=== PATIENT | male | born 1930 | race Caucasian/White ===

== ENCOUNTER 2016-03-25 18:05 | Inpatient (IN) | payer OTHER ==
[2016-03-25] MEDS ORDERED: NS 0.9% 1000 ML* 2,000 ML IV ONE (18:36)
[2016-03-25] MEDS ORDERED: cefTRIAXone VIAL(*) 1,000 MG in NS 0.9% 50 ML* 50 ML IVPB ONE (18:38)
[2016-03-25 18:52] LABS: Hematocrit 40 % (42-52); Mean Corpuscular HGB Conc 33 g/dl (31-36); Mean Corpuscular Hemoglobin 31 pg (27-31); Mean Corpuscular Volume 96 fL (80-94); Mean Platelet Volume 10 um3 (7.4-10.4); Red Blood Count 4.15 10^6/ul (4.0-5.4); Red Cell Distribution Width 14 % (10.5-15); White Blood Count 11.9 10^3/ul (3.5-10.8)
[2016-03-25 19:06] LABS: Urine Bilirubin Negative (Negative); Urine Glucose Negative (Negative); Urine Nitrite Negative (Negative)
[2016-03-25 19:06] LABS: Albumin 3.3 g/dL (3.2-5.2); BUN/Creatinine Ratio 17.2 (8-20); Calcium 9.2 mg/dL (8.6-10.3); EGFR African American 48.2 (>60); EGFR Non-African American 37.5 (>60); Globulin 3.8 g/dL (2-4); Potassium 3.8 mmol/L (3.5-5.0); Total Protein 7.1 g/dL (6.4-8.9)
[2016-03-25 19:09] LABS: Troponin I 0.07 ng/mL (<0.04)
--- NOTE | 2016-03-25 19:22 | RAD ---
HISTORY: Left rales COMPARISONS: August 11, 2015 VIEWS:1: Single frontal portable view of the chest at 6:59 PM FINDINGS: LINES AND TUBES: None. CARDIOMEDIASTINAL SILHOUETTE: The cardiomediastinal silhouette is normal for portable technique. PLEURA: The costophrenic angles are sharp. No pleural abnormalities are noted. LUNG PARENCHYMA: There is confluent alveolar opacification of the right lower lung ABDOMEN: The upper abdomen is clear. There is no subphrenic gas. BONES AND SOFT TISSUES: No bone or soft tissue abnormalities are noted. IMPRESSION: RIGHT LOWER LUNG CONSOLIDATION. RECOMMEND FOLLOW-UP UNTIL RESOLUTION TO EXCLUDE UNDERLYING PULMONARY PARENCHYMAL PATHOLOGY
--- NOTE | 2016-03-25 19:43 | HP ---
H&P (Free Text) History and Physical: PCP: Raj Tan MD Date/Time of Evaluation: 1944 CC: confusion, fever HPI: Mr Chalo is an 84YO male HX CAD/VT/stent x2, HTN, & dementia who was given a 7 day Rx for amoxicillin clavulanate by his PCP for URI symptoms filled 2016. His daughter with whom he lives reports he took it as prescribed. Yesterday he seemed to be doing well, but when he awoke this AM he informed his daughter he had vomited during the night. She states he looked OK and so she went to work, but had her brother check on him around 1300 when he was found in bed having lost control of bowel & bladder, was more confused than baseline, & generally too weak to walk. They helped him to the shower, cleaned him up, and called his PCP who advised taking him to the ED if he was not improve after an hour. He did not and was brought in for evaluation with finding of RLL infiltrate, hypoxia, & hypotension. He has had a seasonal influenza shot, but pneumovax status is unknown. Mr Isabel is demented to the degree he is unable to give a complete history. Therefore, this information is largely supplemented by his daughter, Leslie. PMedHx CAD/VT/stents x2 "pernicious" anemia, doubtful given only mild macrocytic anemia and only on oral B12 HTN HLD dementia Allergies No Known Allergies Allergy (Verified 12/10/15 14:04) Ambulatory Orders Aspirin [Aspirin Adult Low Dose] 81 mg PO DAILY 07/04/14 Atenolol TAB* [Tenormin TAB* 25 MG] 25 mg PO DAILY 07/04/14 Benazepril (NF) [Lotensin (NF)] 10 mg PO DAILY 07/04/14 Cyanocobalamin TAB* [Vitamin B12 TAB*] 1,000 mcg PO DAILY 07/22/14 Multiple Vitamins W/ Minerals [Multivitamin] 1 liq PO DAILY 07/22/14 Donepezil TAB* [Aricept TAB*] 11/19/14 Pravastatin Sodium 11/19/14 Azithromycin TAB* [Zithromax TAB (Z-ANDREA)*] 0 mg PO .Z-ANDREA INSTRUCTIONS #6 tab Benzonatate [Tessalon Perles] 100 mg PO QID PRN #30 cap 12/10/15 Fvriyiogwuy-Uukrg-Rh W/APAP [Nyquil] 12/10/15 PSurgHx R hip FX repair (FX occurred at ~age 70 while ski jumping in [place]) SocHx: no tobacco, alcohol, or recreational drugs; lives with his daughter; full code status, needs revisiting FamHx: daughter: pernicious anemia ROS: as above, otherwise reviewed and all were negative Constitutional: NAD, normally developed, overweight elderly white male vitals: Vital Signs Temp 38.3 C 03/25/16 18:14 Pulse 84 03/25/16 18:14 Resp 20 03/25/16 18:14 BP 103/57 03/25/16 18:14 Pulse Ox 95 03/25/16 18:14 Intake & Output 03/24/16 03/25/16 03/25/16 23:59 11:59 23:59 Weight 92.986 kg HEENM: atraumatic; sclera/conjunctiva: non-icteric/clear; hearing: clinically mildly decreased; oropharynx: clear, mucosa tacky Neck: soft tissue: no nuchal rigidity; thyroid: normal Pulmonary: clear to auscultation bilaterally, good aeration, no accessory muscle use CV: RR/RR, normal S1S2, no carotid bruit, no jugular venous distention, 2+ B DP/ PT, no edema Abdominal: soft, non-distended, non-tender, no rebound/guarding/rigidity, normoactive bowel sounds, no hepatosplenomegaly or masses, no costovertebral angle tenderness Integumental: normal appearance and texture Psychiatric orientation: AA&O to person, loosely to place & situation affect: calm mood: cooperative eye contact: fair content: minimal memory: impaired responses: mildly slowed insight: poor Testing: Lab Results 03/25/16 03/25/16 03/25/16 Range/Units 18:35 18:35 18:35 WBC 11.9 H (3.5-10.8) 10^3/ul RBC 4.15 (4.0-5.4) 10^6/ul Hgb 13.0 L (14.0-18.0) g/dl Hct 40 L (42-52) % MCV 96 H (80-94) fL MCH 31 (27-31) pg MCHC 33 (31-36) g/dl RDW 14 (10.5-15) % Plt Count 171 (150-450) 10^3/ul MPV 10 (7.4-10.4) um3 Neut % (Auto) 92.2 H (38-83) % Lymph % (Auto) 2.4 L (25-47) % Davis % (Auto) 5.1 (1-9) % Eos % (Auto) 0 (0-6) % Baso % (Auto) 0.3 (0-2) % Absolute Neuts (auto) 11.0 H (1.5-7.7) 10^3/ul Absolute Lymphs (auto) 0.3 L (1.0-4.8) 10^3/ul Absolute Monos (auto) 0.6 (0-0.8) 10^3/ul Absolute Eos (auto) 0 (0-0.6) 10^3/ul Absolute Basos (auto) 0 (0-0.2) 10^3/ul Absolute Nucleated RBC 0.01 10^3/ul Nucleated RBC % 0.1 INR (Anticoag Therapy) 1.09 (0.89-1.11) APTT 25.8 L (26.0-36.3) seconds Sodium 138 (133-145) mmol/L Potassium 3.8 (3.5-5.0) mmol/L Chloride 106 (101-111) mmol/L Carbon Dioxide 21 L (22-32) mmol/L Anion Gap 11 (2-11) mmol/L BUN 30 H (6-24) mg/dL Creatinine 1.74 H (0.67-1.17) mg/dL Est GFR ( Amer) 48.2 (>60) Est GFR (Non-Af Amer) 37.5 (>60) BUN/Creatinine Ratio 17.2 (8-20) Glucose 107 H (70-100) mg/dL Lactic Acid (0.5-2.0) mmol/L Calcium 9.2 (8.6-10.3) mg/dL Total Bilirubin 0.70 (0.2-1.0) mg/dL AST 20 (13-39) U/L ALT 13 (7-52) U/L Alkaline Phosphatase 75 (34-104) U/L Troponin I 0.07 H* (<0.04) ng/mL B-Natriuretic Peptide ( - 100) pg/mL Total Protein 7.1 (6.4-8.9) g/dL Albumin 3.3 (3.2-5.2) g/dL Globulin 3.8 (2-4) g/dL Albumin/Globulin Ratio 0.9 L (1-3) Urine Color Urine Appearance Urine pH (5-9) Ur Specific [place] (1.010-1.030) Urine Protein (Negative) Urine Ketones (Negative) Urine Blood (Negative) Urine Nitrate (Negative) Urine Bilirubin (Negative) Urine Urobilinogen (Negative) Ur Leukocyte Esterase (Negative) Urine Glucose (Negative) Urine Ascorbic Acid (Negative) Influenza A (Rapid) (Negative) Influenza B (Rapid) (Negative) 03/25/16 03/25/16 03/25/16 Range/Units 18:35 18:35 18:50 WBC (3.5-10.8) 10^3/ul RBC (4.0-5.4) 10^6/ul Hgb (14.0-18.0) g/dl Hct (42-52) % MCV (80-94) fL MCH (27-31) pg MCHC (31-36) g/dl RDW (10.5-15) % Plt Count (150-450) 10^3/ul MPV (7.4-10.4) um3 Neut % (Auto) (38-83) % Lymph % (Auto) (25-47) % Davis % (Auto) (1-9) % Eos % (Auto) (0-6) % Baso % (Auto) (0-2) % Absolute Neuts (auto) (1.5-7.7) 10^3/ul Absolute Lymphs (auto) (1.0-4.8) 10^3/ul Absolute Monos (auto) (0-0.8) 10^3/ul Absolute Eos (auto) (0-0.6) 10^3/ul Absolute Basos (auto) (0-0.2) 10^3/ul Absolute Nucleated RBC 10^3/ul Nucleated RBC % INR (Anticoag Therapy) (0.89-1.11) APTT (26.0-36.3) seconds Sodium (133-145) mmol/L Potassium (3.5-5.0) mmol/L Chloride (101-111) mmol/L Carbon Dioxide (22-32) mmol/L Anion Gap (2-11) mmol/L BUN (6-24) mg/dL Creatinine (0.67-1.17) mg/dL Est GFR ( Amer) (>60) Est GFR (Non-Af Amer) (>60) BUN/Creatinine Ratio (8-20) Glucose (70-100) mg/dL Lactic Acid 4.4 H* (0.5-2.0) mmol/L Calcium (8.6-10.3) mg/dL Total Bilirubin (0.2-1.0) mg/dL AST (13-39) U/L ALT (7-52) U/L Alkaline Phosphatase (34-104) U/L Troponin I (<0.04) ng/mL B-Natriuretic Peptide 209 H ( - 100) pg/mL Total Protein (6.4-8.9) g/dL Albumin (3.2-5.2) g/dL Globulin (2-4) g/dL Albumin/Globulin Ratio (1-3) Urine Color Yellow Urine Appearance Cloudy Urine pH 5.0 (5-9) Ur Specific [place] 1.016 (1.010-1.030) Urine Protein Negative (Negative) Urine Ketones Negative (Negative) Urine Blood Negative (Negative) Urine Nitrate Negative (Negative) Urine Bilirubin Negative (Negative) Urine Urobilinogen Negative (Negative) Ur Leukocyte Esterase Negative (Negative) Urine Glucose Negative (Negative) Urine Ascorbic Acid * H (Negative) Influenza A (Rapid) (Negative) Influenza B (Rapid) (Negative) 03/25/16 Range/Units 19:26 WBC (3.5-10.8) 10^3/ul RBC (4.0-5.4) 10^6/ul Hgb (14.0-18.0) g/dl Hct (42-52) % MCV (80-94) fL MCH (27-31) pg MCHC (31-36) g/dl RDW (10.5-15) % Plt Count (150-450) 10^3/ul MPV (7.4-10.4) um3 Neut % (Auto) (38-83) % Lymph % (Auto) (25-47) % Davis % (Auto) (1-9) % Eos % (Auto) (0-6) % Baso % (Auto) (0-2) % Absolute Neuts (auto) (1.5-7.7) 10^3/ul Absolute Lymphs (auto) (1.0-4.8) 10^3/ul Absolute Monos (auto) (0-0.8) 10^3/ul Absolute Eos (auto) (0-0.6) 10^3/ul Absolute Basos (auto) (0-0.2) 10^3/ul Absolute Nucleated RBC 10^3/ul Nucleated RBC % INR (Anticoag Therapy) (0.89-1.11) APTT (26.0-36.3) seconds Sodium (133-145) mmol/L Potassium (3.5-5.0) mmol/L Chloride (101-111) mmol/L Carbon Dioxide (22-32) mmol/L Anion Gap (2-11) mmol/L BUN (6-24) mg/dL Creatinine (0.67-1.17) mg/dL Est GFR ( Amer) (>60) Est GFR (Non-Af Amer) (>60) BUN/Creatinine Ratio (8-20) Glucose (70-100) mg/dL Lactic Acid (0.5-2.0) mmol/L Calcium (8.6-10.3) mg/dL Total Bilirubin (0.2-1.0) mg/dL AST (13-39) U/L ALT (7-52) U/L Alkaline Phosphatase (34-104) U/L Troponin I (<0.04) ng/mL B-Natriuretic Peptide ( - 100) pg/mL Total Protein (6.4-8.9) g/dL Albumin (3.2-5.2) g/dL Globulin (2-4) g/dL Albumin/Globulin Ratio (1-3) Urine Color Urine Appearance Urine pH (5-9) Ur Specific [place] (1.010-1.030) Urine Protein (Negative) Urine Ketones (Negative) Urine Blood (Negative) Urine Nitrate (Negative) Urine Bilirubin (Negative) Urine Urobilinogen (Negative) Ur Leukocyte Esterase (Negative) Urine Glucose (Negative) Urine Ascorbic Acid (Negative) Influenza A (Rapid) Negative (Negative) Influenza B (Rapid) Negative (Negative) ECG, personally reviewed: NSR rate 92, occasional PACs, no ischemia CXR, personally reviewed: IMPRESSION: RIGHT LOWER LUNG CONSOLIDATION. RECOMMEND FOLLOW-UP UNTIL RESOLUTION TO EXCLUDE UNDERLYING PULMONARY PARENCHYMAL PATHOLOGY Impression: 85M presenting with hypoxic respiratory failure 2nd RLL CAP DIAGNOSIS & PLAN Primary hypoxic respiratory failure & toxic encephalopathy 2nd RLL CAP : supplemental oxygen : IV azithromycin & ceftriaxone : guifenesin : IV methylprednisolone : IVFs : blood & sputum CXs : urine S pneumo & Legionella antigens : rapid influenza negative : supportive care Secondary CAD/VT/stents x2 : continue aspirin macrocytic anemia : hold cyanocobalamin HTN : hold benezepril & atenolol in setting of septic shock HLD : continue pravastatin dementia : continue donepezil & memantine Admission Rational: inpatient for management of septic shock 2nd RLL CAP in patient at high risk for rapid severe/terminal decompensation DVTp: SCDs & heparin SQ Code Status: full, needs revisiting HCP: daughter, Leslie
[2016-03-25 19:47] LABS: Total Bilirubin 0.7 mg/dL (0.2-1.0)
[2016-03-25] MEDS ORDERED: Acetaminophen TAB* 325 MG PO PRN (20:53)
[2016-03-25] MEDS ORDERED: Ondansetron INJ* 2 MG/ML VIAL IV PRN (20:54)
[2016-03-25] MEDS ORDERED: CMCS: Melatonin (NF) 3 MG TAB PO PRN (20:54)
--- NOTE | 2016-03-25 20:57 | ED ---
Cami Dowling Michael, scribed for Lopez Mariscal MD on 03/25/16 at 1844 . Complex/Multi-Sys Presentation - HPI Summary HPI Summary: 85 y/o male comes to the ED presenting with AMS that started today at 1300. The pt's daughter and son were bedside. The son states that he checked on the pt at 1300 when he found him unable to walk in his bed. The patient normally ambulates without a walker, but today he needed a walker to ambulate. The son reports the patient soiled the bed with urination and feces. The pt also c/o fever and denies haematemesis. The daughter notes the vomit was clear. The PMHx is significant for [place] and dementia. - History Of Current Complaint Chief Complaint: EDAltMentalStatus Time Seen by Provider: 03/25/16 18:09 Hx Obtained From: Family/Souvenir Assembler, Medical Records Hx From Patient Unobtainable Due To: Dementia Onset/Duration: Sudden Onset, Lasting Hours, Still Present Timing: Constant Severity Currently: Moderate Severity Initially: Moderate Associated Signs And Symptoms: Positive: Vomiting, Other - AMS. bilateral LE weakness. - Allergies/Home Medications Allergies/Adverse Reactions: Allergies Allergy/AdvReac Type Severity Reaction Status Date / Time No Known Allergies Allergy Verified 12/10/15 14:04 PMH/Surg Hx/FS Hx/Imm Hx Endocrine/Hematology History: Denies: Hx Anticoagulant Therapy - ASA 81 mg daily, Hx Blood Disorders, Hx Diabetes Cardiovascular History: Reports: Hx Hypertension, Hx Myocardial Infarction Denies: Hx Pacemaker/ICD Respiratory History: Denies: Hx Asthma Psychiatric History: Denies: Hx Panic Disorder - Surgical History Surgery Procedure, Year, and Place: HEART STENTS FROM [facility] 20 YRS AGO( CARDS MAY NOT BE AVAILABLE),HIP PINNING and HIP REPLACEMENT right. 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 Denies: Hx Clostridium Difficile, Hx Hepatitis, Hx Human Immunodeficiency Virus (HIV), Hx of Known/Suspected MRSA, Hx Shingles, History Other Infectious Disease - TB as a young child, Traveled Outside the [place] in Last 30 Days - Family History Known Family History: Positive: Diabetes Family History: no known cardiovascular issues in family lineage - Social History Occupation: Retired Lives: Alone Alcohol Use: None Substance Use Type: Reports: None Smoking Status (MU): Former Smoker Type: Cigarettes Amount Used/How Often: 4 years Length of Time of Smoking/Using Tobacco: 65 years ago quit Have You Smoked in the Last Year: No Review of Systems Positive: Fever Positive: Vomiting Positive: Weakness All Other Systems Reviewed And Are Negative: Yes Physical Exam - Summary Physical Exam Summary: General: Comfortable, pleasant, alert, evidence of old right clavicle fx. HEENT: Moist mucosa. MELBA Neck: soft, supple, no adenopathy, no edema Heart: heart sounds distant. Lungs: hypoxic at 88% on arrival, rales left lower lobe and right side clear. Abdominal: Soft, flat, nontender Extremities: No edema, no calf tenderness Neuro: Alert and oriented x 3, cranial nerves 3-12 intact, industrial custodian and ankle flexion/extension both symmetric, asymmetric ability to puff out cheek. Psych: Logical, coherent Triage Information Reviewed: Yes Vital Signs On Initial Exam: Initial Vitals Temp Pulse Resp BP Pulse Ox 101.0 F 84 20 103/57 95 03/25/16 18:14 03/25/16 18:14 03/25/16 18:14 03/25/16 18:14 03/25/16 18:14 Vital Signs Reviewed: Yes Diagnostics - Vital Signs Vital Signs Temp Pulse Resp BP Pulse Ox 03/25/16 18:14 101.0 F 84 20 103/57 95 - Laboratory Lab Results: Lab Results 03/25/16 03/25/16 03/25/16 Range/Units 18:35 18:35 18:35 WBC 11.9 H (3.5-10.8) 10^3/ul RBC 4.15 (4.0-5.4) 10^6/ul Hgb 13.0 L (14.0-18.0) g/dl Hct 40 L (42-52) % MCV 96 H (80-94) fL MCH 31 (27-31) pg MCHC 33 (31-36) g/dl RDW 14 (10.5-15) % Plt Count 171 (150-450) 10^3/ul MPV 10 (7.4-10.4) um3 Neut % (Auto) 92.2 H (38-83) % Lymph % (Auto) 2.4 L (25-47) % Edwards % (Auto) 5.1 (1-9) % Eos % (Auto) 0 (0-6) % Baso % (Auto) 0.3 (0-2) % Absolute Neuts (auto) 11.0 H (1.5-7.7) 10^3/ul Absolute Lymphs (auto) 0.3 L (1.0-4.8) 10^3/ul Absolute Monos (auto) 0.6 (0-0.8) 10^3/ul Absolute Eos (auto) 0 (0-0.6) 10^3/ul Absolute Basos (auto) 0 (0-0.2) 10^3/ul Absolute Nucleated RBC 0.01 10^3/ul Nucleated RBC % 0.1 INR (Anticoag Therapy) 1.09 (0.89-1.11) APTT 25.8 L (26.0-36.3) seconds Sodium 138 (133-145) mmol/L Potassium 3.8 (3.5-5.0) mmol/L Chloride 106 (101-111) mmol/L Carbon Dioxide 21 L (22-32) mmol/L Anion Gap 11 (2-11) mmol/L BUN 30 H (6-24) mg/dL Creatinine 1.74 H (0.67-1.17) mg/dL Est GFR ( Amer) 48.2 (>60) Est GFR (Non-Af Amer) 37.5 (>60) BUN/Creatinine Ratio 17.2 (8-20) Glucose 107 H (70-100) mg/dL Lactic Acid (0.5-2.0) mmol/L Calcium 9.2 (8.6-10.3) mg/dL Total Bilirubin 0.70 (0.2-1.0) mg/dL AST 20 (13-39) U/L ALT 13 (7-52) U/L Alkaline Phosphatase 75 (34-104) U/L Troponin I 0.07 H* (<0.04) ng/mL B-Natriuretic Peptide ( - 100) pg/mL Total Protein 7.1 (6.4-8.9) g/dL Albumin 3.3 (3.2-5.2) g/dL Globulin 3.8 (2-4) g/dL Albumin/Globulin Ratio 0.9 L (1-3) Urine Color Urine Appearance Urine pH (5-9) Ur Specific [place] (1.010-1.030) Urine Protein (Negative) Urine Ketones (Negative) Urine Blood (Negative) Urine Nitrate (Negative) Urine Bilirubin (Negative) Urine Urobilinogen (Negative) Ur Leukocyte Esterase (Negative) Urine Glucose (Negative) Urine Ascorbic Acid (Negative) Influenza A (Rapid) (Negative) Influenza B (Rapid) (Negative) 03/25/16 03/25/16 03/25/16 Range/Units 18:35 18:35 18:50 WBC (3.5-10.8) 10^3/ul RBC (4.0-5.4) 10^6/ul Hgb (14.0-18.0) g/dl Hct (42-52) % MCV (80-94) fL MCH (27-31) pg MCHC (31-36) g/dl RDW (10.5-15) % Plt Count (150-450) 10^3/ul MPV (7.4-10.4) um3 Neut % (Auto) (38-83) % Lymph % (Auto) (25-47) % Edwards % (Auto) (1-9) % Eos % (Auto) (0-6) % Baso % (Auto) (0-2) % Absolute Neuts (auto) (1.5-7.7) 10^3/ul Absolute Lymphs (auto) (1.0-4.8) 10^3/ul Absolute Monos (auto) (0-0.8) 10^3/ul Absolute Eos (auto) (0-0.6) 10^3/ul Absolute Basos (auto) (0-0.2) 10^3/ul Absolute Nucleated RBC 10^3/ul Nucleated RBC % INR (Anticoag Therapy) (0.89-1.11) APTT (26.0-36.3) seconds Sodium (133-145) mmol/L Potassium (3.5-5.0) mmol/L Chloride (101-111) mmol/L Carbon Dioxide (22-32) mmol/L Anion Gap (2-11) mmol/L BUN (6-24) mg/dL Creatinine (0.67-1.17) mg/dL Est GFR ( Amer) (>60) Est GFR (Non-Af Amer) (>60) BUN/Creatinine Ratio (8-20) Glucose (70-100) mg/dL Lactic Acid 4.4 H* (0.5-2.0) mmol/L Calcium (8.6-10.3) mg/dL Total Bilirubin (0.2-1.0) mg/dL AST (13-39) U/L ALT (7-52) U/L Alkaline Phosphatase (34-104) U/L Troponin I (<0.04) ng/mL B-Natriuretic Peptide 209 H ( - 100) pg/mL Total Protein (6.4-8.9) g/dL Albumin (3.2-5.2) g/dL Globulin (2-4) g/dL Albumin/Globulin Ratio (1-3) Urine Color Yellow Urine Appearance Cloudy Urine pH 5.0 (5-9) Ur Specific [place] 1.016 (1.010-1.030) Urine Protein Negative (Negative) Urine Ketones Negative (Negative) Urine Blood Negative (Negative) Urine Nitrate Negative (Negative) Urine Bilirubin Negative (Negative) Urine Urobilinogen Negative (Negative) Ur Leukocyte Esterase Negative (Negative) Urine Glucose Negative (Negative) Urine Ascorbic Acid * H (Negative) Influenza A (Rapid) (Negative) Influenza B (Rapid) (Negative) 03/25/16 Range/Units 19:26 WBC (3.5-10.8) 10^3/ul RBC (4.0-5.4) 10^6/ul Hgb (14.0-18.0) g/dl Hct (42-52) % MCV (80-94) fL MCH (27-31) pg MCHC (31-36) g/dl RDW (10.5-15) % Plt Count (150-450) 10^3/ul MPV (7.4-10.4) um3 Neut % (Auto) (38-83) % Lymph % (Auto) (25-47) % Edwards % (Auto) (1-9) % Eos % (Auto) (0-6) % Baso % (Auto) (0-2) % Absolute Neuts (auto) (1.5-7.7) 10^3/ul Absolute Lymphs (auto) (1.0-4.8) 10^3/ul Absolute Monos (auto) (0-0.8) 10^3/ul Absolute Eos (auto) (0-0.6) 10^3/ul Absolute Basos (auto) (0-0.2) 10^3/ul Absolute Nucleated RBC 10^3/ul Nucleated RBC % INR (Anticoag Therapy) (0.89-1.11) APTT (26.0-36.3) seconds Sodium (133-145) mmol/L Potassium (3.5-5.0) mmol/L Chloride (101-111) mmol/L Carbon Dioxide (22-32) mmol/L Anion Gap (2-11) mmol/L BUN (6-24) mg/dL Creatinine (0.67-1.17) mg/dL Est GFR ( Amer) (>60) Est GFR (Non-Af Amer) (>60) BUN/Creatinine Ratio (8-20) Glucose (70-100) mg/dL Lactic Acid (0.5-2.0) mmol/L Calcium (8.6-10.3) mg/dL Total Bilirubin (0.2-1.0) mg/dL AST (13-39) U/L ALT (7-52) U/L Alkaline Phosphatase (34-104) U/L Troponin I (<0.04) ng/mL B-Natriuretic Peptide ( - 100) pg/mL Total Protein (6.4-8.9) g/dL Albumin (3.2-5.2) g/dL Globulin (2-4) g/dL Albumin/Globulin Ratio (1-3) Urine Color Urine Appearance Urine pH (5-9) Ur Specific [place] (1.010-1.030) Urine Protein (Negative) Urine Ketones (Negative) Urine Blood (Negative) Urine Nitrate (Negative) Urine Bilirubin (Negative) Urine Urobilinogen (Negative) Ur Leukocyte Esterase (Negative) Urine Glucose (Negative) Urine Ascorbic Acid (Negative) Influenza A (Rapid) Negative (Negative) Influenza B (Rapid) Negative (Negative) Result Diagrams: 03/25/16 18:35 03/25/16 18:35 Lab Statement: Any lab studies that have been ordered have been reviewed, and results considered in the medical decision making process. - Radiology CXR Xray Interpretation: Positive (See Comments) - RIGHT LOWER LUNG CONSOLIDATION. RECOMMEND FOLLOW-UP UNTIL RESOLUTION TO EXCLUDE UNDERLYING PULMONARY PARENCHYMAL PATHOLOGY Radiology Interpretation Completed By: Radiologist - EKG EK EKG Rhythm: Sinus Rhythm - 92 bpm EKG Interpretation: no st changes Complex Multi-Symp Course/Dx Course Of Treatment: Dr. Lujan was consulted at 1700-Dr. Lujan wants hospitalist to admit the patient. Dr. Castellon (Hospitalist) was consulted at 1920-accepts the pt as an admission. Assessment/Plan: presents with global weakness with no focal neurological deficits. The patient is febrile and rales on the left. At this point I believe hes septic with PNA. XR suggests right lung consolidation. Troponin is elevated but believe its secondary to infection and STEMI is not primary etiology of his sx. Hospitalist accepts patient as an admission. - Diagnoses Differential Diagnoses/HQI/PQRI: Cardiac Ischemia, CVA, Metabolic Abnormality, Sepsis, Urinary Tract Infection Provider Diagnoses: Sepsis, NSTEMI (non-ST elevated myocardial infarction) - Critical Care Time Critical Care Time: 30-74 min - 30 minutes Discharge - Discharge Plan Condition: Stable Disposition: ADMITTED TO [facility] Discharge Disposition Comment: pt accepted as admission The documentation as recorded by the Cami plunkett Michael accurately reflects the service I personally performed and the decisions made by me, Lopez Mariscal MD.
[2016-03-25] MEDS ORDERED: methylPREDNISolone 125 MG* 2 ML VIAL IV ONE (21:30)
[2016-03-25] MEDS: Azithromycin IV(*) 500 MG in NS 0.9% 250 ML* 250 ML IVPB SCH (21:57)
[2016-03-25] MEDS: Docusate CAP* 100 MG PO SCH (21:59)
[2016-03-25] MEDS: Donepezil TAB* 5 MG PO SCH (22:00)
[2016-03-25] MEDS: Aspirin TAB* 325 MG PO SCH (22:01)
[2016-03-25] MEDS: guaiFENesin ER TAB 600 MG PO SCH (22:01)
[2016-03-25] MEDS: Memantine TAB* 10 MG PO SCH (22:02)
[2016-03-25] MEDS: NS 0.9% 1000 ML* 1,000 ML IV SCH (23:25)
[2016-03-26 00:51] LABS: Hematocrit 33 % (42-52); Hemoglobin 10.6 g/dl (14.0-18.0); Mean Corpuscular HGB Conc 33 g/dl (31-36); Mean Corpuscular Hemoglobin 31 pg (27-31); Mean Corpuscular Volume 95 fL (80-94); Mean Platelet Volume 10 um3 (7.4-10.4); Red Blood Count 3.43 10^6/ul (4.0-5.4); Red Cell Distribution Width 14 % (10.5-15); White Blood Count 13.9 10^3/ul (3.5-10.8)
[2016-03-26 01:02] LABS: BUN/Creatinine Ratio 18.6 (8-20); Calcium 7.8 mg/dL (8.6-10.3); EGFR African American 48.8 (>60); Potassium 4.8 mmol/L (3.5-5.0)
[2016-03-26 01:35] LABS: Troponin I 0.12 ng/mL (<0.04)
[2016-03-26] MEDS: Heparin VIAL(*) 5000 UNITS/ML VIAL (FIVE THOUSAND) SUBCUT SCH ×3 (05:03→21:14)
[2016-03-26] MEDS: Omeprazole CAP* 20 MG PO SCH (05:03)
[2016-03-26 05:46] LABS: Hematocrit 32 % (42-52); Hemoglobin 10.4 g/dl (14.0-18.0); Mean Corpuscular HGB Conc 33 g/dl (31-36); Mean Corpuscular Hemoglobin 31 pg (27-31); Mean Corpuscular Volume 95 fL (80-94); Mean Platelet Volume 10 um3 (7.4-10.4); Red Blood Count 3.31 10^6/ul (4.0-5.4); Red Cell Distribution Width 14 % (10.5-15); White Blood Count 15.2 10^3/ul (3.5-10.8)
[2016-03-26 06:03] LABS: BUN/Creatinine Ratio 19.1 (8-20); Calcium 7.9 mg/dL (8.6-10.3); EGFR African American 48.5 (>60); EGFR Non-African American 37.7 (>60); Potassium 4.6 mmol/L (3.5-5.0)
[2016-03-26] MEDS: NS 0.9% 1000 ML* 1,000 ML IV SCH ×2 (08:22→16:43)
[2016-03-26] MEDS: Atorvastatin* 20 MG TAB PO SCH (08:23)
[2016-03-26] MEDS: Docusate CAP* 100 MG PO SCH ×2 (08:23→20:38)
[2016-03-26] MEDS: guaiFENesin ER TAB 600 MG PO SCH ×2 (08:23→20:38)
[2016-03-26] MEDS: Aspirin TAB* 325 MG PO SCH (08:23)
[2016-03-26] MEDS: methylPREDNISolone SOD 40 MG* 1 ML VIAL IV SCH ×2 (08:23→17:50)
[2016-03-26] MEDS: Memantine TAB* 10 MG PO SCH ×2 (08:23→20:38)
[2016-03-26 10:06] LABS: C Reactive Protein 80.07 mg/L (< 5.00)
[2016-03-26 10:32] LABS: C Reactive Protein 28.11 mg/L (< 5.00)
[2016-03-26] MEDS: cefTRIAXone VIAL(*) 1,000 MG in NS 0.9% 50 ML* 50 ML IVPB SCH (17:49)
[2016-03-26] MEDS: Donepezil TAB* 5 MG PO SCH (20:38)
[2016-03-26] MEDS: Azithromycin IV(*) 500 MG in NS 0.9% 250 ML* 250 ML IVPB SCH (21:07)
[2016-03-27] MEDS: methylPREDNISolone SOD 40 MG* 1 ML VIAL IV SCH ×2 (01:09→08:04)
[2016-03-27] MEDS: NS 0.9% 1000 ML* 1,000 ML IV SCH (01:49)
[2016-03-27] MEDS: Heparin VIAL(*) 5000 UNITS/ML VIAL (FIVE THOUSAND) SUBCUT SCH ×3 (05:06→22:19)
[2016-03-27] MEDS: Omeprazole CAP* 20 MG PO SCH (05:06)
[2016-03-27 07:07] LABS: Hematocrit 30 % (42-52); Hemoglobin 9.6 g/dl (14.0-18.0); Mean Corpuscular HGB Conc 32 g/dl (31-36); Mean Corpuscular Hemoglobin 31 pg (27-31); Mean Corpuscular Volume 96 fL (80-94); Mean Platelet Volume 10 um3 (7.4-10.4); Red Blood Count 3.12 10^6/ul (4.0-5.4); Red Cell Distribution Width 14 % (10.5-15); White Blood Count 17.1 10^3/ul (3.5-10.8)
[2016-03-27 07:22] LABS: Albumin 2.7 g/dL (3.2-5.2); BUN/Creatinine Ratio 26.6 (8-20); C Reactive Protein 172.81 mg/L (< 5.00); Calcium 7.5 mg/dL (8.6-10.3); EGFR African American 71.3 (>60); EGFR Non-African American 55.4 (>60); Potassium 3.6 mmol/L (3.5-5.0); Total Bilirubin 0.3 mg/dL (0.2-1.0); Total Protein 5.7 g/dL (6.4-8.9)
[2016-03-27] MEDS: Docusate CAP* 100 MG PO SCH ×2 (08:04→22:12)
[2016-03-27] MEDS: Atorvastatin* 20 MG TAB PO SCH (08:04)
[2016-03-27] MEDS: Memantine TAB* 10 MG PO SCH ×2 (08:04→22:12)
[2016-03-27] MEDS: Aspirin TAB* 325 MG PO SCH (08:04)
[2016-03-27] MEDS: guaiFENesin ER TAB 600 MG PO SCH ×2 (08:04→22:14)
--- NOTE | 2016-03-27 09:53 | PN ---
Subjective - Subjective Reason for Note: Progress Note History: I am the attending physician for this patient in Emiliano Tan MD's absence today and 03/28/2016. I reviewed the H and P, Dr. Emiliano Tan's note, I spoke with his daughter and also spoke directly with Dr. Emiliano Tan. I have reviewed the electronic medical record. Today he is much more awake and alert. He is oriented x 3 and has normal speech. He has no cough/sputum. He denies any chest pain. There have been no sweats, fevers or chills. His appetite seems good. He has some loose stool and abdominal distension. 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 Stented coronary artery (Chronic) Z95.5 Current Medications: Current Medications Acetaminophen (Tylenol Tab*) 650 mg PO Q6H PRN PRN Reason: FEVER/PAIN Last Admin: 03/25/16 23:24 Dose: 650 mg Aspirin (Aspirin Tab*) 325 mg PO DAILY [facility] Last Admin: 03/27/16 08:04 Dose: 325 mg Atorvastatin Calcium (Lipitor*) 20 mg PO QAM [facility] Last Admin: 03/27/16 08:04 Dose: 20 mg Docusate Sodium (Colace Cap*) 200 mg PO BID [facility] Last Admin: 03/27/16 08:04 Dose: 200 mg Donepezil HCl (Aricept Tab*) 10 mg PO BEDTIME [facility] Last Admin: 03/26/16 20:38 Dose: 10 mg Guaifenesin (Mucinex*) 1,200 mg PO BID [facility] Last Admin: 03/27/16 08:04 Dose: 1,200 mg Heparin Sodium (Porcine) (Heparin Vial(*)) 5,000 units SUBCUT Q8HR [facility] Last Admin: 03/27/16 05:06 Dose: 5,000 units Sodium Chloride (Ns 0.9% 1000 Ml*) 1,000 mls @ 125 mls/hr IV PER RATE [facility] Last Admin: 03/27/16 01:49 Dose: 125 mls/hr Ceftriaxone Sodium 1,000 mg/ (Sodium Chloride) 50 mls @ 200 mls/hr IVPB Q24H [facility] Last Admin: 03/26/16 17:49 Dose: 200 mls/hr Azithromycin 500 mg/ Sodium (Chloride) 250 mls @ 250 mls/hr IVPB Q24H [facility] Last Admin: 03/26/16 21:07 Dose: 250 mls/hr Melatonin (Melatonin (Nf)) 3 mg PO BEDTIME PRN; Protocol PRN Reason: Sleep Memantine (Namenda Tab*) 10 mg PO BID [facility] Last Admin: 03/27/16 08:04 Dose: 10 mg Methylprednisolone Sodium Succinate (Solu-Medrol*) 40 mg IV Q8H [facility] Last Admin: 03/27/16 08:04 Dose: 40 mg Omeprazole (Prilosec Cap*) 20 mg PO DAILY@0600 [facility] Last Admin: 03/27/16 05:06 Dose: 20 mg Ondansetron HCl (Zofran Inj*) 4 mg IV Q6H PRN PRN Reason: NAUSEA - Review of Systems Constitutional Symptoms: Yes: Weakness, No: Fever, Night Sweats Dermatology: Skin Lesions: No Pulmonary: Negative: Cough, Sputum, Respiratory Distress Cardiology: Negative: Chest Pain, Shortness of Breath, Palpitations, Swelling of Ankles Gastroenterology: Positive: Diarrhea Negative: Abdominal Pain, Nausea, Vomiting Genital - Urinary: Negative: Dysuria, Hematuria, Polyuria Home Medications: Home Medications Medication Instructions Recorded Confirmed Type Aspirin [Aspirin Adult Low Dose] 81 mg PO DAILY 07/04/14 03/25/16 History Atenolol TAB* [Tenormin TAB* 25 MG] 12.5 mg PO DAILY 07/04/14 03/25/16 History Benazepril (NF) [Lotensin (NF)] 10 mg PO DAILY 07/04/14 03/25/16 History Donepezil TAB* [Aricept TAB*] 10 mg PO BEDTIME 11/19/14 03/25/16 History Pravastatin Sodium 80 mg PO QAM 11/19/14 03/25/16 History Cyanocobalamin TAB* [Vitamin B12 1,000 mcg PO DAILY 03/25/16 03/25/16 History TAB*] Memantine HCl 10 mg PO BID 03/25/16 03/25/16 History Multiple Vitamin [Multiple 1 tab PO DAILY 03/25/16 03/25/16 History Vitamins] Allergies: Allergies Allergy/AdvReac Type Severity Reaction Status Date / Time No Known Allergies Allergy Verified 12/10/15 14:04 Objective - Vital Signs Vital Signs: Vital Signs 03/26/16 03/26/16 03/26/16 10:55 11:30 15:54 Temperature 97.3 F 97.5 F Pulse Rate 70 74 Respiratory 16 16 Rate Blood Pressure 112/70 106/61 108/61 (mmHg) O2 Sat by Pulse 95 98 Oximetry 03/26/16 03/26/16 03/27/16 18:55 19:31 00:14 Temperature 98.1 F 97.4 F Pulse Rate 75 71 Respiratory 16 16 20 Rate Blood Pressure 112/62 111/65 (mmHg) O2 Sat by Pulse 100 97 Oximetry 03/27/16 03/27/16 04:30 06:53 Temperature 97.7 F Pulse Rate 72 Respiratory 20 18 Rate Blood Pressure 111/72 (mmHg) O2 Sat by Pulse 97 Oximetry - Intake and Output Intake and Output: Intake & Output 03/24/16 03/25/16 03/26/16 03/27/16 11:59 11:59 11:59 11:59 Intake Total 1559 4630 Output Total 400 Balance 1559 4230 Weight 154 lb 9.6 oz 170 lb 1.6 oz Intake: IV Fluids 899 2300 ABX - AZITHROMYCIN 260 NS (0.9%) 639 2300 IVPB 260 ABX - AZITHROMYCIN 260 Oral 660 2070 Output: Urine 400 Other: # Bowel Movements 1 1 Estimated Stool Amount Large # Voids 0 ADLs: Meal Record Start: 03/25/16 20: 57 Freq: DAILY@0900,1400,1800 Status: Active Document 03/26/16 09:00 [id number] (Rec: 03/26/16 09:09 [id number] TELE-C15) Document 03/26/16 14:00 [id number] (Rec: 03/26/16 14:33 [id number] TELE-C13) Document 03/26/16 18:00 [id number] (Rec: 03/26/16 22:17 [id number] [id number]) Intake and Output Start: 03/25/16 20: 57 Freq: DAILY@0600,1400,2200 Status: Active Document 03/25/16 22:00 [id number] (Rec: 03/25/16 22:12 [id number] TELE-L03) Document 03/26/16 06:00 [id number] (Rec: 03/26/16 06:17 [id number] TELE-C35) Document 03/26/16 14:00 [id number] (Rec: 03/26/16 14:33 [id number] TELE-C13) Document 03/26/16 22:00 [id number] (Rec: 03/26/16 22:18 [id number] TELE-C35) Document 03/27/16 06:00 [id number] (Rec: 03/27/16 06:05 [id number] [facility]) - Physical Exam General: No Cyanosis, No Anemia, No Clubbing Eye Exam: bilateral: EOMI Skin: Normal: Rash, Lesions Lungs and Chest: Yes: Chest Expansion Full, Chest Expansion Symetrica, Crackles - right base. No: Percussion Note Resonant - dull right base, Vessicular Breath Sounds - patchy bronchial breathing right base, Wheezes, Respiratory Distress, Use of Accessory Muscles Heart Rate and Rhythm: Regular JVP: Not Elevated Additional Cardiovascular: Yes: Normal Heart Sounds. No: Heart Murmur, Pedal Edema Abdominal Exam: Yes: Distention, Soft, Bowel Sounds Present. No: Abdominal Mass , Hepatomegaly, Splenomegaly, Abdominal Tenderness - Extremities Cranial Nerves II-XII Intact: Yes Limbs: Normal Power - Neuro Orientation: A/O x3 Psychiatric: Normal Speech: Normal Results - Results Lab Results: Laboratory Results - last 24 hr 03/26/16 03/26/16 03/27/16 00:40 05:26 07:00 WBC 17.1 H RBC 3.12 L Hgb 9.6 L Hct 30 L MCV 96 H MCH 31 MCHC 32 RDW 14 Plt Count 120 L MPV 10 Neut % (Auto) 93.3 H Lymph % (Auto) 3.1 L [place] % (Auto) 3.5 Eos % (Auto) 0 Baso % (Auto) 0.1 Absolute Neuts (auto) 16.0 H Absolute Lymphs (auto) 0.5 L Absolute Monos (auto) 0.6 Absolute Eos (auto) 0 Absolute Basos (auto) 0 Absolute Nucleated RBC 0 Nucleated RBC % 0 Sodium Potassium Chloride Carbon Dioxide Anion Gap BUN Creatinine Est GFR ( Amer) Est GFR (Non-Af Amer) BUN/Creatinine Ratio Glucose Calcium Total Bilirubin AST ALT Alkaline Phosphatase C-Reactive Protein 80.07 H Total Protein Albumin Globulin Albumin/Globulin Ratio Procalcitonin 70.3 H 03/27/16 03/27/16 07:00 07:00 WBC RBC Hgb Hct MCV MCH MCHC RDW Plt Count MPV Neut % (Auto) Lymph % (Auto) [place] % (Auto) Eos % (Auto) Baso % (Auto) Absolute Neuts (auto) Absolute Lymphs (auto) Absolute Monos (auto) Absolute Eos (auto) Absolute Basos (auto) Absolute Nucleated RBC Nucleated RBC % Sodium 137 Potassium 3.6 Chloride 114 H Carbon Dioxide 19 L Anion Gap 4 BUN 33 H Creatinine 1.24 H Est GFR ( Amer) 71.3 Est GFR (Non-Af Amer) 55.4 BUN/Creatinine Ratio 26.6 H Glucose 121 H Calcium 7.5 L Total Bilirubin 0.30 AST 23 ALT 13 Alkaline Phosphatase 55 C-Reactive Protein 172.81 H Total Protein 5.7 L Albumin 2.7 L Globulin 3.0 Albumin/Globulin Ratio 0.9 L Procalcitonin 49.7 H Assessment - Problem List Assessment: Patient Problems Elevated troponin I level (Acute) Hypoxemia (Acute) Right lower lobe pneumonia (Acute) Glaucoma (Chronic) History of [place] (myocardial infarction) (Chronic) Hypercholesterolemia (Chronic) Hypertension (Chronic) Mild dementia (Chronic) Stented coronary artery (Chronic) Plan: Right lower lobe pneumonia (Acute) This is improving rapidly. He has physical signs. He is not coughing/bringing up sputum. Elevated troponin I level (Acute) not a primary problem Hypoxemia (Acute) using O2 Glaucoma (Chronic) I will start his medication when we know what it is History of [place] (myocardial infarction) (Chronic) inactive Hypercholesterolemia (Chronic) secondary diagnosis Hypertension (Chronic) secondary diagnosis Mild dementia (Chronic) secondary diagnosis - his mental state has clearly improved Stented coronary artery (Chronic) secondary diagnosis I will continue current IV antibacterials. I will obtain a PT/OT consultation as daughter is concerned about his gait. I spoke with both the patient and the daughter and explained the above. I will recheck labs 03/29/2016
[2016-03-27] MEDS: cefTRIAXone VIAL(*) 1,000 MG in NS 0.9% 50 ML* 50 ML IVPB SCH (17:42)
[2016-03-27] MEDS: Donepezil TAB* 5 MG PO SCH (22:13)
[2016-03-27] MEDS: [UNRECOGNIZED DRUG - OTHER] BOTH EYES SCH (22:29)
[2016-03-27] MEDS: Latanoprost 0.005%* 2.5 ml BTL BOTH EYES SCH (22:31)
[2016-03-27] MEDS: Azithromycin IV(*) 500 MG in NS 0.9% 250 ML* 250 ML IVPB SCH (23:07)
[2016-03-28] MEDS: Omeprazole CAP* 20 MG PO SCH (05:47)
[2016-03-28] MEDS: Heparin VIAL(*) 5000 UNITS/ML VIAL (FIVE THOUSAND) SUBCUT SCH ×3 (05:47→21:10)
[2016-03-28 05:51] LABS: Hematocrit 28 % (42-52); Hemoglobin 9.3 g/dl (14.0-18.0); Mean Corpuscular HGB Conc 33 g/dl (31-36); Mean Corpuscular Hemoglobin 31 pg (27-31); Mean Corpuscular Volume 95 fL (80-94); Mean Platelet Volume 10 um3 (7.4-10.4); Red Blood Count 2.97 10^6/ul (4.0-5.4); Red Cell Distribution Width 14 % (10.5-15); White Blood Count 14.4 10^3/ul (3.5-10.8)
[2016-03-28 06:08] LABS: BUN/Creatinine Ratio 26.6 (8-20); C Reactive Protein 87.18 mg/L (< 5.00); Calcium 7.6 mg/dL (8.6-10.3); EGFR African American 68.7 (>60); EGFR Non-African American 53.4 (>60); Potassium 3.5 mmol/L (3.5-5.0)
--- NOTE | 2016-03-28 07:43 | PN ---
Subjective - Subjective Reason for Note: Progress Note History: He was coughing when I entered, but he states he is feeling improved. He has no chest pain or palpitations. He has had no fever/sweats. He is not bringing up sputum. Current Medications: Current Medications Acetaminophen (Tylenol Tab*) 650 mg PO Q6H PRN PRN Reason: FEVER/PAIN Last Admin: 03/25/16 23:24 Dose: 650 mg Aspirin (Aspirin Tab*) 325 mg PO DAILY [facility] Last Admin: 03/27/16 08:04 Dose: 325 mg Atorvastatin Calcium (Lipitor*) 20 mg PO QAM [facility] Last Admin: 03/27/16 08:04 Dose: 20 mg Docusate Sodium (Colace Cap*) 200 mg PO BID [facility] Last Admin: 03/27/16 22:12 Dose: 200 mg Donepezil HCl (Aricept Tab*) 10 mg PO BEDTIME [facility] Last Admin: 03/27/16 22:13 Dose: 10 mg Guaifenesin (Mucinex*) 1,200 mg PO BID [facility] Last Admin: 03/27/16 22:14 Dose: 1,200 mg Heparin Sodium (Porcine) (Heparin Vial(*)) 5,000 units SUBCUT Q8HR [facility] Last Admin: 03/28/16 05:47 Dose: 5,000 units Ceftriaxone Sodium 1,000 mg/ (Sodium Chloride) 50 mls @ 200 mls/hr IVPB Q24H [facility] Last Admin: 03/27/16 17:42 Dose: 200 mls/hr Azithromycin 500 mg/ Sodium (Chloride) 250 mls @ 250 mls/hr IVPB Q24H [facility] Last Admin: 03/27/16 23:07 Dose: 250 mls/hr Latanoprost (Xalatan 0.005%*) 1 drop BOTH EYES 2100 [facility] Last Admin: 03/27/16 22:31 Dose: 1 drop Melatonin (Melatonin (Nf)) 3 mg PO BEDTIME PRN; Protocol PRN Reason: Sleep Memantine (Namenda Tab*) 10 mg PO BID [facility] Last Admin: 03/27/16 22:12 Dose: 10 mg Pto Refresh Tears (Lubricant Eye Drops) 1 dose BOTH EYES BEDTIME [facility] Last Admin: 03/27/16 22:29 Dose: 1 dose Omeprazole (Prilosec Cap*) 20 mg PO DAILY@0600 [facility] Last Admin: 03/28/16 05:47 Dose: 20 mg Ondansetron HCl (Zofran Inj*) 4 mg IV Q6H PRN PRN Reason: NAUSEA Prednisone (Deltasone Tab*) 20 mg PO DAILY [facility] Home Medications: Home Medications Medication Instructions Recorded Confirmed Type Aspirin [Aspirin Adult Low Dose] 81 mg PO DAILY 07/04/14 03/25/16 History Atenolol TAB* [Tenormin TAB* 25 MG] 12.5 mg PO DAILY 07/04/14 03/25/16 History Benazepril (NF) [Lotensin (NF)] 10 mg PO DAILY 07/04/14 03/25/16 History Donepezil TAB* [Aricept TAB*] 10 mg PO BEDTIME 11/19/14 03/25/16 History Pravastatin Sodium 80 mg PO QAM 11/19/14 03/25/16 History Cyanocobalamin TAB* [Vitamin B12 1,000 mcg PO DAILY 03/25/16 03/25/16 History TAB*] Memantine HCl 10 mg PO BID 03/25/16 03/25/16 History Multiple Vitamin [Multiple 1 tab PO DAILY 03/25/16 03/25/16 History Vitamins] Allergies: Allergies Allergy/AdvReac Type Severity Reaction Status Date / Time No Known Allergies Allergy Verified 12/10/15 14:04 Objective - Vital Signs Vital Signs: Vital Signs 03/27/16 03/27/16 03/27/16 07:59 11:31 16:08 Temperature 98.7 F 98.8 F 98.5 F Pulse Rate 72 78 83 Respiratory 16 16 16 Rate Blood Pressure 129/57 117/63 115/63 (mmHg) O2 Sat by Pulse 95 95 94 Oximetry 03/27/16 03/27/16 03/27/16 19:32 20:00 23:53 Temperature 98.5 F 97.9 F Pulse Rate 81 79 Respiratory 16 16 20 Rate Blood Pressure 130/75 132/65 (mmHg) O2 Sat by Pulse 93 96 Oximetry 03/28/16 03:36 Temperature 98.4 F Pulse Rate 70 Respiratory 20 Rate Blood Pressure 118/69 (mmHg) O2 Sat by Pulse 94 Oximetry - Intake and Output Intake and Output: Intake & Output 03/25/16 03/26/16 03/27/16 03/28/16 11:59 11:59 11:59 11:59 Intake Total 1559 5335 422 Output Total 400 0 Balance 1559 4935 422 Weight 154 lb 9.6 oz 170 lb 1.6 oz 171 lb 6.4 oz Intake: IV Fluids 899 2805 1 ABX - AZITHROMYCIN 260 NS (0.9%) 639 2805 1 IVPB 260 271 ABX - AZITHROMYCIN 260 NS (0.9%) 271 Oral 660 2270 150 Output: Urine 400 0 Other: Estimated Void Medium # Bowel Movements 1 1 1 Estimated Stool Amount Large Medium # Voids 0 1 ADLs: Meal Record Start: 03/25/16 20: 57 Freq: DAILY@0900,1400,1800 Status: Active Document 03/26/16 09:00 [id number] (Rec: 03/26/16 09:09 [id number] TELE-C15) Document 03/26/16 14:00 [id number] (Rec: 03/26/16 14:33 [id number] TELE-C13) Document 03/26/16 18:00 [id number] (Rec: 03/26/16 22:17 [id number] TELE-C35) Document 03/27/16 09:00 [id number] (Rec: 03/27/16 14:35 [id number] TELE-C01) Document 03/27/16 14:00 [id number] (Rec: 03/27/16 14:37 [id number] TELE-C01) Document 03/27/16 18:00 [id number] (Rec: 03/27/16 21:26 [id number] TELE-C34) Intake and Output Start: 03/25/16 20: 57 Freq: DAILY@0600,1400,2200 Status: Active Document 03/25/16 22:00 [id number] (Rec: 03/25/16 22:12 [id number] TELE-L03) Document 03/26/16 06:00 [id number] (Rec: 03/26/16 06:17 [id number] TELE-C35) Document 03/26/16 14:00 [id number] (Rec: 03/26/16 14:33 [id number] TELE-C13) Document 03/26/16 22:00 [id number] (Rec: 03/26/16 22:18 [id number] TELE-C35) Document 03/27/16 06:00 [id number] (Rec: 03/27/16 06:05 [id number] [facility] [place]) Document 03/27/16 14:00 [id number] (Rec: 03/27/16 14:37 [id number] TELE-C01) Document 03/27/16 22:00 [id number] (Rec: 03/27/16 22:03 [id number] TELE-C34) Document 03/28/16 06:00 [id number] (Rec: 03/28/16 06:10 [id number] TELE-C33) - Physical Exam General: No Cyanosis, No Anemia, No Jaundice, No Clubbing Lungs and Chest: Yes: Chest Expansion Full, Chest Expansion Symetrica, Crackles - right base, Wheezes, Other - tachypnea and prolonged expiratory phase of respiration. No: Percussion Note Resonant - dull right base, Vessicular Breath Sounds - patchy bronchial breathing right base, Respiratory Distress, Use of Accessory Muscles Heart Rate and Rhythm: Regular JVP: Not Elevated Additional Cardiovascular: Yes: Normal Heart Sounds. No: Heart Murmur, Pedal Edema Abdominal Exam: Yes: Distention - mild, Soft, Bowel Sounds Present. No: Hepatomegaly, Splenomegaly, Abdominal Tenderness - Extremities Cranial Nerves II-XII Intact: Yes Limbs: Normal Power - Neuro Orientation: A/O x3 Results - Results Lab Results: Laboratory Results - last 24 hr 03/27/16 03/28/16 03/28/16 07:00 05:39 05:39 WBC 14.4 H RBC 2.97 L Hgb 9.3 L Hct 28 L MCV 95 H MCH 31 MCHC 33 RDW 14 Plt Count 119 L MPV 10 Neut % (Auto) 88.6 H Lymph % (Auto) 5.9 L [place] % (Auto) 5.0 Eos % (Auto) 0 Baso % (Auto) 0.5 Absolute Neuts (auto) 12.7 H Absolute Lymphs (auto) 0.8 L Absolute Monos (auto) 0.7 Absolute Eos (auto) 0 Absolute Basos (auto) 0.1 Absolute Nucleated RBC 0 Nucleated RBC % 0 Sodium 141 Potassium 3.5 Chloride 119 H Carbon Dioxide 18 L Anion Gap 4 BUN 34 H Creatinine 1.28 H Est GFR ( Amer) 68.7 Est GFR (Non-Af Amer) 53.4 BUN/Creatinine Ratio 26.6 H Glucose 88 Calcium 7.6 L C-Reactive Protein 87.18 H Procalcitonin 49.7 H Assessment - Problem List Assessment: Patient Problems Elevated troponin I level (Acute) Hypoxemia (Acute) Right lower lobe pneumonia (Acute) Glaucoma (Chronic) History of [place] (myocardial infarction) (Chronic) Hypercholesterolemia (Chronic) Hypertension (Chronic) Mild dementia (Chronic) Stented coronary artery (Chronic) Plan: Hypoxemia (Acute)Right lower lobe pneumonia (Acute) He now has a cough and has expiratory wheeze. I will increase his prednisone to 20 mg bid and have RT/ bronchodilator therapy. I will also check BNP as I am concerned he may have developed volume overload - I stopped IVF yesterday. I will obtain a CXR. He may require diuretic therapy Elevated troponin I level (Acute) No rhythm disturbance on telemetry - discontinue Glaucoma (Chronic) Has eye drops History of [place] (myocardial infarction) (Chronic) Hypercholesterolemia (Chronic) secondary diagnosis Hypertension (Chronic) stable Mild dementia (Chronic) ongoing Stented coronary artery (Chronic) I explained the above to the patient and I spoke with Leslie his daughter.
[2016-03-28] MEDS: Aspirin TAB* 325 MG PO SCH (08:11)
[2016-03-28] MEDS: Atorvastatin* 20 MG TAB PO SCH (08:11)
[2016-03-28] MEDS: predniSONE TAB* 20 MG PO SCH ×2 (08:11→21:03)
[2016-03-28] MEDS: guaiFENesin ER TAB 600 MG PO SCH ×2 (08:11→21:03)
[2016-03-28] MEDS: Docusate CAP* 100 MG PO SCH ×2 (08:11→21:41)
[2016-03-28] MEDS: Memantine TAB* 10 MG PO SCH ×2 (08:11→21:03)
[2016-03-28] MEDS: Levalbuterol 0.63MG/3ML NEB INH SCH ×3 (08:49→20:23)
[2016-03-28] MEDS ORDERED: predniSONE TAB* 20 MG PO SCH (09:00)
--- NOTE | 2016-03-28 09:24 | RAD ---
HISTORY: Pneumonia, wheezing COMPARISONS: March 25, 2016 VIEWS: 2: Frontal dual-energy and lateral views of the chest. FINDINGS: CARDIOMEDIASTINAL SILHOUETTE: There are calcified mediastinal lymph nodes. MOMO: The momo are normal. PLEURA: There is blunting of the costophrenic angles bilaterally. LUNG PARENCHYMA: There is confluent alveolar opacification of the right lower lung, slightly improved from the previous examination. There is patchy alveolar position of the left lung base. Multiple calcified granulomas are noted ABDOMEN: The upper abdomen is clear. There is no subphrenic gas. BONES AND SOFT TISSUES: No bone or soft tissue abnormalities are noted. OTHER: None. IMPRESSION: 1. PERSISTENT RIGHT LOWER LUNG CONSOLIDATION. 2. PATCHY LEFT LOWER LUNG ATELECTASIS VERSUS CONSOLIDATION. 3. SMALL BILATERAL PLEURAL EFFUSIONS. 4. EVIDENCE OF EXPOSURE TO GRANULOMATOUS DISEASE.
[2016-03-28] MEDS ORDERED: Polyethylene Glycol 3350* 17 GM PACKET PO PRN (09:46)
[2016-03-28] MEDS: cefTRIAXone VIAL(*) 1,000 MG in NS 0.9% 50 ML* 50 ML IVPB SCH (17:55)
[2016-03-28] MEDS: [UNRECOGNIZED DRUG - OTHER] BOTH EYES SCH (21:01)
[2016-03-28] MEDS: Latanoprost 0.005%* 2.5 ml BTL BOTH EYES SCH (21:01)
[2016-03-28] MEDS: Donepezil TAB* 5 MG PO SCH (21:04)
[2016-03-28] MEDS: Azithromycin IV(*) 500 MG in NS 0.9% 250 ML* 250 ML IVPB SCH (21:10)
[2016-03-29] MEDS: Levalbuterol 0.63MG/3ML NEB INH SCH ×4 (00:59→19:38)
[2016-03-29 05:32] LABS: Hematocrit 29 % (42-52); Hemoglobin 9.4 g/dl (14.0-18.0); Mean Corpuscular HGB Conc 33 g/dl (31-36); Mean Corpuscular Hemoglobin 31 pg (27-31); Mean Corpuscular Volume 95 fL (80-94); Mean Platelet Volume 10 um3 (7.4-10.4); Red Blood Count 3.01 10^6/ul (4.0-5.4); Red Cell Distribution Width 14 % (10.5-15); White Blood Count 9.9 10^3/ul (3.5-10.8)
[2016-03-29] MEDS: Omeprazole CAP* 20 MG PO SCH (05:45)
[2016-03-29] MEDS: Heparin VIAL(*) 5000 UNITS/ML VIAL (FIVE THOUSAND) SUBCUT SCH ×3 (05:46→21:37)
[2016-03-29 05:55] LABS: BUN/Creatinine Ratio 21.3 (8-20); C Reactive Protein 51.31 mg/L (< 5.00); EGFR African American 69.3 (>60); EGFR Non-African American 53.9 (>60); Potassium 3.9 mmol/L (3.5-5.0)
[2016-03-29] MEDS: guaiFENesin ER TAB 600 MG PO SCH ×2 (08:16→21:32)
[2016-03-29] MEDS: Atorvastatin* 20 MG TAB PO SCH (08:16)
[2016-03-29] MEDS: Docusate CAP* 100 MG PO SCH ×2 (08:16→21:32)
[2016-03-29] MEDS: Aspirin TAB* 325 MG PO SCH (08:16)
[2016-03-29] MEDS: Memantine TAB* 10 MG PO SCH ×2 (08:16→21:31)
[2016-03-29] MEDS: predniSONE TAB* 20 MG PO SCH ×2 (08:16→21:32)
--- NOTE | 2016-03-29 13:21 | ECHO ---
Patient: ANDI MAC [facility] Rec#: [id number] : 1930 Date: 03/29/2016 Age: 85y Height: 177.8 cm / 70.0 in Weight: 77.11 kg / 170.0 lbs Sex: M BSA: 1.95 Room#: 75 Admit Date#: 03/25/2016 Type: Inpatient Referring: Clemencia Tan MD Reading: Jose Carlos Trujillo MD African Studies Professor: Bladimir Santos RDCS African Studies Professor: Delia Acosta Transthoracic Echocardiogram Indication: CHF BP: 114/62 Rhythm: NSR with PACs Findings History: CAD, [place], PCI, stent X2, HTN, dementia, TV, and HLD. Technical Comments: The study quality is good. Completed at 1243. Left Ventricle: The left ventricular chamber size is normal. Mild concentric left ventricular hypertrophy is observed. There is a focal wall motion abnormality present.There is moderate hypokinesis of the basilar inferior wall. Left ventricular systolic function is at the lower limits of normal. The estimated ejection fraction is 50-55%. Visually estimated is LVEF 50 % The assessment of diastolic function is non-diagnostic. Left Atrium: The left atrium is mildly dilated. Right Ventricle: The right ventricular cavity size is normal. The right ventricular global systolic function is normal. Right Atrium: The right atrium is mildly dilated. Aortic Valve: The aortic valve is trileaflet. Mild aortic leaflet calcification is visualized. There is mild aortic regurgitation. There is mild aortic stenosis. The mean gradient of the aortic valve is 11.3 mmHg. The peak instantaneous gradient of the aortic valve is 22.53 mmHg. The aortic valve area, by peak velocities, is calculated at 1.52 cm2. The aortic valve area, by VTI's, is calculated at 1.46 cm2. Highest aortic valve velocity was acquired with Pedoff in apical position. Mitral Valve: There is mitral annular calcification. The mitral valve leaflets are mildly thickened. There is mild mitral regurgitation. There is no evidence of mitral stenosis. Tricuspid Valve: The tricuspid valve leaflets are mildly thickened. There is mild tricuspid regurgitation. No pulmonary hypertension is noted. There is no tricuspid stenosis. Pulmonic Valve: The pulmonic valve appears normal. There is a trace pulmonic regurgitation. There is no pulmonic stenosis. Pericardium: A trivial pericardial effusion is visualized. There are no signs of significant hemodynamic compromise. Aorta: There is no dilatation of the ascending aorta. There is no dilatation of the aortic arch. There is no dilation of the aortic root. Pulmonary Artery: The main pulmonary artery appears normal. Venous: The inferior vena cava appears normal in size. There is a greater than 50% respiratory change in the inferior vena cava dimension. Conclusions Mild concentric left ventricular hypertrophy is observed. There is a focal wall motion abnormality present.There is moderate hypokinesis of the basilar inferior wall. Left ventricular systolic function is at the lower limits of normal. The estimated ejection fraction is 50-55%. Visually estimated is LVEF 50 % The left atrium is mildly dilated. No significant valvular disease: There is mild aortic regurgitation. There is mild aortic stenosis. There is mild mitral regurgitation. There is mild tricuspid regurgitation. There is a trace pulmonic regurgitation. No reports of prior studies are offered for comparison. Measurements Name Value Normal Range RVIDd (AP) 2D 3 cm (0.9 - 2.6) RVDdMajor (2D) 3 cm (2.2 - 4.4) RAd ISD 4CH 5.6 cm (3.4 - 4.9) RA (A4C)W 4.3 cm (2.9 - 4.6) IVSd (2D) 1.3 cm (0.6 - 1) LVPWd (2D) 1.43 cm (0.6 - 1) LVIDd (2D) 4.9 cm (3.6 - 5.4) LVIDs (2D) 3.5 cm - LVIDd (2D) index 2.51 cm/m2 - LVIDs (2D) index 1.79 cm/m2 - LV FS (2D) 29 % (25 - 45) Aortic Annulus 1.9 cm (1.4 - 2.6) Ao root diameter (2D) 3 cm (2.1 - 3.5) Ascending Ao 2.9 cm (2.1 - 3.4) Aortic arch 2.73 cm (1.8 - 3.4) LA dimension (AP) 2D 3.2 cm (2.3 - 3.8) LAd ISD 4CH 5.1 cm (2.9 - 5.3) LA ISD 4CH W 4.1 cm (2.5 - 4.5) Name Value Normal Range LA ESV SP 4CH (A/L) 54 ml - LA ESV SP 2CH (A/L) 85 ml - LA ESV BP (A/L) 72 ml - LA ESV BP (A/L) index 37 ml/m2 - LA ESV SP 4CH (MOD) 51 ml - LA ESV SP 2CH (MOD) 75 ml - Name Value Normal Range MV E-wave Vmax 1 m/sec - MV deceleration time 158 msec - MV A-wave Vmax 0.81 m/sec - MV E:A ratio 1.2 ratio - LV septal e' Vmax 0.06 m/sec - LV lateral e' Vmax 0.11 m/sec - LV E:e' septal ratio 16.7 ratio - LV E:e' lateral ratio 9.1 ratio - Name Value Normal Range AV Vmax 2.37 m/sec - AV VTI 56.6 cm - AV peak gradient 22.53 mmHg - AV mean gradient 11.3 mmHg - LVOT diameter 2.2 cm - LVOT Vmax 0.95 m/sec - LVOT VTI 21.7 cm - LVOT peak gradient 3.61 mmHg - LVOT mean gradient 2.13 mmHg - RAEANN (continuity Vmax) 1.52 cm2 - RAEANN (continuity VTI) 1.46 cm2 - AR PHT 592 msec - BLUE Vmax 0.49 m/sec - Name Value Normal Range TR Vmax 2.15 m/sec - TR peak gradient 19 mmHg - RAP 3 mmHg - RVSP 22 mmHg - IVC diameter 1.5 cm - Name Value Normal Range PV Vmax 0.65 m/sec - PV peak gradient 1.7 mmHg -
[2016-03-29] MEDS: cefTRIAXone VIAL(*) 1,000 MG in NS 0.9% 50 ML* 50 ML IVPB SCH (17:41)
[2016-03-29] MEDS: Donepezil TAB* 5 MG PO SCH (21:32)
[2016-03-29] MEDS: [UNRECOGNIZED DRUG - OTHER] BOTH EYES SCH (21:36)
[2016-03-29] MEDS: Latanoprost 0.005%* 2.5 ml BTL BOTH EYES SCH (21:36)
[2016-03-30] MEDS: Levalbuterol 0.63MG/3ML NEB INH SCH ×3 (01:04→13:17)
[2016-03-30 04:51] LABS: Hematocrit 30 % (42-52); Mean Corpuscular HGB Conc 33 g/dl (31-36); Mean Corpuscular Hemoglobin 31 pg (27-31); Mean Corpuscular Volume 94 fL (80-94); Mean Platelet Volume 10 um3 (7.4-10.4); Red Blood Count 3.19 10^6/ul (4.0-5.4); Red Cell Distribution Width 14 % (10.5-15)
[2016-03-30 05:01] LABS: BUN/Creatinine Ratio 21.6 (8-20); Calcium 8.1 mg/dL (8.6-10.3); EGFR African American 70.6 (>60); EGFR Non-African American 54.9 (>60); Potassium 4.1 mmol/L (3.5-5.0)
[2016-03-30 05:05] LABS: Troponin I 0.08 ng/mL (<0.04)
[2016-03-30] MEDS: Omeprazole CAP* 20 MG PO SCH (05:48)
[2016-03-30] MEDS: Heparin VIAL(*) 5000 UNITS/ML VIAL (FIVE THOUSAND) SUBCUT SCH ×2 (05:49→14:27)
[2016-03-30] MEDS: guaiFENesin ER TAB 600 MG PO SCH (08:21)
[2016-03-30] MEDS: Docusate CAP* 100 MG PO SCH (08:21)
[2016-03-30] MEDS: Atorvastatin* 20 MG TAB PO SCH (08:21)
[2016-03-30] MEDS: Aspirin TAB* 325 MG PO SCH (08:21)
[2016-03-30] MEDS: Memantine TAB* 10 MG PO SCH (08:23)
[2016-03-30] MEDS: predniSONE TAB* 20 MG PO SCH (08:24)
[2016-03-30 08:40] VITALS: BP 157/77
--- NOTE | 2016-03-30 09:02 | RAD ---
HISTORY: CHF and coronary disease COMPARISONS: March 28, 2016 VIEWS: 2: Frontal dual-energy and lateral views of the chest. FINDINGS: CARDIOMEDIASTINAL SILHOUETTE: Again noted are calcified mediastinal lymph nodes. MOMO: The momo are normal. PLEURA: There are small bilateral pleural effusions, stable. LUNG PARENCHYMA: There is patchy alveolar opacification of the right lower lung and left lower lung. This is similar to the previous examination ABDOMEN: The upper abdomen is clear. There is no subphrenic gas. BONES AND SOFT TISSUES: No bone or soft tissue abnormalities are noted. OTHER: None. IMPRESSION: PERSISTENT SMALL BILATERAL EFFUSIONS WITH BIBASILAR ATELECTASIS VERSUS CONSOLIDATION.
--- NOTE | 2016-03-31 04:50 | DS ---
DISCHARGE SUMMARY: DATE OF ADMISSION: 03/25/16 DATE OF DISCHARGE: 03/30/16 DISCHARGE DIAGNOSES: 1. Pneumonia with sepsis, probably due to aspiration. 2. Coronary artery disease with remote history of coronary stent with elevated troponin, BNP and wall motion abnormality on echo during this admission. 3. Dementia, Alzheimer's type. 4. Thrombocytopenia related to #1. 5. History of hypertension. 6. Possible gastroenteritis preceding pneumonia. 7. History of pernicious anemia. 8. Hyperlipidemia, treated. HISTORY OF PRESENT ILLNESS: Leonidas Isabel is an 85-year-old man admitted with pneumonia with sepsis. Please see the dictated admission note for details of the present illness, past medical history, family history, social and personal history, review of systems, and physical examination. LABORATORY DATA: CBC on admission: WBC 11.9, H and H 13/40, MCV 96, PLT 171, 000. Subsequent white count went up to 17.1 on 01/25/16, was down to 9 on . H and H went down as well as 9.3/28 on 03/28/16, was 10/30 on 03/30/16. Platelet count went down as low as 119 on 03/28/16, was 137 on 03/30/16. INR 1.09. PTT 25.8. Chemistries on admission: Sodium 138, potassium 3.8, chloride 106, CO2 of 21, BUN and creatinine 30/1.74, glucose 107. Rest of the comprehensive metabolic panel was within normal limits. Troponin I was 0.07. CRP was 28.11. Lactic acid was 4.4, came down to 2.5 about 5 hours later. BNP started at 209, went up to 2325 on 03/28/16 with volume overload and was down to 1081 on 03/30/16. CRP went up as high as 172.81 on 03/27/16, was down to 51.31 on 03/29/16. Procalcitonin was 70.3 on 03/26/16, was 49.7 on 03/27/16, and 9.6 on 03/30/16. Troponin was 0.07 on 03/25/16, 0.12 on 03/26/16 and 0.08 on 03/30/16. Chemistries on 03/30/16: Sodium 139, potassium 4.1, chloride 113 , CO2 is 19, BUN and creatinine 27/1.25, glucose 110, calcium 8.1. Urinalysis on 03/25/16: Yellow, cloudy, specific gravity 1.016. Dipsticks negative except for urine ascorbic acid and serologies for influenza A and B were negative. Blood cultures were no growth. Urine for legionella and streptococcus pneumoniae were negative. IMAGING: Chest x-ray on 03/25/16 showed a right lower lobe infiltrate/ consolidation. Chest x-ray, 03/28/16, showed bibasilar infiltrates with small bilateral pleural effusions and evidence of exposure to granulomatous disease and chest x-ray on 03/30/16 showed small bilateral effusions with bibasilar atelectasis versus consolidation. EKG on 03/25/16 showed sinus rhythm, PACs, borderline low voltage, otherwise normal EKG changes from previous EKG due to lead placement. EKG on 03/26/16 showed rate slower, increased [place] prolongation, otherwise no change. An EKG on 03/29/16 showed sinus rhythm, low voltage, altered lead placement, no significant change. Echocardiogram showed EF 50% to 55% with basilar wall motion abnormality. HOSPITAL COURSE: The patient was initially admitted. He was placed on azithromycin and ceftriaxone. He also received methylprednisolone and IV fluids. He was given supplemental oxygen. He was full code. He was placed on DVT prophylaxis with heparin. PT evaluation was ordered. He improved. His procalcitonin came down. His CRP came down. His mental status improved by the morning after admission. His breathing improved. He did have wheezing due to volume overload. At this point, his IV fluids were discontinued on 03/28/16. By 03/29/16, he was feeling better. His breathing was not yet back to normal. He was getting Xopenex nebulizers. He was able to walk around the [place] yesterday. His azithromycin was stopped on this date. He was continued on ceftriaxone. By 03/30/16, he felt better and he was anxious to go home. His lungs sound clear except for decreased breath sounds at the bases. His heart was regular. His abdomen was nontender. He had no edema or calf tenderness. It was felt that his pneumonia with sepsis was improved. He was being discharged home on antibiotics and prednisone. With regards to his coronary artery disease, I discussed it with his daughter. He will be on increased dose of atenolol when he goes home. She will continue the conversation with him about whether they want to do further testing. For now, he will be on medical therapy. She did not think that he should have stress test or cath at this point and I agreed. His anemia will be followed. DIET: At the time of discharge, he is to be on regular diet. ACTIVITY: As tolerated. DISCHARGE MEDICATIONS: He is to be on following medications: 1. Atenolol 25 mg one daily. This is a new dose and a new prescription was sent into [facility]. 2. Albuterol 2 puffs every 4 hours as needed for wheezing or shortness of breath. 3. Benazepril 20 mg once a day. 4. Cefuroxime 250 mg twice a day for 5 days. 5. Prednisone 10 mg 3 a day for 2 days, 2 a day for 2 days, 1 a day for 2 days. 6. Donepezil 10 mg once a day. 7. Pravastatin 80 mg every evening. 8. Memantine 10 mg twice a day. 9. PreserVision AREDS 2 one a day. 10. Aspirin 81 mg once a day. 11. Vitamin D3 1000 units per day. 12. Multivitamins once a day. 13. B12 1000 mcg per day. Prescriptions were sent to [facility]. He is to follow up with me in 1 to 2 weeks. He is to have [facility] for outpatient monitoring, home health aide. Prescription was given for christy newsome. [id number]/[facility] #: [id number] ELEONORA
== END 2016-03-30 16:46 | disposition home health service (06) | DRG 871 ==
LOC: ED 18:05 → MEDTELE 20:02
PROVIDERS: ADMIT Hospitalist; ATTEND Internal Medicine Geriatric Medicine
DX: A41.9 Sepsis, unspecified organism (principal); J96.91 Respiratory failure, unspecified with hypoxia; J69.0 Pneumonitis due to inhalation of food and vomit; G92 Toxic encephalopathy; I25.2 Old myocardial infarction; I10 Essential (primary) hypertension; Z95.5 Presence of coronary angioplasty implant and graft; Z96.641 Presence of right artificial hip joint; Z87.891 Personal history of nicotine dependence; I25.10 Atherosclerotic heart disease of native coronary artery without angina pectoris; D53.9 Nutritional anemia, unspecified; H40.9 Unspecified glaucoma; G30.9 Alzheimer's disease, unspecified; F02.80 Dementia in other diseases classified elsewhere, unspecified severity, without behavioral disturbance, psychotic disturbance, mood disturbance, and anxiety; K52.9 Noninfective gastroenteritis and colitis, unspecified; D69.6 Thrombocytopenia, unspecified; E78.5 Hyperlipidemia, unspecified; Z79.82 Long term (current) use of aspirin
CPT/HCPCS: 36415; 71010; 71020; 80048; 80053; 81003; 83605; 83880; 84145; 84484; 85025; 85027; 85610; 85730; 86140; 87040; 87502; 87899; 93005; 93306; 94640; 94760; A9270-GY; J0456; J0696; J1644; J2920; J2930; J7512

== ENCOUNTER 2017-10-24 13:43 | Emergency (ER) | payer MEDICARE, OTHER ==
--- NOTE | 2017-10-24 13:53 | ED ---
Syncope/Near Syncope - HPI Summary HPI Summary: This pt is an 87 y/o male presenting to [facility] via EMS for a syncopal episode today. EMS reports the pt was at the [employer] doing his weekly [employer] Chi accompanied by his health aide. EMS states the pt ambulates with 2 walking sticks at baseline and as aide was walking with the pt, pt became wobbly and was immediately sat down. Per EMS pt went unresponsive for 30 seconds while sitting down. Denies fall or head strike. Upon EMS arriving to scene pt was back to normal and knew the month, his location, and president. EMS notes pt is baseline bradycardic because he used to do cross country skiing. Per EMS pt's heart rate dropped to 20s in their monitor but with manual palpation pt was mid 40s. BG was 121. Pt denies chest pain, SOB, abd pain. PMHx includes UT with stents x3 - History Of Current Complaint Hx Obtained From: Patient, EMS Onset/Duration: Sudden Onset, Resolved Timing: Constant Context: Witnessed, Loss Of Consciousness Activity At Onset: Other - while ambulating Associated Head Trauma: No Aggravating Factor(s): Nothing Alleviating Factor(s): Spontaneous Resolution Associated Signs And Symptoms: Negative - Allergies/Home Medications Allergies/Adverse Reactions: Allergies Allergy/AdvReac Type Severity Reaction Status Date / Time No Known Allergies Allergy Verified 12/10/15 14:04 Home Medications: Home Medications Aspirin EC TAB* [Ecotrin EC Low Dose 81 MG*] 81 mg PO DAILY 10/24/17 [History Confirmed 10/24/17] Atenolol TAB* [Tenormin TAB* 25 MG] 25 mg PO DAILY 10/24/17 [History Confirmed 10/24/17] Cholecalciferol (Vitamin D3) [Vitamin D3] 400 unit PO DAILY 10/24/17 [History Confirmed 10/24/17] Cyanocobalamin TAB* [Vitamin B12 TAB*] 1,000 mcg PO DAILY 10/24/17 [History Confirmed 10/24/17] Donepezil TAB* [Aricept 5 MG TAB*] 10 mg PO BEDTIME 10/24/17 [History Confirmed 10/24/17] Losartan TAB* [Cozaar TAB*] 50 mg PO DAILY 10/24/17 [History Confirmed 10/24/17] Memantine TAB* [Namenda TAB*] 10 mg PO DAILY 10/24/17 [History Confirmed ] Pravastatin (NF) [Pravachol (NF)] 80 mg PO QPM 10/24/17 [History Confirmed 10/24] Vit A/Vit C/Vit E/Zinc/Copper [Preservision Areds Softgel] 1 cap PO BID [History Confirmed 10/24/17] amLODIPine TAB* [Norvasc 5 mg TAB*] 5 mg PO DAILY 10/24/17 [History Confirmed ] PMH/Surg Hx/FS Hx/Imm Hx Endocrine/Hematology History: Denies: Hx Anticoagulant Therapy - ASA 81 mg daily, Hx Blood Disorders, Hx Diabetes, Hx Anemia Cardiovascular History: Reports: Hx Hypertension, Hx Myocardial Infarction Denies: Hx Pacemaker/ICD Respiratory History: Denies: Hx Asthma GI History: Denies: Hx Jaundice Psychiatric History: Denies: Hx Panic Disorder - Surgical History Surgery Procedure, Year, and Place: HEART STENTS FROM [facility] 20 YRS AGO( CARDS MAY NOT BE AVAILABLE),HIP PINNING and HIP REPLACEMENT right. 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 Denies: Hx Clostridium Difficile, Hx Hepatitis, Hx Human Immunodeficiency Virus (HIV), Hx of Known/Suspected MRSA, Hx Shingles, History Other Infectious Disease - TB as a young child - Family History Known Family History: Positive: Diabetes Negative: Cardiac Disease Family History: no known cardiovascular issues in family lineage - Social History Alcohol Use: None Substance Use Type: Reports: None Smoking Status (MU): Former Smoker Type: Cigarettes Amount Used/How Often: 4 years Length of Time of Smoking/Using Tobacco: 65 years ago quit Have You Smoked in the Last Year: No Review of Systems Negative: Fever, Chills Negative: Chest Pain Negative: Shortness Of Breath Negative: Abdominal Pain Positive: Syncope All Other Systems Reviewed And Are Negative: Yes Physical Exam - Summary Physical Exam Summary: Appearance: The patient is well-nourished in no acute distress and in no acute pain. Skin: The skin is warm and dry and skin color reflects adequate perfusion. HEENT: The head is normocephalic and atraumatic. The pupils are equal and reactive. The conjunctivae are clear and without drainage. Nares are patent and without drainage. Mouth reveals moist mucous membranes and the throat is without erythema and exudate. The external ears are intact. The ear canals are patent and without drainage. The tympanic membranes are intact. Neck: the neck is supple with full range of motion and non-tender. There are no carotid bruits. There is no neck vein distension. Respiratory: Chest is non-tender. Lungs are clear to auscultation and breath sounds are symmetrical and equal. Cardiovascular: Heart is bradycardic and regular rhythm. There is a systolic ejection murmur. There is no rub auscultated. There is no peripheral edema and pulses are symmetrical and equal. Abdomen: The abdomen is soft and non-tender. There are normal bowel sounds heard in all four quadrants and there is no organomegaly palpated. Musculoskeletal: There is no back tenderness noted. Extremities are non-tender with full range of motion. There is good capillary refill. There is no peripheral edema or calf tenderness elicited. Neurological: Patient is alert and oriented to person, place and time. The patient has symmetrical motor strength in all four extremities. Cranial nerves are grossly intact. Deep tendon reflexes are symmetrical and equal in all four extremities. Psychiatric: The patient has an appropriate affect and does not exhibit any anxiety or depression. Triage Information Reviewed: Yes Vital Signs Reviewed: Yes Diagnostics - Laboratory Result Diagrams: 10/24/17 14:59 10/24/17 14:59 Lab Statement: Any lab studies that have been ordered have been reviewed, and results considered in the medical decision making process. - Radiology Chest XR Xray Interpretation: No Acute Changes - IMPRESSION: No active cardiopulmonary disease. Dr. Luna has reviewed this report. Radiology Interpretation Completed By: Radiologist - CT CTA Chest CT Interpretation: No Acute Changes - IMPRESSION: No pulmonary embolus is noted. Multiple calcified granulomas in the lung yañez. Dr. Luna has reviewed this report. CT Interpretation Completed By: Radiologist - EKG 14:05 Cardiac Rate: Bradycardia - at 53 bpm EKG Rhythm: Sinus Rhythm EKG Interpretation: Horizontal axis. First degree block. National Institutes Of Health - NIH Scale Level of Consciousness: Alert/Keenly Responsive Ask Patient the Month and His/Her Age: Both Correct Ask Pt to Open/Close Eyes and Draw Fire Operator/Release Non-Paretic Hand: Both Correctly Best Gaze (Only Horizontal Eye Movement): Normal Visual Field Testing: No Visual Loss Facial Paresis-Pt to Smile & Close Eyes or Grimace Symmetry: Normal/Symmetrical Motor Function - Right Arm: No Drift-Holds 10 Seconds Motor Function - Left Arm: No Drift-Holds 10 Seconds Motor Function - Right Leg: No Drift-Holds 10 Seconds Motor Function - Left Leg: No Drift-Holds 10 Seconds Limb Ataxia-Must be out of Proportion to Weakness Present: Absent Sensory (Use Pinprick to Test Arms/Legs/Trunk/Face): Normal Best Language (Describe Picture, Name Items): No Aphasia Dysarthria (Read Several Words): Normal Extinction and Inattention: No Abnormality Total Score: 0 Re-Evaluation - Re-Evaluation First Eval Re-Evaluation Time: 18:01 Comment: I reviewed the labs and CTA results with the pt. Course/Dx Course Of Treatment: Mr. Isabel presented after having a witnessed syncopal episode. At the time of presentation he was asymptomatic and his NIH stroke scale was 0. He was kept on a monitor while labs and CT were obtained. These are within normal limits and I do not have a clear etiology for his syncope. I spoke with him and his son about how to proceed. I gave him a choice of being admitted to the hospital or being discharged and he chose discharge which I think is a reasonable choice. He does agree to follow-up with his PCP - Diagnoses Provider Diagnoses: Syncope Discharge - Sign-Out/Discharge Documenting (check all that apply): Patient Departure - Discharge - Discharge Plan Condition: Stable Disposition: HOME Patient Education Materials: Syncope (ED) Referrals: Clemencia Tan MD [Primary Care Provider] - Additional Instructions: Please follow up with your primary care provider in 2-3 days. RETURN TO THE ED FOR ANY WORSENING SYMPTOMS. - Billing Disposition and Condition Condition: STABLE Disposition: Home - Attestation Statements Document Initiated by Nanetteibe: Yes Documenting Scribe: Jade Durant Provider For Whom Pat is Documenting (Include Credential): Juni Luna MD Scribe Attestation: Jade Dowling, scribed for Juni Luna MD on 10/24/17 at 1923. Scribe Documentation Reviewed: Yes Provider Attestation: The documentation as recorded by the Jade plunkett accurately reflects the service I personally performed and the decisions made by me, Juni Luna MD
--- NOTE | 2017-10-24 15:03 | RAD ---
HISTORY: syncope COMPARISONS: March 30, 2016 VIEWS: 1: frontal portable view of the chest at 3:00 PM FINDINGS: LINES AND TUBES: None. CARDIOMEDIASTINAL SILHOUETTE: The aorta is tortuous. The cardiomediastinal silhouette is otherwise normal for portable technique. PLEURA: The costophrenic angles are sharp. No pleural abnormalities are noted. LUNG PARENCHYMA: There are calcified granulomas of the left lower lung. ABDOMEN: The upper abdomen is clear. There is no subphrenic gas. BONES AND SOFT TISSUES: No bone or soft tissue abnormalities are noted. IMPRESSION: NO ACTIVE CARDIOPULMONARY DISEASE.
[2017-10-24 15:20] LABS: ABS Basophils 0 10^3/ul (0-0.2); ABS Eosinophils 0.2 10^3/ul (0-0.6); ABS Lymphocytes 1.1 10^3/ul (1.0-4.8); ABS Monocytes 0.6 10^3/ul (0-0.8); ABS Neutrophils 5.5 10^3/ul (1.5-7.7); ABS Nucleated RBC 0 10^3/ul; Eosinophil % 2.1 % (0-6); Hematocrit 38 % (42-52); Hemoglobin 12.8 g/dl (14.0-18.0); INR 0.92 (0.77-1.02); Lymphocyte % 14.3 % (25-47); Mean Corpuscular HGB Conc 34 g/dl (31-36); Mean Corpuscular Hemoglobin 33 pg (27-31); Mean Corpuscular Volume 98 fL (80-94); Mean Platelet Volume 8.8 um3 (7.4-10.4); Nucleated Red Blood Cells % 0; Platelet Count 183 10^3/ul (150-450); Red Blood Count 3.86 10^6/ul (4.00-5.40); Red Cell Distribution Width 13 % (10.5-15); White Blood Count 7.4 10^3/ul (3.5-10.8)
[2017-10-24 15:43] LABS: EGFR Non-African American 42.9 (>60)
[2017-10-24] MEDS ORDERED: Iodixanol* (CONTRAST) 320 MG/ML 100 ML SDV IV ONE (17:04)
--- NOTE | 2017-10-24 17:20 | RAD ---
Indication: Syncope. Contrast: Administered 75.2 ml of Contrast -- mg/ml CTA of the chest was performed after IV contrast administration. Coronal and sagittal reconstructed images were obtained. The pulmonary arterial tree is well opacified. There are no filling defects present to suggest pulmonary embolus. The thoracic aorta demonstrates no evidence of aortic dissection. There is no mediastinal or hilar adenopathy. The heart demonstrates no pericardial effusion. Calcified granuloma is noted in the prevascular space. The lung yañez demonstrate left apical scarring. No evidence of alveolar consolidation is noted. There are densely calcified granulomas in the periphery of the left lower lobe and anterior right lower lobe. Old rib fractures are noted on the right side. No alveolar consolidation is noted. The visualized abdominal organs are otherwise unremarkable. IMPRESSION: No pulmonary embolus is noted. Multiple calcified granulomas in the lung yañez.
[2017-10-24 19:04] VITALS: BP 147/80
== END 2017-10-24 19:04 | disposition home or self-care (01) ==
LOC: ED 13:43
DX: R55 Syncope and collapse (principal); Z87.891 Personal history of nicotine dependence; I25.2 Old myocardial infarction; Z95.9 Presence of cardiac and vascular implant and graft, unspecified; I10 Essential (primary) hypertension
CPT/HCPCS: 36415; 71045; 71275; 80053; 83605; 83735; 83880; 84443; 84484; 85025; 85379; 85610; 93005; 99283; Q9967

== ENCOUNTER 2017-11-08 15:26 | Inpatient (IN) | payer MEDICARE ==
--- NOTE | 2017-11-08 17:08 | ED ---
Complex/Multi-Sys Presentation - HPI Summary HPI Summary: This patient is an 87 year old M presenting to ED with a chief complaint of being found this morning covered in his vomit and being urinary incontinent ( urine all over the bed). Patient was last seen at baseline last night at 2200. The patient rates the pain 0/10 in severity. Symptoms aggravated by nothing. Symptoms alleviated by nothing. Daughter reports diaphoresis and lethargy. - History Of Current Complaint Chief Complaint: EDWeakness Time Seen by Provider: 11/08/17 16:51 Hx Obtained From: Patient, Family/Model And Mold Maker - daughter Onset/Duration: Sudden Onset, Lasting Hours Timing: Constant Severity Currently: None Aggravating Factor(s): nothing Alleviating Factor(s): nothing Associated Signs And Symptoms: Positive: Vomiting, Other - urinary incontinence. Daughter reports diaphoresis and lethargy. - Allergies/Home Medications Allergies/Adverse Reactions: Allergies Allergy/AdvReac Type Severity Reaction Status Date / Time No Known Allergies Allergy Verified 12/10/15 14:04 Home Medications: Home Medications Atenolol TAB* [Tenormin TAB* 25 MG] 12.5 mg PO DAILY 11/08/17 [History Confirmed 11/08/17] PMH/Surg Hx/FS Hx/Imm Hx Endocrine/Hematology History: Denies: Hx Anticoagulant Therapy - ASA 81 mg daily, Hx Blood Disorders, Hx Diabetes, Hx Anemia Cardiovascular History: Reports: Hx Hypertension, Hx Myocardial Infarction Denies: Hx Pacemaker/ICD Respiratory History: Denies: Hx Asthma GI History: Denies: Hx Jaundice History: Denies: Hx Renal Disease Psychiatric History: Denies: Hx Panic Disorder - Surgical History Surgery Procedure, Year, and Place: [facility]ART STENTS [facility] 20 YRS AGO( CARDS MAY NOT BE AVAILABLE),HIP PINNING and HIP REPLACEMENT right. 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 Denies: Hx Clostridium Difficile, Hx Hepatitis, Hx Human Immunodeficiency Virus (HIV), Hx of Known/Suspected MRSA, Hx Shingles, History Other Infectious Disease - TB as a young child, Traveled Outside the [place] in Last 30 Days - Family History Known Family History: Positive: Diabetes Negative: Cardiac Disease Family History: no known cardiovascular issues in family lineage - Social History Alcohol Use: None Substance Use Type: Reports: None Smoking Status (MU): Former Smoker Type: Cigarettes Amount Used/How Often: 4 years Length of Time of Smoking/Using Tobacco: 65 years ago quit Have You Smoked in the Last Year: No Review of Systems Positive: Skin Diaphoresis Positive: Vomiting Positive: incontinence Neurological: Other - lethargy All Other Systems Reviewed And Are Negative: Yes Physical Exam - Summary Physical Exam Summary: Appearance: Well appearing, no pain distress Skin: warm, dry, reflects adequate perfusion Head/face: normal Eyes: EOMI, MELBA ENT: normal Neck: supple, non-tender Respiratory: CTA, breath sounds present Cardiovascular: RRR, pulses symmetrical Abdomen: non-tender, soft Bowel: present Musculoskeletal: normal, strength/ROM intact Neuro: sensory motor intact, Alert and confused GCS: 15 Triage Information Reviewed: Yes Vital Signs On Initial Exam: Initial Vitals Temp Pulse Resp BP Pulse Ox 99 F 66 17 131/68 97 11/08/17 15:40 11/08/17 15:40 11/08/17 15:40 11/08/17 15:40 11/08/17 15:40 Vital Signs Reviewed: Yes Diagnostics - Vital Signs Vital Signs Temp Pulse Resp BP Pulse Ox 11/08/17 15:40 99 F 66 17 131/68 97 - Laboratory Result Diagrams: 11/08/17 18:18 11/08/17 18:18 Lab Statement: Any lab studies that have been ordered have been reviewed, and results considered in the medical decision making process. - Radiology Abdomen XR Radiology Interpretation Completed By: Radiologist - No free air or obstruction is noted. ED physician has reviewed this radiology report. CXR Radiology Interpretation Completed By: Radiologist - RIGHT BASILAR AIRSPACE DISEASE CONSISTENT WITH RIGHT LOWER LOBE PNEUMONIA. CALCIFIED GRANULOMA IN THE LEFT LUNG BASE. ED physician has reviewed this radiology report. - CT Brain CT CT Interpretation Completed By: Radiologist - 1. There is stable age-related diffuse cerebral volume loss and chronic microvascular ischemic disease. 2. No acute intracranial pathology. 3. There is new fluid opacification of the left mastoid air cells and possibly the left middle ear cavity, cannot exclude left otomastoiditis. ED physician has reviewed this radiology report. - EKG 1726 Cardiac Rate: NL - 60 BPM EKG Rhythm: Sinus Rhythm EKG Interpretation: No acute changes Complex Multi-Symp Course/Dx Assessment/Plan: This patient is an 87 year old M presenting to ED with a chief complaint of being found this morning covered in his vomit and being urinary incontinent (urine all over the bed). Blood work/UA obtained. In the ED course, the patient was given fluids. Abdomen XR reveals no free air or obstruction is noted. CXR reveals RIGHT BASILAR AIRSPACE DISEASE CONSISTENT WITH RIGHT LOWER LOBE PNEUMONIA. CALCIFIED GRANULOMA IN THE LEFT LUNG BASE. Brain CT reveals 1. There is stable age-related diffuse cerebral volume loss and chronic microvascular ischemic disease. 2. No acute intracranial pathology. 3. There is new fluid opacification of the left mastoid air cells and possibly the left middle ear cavity, cannot exclude left otomastoiditis. The patient will be admitted to Dr. Mace. Patient understands and agrees with this plan. - Diagnoses Differential Diagnoses/HQI/PQRI: CVA, Metabolic Abnormality, Sepsis, Urinary Tract Infection, Other - pneumonia Provider Diagnoses: Sepsis, Pneumonia - Physician Notifications Discussed Care Of Patient With: Vikki Mace Time Discussed With Above Provider: 18:51 Instructed by Provider To: Other - Consulted Dr. Mace about the patient's case and she accepts the patient for admission. - Critical Care Time Critical Care Time: 30-74 min Discharge - Sign-Out/Discharge Documenting (check all that apply): Patient Departure - admit - Discharge Plan Condition: Stable Disposition: ADMITTED TO [facility] Referrals: Clemencia Tan MD [Primary Care Provider] - - Billing Disposition and Condition Condition: STABLE Disposition: Admitted to [facility] - Attestation Statements Document Initiated by Nanetteibquin: Yes Documenting Scribe: Caleb Herrera Provider For Whom Scribe is Documenting (Include Credential): Jose Miguel De La Torre MD Scribe Attestation: Caleb Dowling, scribed for Jose Miguel De La Torre MD on 11/08/17 at 1856. Scribe Documentation Reviewed: Yes Provider Attestation: The documentation as recorded by the Caleb plunkett accurately reflects the service I personally performed and the decisions made by , Jose Miguel De La Torre MD
[2017-11-08] MEDS ORDERED: NS 0.9% 1000 ML* 1,000 ML IV ONE (17:18)
--- NOTE | 2017-11-08 17:52 | RAD ---
Indication: Weakness. Flat and upright views of the abdomen demonstrates no free air. No dilated loops of bowel are noted. The colon is filled with stool. Multiple surgical hardware are noted in the right acetabulum from prior surgery. IMPRESSION: No free air or obstruction is noted.
--- NOTE | 2017-11-08 17:52 | RAD ---
Indication: Weakness. Single frontal view of the chest performed at 1740 hours was reviewed. Comparison is made with previous exam dated October 24, 2017. Cardiomegaly is noted. There is airspace disease in the right base which may represent right basilar pneumonia. Old rib fractures on the right are noted. Calcified granuloma in the left lung base. IMPRESSION: RIGHT BASILAR AIRSPACE DISEASE CONSISTENT WITH RIGHT LOWER LOBE PNEUMONIA. CALCIFIED GRANULOMA IN THE LEFT LUNG BASE.
--- NOTE | 2017-11-08 18:07 | RAD ---
EXAM: CT Head Without Intravenous Contrast CLINICAL HISTORY: 87 years old, male; Signs and symptoms; Altered mental status/memory loss; Additional info: AMS TECHNIQUE: Axial computed tomography images of the head/brain without intravenous contrast. All CT scans at this facility use at least one of these dose optimization techniques: automated exposure control; mA and/or kV adjustment per patient size (includes targeted exams where dose is matched to clinical indication); or iterative reconstruction. COMPARISON: BRAIN WO MRI BRAIN W/O 05/23/2014 7:59 AM FINDINGS: Brain: There is stable age-related diffuse cerebral volume loss and chronic microvascular ischemic disease. There are left-sided basal ganglia calcifications. No hemorrhage. Ventricles: Unremarkable. No ventriculomegaly. Bones/joints: Unremarkable. No acute fracture. Soft tissues: Unremarkable. Sinuses: Unremarkable as visualized. No acute sinusitis. Mastoid air cells: There is new fluid opacification of the left mastoid air cells and possibly the left middle ear cavity, cannot exclude left otomastoiditis. IMPRESSION: 1. There is stable age-related diffuse cerebral volume loss and chronic microvascular ischemic disease. 2. No acute intracranial pathology. 3. There is new fluid opacification of the left mastoid air cells and possibly the left middle ear cavity, cannot exclude left otomastoiditis.
[2017-11-08] MEDS ORDERED: cefTRIAXone(*) 1 GM in NS 0.9% 50 ML* 50 ML IVPB ONE (18:13)
[2017-11-08] MEDS ORDERED: Azithromycin IV(*) 500 MG in NS 0.9% 250 ML* 250 ML IVPB ONE (18:14)
[2017-11-08 18:27] LABS: ABS Basophils 0 10^3/ul (0-0.2); ABS Eosinophils 0 10^3/ul (0-0.6); ABS Lymphocytes 1.6 10^3/ul (1.0-4.8); ABS Monocytes 1.3 10^3/ul (0-0.8); ABS Neutrophils 13.6 10^3/ul (1.5-7.7); ABS Nucleated RBC 0 10^3/ul; Eosinophil % 0.2 % (0-6); Hematocrit 34 % (42-52); Hemoglobin 11.3 g/dl (14.0-18.0); Lymphocyte % 9.7 % (25-47); Mean Corpuscular HGB Conc 33 g/dl (31-36); Mean Corpuscular Hemoglobin 33 pg (27-31); Mean Corpuscular Volume 98 fL (80-94); Mean Platelet Volume 8.4 um3 (7.4-10.4); Nucleated Red Blood Cells % 0.1; Platelet Count 181 10^3/ul (150-450); Red Blood Count 3.48 10^6/ul (4.00-5.40); Red Cell Distribution Width 13 % (10.5-15); White Blood Count 16.6 10^3/ul (3.5-10.8)
[2017-11-08 18:50] LABS: EGFR Non-African American 43.9 (>60)
[2017-11-08] MEDS ORDERED: Acetaminophen TAB* 325 MG PO PRN (21:38)
[2017-11-08 22:17] LABS: INR 1.03 (0.77-1.02)
[2017-11-08] MEDS: Heparin VIAL(*) 5000 UNITS/ML VIAL (FIVE THOUSAND) SUBCUT SCH (23:33)
--- NOTE | 2017-11-09 03:39 | HP ---
CC: Dr. Clemencia Tan HISTORY AND PHYSICAL: DATE OF ADMISSION: 11/08/17 PRIMARY CARE PHYSICIAN: Dr. Clemencia Tan. ATTENDING PHYSICIAN: Dr. Castellon * (dictated by Bri Vegas NP). CHIEF COMPLAINT: Confusion, vomiting, urinary incontinence in bed. 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 The patient lives with his daughter and she was the one who found him. She noted he was less responsive than usual after that and was unsteady on his feet. She also noted that he had been coughing more than usual over the past few days. The patient denied shortness of breath, chest pain, palpitations, dizziness, dysuria, frequency, abdominal pain, nausea, or diarrhea. The patient did not have any additional episodes of vomiting. In the ED, the patient was afebrile with stable vitals. His EKG showed normal sinus rhythm with a prolonged AZ interval, but no signs of acute ischemia. He had a head CT that showed no acute intracranial pathology. Abdominal x-ray showed no free air or obstruction. Chest x-ray showed right basilar airspace disease consistent with right lower lobe pneumonia. The patient was started on ceftriaxone and azithromycin for presumed community-acquired pneumonia. Of note, the patient has had a similar presentation with a previous episode of pneumonia in 2017. Flu swab, blood cultures, sputum cultures, urine cultures, urine strep, and urine Legionella test have been ordered and are pending. Labs in the ED were notable for white blood cell count of 16.6. Troponin of 0.06 and CK of 608 likely demand ischemia in the setting of his pneumonia; however, we will of course continue to monitor and repeat troponins have been ordered. The patient is being admitted to the hospitalist service for management of presumed community-acquired pneumonia. PAST MEDICAL HISTORY: 1. RI. 2. Coronary artery disease with stents x3. 3. Hypertension. 4. Hyperlipidemia. 5. Pernicious anemia. 6. Dementia. 7. Remote history of TB as a child. PAST SURGICAL HISTORY: 1. Heart stents about 18 years ago. 2. Right hip pinning and hip replacement. HOME MEDICATIONS: 1. Losartan 50 mg p.o. daily. 2. Donepezil 10 mg p.o. at bedtime. 3. Vitamin B12 1000 mcg p.o. daily. 4. Norvasc 2.5 mg p.o. daily. 5. Pravastatin 80 mg p.o. daily. 6. Atenolol 12.5 mg p.o. daily. 7. Memantine 10 mg p.o. b.i.d. 8. Vitamin A/vitamin C/vitamin E/zinc/copper 1 tablet p.o. b.i.d. 9. Vitamin D3 400 units p.o. daily. 10. Aspirin 81 mg p.o. daily. ALLERGIES: This patient has no known drug allergies. FAMILY HISTORY: The patient has a sister with a history of coronary artery disease. The patient has an aunt with a history of diabetes as well as a niece , nephew, and granddaughter with a history of type 1 diabetes. He has no family members with cancer. SOCIAL HISTORY: The patient worked as a [employer] and he was exposed to many chemicals. The patient is not currently a smoker. He was a former smoker for about 1 year in his 20s. He denies alcohol or drug use. His daughter, Leslie, will be the surrogate decision maker in the event that the patient cannot make decisions for himself. REVIEW OF SYSTEMS: I performed a 14-point review of systems. All the pertinent positives and negatives are mentioned in the history of present illness. The remaining review of systems are negative. PHYSICAL EXAMINATION GENERAL APPEARANCE: The patient is alert, pleasant, and appears to be in no acute distress. VITAL SIGNS: Temperature 99, heart rate 63, respiratory rate 14, oxygen saturation 94% on room air, blood pressure 128/69. HEENT: Normocephalic, atraumatic. Pupils are equal, round, and reactive to light. Extraocular movements are intact. NECK: Supple. There is no lymphadenopathy noted. No JVD appreciated. RESPIRATORY: There is no accessory muscle use and lungs are clear to auscultation. Normal work of breathing. CARDIAC: Regular rate and rhythm. S1 and S2 present. There is a 2/6 systolic murmur heard best on the right sternal border. No rubs or gallops. ABDOMEN: Soft, nontender, nondistended. Bowel sounds x4. EXTREMITIES: There was no lower extremity edema. DP and PT pulses were 2+ and symmetric. MUSCULOSKELETAL: No clubbing or cyanosis noted. The patient exhibits good strength in all 4 extremities. NEUROLOGICAL: The patient is alert and oriented to person and place. Cranial nerves II through XII were intact. PSYCH: The patient is calm and cooperative. SKIN: There are no rashes or abnormalities seen. DIAGNOSTIC STUDIES/LAB DATA: The patient's sodium was 133, potassium 4.8, chloride 101, CO2 of 26, BUN 23, creatinine 1.51, glucose 111, lactic acid 1.9, calcium 9, magnesium 1.8. Troponin 0.06. Urinalysis is pending. EKG showed normal sinus rhythm with prolonged AZ interval. No signs of acute ischemia. Chest x-ray showed right basilar airspace disease consistent with right lower lobe pneumonia. Head CT showed no acute intracranial pathology. There is stable age-related diffuse cerebral volume loss and chronic microvascular ischemic disease. There is new fluid opacification of the left mastoid air cells and possibly the left middle ear cavity, cannot exclude left otomastoiditis. Abdominal x-ray showed no free air or obstruction. ASSESSMENT AND PLAN: This is an 87-year-old man with past medical history of myocardial infarction, coronary artery disease with stents, hypertension, hyperlipidemia, pernicious anemia, dementia, admitted for medical management of presumed community-acquired pneumonia. 1. Altered mental status. The patient is currently at baseline mental status per daughter, suspect the change from baseline was due to infection likely pneumonia given his chest x-ray. Blood culture, urine culture, and flu swab are also pending. 2. Pneumonia. Suspect community-acquired pneumonia over aspiration as the patient reports the patient has been coughing over the past few days. The patient has been started on ceftriaxone and azithromycin; however, if the patient's condition deteriorates or does not have anticipated response to antibiotics, we can consider broadening coverage. Sputum culture, urine strep, and urine Legionella are also pending. 3. Elevated troponins. EKG without acute ischemic changes and the patient denies chest pain or shortness of breath. This is likely demand ischemia in the setting of his pneumonia; however, we will of course continue to monitor and repeat troponins have been ordered. 4. History of coronary artery disease/myocardial infarction. We are going to continue the patient's atenolol, aspirin, and pravastatin. 5. Hypertension. The patient's blood pressure is currently well controlled. We are going to take a conservative blood pressure management approach over night by holding his home losartan and amlodipine, but can consider resuming if he becomes hypertensive. 6. Dementia. Continue the patient's home regimen of donepezil and memantine. 7. Fluids, electrolytes, and nutrition. The patient is on a heart-healthy diet. 8. The patient's code status is full code. 9. DVT prophylaxis. The patient is at high risk and will have subcu heparin for DVT prophylaxis. 10. Disposition. Anticipated discharge to home when clinically stable. TIME SPENT: Time spent for this admission was 60 minutes and 35 minutes were spent with the patient discussing medications, past medical history, and events leading up to the arrival today and performing a physical examination. The case has been reviewed with the attending, Dr. Castellon, who agrees with the plan of care. BRI VEGAS, WILLY [id number]/[facility] #: [id number] ELEONORA
[2017-11-09] MEDS: Heparin VIAL(*) 5000 UNITS/ML VIAL (FIVE THOUSAND) SUBCUT SCH ×3 (05:27→20:57)
[2017-11-09 05:46] LABS: Urine Appearance Clear; Urine Blood Negative (Negative); Urine Color Straw; Urine Ketones Negative (Negative); Urine Protein Negative (Negative); Urine Specific Gravity 1.004 (1.010-1.030); Urine Urobilinogen Negative (Negative)
[2017-11-09 06:43] LABS: ABS Basophils 0.1 10^3/ul (0-0.2); ABS Eosinophils 0.2 10^3/ul (0-0.6); ABS Lymphocytes 1.4 10^3/ul (1.0-4.8); ABS Monocytes 0.8 10^3/ul (0-0.8); ABS Neutrophils 8.5 10^3/ul (1.5-7.7); ABS Nucleated RBC 0 10^3/ul; Eosinophil % 1.8 % (0-6); Hematocrit 34 % (42-52); Hemoglobin 11.5 g/dl (14.0-18.0); Lymphocyte % 12.4 % (25-47); Mean Corpuscular HGB Conc 34 g/dl (31-36); Mean Corpuscular Hemoglobin 33 pg (27-31); Mean Corpuscular Volume 98 fL (80-94); Mean Platelet Volume 8.8 um3 (7.4-10.4); Nucleated Red Blood Cells % 0; Platelet Count 165 10^3/ul (150-450); Red Blood Count 3.47 10^6/ul (4.00-5.40); Red Cell Distribution Width 13 % (10.5-15); White Blood Count 10.9 10^3/ul (3.5-10.8)
[2017-11-09 07:08] LABS: EGFR Non-African American 46.8 (>60)
[2017-11-09] MEDS: Aspirin EC TAB* 81 MG TAB.EC PO SCH (08:43)
[2017-11-09] MEDS: Atenolol TAB* 25 MG PO SCH (08:44)
[2017-11-09] MEDS: Memantine TAB* 10 MG PO SCH ×2 (08:44→20:58)
--- NOTE | 2017-11-09 16:36 | ECHO ---
Patient: ANDI MAC [facility] Rec#: [id number] : 1930 Date: 11/09/2017 Age: 87y Height: 175.26 cm / 69.0 in Weight: 81.19 kg / 178.9 lbs Sex: M BSA: 1.97 Room#: [facility] Admit Date#: 11/09/2017 Type: Inpatient Referring: Clemencia Tan MD Reading: Kayode Pabon DO [employer] Clerk: [facility] Transthoracic Echocardiogram Indication: Valvular disease. BP: 126/58 HR: 58 Rhythm: Bradycardia Findings History: CAD, ID, s/p PCI, HTN, dementia, HLD. Technical Comments: The study quality is fair. Completed at 1330. Left Ventricle: The left ventricular chamber size is normal. Mild to moderate concentric left ventricular hypertrophy is observed. Left ventricular systolic function is at the lower limits of normal. The estimated ejection fraction is 50-55%. , appears closer to 50% Abnormal left ventricular diastolic function is observed. Abnormal left ventricular diastolic filling is observed, consistent with impaired relaxation. The basal inferior wall segment is hypokinetic (score 2). Overall wallmotion score index is 2.00 Left Atrium: The left atrium is moderately dilated. Right Ventricle: The right ventricular chamber size and systolic function are within normal limits. Right Atrium: The right atrium is moderately dilated. Aortic Valve: The aortic valve is trileaflet. Moderate aortic leaflet calcification is visualized. Systolic excursion of the aortic valve cusps is reduced. There is mild aortic regurgitation. There is mild to moderate aortic stenosis. The mean gradient of the aortic valve is 14.86 mmHg. The peak instantaneous gradient of the aortic valve is 23.14 mmHg. The aortic valve area, by VTI's, is calculated at 1.36 cm2. Mitral Valve: There is mitral annular calcification. The mitral valve leaflets are mildly thickened. There is mild mitral regurgitation. There is no evidence of mitral stenosis. Tricuspid Valve: The tricuspid valve leaflets are mildly thickened. There is mild tricuspid regurgitation. The right ventricular systolic pressure is estimated at 28 mmHg. No pulmonary hypertension is noted. There is no tricuspid stenosis. Pulmonic Valve: The pulmonic valve appears normal. There is a trace pulmonic regurgitation. There is no pulmonic stenosis. Pericardium: There is no significant pericardial effusion. Aorta: There is no dilatation of the ascending aorta. There is no dilatation of the aortic arch. The aortic root is normal in size. Pulmonary Artery: The main pulmonary artery appears normal. Venous: The inferior vena cava appears normal in size. There is a greater than 50% respiratory change in the inferior vena cava dimension. Conclusions The left ventricular chamber size is normal. Mild to moderate concentric left ventricular hypertrophy is observed. Left ventricular systolic function is at the lower limits of normal. The estimated ejection fraction is 50% The basal inferior wall segment is hypokinetic The left atrium is moderately dilated. The right ventricular chamber size and systolic function are within normal limits. There is mild to moderate aortic stenosis, more consistent with mild Compared to prior study from 03/2016, no acutely clinically significant changes noted Measurements Name Value Normal Range RVIDd (AP) 2D 3.1 cm (0.9 - 2.6) RVDdMajor (2D) 3.9 cm (2.2 - 4.4) RAd ISD 4CH 5.7 cm (3.4 - 4.9) RA (A4C)W 4.6 cm (2.9 - 4.6) IVSd (2D) 1.3 cm (0.6 - 1) LVPWd (2D) 1.3 cm (0.6 - 1) LVIDd (2D) 5.1 cm (3.6 - 5.4) LVIDs (2D) 4.4 cm - LV FS (2D) 13 % (25 - 45) Aortic Annulus 2.2 cm (1.4 - 2.6) Ao root diameter (2D) 3.2 cm (2.1 - 3.5) Ascending Ao 3.4 cm (2.1 - 3.4) Aortic arch 3 cm (1.8 - 3.4) LA dimension (AP) 2D 4.3 cm (2.3 - 3.8) LAd ISD 4CH 5.5 cm (2.9 - 5.3) LA ISD 4CH W 4.9 cm (2.5 - 4.5) Name Value Normal Range LA ESV SP 4CH (A/L) 66 ml - LA ESV SP 2CH (A/L) 95 ml - LA ESV BP (A/L) 87 ml - LA ESV BP (A/L) index 44 ml/m2 - LA ESV SP 4CH (MOD) 62 ml - LA ESV SP 2CH (MOD) 88 ml - Name Value Normal Range MV E-wave Vmax 0.68 m/sec - MV deceleration time 252.2 msec - MV A-wave Vmax 0.9 m/sec - MV E:A ratio 0.75 ratio - LV septal e' Vmax 0.03 m/sec - LV lateral e' Vmax 0.05 m/sec - LV E:e' septal ratio 22.67 ratio - LV E:e' lateral ratio 13.6 ratio - Name Value Normal Range AV Vmax 2.4 m/sec - AV VTI 62 cm - AV peak gradient 23.14 mmHg - AV mean gradient 14.86 mmHg - LVOT diameter 2.2 cm - LVOT Vmax 0.71 m/sec - LVOT VTI 22.3 cm - RAEANN (continuity VTI) 1.36 cm2 - AR PHT 492 msec - BLUE Vmax 0.6 m/sec - Name Value Normal Range TR Vmax 2.5 m/sec - TR peak gradient 25 mmHg - RAP 3 mmHg - RVSP 28 mmHg - IVC diameter 1.9 cm - Name Value Normal Range PV Vmax 0.82 m/sec - PV peak gradient 2.74 mmHg - Wallmotion BAS Not Seen BA Not Seen BAL Not Seen BRITTANY Not Seen BI Hypokinetic BIS Not Seen MAS Not Seen MA Not Seen MAL Not Seen MIL Not Seen ID Not Seen MIS Not Seen Not Seen AA Not Seen AL Not Seen AI Not Seen APEX Not Seen
[2017-11-09] MEDS: Atorvastatin* 20 MG TAB PO SCH (17:23)
[2017-11-09] MEDS: cefTRIAXone(*) 1 GM in NS 0.9% 50 ML* 50 ML IVPB SCH (18:04)
[2017-11-09] MEDS: Azithromycin IV(*) 500 MG in NS 0.9% 250 ML* 250 ML IVPB SCH (19:51)
[2017-11-09] MEDS: Donepezil TAB* 5 MG PO SCH (20:58)
[2017-11-10] MEDS: Heparin VIAL(*) 5000 UNITS/ML VIAL (FIVE THOUSAND) SUBCUT SCH ×3 (05:36→21:08)
[2017-11-10 06:21] LABS: ABS Basophils 0 10^3/ul (0-0.2); ABS Eosinophils 0.3 10^3/ul (0-0.6); ABS Lymphocytes 1.3 10^3/ul (1.0-4.8); ABS Monocytes 0.7 10^3/ul (0-0.8); ABS Neutrophils 4.6 10^3/ul (1.5-7.7); ABS Nucleated RBC 0 10^3/ul; Eosinophil % 4.4 % (0-6); Hematocrit 31 % (42-52); Hemoglobin 10.7 g/dl (14.0-18.0); Lymphocyte % 18.4 % (25-47); Mean Corpuscular HGB Conc 34 g/dl (31-36); Mean Corpuscular Hemoglobin 34 pg (27-31); Mean Corpuscular Volume 98 fL (80-94); Mean Platelet Volume 8.7 um3 (7.4-10.4); Nucleated Red Blood Cells % 0; Platelet Count 170 10^3/ul (150-450); Red Blood Count 3.19 10^6/ul (4.00-5.40); Red Cell Distribution Width 13 % (10.5-15); White Blood Count 6.9 10^3/ul (3.5-10.8)
[2017-11-10 06:38] LABS: EGFR Non-African American 48.3 (>60)
[2017-11-10] MEDS: Memantine TAB* 10 MG PO SCH ×2 (09:03→21:08)
[2017-11-10] MEDS: Aspirin EC TAB* 81 MG TAB.EC PO SCH (09:05)
[2017-11-10] MEDS: Atenolol TAB* 25 MG PO SCH (09:05)
[2017-11-10] MEDS: cefTRIAXone(*) 1 GM in NS 0.9% 50 ML* 50 ML IVPB SCH (18:12)
[2017-11-10] MEDS: Atorvastatin* 20 MG TAB PO SCH (18:13)
[2017-11-10] MEDS: Azithromycin IV(*) 500 MG in NS 0.9% 250 ML* 250 ML IVPB SCH (19:41)
[2017-11-10] MEDS: Donepezil TAB* 5 MG PO SCH (21:08)
[2017-11-11] MEDS: Heparin VIAL(*) 5000 UNITS/ML VIAL (FIVE THOUSAND) SUBCUT SCH ×3 (05:48→21:20)
[2017-11-11 06:01] LABS: ABS Basophils 0.1 10^3/ul (0-0.2); ABS Eosinophils 0.4 10^3/ul (0-0.6); ABS Lymphocytes 1.3 10^3/ul (1.0-4.8); ABS Monocytes 0.6 10^3/ul (0-0.8); ABS Neutrophils 3.6 10^3/ul (1.5-7.7); ABS Nucleated RBC 0 10^3/ul; Eosinophil % 5.9 % (0-6); Hematocrit 33 % (42-52); Hemoglobin 10.8 g/dl (14.0-18.0); Lymphocyte % 22.4 % (25-47); Mean Corpuscular HGB Conc 33 g/dl (31-36); Mean Corpuscular Hemoglobin 33 pg (27-31); Mean Corpuscular Volume 98 fL (80-94); Nucleated Red Blood Cells % 0.1; Platelet Count 189 10^3/ul (150-450); Red Blood Count 3.32 10^6/ul (4.00-5.40); Red Cell Distribution Width 13 % (10.5-15)
[2017-11-11] MEDS: Aspirin EC TAB* 81 MG TAB.EC PO SCH (08:54)
[2017-11-11] MEDS: Memantine TAB* 10 MG PO SCH ×2 (08:54→21:20)
[2017-11-11] MEDS: Atenolol TAB* 25 MG PO SCH (08:54)
--- NOTE | 2017-11-11 11:19 | RAD ---
HISTORY: pneumonia COMPARISONS: November 08, 2017 VIEWS: 4: Frontal dual-energy and lateral views of the chest. FINDINGS: CARDIOMEDIASTINAL SILHOUETTE: The cardiomediastinal silhouette is normal. MOMO: The momo are normal. PLEURA: The costophrenic angles are sharp. No pleural abnormalities are noted. LUNG PARENCHYMA: There is persistent patchy alveolar opacification of the right lower lung localizing to the right middle lobe on lateral view. ABDOMEN: The upper abdomen is clear. There is no subphrenic gas. BONES AND SOFT TISSUES: A chronic fractures noted of the right clavicle OTHER: None. IMPRESSION: PERSISTENT AIRSPACE DISEASE OF THE RIGHT LOWER LUNG. RECOMMEND FOLLOW-UP UNTIL RESOLUTION TO EXCLUDE UNDERLYING PULMONARY PARENCHYMAL PATHOLOGY.
--- NOTE | 2017-11-11 13:49 | CONS ---
CC: Dr. Clemencia Tan CARDIAC CONSULTATION: DATE OF CONSULT: 11/11/17 INDICATION FOR CONSULT: Coronary artery disease, abnormal troponin, nonsustained VT. HISTORY OF PRESENT ILLNESS: The patient is an 87-year-old gentleman with a history of coronary arter y disease, history of moderate dementia, hyperlipidemia, hypertension, who was admitted to the hospit tn after having an episode of vomiting and urinary incontinence. [facility] The patient was noted to have vomited in the morning and had some profound diaphoresis. He w as transported to the emergency room. In the emergency room, he was diagnosed with pneumonia as well as minimally elevated troponin levels. Since he has been in the hospital, the patient has had 2 run s of nonsustained VT, each were 6 beats in duration, at about 130 beats a minute. He also had some mild bradycardia. Of note, the patient did have an episode of syncope 2 weeks ago that was unexplained. PAST MEDICAL HISTORY: Coronary artery disease, stenting to his distal LAD, OM1 and OM3 vessel back i 1999. Hypertension, hyperlipidemia, pernicious anemia. PAST SURGICAL HISTORY: Right hip pinning, right hip replacement. OUTPATIENT MEDICATIONS: 1. Losartan 50 mg a day. 2. Donepezil 10 mg daily. 3. Norvasc 2.5 mg a day. 4. Pravastatin 80 mg a day. 5. Atenolol 12.5 mg a day. 6. Memantine 10 mg b.i.d. 7. Aspirin 81 mg a day. ALLERGIES: No known drug allergies. FAMILY HISTORY: Positive for coronary artery disease in his sister. No history of cancer. SOCIAL HISTORY: The patient is retired. He has moderate dementia. He lives with his daughter, who is his surrogate decision maker. Denies tobacco or alcohol use. REVIEW OF SYSTEMS: Difficult to assess as the patient has moderate dementia. PHYSICAL EXAM: Height is 5 feet 9 inches, weight is 169 pounds, temperature 97.7, heart rate is 58, blood pressure 136/63, respiratory rate is 16, oxygen saturation 95% on room air. Sclerae anicteric. Oropharynx is pink without erythema. Carotids are 2+ without bruits. JVD is normal. Thyroid is no rmal. Cardiac Exam: S1, S2 without any murmurs, rubs, or gallops. PMI is normal. Lungs have minima l rhonchi on the right. There are no rales. There is no dullness to percussion. Abdomen is soft, no ntender, nondistended with normoactive bowel sounds. Extremities show no edema. He has 2+ pulses thr oughout. The patient is awake and alert, only oriented to place. DIAGNOSTIC STUDIES/LAB DATA: CBC within normal limits. Chemistries within normal limits. BUN 22, c reatinine 1.4. AST and ALT are normal. Troponin peak at 0.08. EKG demonstrates normal sinus rhythm, old inferior wall myocardial infarction. Echocardiogram shows low normal LV systolic function, ejection fraction of 50% to 55%. He has hypoki nesis of the basal inferior wall. No significant valvular abnormalities. IMPRESSION AND PLAN: This is an 87-year-old gentleman, who was admitted to the hospital because of e pisode of vomiting. The patient has some degree of aspiration pneumonia. The patient was found to h ave minimally elevated troponin levels and echocardiogram as described above. On telemetry, the patient has shown nonsustained ventricular tachycardia as well as some degree of mo derate bradycardia. The question is how to best treat the patient of his age with moderate dementia. At this point, I am not convinced that a stress test is necessary as the patient would not likely be a good candidate for cardiac catheterization without more significant abnormalities found. My greatest concern is his rhythm management. The patient does have nonsustained ventricular tachyca rdia. He does have mild bradycardia as well as a syncopal episode 2 weeks ago. For now, I would recommend stopping the atenolol altogether. I would recommend starting amiodarone a t 100 mg a day for its antiarrhythmic effect and hope that it does not slow his heart rate down too m uch. I would strongly consider an implantable event monitor for long-term monitoring of his arrhythmia at home for better management. [id number]/[facility] #: [id number]
[2017-11-11] MEDS: Atorvastatin* 20 MG TAB PO SCH (18:06)
[2017-11-11] MEDS: cefTRIAXone(*) 1 GM in NS 0.9% 50 ML* 50 ML IVPB SCH (18:07)
[2017-11-11] MEDS: Azithromycin IV(*) 500 MG in NS 0.9% 250 ML* 250 ML IVPB SCH (19:39)
[2017-11-11] MEDS: Donepezil TAB* 5 MG PO SCH (21:20)
[2017-11-12] MEDS: Heparin VIAL(*) 5000 UNITS/ML VIAL (FIVE THOUSAND) SUBCUT SCH ×3 (05:51→21:41)
[2017-11-12] MEDS: Atenolol TAB* 25 MG PO SCH (09:10)
[2017-11-12] MEDS: Aspirin EC TAB* 81 MG TAB.EC PO SCH (09:10)
[2017-11-12] MEDS: Memantine TAB* 10 MG PO SCH ×2 (09:10→21:42)
[2017-11-12] MEDS: amLODIPine TAB* 5 MG PO SCH (12:43)
[2017-11-12] MEDS: cefTRIAXone(*) 1 GM in NS 0.9% 50 ML* 50 ML IVPB SCH (17:42)
[2017-11-12] MEDS: Atorvastatin* 20 MG TAB PO SCH (17:42)
[2017-11-12] MEDS: Donepezil TAB* 5 MG PO SCH (21:42)
[2017-11-13] MEDS: Heparin VIAL(*) 5000 UNITS/ML VIAL (FIVE THOUSAND) SUBCUT SCH ×2 (05:25→13:12)
[2017-11-13] MEDS: Memantine TAB* 10 MG PO SCH (09:04)
[2017-11-13] MEDS: Atenolol TAB* 25 MG PO SCH (09:04)
[2017-11-13] MEDS: Aspirin EC TAB* 81 MG TAB.EC PO SCH (09:05)
[2017-11-13] MEDS: amLODIPine TAB* 5 MG PO SCH (09:05)
[2017-11-13] MEDS ORDERED: Losartan TAB* 25 MG PO SCH (11:00)
[2017-11-13] MEDS ORDERED: Lidocaine 1% INJ* 10 MG/ML 30 ML SDV ONE (11:24)
[2017-11-13 13:07] VITALS: BP 161/70
--- NOTE | 2017-11-13 21:58 | CARD ---
CC: Dr. Clemencia Tan * EVENT MONITOR IMPLANTATION: DATE OF SERVICE: 11/13/17 - ROOM #449 PROCEDURE: Event monitor implantation. INDICATION: Syncope, ventricular tachycardia. The patient is an 87-year-old gentleman with a history of coronary artery disease. He is admitted to the hospital with an episode of unresponsiveness and aspiration pneumonia. On telemetry, the patient has had runs of nonsustained ventricular tachycardia. The patient also had a syncopal episode 3 weeks ago. Implanted event monitor was recommended. DESCRIPTION OF PROCEDURE: The patient was brought to the procedure room. His anterior chest was prepped and draped in the usual fashion. 1% lidocaine was used for local anesthesia. A small incision was made and an event monitor was injected subcutaneous underneath the skin in the anterior chest wall. The event monitor is a [employer] [id number], serial number [id number]. The patient tolerated the procedure well. No complications. The R-wave amplitude was 0.26 mV. I will see the patient in followup in 1 week. [id number]/[facility] #: [id number] [facility]
--- NOTE | 2017-11-15 11:48 | DS ---
CC: Dr. Cedeno.* DISCHARGE SUMMARY: DATE OF ADMISSION: 11/08/17 DATE OF DISCHARGE: 11/13/17 DISCHARGE DIAGNOSES: 1. Pneumonia. 2. Stress myocardial ischemia. 3. Coronary artery disease. 4. Ventricular arrhythmias: Premature ventricular contractions, nonsustained ventricular tachycardia. 5. Alzheimer's dementia. 6. Hypertension. 7. Hyperlipidemia. 8. History of syncope. 9. Status post right hip replacement. 10. History of B12 deficiency. 11. Osteoarthritis. 12. Opacification of the left mastoid air cells. 13. Mild aortic stenosis. HISTORY: Leonidas Isabel is an 87-year-old man admitted for pneumonia. He has been found in his bed at home after having vomited and been incontinent. Please see the dictated admission note for details of the present illness, past medical history, family history, social and personal history, review of systems , and physical examination. LABORATORY DATA: CBC on admission: WBC 6.6, H and H 11.3/34, MCV 98, PLT 181k. CBC prior to discharge on 11/11/17: WBC 6, H and H 10.8/33, MCV 98, PLT 189k. INR 1.03, PTT 31.3. Chemistries on admission: Sodium 133, potassium 4.8 , chloride 101, CO2 26, BUN and creatinine 23/1.51, glucose 111, magnesium 1.8. Rest of the comprehensive metabolic panel within normal limits. CK 608, troponin 0.06, sequential troponins were 0.06, 0.08, 0.07. Procalcitonin on was 2.7, subsequently came down to 1.2 on 11/11/00 and was 0.3 on . C-reactive protein was 130.33 on 11/09/17 and it was 94.79 on 11/10/17. CK on 11/09/17 was 423, CK-MB was 11.8. Lactic acid was 1.9 on admission. Urinalysis straw clear. Specific gravity 1.004, pH 7, dipstick is negative. Flu swab was negative. Blood cultures were no growth. Urine for legionella and pneumococcal antigens was negative. IMAGING: Brain CT on 11/08/17 showed stable age-related diffuse cerebral volume loss and chronic microvascular ischemia. No acute intracranial pathology. New fluid opacification of the left mastoid air cells and possibly the left middle ear cavity, cannot exclude left otomastoiditis. Chest x-ray on 11/08/17 showed right basilar air space disease consistent with right lower lobe pneumonia and calcified granuloma in the left lung base. Abdominal x-ray on 11/08/17 showed no free air obstruction. Chest x-ray on 11/11/17 showed persistent airspace disease of the right lower lobe. Electrocardiogram on 11/08 showed sinus rhythm, prolonged [place] interval, possible old inferior infarct. EKG on 11/09/17, there are no significant changes. Transthoracic echocardiogram on 11/09/17 showed mild to moderate LVH, EF 50%, basal inferior wall segment hypokinesis, moderate left atrial dilatation. Mild to moderate aortic stenosis. PROCEDURE: Event monitor implantation on 11/13/17, Dr. Cedeno. CONSULTATION: Cardiology, Dr. Cedeno, 11/11/17. Dr. Cedeno felt that a stress test was not necessary. He had nonsustained V-tach and degree of moderate bradycardia. He noted the syncopal episode the patient had had 2 weeks prior. He recommends stopping atenolol and starting amiodarone. He suggested an implantable event monitor. HOSPITAL COURSE: The patient was admitted on 11/08/17 in the evening. He was started on azithromycin and ceftriaxone for the pneumonia. His troponins were trended. He was placed on telemetry. He was a full code per his wishes. His antihypertensives were initially held, amlodipine and losartan, but were restarted during his hospitalization. He was essentially asymptomatic throughout his hospitalization. Telemetry monitoring did reveal nonsustained ventricular tachycardia. He was seen in consultation by Cardiology (see above) . He responded clinically to the IV antibiotics. His procalcitonin was trended. He did also have brief episodes of atrial fibrillation. Dr. Cedeno had recommended starting him on amiodarone, but there was a grade 2 recommendation regarding avoiding the combination of azithromycin and amiodarone , and because he was going to have azithromycin in the system for another week, it was decided to hold off on starting the amiodarone until the amiodarone was out of his system. The event monitor was implanted during his hospitalization. At the time of discharge , he was feeling well. He was walking to the bathroom with his 2 walking sticks. He still had rales at the right base. He had a 2/6 systolic murmur. His heart rate was regular. He had no calf tenderness or edema. It was felt that he could go home with 2 more days of cefuroxime. He is being discharged on the following medications: 1. Atenolol 12.5 mg once a day. 2. Amlodipine 2.5 mg once a day. 3. Aspirin 81 mg once a day. 4. Pravastatin 80 mg once a day. 5. Cefuroxime 500 mg twice a day for 2 more days. 6. Losartan 50 mg daily. 7. Donepezil 10 mg at bedtime. 8. B12 1000 mcg once a day. 9. Vitamin D3 2000 units once a day. 10. PreserVision 1 per day. 11. Multivitamins 2 per day. FOLLOWUP: He is to follow up with me in 1 week, with Dr. Cedeno in 1 week. ACTIVITY: As tolerated, but he is told to basically rest at home and not do his usual activities outside the home before he comes in for his appointment with me. DIET: Usual. [id number]/[facility] #: [id number] MTDD
== END 2017-11-13 14:49 | disposition home health service (06) | DRG 982 ==
LOC: ED 15:26 → MEDTELE 21:31
PROVIDERS: ADMIT Hospitalist; ATTEND Internal Medicine Geriatric Medicine
PROC: 0JH602Z Insertion of Monitoring Device into Chest Subcutaneous Tissue and Fascia, Open Approach (ICD-10-PCS; principal; 2017-11-13 11:15)
DX: J69.0 Pneumonitis due to inhalation of food and vomit (principal); I47.2 Ventricular tachycardia; R32 Unspecified urinary incontinence; I25.10 Atherosclerotic heart disease of native coronary artery without angina pectoris; I10 Essential (primary) hypertension; E78.5 Hyperlipidemia, unspecified; D51.0 Vitamin B12 deficiency anemia due to intrinsic factor deficiency; F03.90 Unspecified dementia, unspecified severity, without behavioral disturbance, psychotic disturbance, mood disturbance, and anxiety; Z96.641 Presence of right artificial hip joint; R74.8 Abnormal levels of other serum enzymes; J18.9 Pneumonia, unspecified organism; R00.1 Bradycardia, unspecified; I25.2 Old myocardial infarction; Z86.11 Personal history of tuberculosis; Z87.01 Personal history of pneumonia (recurrent); Z95.5 Presence of coronary angioplasty implant and graft; Z82.49 Family history of ischemic heart disease and other diseases of the circulatory system; Z83.3 Family history of diabetes mellitus; Z87.891 Personal history of nicotine dependence
CPT/HCPCS: 33282; 36415; 70450; 71045; 71046; 74018; 80048; 80053; 81003; 82550; 82553; 83605; 83735; 84145; 84484; 85025; 85610; 85730; 86140; 87040; 87899; 93005; 93306; 99284; A9270-GY; C1764; G8978-GP-CI; G8979-GP-CI; G8980-GP-CI; G8987-GO-CJ; G8988-GO-CI; J0456; J0696; J1644

== ENCOUNTER 2018-01-26 17:31 | Emergency (ER) | payer MEDICARE ==
[2018-01-26 18:32] LABS: ABS Basophils 0.1 10^3/ul (0-0.2); ABS Eosinophils 0.3 10^3/ul (0-0.6); ABS Lymphocytes 1.4 10^3/ul (1.0-4.8); ABS Monocytes 0.9 10^3/ul (0-0.8); ABS Neutrophils 2.4 10^3/ul (1.5-7.7); ABS Nucleated RBC 0 10^3/ul; Eosinophil % 6.2 %; Hematocrit 38 % (42-52); Hemoglobin 12.7 g/dl (14.0-18.0); Lymphocyte % 28.2 %; Mean Corpuscular HGB Conc 34 g/dl (31-36); Mean Corpuscular Hemoglobin 33 pg (27-31); Mean Corpuscular Volume 98 fL (80-94); Nucleated Red Blood Cells % 0; Platelet Count 182 10^3/ul (150-450); Red Cell Distribution Width 13 % (10.5-15)
[2018-01-26 18:49] LABS: Urine Appearance Clear; Urine Blood Negative (Negative); Urine Color Yellow; Urine Ketones Negative (Negative); Urine Protein Negative (Negative); Urine Specific Gravity 1.008 (1.010-1.030); Urine Urobilinogen Negative (Negative)
[2018-01-26 18:55] LABS: EGFR Non-African American 41.4 (>60)
--- NOTE | 2018-01-26 22:00 | ED ---
HPI Chest Pain - HPI Summary HPI Summary: Patient with history of Alzheimer's presents with son and complains of one episode of intermittent sternal CP lasting for about half an hour around noon today, and one episode of feeling too weak to get out of bed this afternoon. CP described as intermittent, 2/10, not associated with SOB, no radiation. Patient denies active CP and weakness here in the ED. Patient states he feels he is at baseline, and son states patient is ambulating a little slower maybe but otherwise appears at baseline. Patient ambulated into the ED at baseline with 2 walking sticks. Patient and son deny focal deficits, trauma, fever, cough, sore throat, SOB, N/V/D, abdominal pain, change in urine, change in BM. Medical history is prior [place] with 3 stents in 1999, HDL, HTN, Alzheimer's, pernicious anemia. Patient lives with daughter. No anti-coag. Echocardiogram 11/09/17 EF of 50-55%. - History of Current Complaint Chief Complaint: EDWeakness Time Seen by Provider: 01/26/18 17:45 Hx Obtained From: Patient, Family/C[employer] Onset/Duration: Started Hours Ago Timing: Intermittent Initial Severity: Mild Current Severity: None Pain Intensity: 0 Pain Scale Used: 0-10 Numeric Chest Pain Location: Mid Sternal Chest Pain Radiates: No Character: Dull/Aching Aggravating Factor(s): Nothing Alleviating Factor(s): Nothing Associated Signs and Symptoms: Positive: Chest Pain - Additional Pertinent History Primary Care Physician: [id number] - Allergy/Home Medications Allergies/Adverse Reactions: Allergies Allergy/AdvReac Type Severity Reaction Status Date / Time No Known Allergies Allergy Verified 12/10/15 14:04 Home Medications: Home Medications Amiodarone TAB* [Cordarone TAB*] 100 mg PO DAILY 01/26/18 [History Confirmed ] Cyanocobalamin TAB* [Vitamin B12 TAB*] 1,000 mcg PO DAILY 01/26/18 [History Confirmed 01/26/18] amLODIPine TAB* [Norvasc 5 mg TAB*] 5 mg PO DAILY 01/26/18 [History Confirmed ] PMH/Surg Hx/FS Hx/Imm Hx Endocrine/Hematology History: Reports: Hx Anemia - pernicious anemia Denies: Hx Anticoagulant Therapy - ASA 81 mg daily, Hx Blood Disorders, Hx Diabetes Cardiovascular History: Reports: Hx Coronary Artery Disease, Hx Hypertension, Hx Myocardial Infarction Denies: Hx Pacemaker/ICD Respiratory History: Denies: Hx Asthma GI History: Denies: Hx Jaundice History: Denies: Hx Renal Disease Sensory History: Denies: Hx Contacts or Glasses, Hx Hearing Aid Opthamlomology History: Denies: Hx Contacts or Glasses Neurological History: Reports: Hx Dementia Psychiatric History: Denies: Hx Panic Disorder - Surgical History Surgery Procedure, Year, and Place: HEART STENTS FROM [facility] 20 YRS AGO( CARDS MAY NOT BE AVAILABLE),HIP PINNING and HIP REPLACEMENT right. 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 Denies: Hx Clostridium Difficile, Hx Hepatitis, Hx Human Immunodeficiency Virus (HIV), Hx of Known/Suspected MRSA, Hx Shingles, History Other Infectious Disease - TB as a young child, Traveled Outside the [place] in Last 30 Days - Family History Known Family History: Positive: Diabetes Negative: Cardiac Disease Family History: no known cardiovascular issues in family lineage - Social History Alcohol Use: Rare Substance Use Type: Reports: None Smoking Status (MU): Former Smoker Type: Cigarettes Amount Used/How Often: 4 years Length of Time of Smoking/Using Tobacco: 65 years ago quit Have You Smoked in the Last Year: No Review of Systems Constitutional: Negative Eyes: Negative ENT: Negative Positive: Chest Pain Respiratory: Negative Gastrointestinal: Negative Genitourinary: Negative Musculoskeletal: Negative Skin: Negative Positive: Weakness Psychological: Normal All Other Systems Reviewed And Are Negative: Yes Physical Exam - Summary Physical Exam Summary: Neuro exam normal. Physical exam unremarkable. Triage Information Reviewed: Yes Vital Signs On Initial Exam: Initial Vitals Temp Pulse Resp BP Pulse Ox 97.9 F 81 16 129/69 96 01/26/18 17:36 01/26/18 17:36 01/26/18 17:36 01/26/18 17:36 01/26/18 17:36 Vital Signs Reviewed: Yes Appearance: Positive: Well-Appearing Skin: Positive: Warm Head/Face: Positive: Normal Head/Face Inspection Eyes: Positive: Normal ENT: Positive: Normal ENT inspection Neck: Positive: Supple Respiratory/Lung Sounds: Positive: Clear to Auscultation Cardiovascular: Positive: Normal Abdomen Description: Positive: Nontender Musculoskeletal: Positive: Normal Neurological: Positive: Normal Psychiatric: Positive: Normal AVPU Assessment: Alert - Celina Coma Scale Best Eye Response: 4 - Spontaneous Best Motor Response: 6 - Obeys Commands Best Verbal Response: 5 - Oriented Coma Scale Total: 15 Diagnostics - Vital Signs Vital Signs Temp Pulse Resp BP Pulse Ox 01/26/18 21:17 62 18 135/81 94 01/26/18 21:00 65 19 96 01/26/18 20:47 66 14 147/89 95 01/26/18 20:22 67 15 153/84 96 01/26/18 20:21 16 01/26/18 19:00 69 14 96 01/26/18 18:46 69 16 128/76 98 01/26/18 18:16 19 138/81 01/26/18 18:00 75 11 96 01/26/18 17:46 77 15 127/72 97 01/26/18 17:45 16 01/26/18 17:36 97.9 F 81 16 129/69 96 - Laboratory Lab Results: Lab Results 01/26/18 01/26/18 01/26/18 Range/Units 18:23 18:23 18:23 WBC 5.0 (3.5-10.8) 10^3/ul RBC 3.90 L (4.00-5.40) 10^6/ul Hgb 12.7 L (14.0-18.0) g/dl Hct 38 L (42-52) % MCV 98 H (80-94) fL MCH 33 H (27-31) pg MCHC 34 (31-36) g/dl RDW 13 (10.5-15) % Plt Count 182 (150-450) 10^3/ul MPV 9.0 (7.4-10.4) fL Neut % (Auto) 47.1 % Lymph % (Auto) 28.2 % Howard % (Auto) 17.2 % Eos % (Auto) 6.2 % Baso % (Auto) 1.3 % Absolute Neuts (auto) 2.4 (1.5-7.7) 10^3/ul Absolute Lymphs (auto) 1.4 (1.0-4.8) 10^3/ul Absolute Monos (auto) 0.9 H (0-0.8) 10^3/ul Absolute Eos (auto) 0.3 (0-0.6) 10^3/ul Absolute Basos (auto) 0.1 (0-0.2) 10^3/ul Absolute Nucleated RBC 0 10^3/ul Nucleated RBC % 0 Sodium 137 (135-145) mmol/L Potassium 3.8 (3.5-5.0) mmol/L Chloride 106 (101-111) mmol/L Carbon Dioxide 24 (22-32) mmol/L Anion Gap 7 (2-11) mmol/L BUN 18 (6-24) mg/dL Creatinine 1.59 H (0.67-1.17) mg/dL Est GFR ( Amer) 50.1 (>60) Est GFR (Non-Af Amer) 41.4 (>60) BUN/Creatinine Ratio 11.3 (8-20) Glucose 128 H (70-100) mg/dL Lactic Acid 1.5 (0.5-2.0) mmol/L Calcium 9.1 (8.6-10.3) mg/dL Total Bilirubin 0.40 (0.2-1.0) mg/dL AST 18 (13-39) U/L ALT 12 (7-52) U/L Alkaline Phosphatase 94 (34-104) U/L Troponin I 0.03 (<0.04) ng/mL C-Reactive Protein 11.05 H (<8.01) mg/L Total Protein 7.1 (6.4-8.9) g/dL Albumin 3.7 (3.2-5.2) g/dL Globulin 3.4 (2-4) g/dL Albumin/Globulin Ratio 1.1 (1-3) TSH 3.75 (0.34-5.60) mcIU/mL Urine Color Urine Appearance Urine pH (5-9) Ur Specific [place] (1.010-1.030) Urine Protein (Negative) Urine Ketones (Negative) Urine Blood (Negative) Urine Nitrate (Negative) Urine Bilirubin (Negative) Urine Urobilinogen (Negative) Ur Leukocyte Esterase (Negative) Urine Glucose (Negative) Urine Ascorbic Acid (Negative) Influenza A (Rapid) (Negative) Influenza B (Rapid) (Negative) 01/26/18 01/26/18 01/26/18 Range/Units 18:41 18:50 21:00 WBC (3.5-10.8) 10^3/ul RBC (4.00-5.40) 10^6/ul Hgb (14.0-18.0) g/dl Hct (42-52) % MCV (80-94) fL MCH (27-31) pg MCHC (31-36) g/dl RDW (10.5-15) % Plt Count (150-450) 10^3/ul MPV (7.4-10.4) fL Neut % (Auto) % Lymph % (Auto) % Howard % (Auto) % Eos % (Auto) % Baso % (Auto) % Absolute Neuts (auto) (1.5-7.7) 10^3/ul Absolute Lymphs (auto) (1.0-4.8) 10^3/ul Absolute Monos (auto) (0-0.8) 10^3/ul Absolute Eos (auto) (0-0.6) 10^3/ul Absolute Basos (auto) (0-0.2) 10^3/ul Absolute Nucleated RBC 10^3/ul Nucleated RBC % Sodium (135-145) mmol/L Potassium (3.5-5.0) mmol/L Chloride (101-111) mmol/L Carbon Dioxide (22-32) mmol/L Anion Gap (2-11) mmol/L BUN (6-24) mg/dL Creatinine (0.67-1.17) mg/dL Est GFR ( Amer) (>60) Est GFR (Non-Af Amer) (>60) BUN/Creatinine Ratio (8-20) Glucose (70-100) mg/dL Lactic Acid (0.5-2.0) mmol/L Calcium (8.6-10.3) mg/dL Total Bilirubin (0.2-1.0) mg/dL AST (13-39) U/L ALT (7-52) U/L Alkaline Phosphatase (34-104) U/L Troponin I 0.04 H* (<0.04) ng/mL C-Reactive Protein (<8.01) mg/L Total Protein (6.4-8.9) g/dL Albumin (3.2-5.2) g/dL Globulin (2-4) g/dL Albumin/Globulin Ratio (1-3) TSH (0.34-5.60) mcIU/mL Urine Color Yellow Urine Appearance Clear Urine pH 6.0 (5-9) Ur Specific [place] 1.008 L (1.010-1.030) Urine Protein Negative (Negative) Urine Ketones Negative (Negative) Urine Blood Negative (Negative) Urine Nitrate Negative (Negative) Urine Bilirubin Negative (Negative) Urine Urobilinogen Negative (Negative) Ur Leukocyte Esterase Negative (Negative) Urine Glucose Negative (Negative) Urine Ascorbic Acid * A (Negative) Influenza A (Rapid) Negative (Negative) Influenza B (Rapid) Negative (Negative) Result Diagrams: 01/26/18 18:23 01/26/18 18:23 Lab Statement: Any lab studies that have been ordered have been reviewed, and results considered in the medical decision making process. Chest Pain Course/Dx - Course Course Of Treatment: Patient with history of Alzheimer's presents with son and complains of one episode of intermittent sternal CP lasting for about half an hour around noon today, and one episode of feeling too weak to get out of bed this afternoon. CP described as intermittent, 2/10, not associated with SOB, no radiation. Patient denies active CP and weakness here in the ED. Patient states he feels he is at baseline, and son states patient is ambulating a little slower maybe but otherwise appears at baseline. Patient ambulated into the ED at baseline with 2 walking sticks. Patient and son deny focal deficits, trauma, fever, cough, sore throat, SOB, N/V/D, abdominal pain, change in urine, change in BM. Medical history is prior [place] with 3 st[place] 1999, HDL, HTN, Alzheimer's, pernicious anemia. Patient lives with daughter. No anti-coag. Echocardiogram 11/09/17 EF of 50-55%. Physical exam:Neuro exam normal. Physical exam unremarkable. Ambulating at baseline. No active symptoms here in the ED. Vital signs within normal limits and stable. Labs unremarkable. EKG consistent with prior. Chest x-ray negative. Discussed patient with Dr. Dominique who agreed patient could be discharged home. - Diagnoses Provider Diagnoses: Atypical chest pain, Weakness Discharge - Sign-Out/Discharge Documenting (check all that apply): Patient Departure - Discharge Plan Condition: Stable Disposition: HOME Patient Education Materials: Chest Pain (ED), Weakness (ED) Referrals: Clemencia Tan MD [Primary Care Provider] - Additional Instructions: Follow-up with primary care. Return to the ED for any new or worsening symptoms - Billing Disposition and Condition Condition: STABLE Disposition: Home
[2018-01-26 22:46] VITALS: BP 162/81
== END 2018-01-26 22:47 | disposition home or self-care (01) ==
LOC: ED 17:31
DX: R07.89 Other chest pain (principal); R53.1 Weakness; I25.10 Atherosclerotic heart disease of native coronary artery without angina pectoris; I10 Essential (primary) hypertension; Z95.5 Presence of coronary angioplasty implant and graft; Z96.641 Presence of right artificial hip joint; Z87.891 Personal history of nicotine dependence
CPT/HCPCS: 36415; 71046; 80053; 81003; 83605; 84443; 84484; 85025; 86140; 93005; 99283

== ENCOUNTER 2018-08-03 09:57 | Emergency (ER) | payer MEDICARE ==
[2018-08-03] MEDS ORDERED: Aspirin 81 mg CHEW TAB* 81 MG TAB.CHEW PO ONE (10:21)
--- NOTE | 2018-08-03 10:37 | ED ---
HPI Chest Pain - HPI Summary HPI Summary: This patient is an 88 year old M presenting to [facility] accompanied by daughter with a chief complaint of mid sternal chest pain since morning of 08/03/18. He reports pain began after waking up, and describes it as an intermittent dull ache. Pt reports that he feels no pain currently. Pt lives at assisted living and patients daughter reports pt called her about 1 hour ago and told her that he was having chest pains. So she told nurses there to check on him and the nurses brought him here. He additionally reports diaphoresis. Patients daughter reports that pt previously had two MIs, CAD, HTN, stent placements, and has a cardiac link to measure rhythm (Implantable Loop Recorder). Pts job site supervisor is Dr. Wilian Munoz MD. - History of Current Complaint Chief Complaint: EDChestPainROMI Hx Obtained From: Patient, Family/Title Supervisor - daughter Onset/Duration: Started Hours Ago - Began this morning (08/03/18) Timing: Intermittent, Lasting Hours Current Severity: None Pain Intensity: 0 Pain Scale Used: 0-10 Numeric Chest Pain Location: Mid Sternal Chest Pain Radiates: No Character: Dull/Aching Aggravating Factor(s): Nothing Alleviating Factor(s): Nothing Associated Signs and Symptoms: Positive: Chest Pain, Diaphoresis - Additional Pertinent History Primary Care Physician: [id number] - Allergy/Home Medications Allergies/Adverse Reactions: Allergies Allergy/AdvReac Type Severity Reaction Status Date / Time No Known Allergies Allergy Verified 12/10/15 14:04 Home Medications: Home Medications Aspirin [Children's Aspirin] 81 mg PO DAILY 08/03/18 [History Confirmed 08/03/18 ] Pravastatin Sodium [Pravachol] 80 mg PO DAILY 08/03/18 [History Confirmed ] PMH/Surg Hx/FS Hx/Imm Hx Endocrine/Hematology History: Reports: Hx Anemia - pernicious anemia Denies: Hx Anticoagulant Therapy - ASA 81 mg daily, Hx Blood Disorders, Hx Diabetes Cardiovascular History: Reports: Hx Coronary Artery Disease, Hx Hypertension, Hx Myocardial Infarction - 2X Denies: Hx Pacemaker/ICD Respiratory History: Denies: Hx Asthma GI History: Denies: Hx Jaundice History: Denies: Hx Renal Disease Sensory History: Denies: Hx Contacts or Glasses, Hx Hearing Aid Opthamlomology History: Denies: Hx Contacts or Glasses Neurological History: Reports: Hx Dementia Psychiatric History: Denies: Hx Panic Disorder - Surgical History Surgery Procedure, Year, and Place: HEART STENTS FROM [facility] 20 YRS AGO( CARDS MAY NOT BE AVAILABLE),HIP PINNING and HIP REPLACEMENT right. 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 Denies: Hx Clostridium Difficile, Hx Hepatitis, Hx Human Immunodeficiency Virus (HIV), Hx of Known/Suspected MRSA, Hx Shingles, History Other Infectious Disease - TB as a young child, Traveled Outside the [place] in Last 30 Days - Family History Known Family History: Positive: Diabetes Negative: Cardiac Disease Family History: no known cardiovascular issues in family lineage - Social History Alcohol Use: Rare Hx Substance Use: No Substance Use Type: Reports: None Hx Tobacco Use: No Smoking Status (MU): Former Smoker Type: Cigarettes Amount Used/How Often: 4 years Length of Time of Smoking/Using Tobacco: 65 years ago quit Have You Smoked in the Last Year: No Review of Systems Positive: Skin Diaphoresis Positive: Chest Pain All Other Systems Reviewed And Are Negative: Yes Physical Exam - Summary Physical Exam Summary: VITAL SIGNS: Reviewed. GENERAL: Patient is a well-developed and nourished male who is lying comfortable in the stretcher. Patient is not in any acute respiratory distress. HEAD AND FACE: No signs of trauma. No ecchymosis, hematomas or skull depressions. No sinus tenderness. EYES: PERRLA, EOMI x 2, No injected conjunctiva, no nystagmus. EARS: Hearing grossly intact. Ear canals and tympanic membranes are within normal limits. MOUTH: Oropharynx within normal limits. NECK: Supple, trachea is midline, no adenopathy, no JVD, no carotid bruit, no c- spine tenderness, neck with full ROM. CHEST: Symmetric, no tenderness at palpation LUNGS: Clear to auscultation bilaterally. No wheezing or crackles. CVS: Regular rate and rhythm, S1 and S2 present, no murmurs or gallops appreciated. ABDOMEN: Soft, non-tender. No signs of distention. No rebound no guarding, and no masses palpated. Bowel sounds are normal. EXTREMITIES: FROM in all major joints, no edema, no cyanosis or clubbing. NEURO: Alert and oriented x 3. No acute neurological deficits. Speech is normal and follows commands. SKIN: Dry and warm. Triage Information Reviewed: Yes Vital Signs On Initial Exam: Initial Vitals Pulse Resp BP Pulse Ox 62 17 173/89 93 08/03/18 10:03 08/03/18 10:03 08/03/18 10:03 08/03/18 10:03 Vital Signs Reviewed: Yes Diagnostics - Vital Signs Vital Signs Temp Pulse Resp BP Pulse Ox 08/03/18 10:05 98.3 F 61 19 173/89 92 08/03/18 10:03 62 17 173/89 93 - Laboratory Result Diagrams: 08/03/18 10:38 08/03/18 10:38 Lab Statement: Any lab studies that have been ordered have been reviewed, and results considered in the medical decision making process. - Radiology CXR Radiology Interpretation Completed By: Radiologist Summary of Radiographic Findings: CXR reveals, per radiologist, impression: 1. No evidence for acute finding. 2. Findings consistent with old granulomatous disease. ED physician has reviewed this report. - EKG 1022 Cardiac Rate: Bradycardia - Rate 56 bpm EKG Rhythm: Sinus Bradycardia EKG Comparison: No Significant Change - previous EKG on 01/26/2018 Summary of EKG Findings: No ST elevations Re-Evaluation - Re-Evaluation First Eval Re-Evaluation Time: 14:20 Comment: Discussed results and findings with Pt and Pt is agreeable to discharge. Chest Pain Course/Dx - Course Assessment/Plan: This patient is an 88 year old M presenting to [facility] accompanied by daughter with a chief complaint of mid sternal chest pain since morning of 08/03/18. He reports pain began after waking up, and describes it as an intermittent dull ache. Pt reports that he feels no pain currently. Pt lives at assisted living and patients daughter reports pt called her about 1 hour ago and told her that he was having chest pains. So she told nurses there to check on him and the nurses brought him here. He additionally reports diaphoresis. Patients daughter reports that pt previously had two MIs, CAD, HTN , stent placements, and has a cardiac link to measure rhythm (Implantable Loop Recorder). Pts job site supervisor is Dr. Wilian Munoz MD. Past medical history significant for VA status post stent, dyslipidemia, dementia, hypertension, pneumonia and increased troponins. In the ED course the patient was placed in a cardiac care nurse, IV access was obtained, and he was given aspirin. Blood work, EKG and chest x-ray was ordered. Blood work without any significant abnormality except for hemoglobin 12.6 and hematocrit 36 which is his baseline. The BUN is 41 and creatinine is 2.17, which are slightly elevated probably secondary to dehydration. The first troponin is 0.03, and 4 hours later the second troponin 0.04. The patient continues to be asymptomatic. He reports no chest pain. I discussed the case with and Dr. Tan, the primary care physician, and she recommended to run the case by cardiology. I discussed the case with Dr. Pabon, who reviewed the blood work history and the history of present illness and he recommends for the [facility] to [facility]. We also recommended for the patient to return to the emergency room if the symptoms return. The patient understands and agrees. - Diagnoses Provider Diagnoses: Chest pain - Provider Notifications Discussed Care Of Patient With: Clemencia Tan - Hospitalist Time Discussed With Above Provider: 14:13 Instructed by Provider To: Other - Discussed case with Dr. Tan, who reccomended to run the case by cardiology. At 14:16 discussed the case with Dr Kayode Pabon, who recommended the pt be discharged and follow up with Dr. Cedeno. Discharge - Sign-Out/Discharge Documenting (check all that apply): Patient Departure - Discharge Patient Received Moderate/Deep Sedation with Procedure: No - Discharge Plan Condition: Stable Disposition: HOME Patient Education Materials: Chest Pain (ED) Referrals: Alexander Cedeno MD [Medical Doctor] - 3 Days Additional Instructions: Follow up with Dr. Wilian Munoz MD within 3 days. Return to the ED for any worsening or new symptoms. - Billing Disposition and Condition Condition: STABLE Disposition: Home - Attestation Statements Document Initiated by Pat: Yes Documenting Scribe: Karen Oscar Provider For Whom Pat is Documenting (Include Credential): Dr. Todd Blakely MD Scribe Attestation: Karen Dowling scribed for Dr. Todd Blakely MD on 08/04/18 at 0706. Scribe Documentation Reviewed: Yes Provider Attestation: The documentation as recorded by the Karen plunkett accurately reflects the service I personally performed and the decisions made by me, Dr. Todd Blakely MD Status of Scribe Document: Viewed
[2018-08-03 10:59] LABS: ABS Basophils 0.1 10^3/ul (0-0.2); ABS Eosinophils 0.4 10^3/ul (0-0.6); ABS Lymphocytes 1.4 10^3/ul (1.0-4.8); ABS Monocytes 0.7 10^3/ul (0-0.8); ABS Neutrophils 3.2 10^3/ul (1.5-7.7); Eosinophil % 7.1 %; Hematocrit 36 % (42-52); Hemoglobin 12.6 g/dL (14.0-18.0); Lymphocyte % 23.8 %; Mean Corpuscular HGB Conc 35 g/dL (31-36); Mean Corpuscular Hemoglobin 33 pg (27-31); Mean Corpuscular Volume 94 fL (80-94); Mean Platelet Volume 8.9 fL (7.4-10.4); Nucleated Red Blood Cells % 0.2; Platelet Count 191 10^3/uL (150-450); Red Blood Count 3.85 10^6 /uL (4.18-5.48); Red Cell Distribution Width 14 % (10-15); White Blood Count 5.7 10^3/uL (3.5-10.8)
[2018-08-03 11:11] LABS: Urine Appearance Clear; Urine Bilirubin Negative (Negative); Urine Blood Negative (Negative); Urine Color Yellow; Urine Glucose Negative (Negative); Urine Ketones Negative (Negative); Urine Nitrite Negative (Negative); Urine Protein Negative (Negative); Urine Specific Gravity 1.009 (1.010-1.030); Urine Urobilinogen Negative (Negative)
[2018-08-03 11:12] LABS: Albumin 3.5 g/dL (3.2-5.2); Albumin/Globulin Ratio 0.9 (1-3); BUN/Creatinine Ratio 18.9 (8-20); Calcium 9.1 mg/dL (8.6-10.3); EGFR African American 34.9 (>60); EGFR Non-African American 28.8 (>60); Globulin 3.7 g/dL (2-4); Potassium 4.4 mmol/L (3.5-5.0); Total Bilirubin 0.5 mg/dL (0.2-1.0); Total Protein 7.2 g/dL (6.4-8.9)
[2018-08-03 11:13] LABS: Troponin I 0.03 ng/mL (<0.04)
[2018-08-03 11:15] LABS: CKMB ng/mL 2.1 ng/mL (0.6-6.3)
[2018-08-03 11:24] LABS: Activated Partial Thrombo Time 31.7 seconds (26.0-38.0); INR 0.93 (0.82-1.09)
[2018-08-03 11:46] LABS: TSH (Thyroid Stimulating Horm) 3.28 mcIU/mL (0.34-5.60)
[2018-08-03 13:41] LABS: Troponin I 0.04 ng/mL (<0.04)
[2018-08-03] MEDS ORDERED: NS 0.9% 500 ML* 500 ML IV ONE (14:21)
[2018-08-03 16:49] VITALS: BP 171/90
== END 2018-08-03 16:49 | disposition home or self-care (01) ==
LOC: ED 09:57
DX: R07.9 Chest pain, unspecified (principal); Z79.82 Long term (current) use of aspirin; Z79.899 Other long term (current) drug therapy; Z87.891 Personal history of nicotine dependence
CPT/HCPCS: 36415; 71045; 80053; 81003; 82550; 82553; 83605; 83735; 83880; 84443; 84484; 85025; 85610; 85730; 93005; 96360; 99284

== ENCOUNTER 2018-10-11 02:27 | Inpatient (IN) | payer MEDICARE ==
--- NOTE | 2018-10-11 02:45 | ED ---
Adult Trauma - HPI Summary HPI Summary: Patient is a 88 y/o M presenting to [facility] via EMS from [place] for unwitnessed fall. Patient was found on the floor against a bathroom wall by nursing staff at around 0200 10/11/18. It is reported that the patient had increased weakness and inability to ambulate, patient is not at baseline. It is also noted that the patient appeared to be listing to the left when it was attempted to ambulate the patient after his fall at [place]. Patient uses a walker to ambulate. He denies pain. Patient does endorse that he has been having difficulty ambulating at present. PMHx of dementia, CAD, HTN, CO, anemia. Patient is a former smoker, rare alcohol usage and no substance usage is noted. FMHx of diabetes is noted. PMHx of TB as a child, PSHx of cardiac stents. Home medications and allergies are reviewed. - History of Current Complaint Stated Complaint: WEAKNESS PER EMS Time Seen by Provider: 10/11/18 02:29 Hx Obtained From: Patient Mechanism of Injury: Fall Restraints: None Onset/Duration: Started Hours Ago, Still Present Current Severity: None Pain Scale Used: 0-10 Numeric Associated Signs & Symptoms: Positive: Numbness/Weakness - increased weakness, difficulty ambulating - Additional Pertinent History Primary Care Physician: [id number] - Allergy/Home Medications Allergies/Adverse Reactions: Allergies Allergy/AdvReac Type Severity Reaction Status Date / Time No Known Allergies Allergy Verified 10/11/18 03:18 Home Medications: Home Medications Latanoprost 0.005%* [Xalatan 0.005%*] 1 drop BOTH EYES QPM 10/11/18 [History Confirmed 10/11/18] Naproxen Sodium [Naproxen 220 mg] 220 mg PO DAILY 10/11/18 [History Confirmed ] Polyethylene Glycol 3350 [Miralax] 17 gm PO DAILY 10/11/18 [History Confirmed ] National Institutes Of Health - NIH Scale Level of Consciousness: Alert/Keenly Responsive Ask Patient the Month and His/Her Age: Both Correct Ask Pt to Open/Close Eyes and Power Generation Equipment Repairer/Release Non-Paretic Hand: Both Correctly Best Gaze (Only Horizontal Eye Movement): Normal Visual Field Testing: No Visual Loss Facial Paresis-Pt to Smile & Close Eyes or Grimace Symmetry: Minor Paralysis Motor Function - Right Arm: No Drift-Holds 10 Seconds Motor Function - Left Arm: Drifts LT 10 seconds Motor Function - Right Leg: No Drift-Holds 10 Seconds Motor Function - Left Leg: Effort Against [place] Limb Ataxia-Must be out of Proportion to Weakness Present: Absent Sensory (Use Pinprick to Test Arms/Legs/Trunk/Face): Normal Best Language (Describe Picture, Name Items): No Aphasia Dysarthria (Read Several Words): Normal Extinction and Inattention: No Abnormality - patient has difficulty walking using a walker which he is usually able to do. Total Score: 4 PMH/Surg Hx/FS Hx/Imm Hx Endocrine/Hematology History: Reports: Hx Anemia - pernicious anemia Denies: Hx Anticoagulant Therapy - ASA 81 mg daily, Hx Blood Disorders, Hx Diabetes Cardiovascular History: Reports: Hx Coronary Artery Disease, Hx Hypertension, Hx Myocardial Infarction - 2X Denies: Hx Pacemaker/ICD Respiratory History: Denies: Hx Asthma GI History: Denies: Hx Jaundice History: Denies: Hx Renal Disease Sensory History: Denies: Hx Contacts or Glasses, Hx Hearing Aid Opthamlomology History: Denies: Hx Contacts or Glasses Neurological History: Reports: Hx Dementia Psychiatric History: Denies: Hx Panic Disorder - Surgical History Surgery Procedure, Year, and Place: HEART STENTS FROM [facility] 20 YRS AGO( CARDS MAY NOT BE AVAILABLE),HIP PINNING and HIP REPLACEMENT right. 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 Denies: Hx Clostridium Difficile, Hx Hepatitis, Hx Human Immunodeficiency Virus (HIV), Hx of Known/Suspected MRSA, Hx Shingles, History Other Infectious Disease - TB as a young child - Family History Known Family History: Positive: Diabetes Negative: Cardiac Disease Family History: no known cardiovascular issues in family lineage - Social History Alcohol Use: Rare Hx Substance Use: No Substance Use Type: Reports: None Hx Tobacco Use: No Smoking Status (MU): Former Smoker Type: Cigarettes Amount Used/How Often: 4 years Length of Time of Smoking/Using Tobacco: 65 years ago quit Have You Smoked in the Last Year: No Review of Systems Constitutional: Other - unwitnessed fall Positive: Weakness - difficulty ambulating All Other Systems Reviewed And Are Negative: Yes Physical Exam - Summary Physical Exam Summary: VITAL SIGNS: Reviewed. GENERAL: Patient is a well-developed and nourished male who is lying comfortable in the stretcher. Patient is not in any acute respiratory distress. HEAD AND FACE: No signs of trauma. No ecchymosis, hematomas or skull depressions. No sinus tenderness. EYES: PERRLA, EOMI x 2, No injected conjunctiva, no nystagmus. EARS: Hearing grossly intact. Ear canals and tympanic membranes are within normal limits. MOUTH: Oropharynx within normal limits. NECK: Supple, trachea is midline, no adenopathy, no JVD, no carotid bruit, no c- spine tenderness, neck with full ROM CHEST: Symmetric, no tenderness at palpation LUNGS: Clear to auscultation bilaterally. No wheezing or crackles. CVS: Regular rate and rhythm, S1 and S2 present, no murmurs or gallops appreciated. ABDOMEN: Soft, non-tender. No signs of distention. No rebound no guarding, and no masses palpated. Bowel sounds are normal. EXTREMITIES: FROM in all major joints, no edema, no cyanosis or clubbing. NEURO: Alert and oriented x 3. Patient has subtle left facial droop and subtle left pronator drift. He is not able to ambulate using walker. Speech is normal and follows commands. GCS 15. NIH 4. SKIN: Dry and warm Triage Information Reviewed: Yes Vital Signs Reviewed: Yes - Celina Coma Scale Best Eye Response: 4 - Spontaneous Best Motor Response: 6 - Obeys Commands Best Verbal Response: 5 - Oriented Coma Scale Total: 15 Diagnostics - Laboratory Result Diagrams: 10/11/18 03:06 10/11/18 03:06 Lab Statement: Any lab studies that have been ordered have been reviewed, and results considered in the medical decision making process. - Radiology CXR Radiology Interpretation Completed By: ED Physician Summary of Radiographic Findings: CXR showed no acute process, pending official report. - CT BRAIN CT CT Interpretation Completed By: Radiologist Summary of CT Findings: IMPRESSION: No acute intracranial pathology is appreciated. Chronic atrophic and microischemic changes are noted. The brain had a similar appearance in 2017. THIS REPORT WAS REVIEWED BY DR. LEOS. - EKG 0303 Cardiac Rate: NL - rate of 81 BPM EKG Rhythm: Sinus Rhythm EKG Comparison: No Significant Change - no difference from 08/03/18 Summary of EKG Findings: EKG showed sinus rhythm with rate of 81 BPM, Q-waves in inferior leads, no difference from 08/03/18 Re-Evaluation - Re-Evaluation First Eval Re-Evaluation Time: 02:45 Comment: Juan from [place] was contacted with regards to the patient. Juan reports that the patient is supposed to be on "toilet timing" every few hours. When he was using the bathroom at around 2200 on 10/10/18, he was reported to have had no complications. When staff went to his room to get him to go to the bathroom at 0200 today, 10/11/2018, he was found to be already in the bathroom, on the floor against the wall. Second Eval Re-Evaluation Time: 02:51 Comment: CTA cannot be obtained due to patient's GFR being low, per last bloodwork. Third Eval Re-Evaluation Time: 03:37 Comment: [facility] was contacted, stroke attending rn occupational will call back about patient's case. Adult Trauma Course/Dx - Course Course Of Treatment: Patient is a 88 y/o M presenting to [facility] via EMS from [place] for unwitnessed fall. Patient was found on the floor against a bathroom wall by nursing staff at around 0200 10/11/18. It is reported that the patient had increased weakness and inability to ambulate, patient is not at baseline. It is also noted that the patient appeared to be listing to the left when it was attempted to ambulate the patient after his fall at [place]. Patient uses a walker to ambulate. He denies pain. Patient does endorse that he has been having difficulty ambulating at present. Juan from [place] was contacted with regards to the patient. Juan reports that the patient is supposed to be on "toilet timing" every few hours. When he was using the bathroom at around 2200 on 10/10/18, he was reported to have had no complications. On physical exam, patient is noted to have subtle, left-sided facial droop and left pronator drift. He is unable to ambulate with walker. GCS is 15, NIH is 4. Labs showed WBC 13.1, RBC 4.04, Hgb 12.7, Hct 38, MCH 32, absolute neuts 11.5, absolute lymphs 0.5, absolute monos 1.1. sodium 134, carbon dioxde 20, BUN 41, creatinine 2.14, glucose 117, lactic acid 1.7, AST 43 , triglycerides 68, cholesterol 145, LDL cholesterol 83, and HDL cholesterol 48.3. EKG showed sinus rhythm with rate of 81 BPM, Q-waves in inferior leads, no difference from 08/03/18. BRAIN CT IMPRESSION: No acute intracranial pathology is appreciated. Chronic atrophic and microischemic changes are noted. The brain had a similar appearance in 2017. CXR showed no acute process. Patient's case was discussed with Dr. Méndez, on-call stroke attending at [facility]. He states that he is not a candidate for TPA nor any neurological study to rule-out large clot due to patient's kidney function. He recommends ASA 325 mg PO and admission for the patient. Patient was given 325 ASA. He is not a candidate for any aggressive stroke treatments as the patients NIH is only 4. Patient's case was discussed with Dr. Rawls, Dr. Rawls accepts for admission. - Diagnoses Provider Diagnoses: CVA (cerebral vascular accident) During the Visit The Following Alert/Code Occurred: Code Peng - 0229 - provider evaluated the patient at this time, NIH was done, saul marin called [phone]. - Physician Notifications Discussed Care Of Patient With: Taye Méndez Time Discussed With Above Provider: 03:43 Instructed by Provider To: Other - Dr. Tam communciated results of CT Brain via phone at 0010. 0343 - Patient's case was discussed with Dr. Méndez, he states that the patient is not a candidate for TPA nor any neurological study to rule- out large clot due to patient's kidney function. He recommends ASA 325 mg PO and admission for the patient. 0404 - Patient's case was discussed with Dr. Rawls, Dr. Rawls accepts for admission. Discharge ED - Sign-Out/Discharge Documenting (check all that apply): Patient Departure - admit Patient Received Moderate/Deep Sedation with Procedure: No - Discharge Plan Condition: Fair Disposition: ADMITTED TO [facility] Referrals: Clemencia Tan MD [Primary Care Provider] - - Attestation Statements Document Initiated by Scribe: Yes Documenting Scribe: MARCO A ARIZA Provider For Whom Scribe is Documenting (Include Credential): FAROOQ LEOS MD Scribe Attestation: IMARCO A, scribed for FAROOQ LEOS MD on 10/11/18 at 0409. Status of Scribe Document: Ready
--- OUTSIDE RECORDS SUMMARY | 2018-10-11 02:51 | XMS REPORT | Continuity of Care Document ---
:1930 External Reference #:[id number] Author Name Kiana Melendez Care Team Providers Name Role Phone Clemencia Tan MD Primary Care Physician Unavailable Payers Date Identification Numbers Payment Provider Subscriber Policy Number: [id number] [employer] Leonidas Isabel Group Number: [id number] [address] PayID: [id number] [place] [address] Expires: 2016 Policy Number: [id number] Medicare Blue Ppo Leonidas Isabel PayID: [id number] [address] [address] [place] [address] Problems Active Problems Provider Date Alzheimer's disease Nathaly Ramirez M.D. Onset: 03/26/2015 Communicating hydrocephalus Nathaly Ramirez M.D. Onset: 03/26/2015 Prosthetic arthroplasty of the hip Chelsea Ayon M.D. Onset: 06/19/2017 Abnormal gait Chelsea Ayon M.D. Onset: 06/19/2017 Pneumonia Jeffy Castellon II, M.D. Onset: 11/08/2017 Altered mental status Jeffy Castellon II, M.D. Onset: 11/08/2017 Unspecified dementia with behavioral Jeffy Castellon II, M.D. Onset: 2017 disturbance Family History Date Family Member(s) Observation Comments General Heart Disease Father Hypertension Siblings 2 Social History Type Date Description Comments Sex Unknown Lives With Daughter Occupation Retired Tobacco Use Start: Unknown Never Smoked Cigarettes Smoking Status Reviewed: 09/14/18 Never Smoked Cigarettes ETOH Use Rarely consumes alcohol Tobacco Use Start: Unknown Patient has never smoked Recreational Drug Use Denies Drug Use Exercise Type/Frequency Exercises sporadically Allergies, Adverse Reactions, Alerts Description No Known Drug Allergies Medications Active Medications SIG Qnty Indications Ordering Date Provider Amiodarone HCL 1/2 by mouth every 90tabs Alexander Keane 03/28/2018 200mg day Wilian, MRudolphDRudolph Tablets Rolling Walker With use rw for 1units R26.89 Chelsea Ayon, 06/19/2017 Seat ambulation at all M.D. times for balance Vitamin B12 1 by mouth every Unknown 1000mcg day Tablets Pravastatin Sodium 1 by mouth every Unknown 80mg day Tablets Donepezil HCL 1 by mouth every Unknown 10mg day Tablets Aspirin 1 by mouth every Unknown 81mg Tablets day Preservision Areds 1 by mouth daily Unknown Capsules Memantine HCL 1 by mouth twice a Unknown 10mg day Tablets Losartan Potassium 1 tab by mouth Alexander Keane 50mg every day Wilian MMadison Tablets Amlodipine Besylate 1/2 by mouth every Unknown 5mg day Tablets Lantanoprost as directed via Unknown History Medications Benazepril HCL 2 by mouth every day Unknown - 09/24/2017 5mg Tablets Atenolol 1/2 by mouth every day Unknown - 03/29/2018 25mg Tablets Multi Vitamin Daily 1 by mouth every day Unknown - 03/27/2018 Tablets Vitamin D-400 by mouth every day Unknown - 03/29/2018 400Unit Tablets Medications Administered in Office Medication SIG Qnty Indications Ordering Provider Date Inj, Regadenoson, 0.1 MG Kayode Pabon, DO [facility] 05/18/2016 Injection Technetium TC 99M Kayode Pabon, DO [facility] 05/18/2016 Tetrofosmin, Per Unit Dose Up To 40 Millicuries Injection Vital Signs Date Vital Result Comment 09/14/2018 12:18pm Height 66 inches 5'6" Weight 183.00 lb with shoes Heart Rate 65 /min BP Systolic Sitting 122 mmHg lue reg cuff BP Diastolic Sitting 72 mmHg lue reg cuff BP Systolic Standing 122 mmHg lue reg cuff BP Diastolic Standing 82 mmHg lue reg cuff Respiratory Rate 14 /min BMI (Body Mass Index) 29.5 kg/m2 Ejection Fraction 50% echo. 11/09/17 03/28/2018 4:11pm Weight 172.00 lb with shoes Heart Rate 60 /min BP Systolic Sitting 124 mmHg LUe reg cuff BP Diastolic Sitting 74 mmHg LUe reg cuff BP Systolic Standing 116 mmHg Lue reg cuff BP Diastolic Standing 72 mmHg Lue reg cuff Respiratory Rate 16 /min 11/24/2017 10:24am Height 66 inches 5'6" Weight 163.00 lb Heart Rate 56 /min BP Systolic Sitting 118 mmHg Rue, reg cuff BP Diastolic Sitting 76 mmHg Rue, reg cuff Respiratory Rate 16 /min BMI (Body Mass Index) 26.3 kg/m2 Ejection Fraction 50-55% as of 11/09/17 06/19/2017 1:12pm Height 66 inches 5'6" Weight 166.00 lb Heart Rate 61 /min BP Systolic 153 mmHg BP Diastolic 73 mmHg Body Temperature 97.9 F BMI (Body Mass Index) 26.8 kg/m2 06/16/2017 1:53pm Heart Rate 56 /min BP Systolic 132 mmHg BP Diastolic 86 mmHg Respiratory Rate 16 /min Body Temperature 97.6 F Pain Level 4 06/16/2017 1:38pm Height 66 inches 5'6" Weight 166.00 lb Respiratory Rate 20 /min BMI (Body Mass Index) 26.8 kg/m2 03/26/2015 11:28am Height 69 inches 5'9" Weight 160.00 lb Heart Rate 56 /min BP Systolic Sitting 120 mmHg BP Diastolic Sitting 68 mmHg Respiratory Rate 14 /min BMI (Body Mass Index) 23.6 kg/m2 Procedures Date Code Description Status 09/14/2018 41455 EKG Tracing & Interpretation Completed 03/28/2018 00586 EKG Tracing & Interpretation Completed 11/24/2017 00449 EKG Tracing & Interpretation Completed 11/13/2017 22652 Implant Cardiac Loop Recorder Completed 11/09/2017 47283 ECHO Transthorasic Realtime 2D W Doppler & Color Flow Hosp Completed 05/18/2016 30744 Stress Test Completed 05/18/2016 05650 Myocardial Perfusion Imaging Tomographic (Spect) Multiple Completed Studies 03/29/2016 91474 ECHO Transthorasic Realtime 2D W Doppler & Color Flow Hosp Completed Encounters Type Date Location Provider Dx Diagnosis Office Visit 03/28/2018 [facility] Alexander Keane I47.2 Ventricular 4:00p Of Bi Cedeno M.D. tachycardia R55 Syncope and collapse R00.1 Bradycardia, unspecified Office Visit 11/24/2017 10:45a [facility] Alexander Keane R55 Syncope and Of Bi Cedeno M.D. collapse I47.2 Ventricular tachycardia Z95.818 Presence of other cardiac implants and grafts Office Visit 11/11/2017 1:48p [facility] Alexander Keane I47.2 Ventricular Of Bi Cedeno M.D. tachycardia R00.1 Bradycardia, unspecified R55 Syncope and collapse [facility] J18.9 Pneumonia, 10:11a Asscait wong II, M.D. unspecified Hospitalists organism R41.82 Altered mental status, unspecified F03.91 Unspecified dementia with behavioral disturbance Office Visit 06/19/2017 1:00p [facility] Chelsea Ayon M25.551 Pain in right Of C.M.A. M.D. hip R26.89 Other abnormalities of gait and mobility Z96.641 Presence of right artificial hip joint Office Visit 06/16/2017 1:30p [facility] Chelsea Ayon M25.551 Pain in right Of C.M.A. M.D. hip Z96.641 Presence of right artificial hip joint [facility] J96.01 Acute 9:02a cait Lim II, M.D. respiratory Hospitalists failure with hypoxia G92 Toxic encephalopathy J69.0 Pneumonitis due to inhalation of food and vomit I25.10 Athscl heart disease of [place] coronary artery w/o ang pctrs Office Visit 03/26/2015 11:00a [facility] F03.90 Unspecified Neurologic Peggy Ramirez dementia without [facility] behavioral disturbance G93.89 Other specified disorders of brain Plan of Treatment 09/14/2018 - Alexander Cedeno M.D.I47.2 Ventricular tachycardiaFollow up:1 yearZ95.818 Presence of other cardiac implants and fquewrG36.0 Nonrheumatic aortic (valve) kjjgaxpqG01.10 Atherosclerotic heart disease of [place] coronary artery without angina pectoris
--- OUTSIDE RECORDS SUMMARY | 2018-10-11 02:51 | XMS REPORT | Continuity of Care Document ---
:1930 External Reference #:[id number] Author Name Pooja Rainey O.D. Address [address] [place] [address] Care Team Providers Name Role Phone Clemencia Tan M.D. - Internal Medicine Care Team Information Electroplater [phone] Problems Active Problems Provider Date Essential hypertension Onset: Hypercholesterolemia Onset: Dementia Onset: Nonexudative age-related macular Pooja Rainey O.D. Onset: 07/09/2015 degeneration Vitreous degeneration Pooja Rainey O.D. Onset: 07/09/2015 Primary open-angle glaucoma, mild stage Pooja Rainey O.D. Onset: 07/08 Combined form of senile cataract Pooja Rainey O.D. Onset: 07/09/2015 Senile entropion Pooja Rainey O.D. Onset: 10/09/2015 Bilateral primary open angle glaucoma Pooja Rainey O.D. 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 Onset: degeneration Social History Type Date Description Comments Sex Unknown ETOH Use Denies alcohol use Tobacco Use Start: Unknown Patient has never smoked Recreational Drug Use Denies Drug Use Smoking Status Reviewed: 09/24/18 Patient has never smoked Allergies, Adverse Reactions, Alerts Description No Known Drug Allergies Medications Active Medications SIG Qnty Indications Ordering Provider Date Preservision Areds 2 1 cap by mouth Pooja Hopkins 08/31/2017 Areds twice a day Diana Rainey 2 Capsules Latanoprost 1 drop both 7.5ml H40.11x1 Pooja Hopkins 07/09/2015 0.005% Solution eyes every Diana Rainey night Refresh Tears 1 drop both Pooja Hopkins 07/08/2015 0.5% Solution eyes daily Diana Rainey Atenolol Unknown 25mg Tablets Pravastatin Sodium Unknown 80mg Tablets Memantine HCL Unknown 5(28)-10(21)mg Tablets Benazepril HCL Unknown 20mg Tablets Ipratropium Crawford Unknown 0.03% Solution Memantine HCL Tan, Clemencia M.D. 10mg Tablets Amlodipine Besylate Tan, Clemencia M.D. 5mg Tablets Donepezil HCL Tan, Clemencia M.D. 10mg Tablets Immunizations Description No Information Available Vital Signs Description No Information Available Results Description No Information Available Procedures Description No Information Available Medical Devices Description No Information Available Encounters Description No Information Available Assessments Date Code Description Provider 09/24/2018 H40.1131 Primary open-angle glaucoma, bilateral, Pooja Rainey O.D. mild stage 09/24/2018 H35.3131 Nonexudative age-related macular Pooja Rainey O.D. degeneration, bilateral, ea 09/24/2018 H25.813 Combined forms of age-related cataract, Pooja Rainey O.D. bilateral 09/24/2018 H02.032 Senile entropion of right lower eyelid Pooja Rainey O.D. 09/24/2018 H02.035 Senile entropion of left lower eyelid Pooja Rainey O.D. Plan of Treatment 09/24/2018 - Pooja Rainey O.D.H40.1131 Primary open-angle glaucoma, bilateral, mild stageComments:Your glaucoma is stable at this time.Your eye pressure is within an acceptable range, and your testing does not show any Glaucoma related changes at this time. Please continue your treatment.H35.3131 Nonexudative age-related macular degeneration, bilateral, eaComments:Smoking can increase the risk of developing or worsening any eye related disease, as well as affect your overall health. If you are a smoker, we strongly recommend that you quit.If you are not a smoker, we strongly recommend that you do not start. CONTINUE TO USE AREDS 2 FORMULAFollow up:6 Month Follow Up OCT MAC At your next visit, we are not planning to dilate your eyes. However, ifyou have any changes in your vision or new symptoms, there are certain situations that require us todilate your eyes. If Dr. Rainey requests any additional testing, that may require extra time. If you have any questions before your next appointment, please call our office at .X10.743 Combined forms of age-related cataract, bilateralComments:You have been diagnosed with cataracts. If you are happy with your vision as it is now, then we willsee you at your next scheduled appointment. If you feel like your vision is getting worse before your scheduled appointment, please call [facility] at [phone].H02.032 Senile entropion of right lower eyelidComments:Your left lower eyelid is turning inward. Use artifical tears to alleviate any symptoms you may have.H02.035 Senile entropion of left lower eyelidComments:Your right lower eyelid is turning inward. Use artifical tears to alleviate any symptoms you may have. Functional Status Description No Information Available Mental Status Description No Information Available Referrals Description No Information Available
[2018-10-11 03:16] LABS: ABS Basophils 0.1 10^3/ul (0-0.2); ABS Lymphocytes 0.5 10^3/ul (1.0-4.8); ABS Monocytes 1.1 10^3/ul (0-0.8); ABS Neutrophils 11.5 10^3/ul (1.5-7.7); Hematocrit 38 % (42-52); Hemoglobin 12.7 g/dL (14.0-18.0); Lymphocyte % 3.5 %; Mean Corpuscular HGB Conc 34 g/dL (31-36); Mean Corpuscular Hemoglobin 32 pg (27-31); Mean Corpuscular Volume 94 fL (80-94); Mean Platelet Volume 8.7 fL (7.4-10.4); Platelet Count 211 10^3/uL (150-450); Red Blood Count 4.04 10^6 /uL (4.18-5.48); Red Cell Distribution Width 15 % (10-15); White Blood Count 13.1 10^3/uL (3.5-10.8)
[2018-10-11 03:25] LABS: INR 1.08 (0.82-1.09)
[2018-10-11 03:31] LABS: ALT 38 U/L (7-52); AST 43 U/L (13-39); Albumin/Globulin Ratio 1.1 (1-3); Alkaline Phosphatase 87 U/L (34-104); Anion Gap 9 mmol/L (2-11); BUN/Creatinine Ratio 19.2 (8-20); Blood Urea Nitrogen 41 mg/dL (6-24); CO2 Carbon Dioxide 20 mmol/L (22-32); Calcium 9.5 mg/dL (8.6-10.3); Chloride 105 mmol/L (101-111); Cholesterol 145 mg/dL; EGFR African American 35.5 (>60); EGFR Non-African American 29.3 (>60); Globulin 3.8 g/dL (2-4); Glucose 117 mg/dL (70-100); HDL Cholesterol 48.3 mg/dL; LDL Cholesterol 83 mg/dL; Potassium 4.7 mmol/L (3.5-5.0); Sodium 134 mmol/L (135-145); Total Protein 7.8 g/dL (6.4-8.9); Triglycerides 68 mg/dL
[2018-10-11 03:44] LABS: Troponin I 0.05 ng/mL (<0.04)
[2018-10-11 03:47] LABS: Urine Appearance Clear; Urine Bacteria Absent (Absent); Urine Bilirubin Negative (Negative); Urine Blood 2+ (Negative); Urine Color Yellow; Urine Glucose Negative (Negative); Urine Ketones Negative (Negative); Urine Nitrite Negative (Negative); Urine Protein Negative (Negative); Urine Red Blood Cell 1+(3-5/hpf) (Absent); Urine Specific Gravity 1.018 (1.010-1.030); Urine Urobilinogen Negative (Negative); Urine White Blood Cell Absent (Absent)
[2018-10-11] MEDS ORDERED: Aspirin TAB* 325 MG PO ONE (03:54)
[2018-10-11] MEDS: Heparin VIAL(*) 5000 UNITS/ML VIAL (FIVE THOUSAND) SUBCUT SCH ×3 (07:05→21:50)
--- NOTE | 2018-10-11 07:19 | HP ---
CC: Dr. Tan.* HISTORY AND PHYSICAL: DATE OF ADMISSION: 10/11/18 PRIMARY CARE PROVIDER: Dr. Tan. CHIEF COMPLAINT: Weakness. HISTORY OF PRESENT ILLNESS: Mr. Isabel is an 88-year-old male, resident of [facility], who is on a scheduled toileting protocol at [facility]. He was toileted last by the staff at approximately 10 p.m. They then went to get him up for his next scheduled toileting episode and found him already in the bathroom on the floor. They tried to get him up and he was unable to get up. He was noted to be listing to the left. The patient himself is generally a poor historian and unable to provide any more information on this. He denies any pain. He denies any shortness of breath. He does have chronic cough that has been ongoing for some time. He has no other symptoms at this point. PAST MEDICAL HISTORY: 1. Coronary artery disease. 2. Hypertension. 3. Hyperlipidemia. 4. Pernicious anemia. 5. Dementia. PAST SURGICAL HISTORY: Right hip replacement. MEDICATIONS: 1. Vitamin B12 1000 mcg p.o. daily. 2. Naproxen 220 mg p.o. daily. 3. PreserVision AREDS 1 cap p.o. b.i.d. 4. Amiodarone 100 mg p.o. daily. 5. Amlodipine 2.5 mg p.o. daily. 6. Aspirin 81 mg p.o. daily. 7. Donepezil 10 mg p.o. q.h.s. 8. Xalatan 1 drop to both eyes at bedtime. 9. Losartan 50 mg p.o. daily. 10. Namenda 10 mg p.o. b.i.d. 11. MiraLAX 17 g p.o. daily. 12. Pravastatin 80 mg p.o. daily. ALLERGIES: No known drug allergies. FAMILY HISTORY: Mom of mastoiditis. Dad's medical history is unknown. The patient has a sister with coronary disease. SOCIAL HISTORY: The patient does not smoke. He does not drink alcohol. Resides at [facility] in the assisted living section. He is . His daughter Leslie is his healthcare proxy. REVIEW OF SYSTEMS: Complete 11-system review of systems was obtained. Pertinent positives and negatives are as per HPI and otherwise negative. PHYSICAL EXAMINATION GENERAL: The patient is a well-developed elderly male seen sitting up in the stretcher, in no acute distress. VITAL SIGNS: Blood pressure 126/63, pulse 79, respirations 15, temp 99.3, O2 sat 92% on room air. HEENT: Pupils are pinpoint. Extraocular muscles are intact. Oropharynx is clear. Oral mucosa is moist. I do not appreciate any submandibular, cervical, or supraclavicular adenopathy. PULMONARY: Lungs are clear to auscultation bilaterally. CARDIAC: Normal S1, S2. Regular rate and rhythm. There is a soft 2/6 systolic murmur. There is 1+ bilateral lower extremity pitting edema. ABDOMEN: Bowel sounds present. Abdomen is soft, nontender, nondistended. MUSCULOSKELETAL: There is no cyanosis, clubbing of the digits. The upper extremity and lower extremity range of motion generally appears limited due to weakness. NEUROLOGIC: There is a slight left facial droop. I do not appreciate any pronator drift of the arms. The patient has a difficult time getting the left leg raised against gravity. However, ultimately he is able to get the leg raised, but it quickly falls to the bed. PSYCH: The patient is alert. He is a poor historian. SKIN: Warm and dry. There are no rashes. There is bruising noted to the patient's arms. DIAGNOSTIC STUDIES/LAB DATA: WBC 13.1, hemoglobin 12.7, hematocrit 38, platelets 211. INR 1.08. Sodium 134, potassium 4.7, chloride 105, CO2 20, BUN 41, creatinine 2.14, glucose 117, lactic acid 1.7, calcium 9.5. Bilirubin 0.4, AST 43, ALT 38, alk phos 87, troponin 0.05, albumin 4.0. Triglycerides 68, cholesterol 145, LDL 83, HDL 48.3. Urinalysis reveals urine with a specific gravity of 1.018, 2+ blood, 1+ rbc and otherwise negative. EKG reveals normal sinus rhythm without any acute ST-T wave abnormalities. CT brain: No acute intracranial pathology is appreciated. Chronic atrophic and micro ischemic changes are noted. Brain had a similar appearance in October 2017. Chest x-ray appears clear without any focal infiltrate. ASSESSMENT AND PLAN: Mr. Isabel is an 88-year-old male with history of coronary artery disease, hypertension, hyperlipidemia and dementia who presents to the emergency room after he was found on the floor of his bathroom at [facility] and unable to ambulate independently like he typically does. 1. Left-sided weakness. At this point, the suspicion is that the patient had a cerebrovascular accident. A telestroke consultation was performed in the emergency room. It was recommended the patient be continued on aspirin. He did receive 325 mg of aspirin in the emergency room and will continue on aspirin 81 mg p.o. daily. He is on high dose pravastatin. His LDL cholesterol is still above goal at 83. He may benefit from changing to a higher potency statin. MRI brain will be obtained later today to evaluate for cerebrovascular accident as well as carotid Dopplers. CTA of the head and neck is not going to be performed due to his underlying stage 3 to 4 chronic kidney disease. He will have PT and OT evaluations. Transthoracic echocardiogram has also been ordered. 2. Coronary artery disease. There is no complaints of chest pain. His troponin is mildly elevated at 0.05. Historically looking back through his old labs, he is frequently having an elevated troponin within this range. As there is no chest pain, I will not follow the troponin any further and suspect that the elevated troponin is likely his baseline. He will continue on his aspirin and statin. 3. History of ventricular tachycardia. Continue amiodarone 100 mg p.o. daily. 4. Hypertension. BP is under very good control at this point. We will continue losartan 50 mg daily and I will hold his amlodipine to allow his blood pressure to ride slightly higher. 5. Dementia. We will continue both donepezil and Namenda. 6. 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 Patient's creatinine is stable from where it was in July, but generally up higher than where it was in 2018. This will need to be followed. 7. Leukocytosis. The patient does have a mild leukocytosis with a white count of 13,100. He has fairly frequently cough, though his chest x-ray is clear. I am not going to start antibiotics at this point as he is afebrile and has no other signs of infection. 8. DVT prophylaxis: According to the Adult Thrombosis Prophylaxis Risk Factor Assessment Guide, the patient has a total risk factor score of 4 making him high risk. Heparin 5000 units subcutaneous q.8 hours will be utilized for DVT prophylaxis. 9. Code status is full. TIME SPENT: Sixty-five minutes was spent admitting this patient. [id number]/[facility] #: [id number] MTDD
[2018-10-11] MEDS: Losartan TAB* 25 MG PO SCH (08:57)
[2018-10-11] MEDS: CMCS - Pravastatin (NF) 20 MG TAB PO SCH (08:58)
[2018-10-11] MEDS: Memantine TAB* 10 MG PO SCH ×2 (08:59→21:50)
[2018-10-11] MEDS: Aspirin 81 mg CHEW TAB* 81 MG TAB.CHEW PO SCH (08:59)
[2018-10-11] MEDS: Amiodarone TAB* 200 MG PO SCH (09:00)
[2018-10-11] MEDS ORDERED: amLODIPine TAB* 5 MG PO SCH (09:00)
[2018-10-11] MEDS: Polyethylene Glycol 3350* 17 GM PACKET PO SCH (09:01)
[2018-10-11] MEDS ORDERED: Clopidogrel TAB* 75 MG PO ONE (14:19)
--- NOTE | 2018-10-11 15:15 | CONS ---
NEUROLOGY CONSULTATION: DATE OF CONSULT: 10/11/18 LOCATION: He is an inpatient, room 439. REFERRING PROVIDER: Dr. Rawls. PRIMARY CARE PROVIDER: Dr. Tan. CHIEF COMPLAINT: Facial weakness. HISTORY OF PRESENT ILLNESS: Leonidas Isabel is an 88-year-old demented gentleman , who was found on the bathroom floor at his assisted living residence at [place] last evening. He gets assisted toileting on a regular basis and was last seen well at 10 p.m. They then went to get him up at about 2 in the morning for assisted toileting and he was on the floor in the bathroom. He was noted to have some left facial weakness and was listing to the left according to admission records. The emergency room physician also reported a subtle left pronator drift. He was given an NIH Score of 4. Telestroke consultation was done with the [facility] and he was felt not to be a tPA candidate nor a candidate for contrast because of chronic kidney disease. He was given aspirin and admitted. PAST MEDICAL HISTORY: Notable for dementia, coronary artery disease, hypertension, hyperlipidemia, pernicious anemia. PAST SURGICAL HISTORY: He has had a right hip replacement. MEDICATIONS: At home consist of: 1. Naproxen 220 mg p.o. daily. 2. Vitamin B12 1000 mcg p.o. daily. 3. Amiodarone 100 mg p.o. daily. 4. Amlodipine 2.5 mg p.o. daily. 5. Aspirin 81 mg p.o. daily. 6. Donepezil 10 mg p.o. q.h.s. 7. Namenda 10 mg p.o. b.i.d. 8. Pravastatin 80 mg p.o. daily. ALLERGIES: He does not have any drug allergies. FAMILY HISTORY: According to records is notable for mother dying of mastoiditis. SOCIAL HISTORY: He lives at assisted living. He does not drink alcohol or smoke. REVIEW OF SYSTEMS: From the patient is limited. There is a paucity of verbal output. He denies headache. He denies difficulty swallowing. He admits to a cough. He denies any numbness on his face or limbs. PHYSICAL EXAM: He is well hydrated and well nourished. Temperature 97.2, blood pressure most recently 116/57, heart rate is in the 60s and sounds regular. He has a grade 2/6 early systolic murmur left lower sternal border. There are no cervical bruits. Oral mucosa is moist and atraumatic. Head is atraumatic. Lungs are clear anterolaterally. Neurological Exam: Pupils are small at about 2 mm and react to light to perhaps 1.75 mm. Eye movements are full and visual yañez are full to confrontation. Facial musculature is notable for mild asymmetry of facial musculature when he smiles where the right corner of the mouth rises higher than the left. With volitional facial movement such as asking him to show his teeth, his facial musculature is symmetric. Facial sensation to pin and light touch is reported as symmetric. Tongue protrudes in the midline and palate rises symmetrically. Speech is soft, but there is no dysarthria. Motor exam reveals diffuse paratonia. He has antigravity strength in all limbs without drift. Sensory exam to light touch and pin discrimination is intact in the extremities and symmetric. Reflexes are intact at biceps and knees. Plantar responses are flexor bilaterally. I did not attempt to ambulate him. There is a paucity of spontaneous movement and verbal output. He does answer questions with simple answers. He is calm and cooperative. DIAGNOSTIC STUDIES/LAB DATA: Laboratory data includes a CBC with a slightly elevated white blood cell count at 13.1 on admission. He has a mild anemia with hemoglobin of 12.7. Chemistry is notable for a creatinine of 2.14 and BUN of 41. The rest of the chemistries are unremarkable other than a borderline sodium of 134. His cholesterol early this morning was 145 and LDL 83. INR and PTT are within normal limits. Urinalysis early this morning notable for 2+ blood and otherwise unremarkable. CT scan of the brain is reviewed and reveals atrophy particularly centrally with very large ventricles. There is no evidence of hemorrhage or acute infarction. IMPRESSION AND PLAN: Impression is that of a possible transient ischemic attack or minor stroke. Currently, his exam is fairly unimpressive other than his dementia. He does not have any limb weakness that I can see and he does have some facial asymmetry, but is not clearly abnormal. An MRI of the brain is pending. He is currently on aspirin for antiplatelet therapy. If he does have an acute infarction on his imaging, I would add clopidogrel. He is on pravastatin and he is listed having allergies to ATORVASTATIN and SIMVASTATIN, so I would keep that where it is at currently. I am going to give him at least 1 dose of Plavix while we are awaiting his MRI imaging. I will continue to follow him along with you. [id number]/[facility] #: [id number] [facility]
--- NOTE | 2018-10-11 16:00 | ECHO ---
*[facility]* [place] [address] Fax #: [phone] Transthoracic Echocardiogram Patient: Leonidas Isabel : 1930 Study Date: 10/11/2018 Age: 88 Gender: M HR: 68 bpm Height: 66 in /167.6 cm BSA: 1.96 m^2 Weight: 189.6 lb /86.2 kg BMI: 30.7 kg/m^2 *Fundraising Director: * Joan Singh RDCS RN *Referring Physician: * Susanne Rawls *Reading Physician: * Carlin Mercado MD Indications: CVA. History: Coronary artery disease. Pernicious anemia. Dementia. Risk factors: Hypertension. Dyslipidemia. Conclusions Summary: - Left ventricle: The cavity size is normal. Wall thickness is mildly increased. Systolic function is at the lower limits of normal. The estimated ejection fraction is 50-55%. - Mitral valve: There is mild regurgitation. - Aortic valve: The findings are consistent with moderate stenosis. Borderline severe by RAEANN hemodynamics. There is mild regurgitation. The peak systolic velocity is 3.18 m/sec. The mean systolic gradient is 27.0 mm Hg. The peak systolic gradient is 40.0 mm Hg. The LVOT to aortic valve VTI ratio is 0.25. The valve area by the velocity-time integral method is 0.87 cm^2. The ratio of LVOT to aortic valve peak velocity is 0.26. The valve area by the peak velocity method is 0.92 cm^2. - C/t 11/09/2017, there is mild increase in severity. Study data: Transthoracic echocardiogram. Procedure: Transthoracic echocardiography was performed. Image quality was fair. Intravenous agitated saline was administered. A bubble study was performed on Images 108 and 109. Complete 2D, spectral Doppler, and color flow Doppler. Location: Bedside. Patient status: Observation. Patient room number: 439. Rhythm: Normal sinus rhythm with PVC's. Findings Left ventricle: The cavity size is normal. Wall thickness is mildly increased. Systolic function is at the lower limits of normal. The estimated ejection fraction is 50-55%. Regional wall motion abnormalities: Hypokinesis of the basalinferior myocardium. There is no consistent Doppler evidence of clinically significant diastolic dysfunction. Right ventricle: The cavity size is normal. Systolic function is normal. Left atrium: The atrium is normal in size. Right atrium: The atrium is normal in size. Atrial septum: No defect or patent foramen ovale is identified. Bubble study was negative. Images 108 and 109. Mitral valve: The leaflets are mildly thickened. There is no evidence of stenosis. There is mild regurgitation. Aortic valve: The valve is trileaflet. The leaflets are moderately thickened. Valve mobility is restricted. The findings are consistent with moderate stenosis. Borderline severe by RAEANN. There is mild regurgitation. Tricuspid valve: The valve is structurally normal. There is no evidence of stenosis. There is trace regurgitation. Pulmonic valve: Not well visualized. There is no evidence of stenosis. There is trace regurgitation. Aorta: Aortic root: The aortic root is not dilated. Ascending aorta: The ascending aorta is not dilated. Aortic arch: The aortic arch is not visualized. Pericardium: There is no pericardial effusion. Pulmonary arteries: Not well visualized. Systolic pressure can not be accurately estimated. Systemic veins: Inferior vena cava: The vessel is normal in size. There is (>= 50%) respiratory change in the IVC dimension. Measurements Left ventricle Value Ref Right atrium continued Value Ref JENNIFER, LAX 5.7 cm 4.2 - 5.8 SI dim, ES, A4C 5.2 cm 3.4 - 5.3 ESD, LAX (H) 4.5 cm 2.5 - 4.0 Estimated RAP 3 mm Hg --------- FS, LAX (L) 21 % 25 - 43 PW, ED (H) 1.2 cm 0.6 - 1.0 Aortic valve Value Ref IVS/PW, ED 0.98 Yue diam, ED 2.1 cm --------- E', lat yue, TDI (L) 7.1 cm/sec >=10.0 Yue diam/bsa, ED 1.1 cm/m^2 - -------- E/e', lat yue, 12 Peak v, S 3.18 m/sec ---- ----- TDI VTI, S 74.3 cm --------- E', med yue, TDI (L) 4.4 cm/sec >=7.0 Mean grad, S 27.0 mm Hg - -------- E/e', med yue, 19 Peak grad, S 40.0 mm Hg ---- ----- TDI LVOT/AV, VTI ratio 0.25 --------- E', avg, TDI 5.8 cm/sec RAEANN, VTI 0.87 cm^2 ---- ----- E/e', avg, TDI 14 <=14 RAEANN, Vmax 0.92 cm^2 - -------- AR peak v 2.66 m/sec --------- LVOT Value Ref AR PHT 503 ms --------- Diam, S 2.10 cm AR peak grad 28 mm Hg --------- Area 3.5 cm^2 Peak obey, S 0.84 m/sec Mitral valve Value Ref VTI, S 18.7 cm Peak E 0.83 m/sec --------- Mean grad, S 2 mm Hg Peak A 1.11 m/sec --------- SV 65 ml Decel time 246 ms --------- SV/bsa 33 ml/m^2 Peak grad, D 2.7 mm Hg --------- Peak E/A ratio 0.7 --------- Ventricular septum Value Ref IVS, ED (H) 1.2 cm 0.6 - 1.0 Pulmonic valve Value Ref Peak v, S 0.66 m/sec --------- Right ventricle Value Ref Peak grad, S 2.0 mm Hg --------- JENNIFER, LAX 2.8 cm JENNIFER minor ax, (H) 3.7 cm 1.9 - 3.5 Aortic root Value Ref A4C mid Root diam 3.4 cm <4.1 Left atrium Value Ref Ascending aorta Value Ref AP dim, ES (H) 4.10 cm 3.00 - AAo AP diam, S 3.1 cm --------- 4.00 ML dim, A4C 4.3 cm Inferior vena cava Value Ref SI dim, A4C 5.0 cm Diam 0.7 cm --------- Vol/bsa, ES, 1-p 30 ml/m^2 12 - 37 A4C Vol/bsa, ES, A/L 32 ml/m^2 16 - 34 Right atrium Value Ref ML dim, ES, A4C 3.9 cm 2.6 - 4.4 Legend: (L) and (H) yury values outside specified reference range. Prepared and electronically signed by Carlin Mercado MD 10/11/2018 15:59
[2018-10-11] MEDS: Latanoprost 0.005%* 2.5 ml BTL BOTH EYES SCH (17:23)
[2018-10-11] MEDS: Donepezil TAB* 5 MG PO SCH (21:50)
[2018-10-12] MEDS: Heparin VIAL(*) 5000 UNITS/ML VIAL (FIVE THOUSAND) SUBCUT SCH ×3 (05:08→21:45)
[2018-10-12 05:33] LABS: ABS Eosinophils 0.3 10^3/ul (0-0.6); ABS Lymphocytes 1.1 10^3/ul (1.0-4.8); ABS Monocytes 1.1 10^3/ul (0-0.8); ABS Neutrophils 5.5 10^3/ul (1.5-7.7); Eosinophil % 3.5 %; Hematocrit 34 % (42-52); Hemoglobin 11.7 g/dL (14.0-18.0); Lymphocyte % 14.2 %; Mean Corpuscular HGB Conc 34 g/dL (31-36); Mean Corpuscular Hemoglobin 32 pg (27-31); Mean Corpuscular Volume 94 fL (80-94); Mean Platelet Volume 8.7 fL (7.4-10.4); Platelet Count 185 10^3/uL (150-450); Red Blood Count 3.68 10^6 /uL (4.18-5.48); Red Cell Distribution Width 15 % (10-15); White Blood Count 8.1 10^3/uL (3.5-10.8)
[2018-10-12 05:51] LABS: Albumin 3.3 g/dL (3.2-5.2); Albumin/Globulin Ratio 1.1 (1-3); BUN/Creatinine Ratio 20.5 (8-20); Calcium 8.8 mg/dL (8.6-10.3); EGFR African American 40.7 (>60); EGFR Non-African American 33.6 (>60); Globulin 3.1 g/dL (2-4); Potassium 4.4 mmol/L (3.5-5.0); Total Bilirubin 0.5 mg/dL (0.2-1.0); Total Protein 6.4 g/dL (6.4-8.9)
[2018-10-12] MEDS: CMCS - Pravastatin (NF) 20 MG TAB PO SCH (08:33)
[2018-10-12] MEDS: Aspirin 81 mg CHEW TAB* 81 MG TAB.CHEW PO SCH (08:34)
[2018-10-12] MEDS: Memantine TAB* 10 MG PO SCH ×2 (08:34→21:45)
[2018-10-12] MEDS: Losartan TAB* 25 MG PO SCH (08:34)
[2018-10-12] MEDS: Amiodarone TAB* 200 MG PO SCH (08:34)
[2018-10-12] MEDS: Polyethylene Glycol 3350* 17 GM PACKET PO SCH (08:36)
[2018-10-12] MEDS: Latanoprost 0.005%* 2.5 ml BTL BOTH EYES SCH (17:38)
[2018-10-12] MEDS: Donepezil TAB* 5 MG PO SCH (21:45)
[2018-10-13] MEDS ORDERED: Acetaminophen TAB* 325 MG PO PRN (03:22)
[2018-10-13 06:04] LABS: ABS Basophils 0.1 10^3/ul (0-0.2); ABS Eosinophils 0.1 10^3/ul (0-0.6); ABS Lymphocytes 1.3 10^3/ul (1.0-4.8); ABS Monocytes 0.9 10^3/ul (0-0.8); ABS Neutrophils 8.1 10^3/ul (1.5-7.7); Eosinophil % 0.7 %; Hematocrit 35 % (42-52); Hemoglobin 11.9 g/dL (14.0-18.0); Lymphocyte % 12.5 %; Mean Corpuscular HGB Conc 34 g/dL (31-36); Mean Corpuscular Hemoglobin 32 pg (27-31); Mean Corpuscular Volume 94 fL (80-94); Nucleated Red Blood Cells % 0.1; Platelet Count 190 10^3/uL (150-450); Red Blood Count 3.73 10^6 /uL (4.18-5.48); Red Cell Distribution Width 15 % (10-15); White Blood Count 10.5 10^3/uL (3.5-10.8)
[2018-10-13 06:15] LABS: BUN/Creatinine Ratio 23.1 (8-20); C Reactive Protein 119.74 mg/L (<8.01); Calcium 8.6 mg/dL (8.6-10.3); EGFR African American 38.6 (>60); EGFR Non-African American 31.9 (>60)
[2018-10-13] MEDS: Heparin VIAL(*) 5000 UNITS/ML VIAL (FIVE THOUSAND) SUBCUT SCH ×3 (06:23→20:40)
[2018-10-13] MEDS: Polyethylene Glycol 3350* 17 GM PACKET PO SCH (09:25)
[2018-10-13] MEDS: Losartan TAB* 25 MG PO SCH (09:25)
[2018-10-13] MEDS: Memantine TAB* 10 MG PO SCH ×2 (09:25→20:40)
[2018-10-13] MEDS: CMCS - Pravastatin (NF) 20 MG TAB PO SCH (09:25)
[2018-10-13] MEDS: Aspirin 81 mg CHEW TAB* 81 MG TAB.CHEW PO SCH (09:25)
[2018-10-13] MEDS: Amiodarone TAB* 200 MG PO SCH (09:25)
[2018-10-13 13:21] LABS: C Reactive Protein 45.67 mg/L (<8.01)
[2018-10-13] MEDS: DOXYcycline CAP(*) 100 MG PO SCH ×2 (13:24→20:40)
[2018-10-13] MEDS: cefTRIAXone(*) 1 GM in NS 0.9% 50 ML* 50 ML IVPB SCH (13:36)
[2018-10-13] MEDS: Latanoprost 0.005%* 2.5 ml BTL BOTH EYES SCH (17:55)
[2018-10-13] MEDS: Donepezil TAB* 5 MG PO SCH (20:39)
[2018-10-14] MEDS: Heparin VIAL(*) 5000 UNITS/ML VIAL (FIVE THOUSAND) SUBCUT SCH ×3 (05:12→21:08)
[2018-10-14 06:46] LABS: ABS Basophils 0.1 10^3/ul (0-0.2); ABS Eosinophils 0.3 10^3/ul (0-0.6); ABS Lymphocytes 1.4 10^3/ul (1.0-4.8); ABS Monocytes 0.8 10^3/ul (0-0.8); ABS Neutrophils 4.4 10^3/ul (1.5-7.7); Eosinophil % 4.6 %; Hematocrit 33 % (42-52); Hemoglobin 11.7 g/dL (14.0-18.0); Lymphocyte % 19.8 %; Mean Corpuscular HGB Conc 35 g/dL (31-36); Mean Corpuscular Hemoglobin 33 pg (27-31); Mean Corpuscular Volume 94 fL (80-94); Mean Platelet Volume 8.8 fL (7.4-10.4); Platelet Count 182 10^3/uL (150-450); Red Blood Count 3.54 10^6 /uL (4.18-5.48); Red Cell Distribution Width 15 % (10-15); White Blood Count 6.8 10^3/uL (3.5-10.8)
[2018-10-14 07:02] LABS: BUN/Creatinine Ratio 25.4 (8-20); C Reactive Protein 161.15 mg/L (<8.01); Calcium 8.7 mg/dL (8.6-10.3); EGFR Non-African American 35.6 (>60); Potassium 4.3 mmol/L (3.5-5.0)
[2018-10-14] MEDS ORDERED: Albuterol/Ipratropium NEB.SOL* Albuterol 2.5 MG/Ipratropium 0.5 MG 3 ML INH PRN (09:54)
[2018-10-14] MEDS: Losartan TAB* 25 MG PO SCH (10:04)
[2018-10-14] MEDS: CMCS - Pravastatin (NF) 20 MG TAB PO SCH (10:04)
[2018-10-14] MEDS: Memantine TAB* 10 MG PO SCH ×2 (10:05→21:08)
[2018-10-14] MEDS: DOXYcycline CAP(*) 100 MG PO SCH ×2 (10:05→21:07)
[2018-10-14] MEDS: Amiodarone TAB* 200 MG PO SCH (10:05)
[2018-10-14] MEDS: Aspirin 81 mg CHEW TAB* 81 MG TAB.CHEW PO SCH (10:06)
[2018-10-14] MEDS: Polyethylene Glycol 3350* 17 GM PACKET PO SCH (10:06)
[2018-10-14] MEDS: cefTRIAXone(*) 1 GM in NS 0.9% 50 ML* 50 ML IVPB SCH (13:43)
[2018-10-14] MEDS: Latanoprost 0.005%* 2.5 ml BTL BOTH EYES SCH (17:58)
[2018-10-14] MEDS: Donepezil TAB* 5 MG PO SCH (21:07)
[2018-10-15] MEDS: Heparin VIAL(*) 5000 UNITS/ML VIAL (FIVE THOUSAND) SUBCUT SCH ×3 (05:57→20:18)
[2018-10-15 06:33] LABS: ABS Basophils 0.1 10^3/ul (0-0.2); ABS Eosinophils 0.4 10^3/ul (0-0.6); ABS Lymphocytes 1.3 10^3/ul (1.0-4.8); ABS Monocytes 0.8 10^3/ul (0-0.8); ABS Neutrophils 4.3 10^3/ul (1.5-7.7); Eosinophil % 5.7 %; Hematocrit 34 % (42-52); Hemoglobin 11.6 g/dL (14.0-18.0); Lymphocyte % 18.8 %; Mean Corpuscular HGB Conc 34 g/dL (31-36); Mean Corpuscular Hemoglobin 32 pg (27-31); Mean Corpuscular Volume 94 fL (80-94); Mean Platelet Volume 8.7 fL (7.4-10.4); Platelet Count 199 10^3/uL (150-450); Red Blood Count 3.64 10^6 /uL (4.18-5.48); Red Cell Distribution Width 15 % (10-15); White Blood Count 6.8 10^3/uL (3.5-10.8)
[2018-10-15 06:58] LABS: BUN/Creatinine Ratio 23.8 (8-20); C Reactive Protein 103.27 mg/L (<8.01); Calcium 8.7 mg/dL (8.6-10.3); EGFR African American 40.9 (>60); EGFR Non-African American 33.8 (>60); Potassium 4.3 mmol/L (3.5-5.0)
[2018-10-15] MEDS: CMCS - Pravastatin (NF) 20 MG TAB PO SCH (09:47)
[2018-10-15] MEDS: Amiodarone TAB* 200 MG PO SCH (09:48)
[2018-10-15] MEDS: Aspirin 81 mg CHEW TAB* 81 MG TAB.CHEW PO SCH (09:48)
[2018-10-15] MEDS: DOXYcycline CAP(*) 100 MG PO SCH ×2 (09:48→20:20)
[2018-10-15] MEDS: Memantine TAB* 10 MG PO SCH ×2 (09:48→20:20)
[2018-10-15] MEDS: Losartan TAB* 25 MG PO SCH (09:48)
[2018-10-15] MEDS: Polyethylene Glycol 3350* 17 GM PACKET PO SCH (09:49)
[2018-10-15] MEDS: cefTRIAXone(*) 1 GM in NS 0.9% 50 ML* 50 ML IVPB SCH (14:24)
[2018-10-15] MEDS: Latanoprost 0.005%* 2.5 ml BTL BOTH EYES SCH (17:40)
[2018-10-15] MEDS: Donepezil TAB* 5 MG PO SCH (20:20)
[2018-10-16] MEDS: Heparin VIAL(*) 5000 UNITS/ML VIAL (FIVE THOUSAND) SUBCUT SCH ×3 (07:16→21:31)
[2018-10-16] MEDS: CMCS - Pravastatin (NF) 20 MG TAB PO SCH (10:28)
[2018-10-16] MEDS: Memantine TAB* 10 MG PO SCH ×2 (10:29→21:30)
[2018-10-16] MEDS: Losartan TAB* 25 MG PO SCH (10:29)
[2018-10-16] MEDS: Amiodarone TAB* 200 MG PO SCH (10:30)
[2018-10-16] MEDS: Aspirin 81 mg CHEW TAB* 81 MG TAB.CHEW PO SCH (10:30)
[2018-10-16] MEDS: DOXYcycline CAP(*) 100 MG PO SCH ×2 (10:30→21:30)
[2018-10-16] MEDS: Polyethylene Glycol 3350* 17 GM PACKET PO SCH (10:31)
[2018-10-16] MEDS: cefTRIAXone(*) 1 GM in NS 0.9% 50 ML* 50 ML IVPB SCH (12:28)
[2018-10-16] MEDS: Latanoprost 0.005%* 2.5 ml BTL BOTH EYES SCH (17:35)
[2018-10-16] MEDS: Donepezil TAB* 5 MG PO SCH (21:30)
[2018-10-17] MEDS: Heparin VIAL(*) 5000 UNITS/ML VIAL (FIVE THOUSAND) SUBCUT SCH ×2 (05:48→12:53)
[2018-10-17] MEDS: Amiodarone TAB* 200 MG PO SCH (08:15)
[2018-10-17] MEDS: Polyethylene Glycol 3350* 17 GM PACKET PO SCH (08:15)
[2018-10-17] MEDS: CMCS - Pravastatin (NF) 20 MG TAB PO SCH (08:15)
[2018-10-17] MEDS: Aspirin 81 mg CHEW TAB* 81 MG TAB.CHEW PO SCH (08:15)
[2018-10-17] MEDS: Losartan TAB* 25 MG PO SCH (08:15)
[2018-10-17] MEDS: DOXYcycline CAP(*) 100 MG PO SCH (08:15)
[2018-10-17] MEDS: Memantine TAB* 10 MG PO SCH (08:15)
[2018-10-17 11:45] VITALS: BP 113/61
[2018-10-17] MEDS: cefTRIAXone(*) 1 GM in NS 0.9% 50 ML* 50 ML IVPB SCH (12:23)
--- NOTE | 2018-10-27 13:18 | DS ---
CC: Lisa * DISCHARGE SUMMARY: DATE OF ADMISSION: 10/11/18 DATE OF DISCHARGE: 10/17/18 DISCHARGE DIAGNOSES: 1. Pneumonia with bronchospasm. 2. History of ventricular arrhythmias, on amiodarone. 3. Alzheimer dementia. 4. History of hypertension. 5. Hyperlipidemia. 6. History of syncope. 7. Status post right hip replacement. 8. History of B12 deficiency. 9. Osteoarthritis. 10. Moderate aortic stenosis. 11. Chronic kidney disease. 12. Anemia due to chronic kidney disease. 13. History of coronary artery disease. HISTORY: Leonidas Isabel is an 88-year-old man admitted after having fallen. Please see the dictated admission note for details of the present illness, past medical history, family history, social and personal history, review of systems , and physical examination. DIAGNOSTIC STUDIES/LAB DATA: Laboratory: CBC on 10/11/18: WBC 13.1, H and H 12.7/38, MCV 94, PLT 211,000. Absolute neutrophils are 11.5 (high) with monocytes 1.1 (high) and leukocytes 0.5 (low). WBC went down to 6.8 and H and H went down to 11.6/34 by the time of discharge. INR and PTT normal. Chemistries on admission: Sodium 134, potassium 4.7, chloride 105, CO2 of 20, BUN and creatinine 41/2.14, glucose 117, AST 43. Rest of the comprehensive metabolic panel was, otherwise, within normal limits. Lipids: Cholesterol 145 , triglycerides 68, LDL 83, HDL 48.3. TSH normal at 2.30. Troponin was 0.15 ( normal for him). CRP was 45.67 on admission, although this is not known immediately, added on afterwards. Went up as high as 161.15 on 10/14/18, down to 103.27 on 10/15/18. Urinalysis: Yellow colored, specific gravity 1.018, pH 5, dipsticks positive for blood 2+, wbc's 1+; otherwise, unremarkable. Blood cultures x2 were no growth. Imaging: Brain CT on 10/11/18 showed no acute intracranial pathology, chronic atrophic and microischemic changes similar to 10/31/18. Carotid ultrasound showed 50% to 69% stenosis near the origin of the left internal carotid artery and 1% to 49% stenosis to the origin of the right internal carotid artery. Chest x-ray on 10/11/18 showed calcified granuloma to left lung base. Brain MRI on 10/11/18 showed no restricted diffusion to suggest an acute infarct , stable dilatation of the ventricles, possible normal pressure hydrocephalus or intraventricular obstructive hydrocephalus possible. Scattered foci of FLAIR hyperintensity within the cerebral white matter. Abdominal bladder ultrasound showed no hydronephrosis. Medical renal disease noted. Postvoid residual 78 mL. 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 Chest x-ray on 10/13/18: Early infiltrate, left lung base. On 10/16/18, left basilar infiltrate similar, but improved. EKG on 10/11/18: Sinus rhythm, first-degree AV block, nonspecific interventricular conduction delay, inferior infarct. No significant change, except for faster rate. Transthoracic echocardiogram on 10/11/18: Mildly increased wall thickness, systolic function at the lower limits of normal, EF 50% to 55%, mild mitral regurgitation, moderate aortic stenosis. Compared to 11/09/17, mild increase in aortic stenosis severity. Telemetry monitoring showed PACs, sinus rhythm otherwise. HOSPITAL COURSE: The patient was admitted from the ER after an unwitnessed fall. It was thought that he had left-sided weakness, with possible TIA or stroke. He was continued on aspirin. Workup was ordered as noted above. It was felt that his slightly elevated troponin was stable for him. He was continued on amiodarone for his ventricular arrhythmias. His losartan was continued. His amlodipine was held in order to allow his blood pressure to rise slightly higher. Donepezil and Namenda were continued for dementia. His creatinine was followed. No antibiotics were initially started because it was not clear that he had an infection. Initially, it was felt that he had had a stroke or TIA, but then on 10/13/18 it was noted that he was sleepy, coughing. He developed fever during the night of 10/12/18 to 10/13/18. He denied symptoms at this point, but his chest x-ray suggested a pulmonary infiltrate. He did have rales at the left base on exam. It was felt that he likely had not had a neurologic event, but rather had pneumonia. He was placed on ceftriaxone and doxycycline. His CRP had gone up. I checked his CRP initially to see if it was elevated on admission and it had been, although this was not known at that time. With treatment with antibiotics, his temperature came down. CRP went up, but then came down. His white count came down. He developed bronchospasm. This was treated with nebulized bronchodilators. By 10/15/18, he was feeling better. I thought his pneumonia was improving. Chest x-ray suggested improvement. By 10/16/18, he had continued to improve. He was discharged on 10/17/18. He was continued on doxycycline at the time of discharge. At the time of discharge, he was going back to [facility] assisted living at [place]. Diet as usual. Followup would be with me within the next week. DISCHARGE MEDICATIONS: 1. Doxycycline 100 mg twice a day for 5 days. 2. Donepezil 10 mg at h.s. 3. Memantine 10 mg twice a day. 4. Losartan 50 mg daily. 5. B12 at 1000 mcg daily. 6. PreserVision 1 capsule twice a day. 7. Amlodipine 2.5 mg daily. 8. Amiodarone 100 mg every day. 9. Aspirin 81 mg daily. DIET: Usual. CONDITION: Improved. DISPOSITION: He is being returned to [facility] assisted living at [place]. [id number]/CPS #: [id number] MTDD
== END 2018-10-17 14:23 | DRG 194 ==
LOC: ED 02:27 → MEDTELE 04:51 → OBSVTOIN 10:00
PROVIDERS: ADMIT Hospitalist; ATTEND Internal Medicine Geriatric Medicine
DX: J18.9 Pneumonia, unspecified organism (principal); I47.2 Ventricular tachycardia; N18.4 Chronic kidney disease, stage 4 (severe); H70.92 Unspecified mastoiditis, left ear; I12.9 Hypertensive chronic kidney disease with stage 1 through stage 4 chronic kidney disease, or unspecified chronic kidney disease; E78.5 Hyperlipidemia, unspecified; I25.10 Atherosclerotic heart disease of native coronary artery without angina pectoris; D51.0 Vitamin B12 deficiency anemia due to intrinsic factor deficiency; F03.90 Unspecified dementia, unspecified severity, without behavioral disturbance, psychotic disturbance, mood disturbance, and anxiety; R53.1 Weakness; Z96.641 Presence of right artificial hip joint; Z79.82 Long term (current) use of aspirin; Z79.899 Other long term (current) drug therapy; Z82.49 Family history of ischemic heart disease and other diseases of the circulatory system; Z83.52 Family history of ear disorders
CPT/HCPCS: 36415; 70450; 70551; 71045; 71046; 76770; 80048; 80053; 80061; 81003; 81015; 83036; 83605; 84145; 84443; 84484; 85025; 85610; 85730; 86140; 87040; 93005; 93306; 93880; 99284; A9270-GY; G8978-GP-CJ; G8978-GP-CL; G8979-GP-CI; G8979-GP-CJ; G8987-GO-CL; G8988-GO-CK; J0696; J1644

== ENCOUNTER 2018-10-25 02:04 | Emergency (ER) | payer MEDICARE ==
[2018-10-25 02:32] LABS: ABS Basophils 0.1 10^3/ul (0-0.2); ABS Eosinophils 0.2 10^3/ul (0-0.6); ABS Lymphocytes 1.2 10^3/ul (1.0-4.8); ABS Monocytes 0.6 10^3/ul (0-0.8); ABS Neutrophils 6.5 10^3/ul (1.5-7.7); Eosinophil % 2.3 %; Hematocrit 36 % (42-52); Hemoglobin 12.1 g/dL (14.0-18.0); Lymphocyte % 14.1 %; Mean Corpuscular HGB Conc 33 g/dL (31-36); Mean Corpuscular Hemoglobin 31 pg (27-31); Mean Corpuscular Volume 95 fL (80-94); Mean Platelet Volume 8.2 fL (7.4-10.4); Platelet Count 282 10^3/uL (150-450); Red Blood Count 3.84 10^6 /uL (4.18-5.48); Red Cell Distribution Width 14 % (10-15); White Blood Count 8.6 10^3/uL (3.5-10.8)
[2018-10-25 02:48] LABS: ALT 97 U/L (7-52); AST 44 U/L (13-39); Albumin 3.6 g/dL (3.2-5.2); Alkaline Phosphatase 83 U/L (34-104); Anion Gap 11 mmol/L (2-11); BUN/Creatinine Ratio 20.6 (8-20); Blood Urea Nitrogen 45 mg/dL (6-24); CO2 Carbon Dioxide 18 mmol/L (22-32); Calcium 9.2 mg/dL (8.6-10.3); Chloride 107 mmol/L (101-111); EGFR African American 34.7 (>60); EGFR Non-African American 28.7 (>60); Globulin 3.7 g/dL (2-4); Glucose 89 mg/dL (70-100); Potassium 4.4 mmol/L (3.5-5.0); Sodium 136 mmol/L (135-145); Total Protein 7.3 g/dL (6.4-8.9)
[2018-10-25 02:51] LABS: Troponin I 0.04 ng/mL (<0.04)
[2018-10-25] MEDS ORDERED: NS 0.9% 1000 ML** 1,000 ML IV ONE (03:02)
[2018-10-25 03:19] LABS: Urine Appearance Clear; Urine Bilirubin Negative (Negative); Urine Blood Negative (Negative); Urine Color Yellow; Urine Glucose Negative (Negative); Urine Ketones Negative (Negative); Urine Nitrite Negative (Negative); Urine Protein Negative (Negative); Urine Specific Gravity 1.014 (1.010-1.030); Urine Urobilinogen Negative (Negative)
--- NOTE | 2018-10-25 03:24 | ED ---
Adult Trauma - HPI Summary HPI Summary: This patient is an 88 year old M w hx dementia, recent admit to falls and stroke w/u arriving via ambulance from memory care unit at [place] to [facility] with a chief complaint of fall since 89 on 10/25/18. Patient states that he does not remember incident. Per RN, patient was said to have fallen from standing position when he went to the restroom. Per EMS, patients incident was unwitnessed and no reported LOC. Patients daughter was then contacted and wanted the patient to be evaluated at [facility]. Patient denies pain. He is at baseline mental status per ROR. - History of Current Complaint Chief Complaint: EDFall Stated Complaint: FALL PER EMS Time Seen by Provider: 10/25/18 02:10 Hx Obtained From: Patient, EMS, Other: - RN Mechanism of Injury: Fall Ambulatory at the Scene: Yes Onset/Duration: Started Minutes Ago - 99 on 10/25/18 Current Severity: None Pain Intensity: 0 Pain Scale Used: 0-10 Numeric Aggravating Factor(s): Nothing Alleviating Factor(s): Nothing Associated Signs & Symptoms: Positive: Negative - Additional Pertinent History Primary Care Physician: [id number] - Allergy/Home Medications Allergies/Adverse Reactions: Allergies Allergy/AdvReac Type Severity Reaction Status Date / Time atorvastatin [From Lipitor] Allergy Unknown Verified 10/11/18 05:52 Reaction Details cerivastatin [From Baycol] Allergy Unknown Verified 10/11/18 05:52 Reaction Details simvastatin [From Zocor] Allergy Unknown Verified 10/11/18 05:52 Reaction Details PMH/Surg Hx/FS Hx/Imm Hx Endocrine/Hematology History: Reports: Hx Anemia - pernicious anemia Denies: Hx Anticoagulant Therapy - ASA 81 mg daily, Hx Blood Disorders, Hx Diabetes Cardiovascular History: Reports: Hx Coronary Artery Disease, Hx Hypertension, Hx Myocardial Infarction - 2X Denies: Hx Pacemaker/ICD Respiratory History: Denies: Hx Asthma GI History: Denies: Hx Jaundice History: Denies: Hx Renal Disease Sensory History: Denies: Hx Contacts or Glasses - only for reading, Hx Hearing Aid Opthamlomology History: Denies: Hx Contacts or Glasses - only for reading Neurological History: Reports: Hx Dementia Psychiatric History: Denies: Hx Panic Disorder - Surgical History Surgery Procedure, Year, and Place: HEART STENTS FROM [facility] 20 YRS AGO( CARDS MAY NOT BE AVAILABLE),HIP PINNING and HIP REPLACEMENT right. 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 Denies: Hx Clostridium Difficile, Hx Hepatitis, Hx Human Immunodeficiency Virus (HIV), Hx of Known/Suspected MRSA, Hx Shingles, History Other Infectious Disease - TB as a young child, Traveled Outside the [place] in Last 30 Days - Family History Known Family History: Positive: Diabetes Negative: Cardiac Disease Family History: no known cardiovascular issues in family lineage - Social History Alcohol Use: Occasionally Hx Substance Use: No Substance Use Type: Reports: None Hx Tobacco Use: No Smoking Status (MU): Former Smoker Type: Cigarettes Amount Used/How Often: 4 years Length of Time of Smoking/Using Tobacco: 65 years ago quit Have You Smoked in the Last Year: No Review of Systems Negative: Fever Musculoskeletal: Other - negative - pain; positive - fall All Other Systems Reviewed And Are Negative: Yes Physical Exam - Summary Physical Exam Summary: Constitutional: Elderly male NAD Skin: Warm, Dry HENT: Normocephalic; Atraumatic Eyes: Conjunctiva normal Neck: Musculoskeletal ROM normal neck. (-) JVD, (-) Stridor, (-) Nuchal rigidity Cardio: Rhythm regular, rate normal, Heart sounds normal; Intact distal pulses; Radial pulses are 2+ and symmetric. (-) Murmur Pulmonary/Chest wall: Effort normal. (-) Respiratory distress, (-) Wheezes, (-) Rales Abd: Soft, (-) tenderness, (-) Distension, (-) Guarding, (-) Rebound Musculoskeletal: (-) Edema Lymph: (-) Cervical adenopathy Neuro: Alert, Oriented to person and place but not time. CN 2-12 grossly intact , strength 5/5 BUE BLE, no dysmetria, gait deferred Psych: Mood and affect Normal GSC: 14 Triage Information Reviewed: Yes Vital Signs On Initial Exam: Initial Vitals Temp Pulse Resp BP Pulse Ox 98.3 F 73 18 137/85 97 10/25/18 02:10 10/25/18 02:10 10/25/18 02:10 10/25/18 02:10 10/25/18 02:10 Vital Signs Reviewed: Yes Diagnostics - Vital Signs Vital Signs Temp Pulse Resp BP Pulse Ox 10/25/18 02:10 98.3 F 73 18 137/85 97 - Laboratory Lab Results: Lab Results 10/25/18 10/25/18 10/25/18 Range/Units 02:25 02:25 02:45 WBC 8.6 (3.5-10.8) 10^3/uL RBC 3.84 L (4.18-5.48) 10^6 /uL Hgb 12.1 L (14.0-18.0) g/dL Hct 36 L (42-52) % MCV 95 H (80-94) fL MCH 31 (27-31) pg MCHC 33 (31-36) g/dL RDW 14 (10-15) % Plt Count 282 (150-450) 10^3/uL MPV 8.2 (7.4-10.4) fL Neut % (Auto) 75.2 % Lymph % (Auto) 14.1 % [place] % (Auto) 7.2 % Eos % (Auto) 2.3 % Baso % (Auto) 1.2 % Absolute Neuts (auto) 6.5 (1.5-7.7) 10^3/ul Absolute Lymphs (auto) 1.2 (1.0-4.8) 10^3/ul Absolute Monos (auto) 0.6 (0-0.8) 10^3/ul Absolute Eos (auto) 0.2 (0-0.6) 10^3/ul Absolute Basos (auto) 0.1 (0-0.2) 10^3/ul Absolute Nucleated RBC 0.0 10^3/ul Nucleated RBC % 0.0 Sodium 136 (135-145) mmol/L Potassium 4.4 (3.5-5.0) mmol/L Chloride 107 (101-111) mmol/L Carbon Dioxide 18 L (22-32) mmol/L Anion Gap 11 (2-11) mmol/L BUN 45 H (6-24) mg/dL Creatinine 2.18 H (0.67-1.17) mg/dL Est GFR ( Amer) 34.7 (>60) Est GFR (Non-Af Amer) 28.7 (>60) BUN/Creatinine Ratio 20.6 H (8-20) Glucose 89 (70-100) mg/dL Calcium 9.2 (8.6-10.3) mg/dL Total Bilirubin 0.40 (0.2-1.0) mg/dL AST 44 H (13-39) U/L ALT 97 H (7-52) U/L Alkaline Phosphatase 83 (34-104) U/L Troponin I 0.04 H* (<0.04) ng/mL Total Protein 7.3 (6.4-8.9) g/dL Albumin 3.6 (3.2-5.2) g/dL Globulin 3.7 (2-4) g/dL Albumin/Globulin Ratio 1.0 (1-3) Urine Color Yellow Urine Appearance Clear Urine pH 5.0 (5-9) Ur Specific [place] 1.014 (1.010-1.030) Urine Protein Negative (Negative) Urine Ketones Negative (Negative) Urine Blood Negative (Negative) Urine Nitrate Negative (Negative) Urine Bilirubin Negative (Negative) Urine Urobilinogen Negative (Negative) Ur Leukocyte Esterase Negative (Negative) Urine Glucose Negative (Negative) Urine Ascorbic Acid * A (Negative) Result Diagrams: 10/25/18 02:25 10/25/18 02:25 Lab Statement: Any lab studies that have been ordered have been reviewed, and results considered in the medical decision making process. - Radiology Chest Xray Radiology Interpretation Completed By: ED Physician Summary of Radiographic Findings: CXR reveals, per ED Physician, no acute process. Pending offical report. - CT Brain CT CT Interpretation Completed By: Radiologist Summary of CT Findings: Brain CT Scan reveals, per radiologist, IMPRESSION: 1. No traumatic intracranial abnormalities. 2. Age-related atrophy and moderate chronic small vessel ischemic disease. Centralized atrophy versus normal pressure hydrocephalus. 3. Persistent left mastoid effusion. ED Physician has reviewed this report. - EKG 0216 Cardiac Rate: NL - 71 bpm EKG Rhythm: Sinus Rhythm Summary of EKG Findings: Sinus Rhythm at 71 bpm with prolonged WV, no changes since 10/11/18 Re-Evaluation - Re-Evaluation First Eval Comment: 3:[address] brain neg, trop baseline, will ambulate here then discharge to [place] Second Eval Comment: 3:30 am patient ambulated in department w walker. Adult Trauma Course/Dx - Course Course Of Treatment: 88-year-old male with a history of dementia, hypertension, NC who presents with unwitnessed fall. - PE: no obvious signs of trauma however given possible unwitnessed fall, check brain CT to rule out intracranial pathology. Well also check labs including a troponin and EKG for syncopal workup although lower suspicion. Patient just had admission and MRI for stroke workup that was negative. - Diagnoses Provider Diagnoses: Fall Discharge ED - Sign-Out/Discharge Documenting (check all that apply): Patient Departure - discharge Patient Received Moderate/Deep Sedation with Procedure: No - Discharge Plan Condition: Stable Disposition: HOME Patient Education Materials: Fall Prevention for Older Adults (ED) Referrals: Clemencia Tan MD [Primary Care Provider] - 3 Days Additional Instructions: Leonidas was seen in the emergency department after a fall. His labs and head CT did not show a cause for his fall. If any studies were not completed at the time of discharge you will be called with the relevant results. Please follow up with your primary care doctor in next 2-3 days and return to emergency department for worsening or concerning symptoms. It was a pleasure taking care of you today. - Billing Disposition and Condition Condition: STABLE Disposition: Home - Attestation Statements Document Initiated by Scribe: Yes Documenting Scribe: Stephanie Johnston Provider For Whom Pat is Documenting (Include Credential): Arslan Gilliland MD Scribe Attestation: Stephanie Dowling, scribed for Arslan Gilliland MD on 10/25 at 0415. Scribe Documentation Reviewed: Yes Provider Attestation: The documentation as recorded by the scribe, Stephanie Johnston accurately reflects the service I personally performed and the decisions made by , Arslan Gilliland MD Status of Scribe Document: Viewed
[2018-10-25 04:29] VITALS: BP 120/59
== END 2018-10-25 04:28 | disposition home or self-care (01) ==
LOC: ED 02:04
DX: Z04.3 Encounter for examination and observation following other accident (principal); W18.30XA Fall on same level, unspecified, initial encounter; Y92.129 Unspecified place in nursing home as the place of occurrence of the external cause; I67.82 Cerebral ischemia; H74.8X2 Other specified disorders of left middle ear and mastoid; D51.0 Vitamin B12 deficiency anemia due to intrinsic factor deficiency; I25.10 Atherosclerotic heart disease of native coronary artery without angina pectoris; I10 Essential (primary) hypertension; I25.2 Old myocardial infarction; Z95.5 Presence of coronary angioplasty implant and graft; Z96.641 Presence of right artificial hip joint; Z87.891 Personal history of nicotine dependence; Z79.82 Long term (current) use of aspirin; Z79.899 Other long term (current) drug therapy; Z88.8 Allergy status to other drugs, medicaments and biological substances
CPT/HCPCS: 36415; 70450; 71045; 80053; 81003; 84484; 85025; 93005; 99282

== ENCOUNTER 2018-12-02 21:09 | Inpatient (IN) | payer MEDICARE ==
[2018-12-02] MEDS ORDERED: cefTRIAXone(*) 1 GM in NS 0.9% 50 ML* 50 ML IVPB ONE (21:34)
[2018-12-02] MEDS ORDERED: NS 0.9% IV ONE (21:34)
--- NOTE | 2018-12-02 21:38 | ED ---
Altered Mental Status - HPI Summary HPI Summary: This patient is an 88 year old M BRADFORD vis EMS to ED with a chief complaint of AMS since this morning. Patient was diagnosed with PNA today. Per son, today the patient stayed in bed this morning and seemed very tired and weak. Son noticed that the bed was wet, which is abnormal as the patient usually gets up to the use the bathroom. Son noted patient had high blood pressure and rate and drooping of the left side face. Patient was evaluated at at diagnosed instead with PNA and no CVA. Patient usually walks around with a walker and has mild dementia at baseline. The patient rates the pain 0/10 in severity. Symptoms aggravated by nothing. Symptoms alleviated by nothing. Patient has fever at 101.9 F in the ED. - History Of Current Complaint Chief Complaint: EDAltMentalStatus Stated Complaint: GENERAL ILLNESS PER EMS Time Seen by Provider: 12/02/18 21:27 Hx Obtained From: Family/Sports Therapist, Medical Records Last Known Well Date: 12/01/18 Onset/Duration: Still Present Timing: Constant Severity Initially: Mild Severity Currently: Mild Character: Lethargy Aggravating Factor(s): Nothing Alleviating Factor(s): Nothing Associated Signs And Symptoms: Positive: Weakness Related History: Recent Illness - PNA dx - Allergies/Home Medications Allergies/Adverse Reactions: Allergies Allergy/AdvReac Type Severity Reaction Status Date / Time atorvastatin [From Lipitor] Allergy Unknown Verified 10/11/18 05:52 Reaction Details cerivastatin [From Baycol] Allergy Unknown Verified 10/11/18 05:52 Reaction Details simvastatin [From Zocor] Allergy Unknown Verified 10/11/18 05:52 Reaction Details PMH/Surg Hx/FS Hx/Imm Hx Endocrine/Hematology History: Reports: Hx Anemia - pernicious anemia Denies: Hx Anticoagulant Therapy - ASA 81 mg daily, Hx Blood Disorders, Hx Diabetes Cardiovascular History: Reports: Hx Coronary Artery Disease, Hx Hypertension, Hx Myocardial Infarction - 2X Denies: Hx Pacemaker/ICD Respiratory History: Denies: Hx Asthma GI History: Denies: Hx Jaundice History: Denies: Hx Renal Disease Sensory History: Denies: Hx Contacts or Glasses - only for reading, Hx Hearing Aid Opthamlomology History: Denies: Hx Contacts or Glasses - only for reading Neurological History: Reports: Hx Dementia Psychiatric History: Denies: Hx Panic Disorder - Surgical History Surgery Procedure, Year, and Place: HEART STENTS FROM [facility] 20 YRS AGO( CARDS MAY NOT BE AVAILABLE),HIP PINNING and HIP REPLACEMENT right. 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 Denies: Hx Clostridium Difficile, Hx Hepatitis, Hx Human Immunodeficiency Virus (HIV), Hx of Known/Suspected MRSA, Hx Shingles, History Other Infectious Disease - TB as a young child, Traveled Outside the [place] in Last 30 Days - Family History Known Family History: Positive: Diabetes Negative: Cardiac Disease Family History: no known cardiovascular issues in family lineage - Social History Alcohol Use: Occasionally Hx Substance Use: No Substance Use Type: Reports: None Hx Tobacco Use: No Smoking Status (MU): Former Smoker Type: Cigarettes Amount Used/How Often: 4 years Length of Time of Smoking/Using Tobacco: 65 years ago quit Have You Smoked in the Last Year: No Review of Systems Positive: Fever Positive: incontinence Neurological: Other - AMS Positive: Weakness All Other Systems Reviewed And Are Negative: Yes Physical Exam - Summary Physical Exam Summary: Appearance: elderly, ill-appearing man in no respiratory distress Skin: Warm, dry, no obvious rash Eyes: sclera anicteric, no conjunctival pallor ENT: mucous membranes moist, pharynx appears normal Neck: Supple, nontender Respiratory: Clear to auscultation, no signs of respiratory distress Cardiovascular: Normal S1, S2. No murmurs. Normal distal pulses in tibial and radial bilaterally. Abdomen: Soft, nontender, normal active bowel sounds present Musculoskeletal: Normal, Strength/ROM Intact Neurological: not awake and alert, opens eyes to voice, is not answering questions, diffusely weak but does not have any focal motor deficits Psychiatric: affect is normal, does not appear anxious or depressed Triage Information Reviewed: Yes Vital Signs On Initial Exam: Initial Vitals Pulse Pulse Ox 89 100 12/02/18 21:17 12/02/18 21:17 Vital Signs Reviewed: Yes Diagnostics - Vital Signs Vital Signs Temp Pulse Resp BP Pulse Ox 12/02/18 21:31 102.7 F 12/02/18 21:22 87 15 146/79 96 12/02/18 21:20 101.9 F 87 16 146/79 96 12/02/18 21:17 89 100 - Laboratory Result Diagrams: 12/02/18 21:49 12/02/18 21:49 Lab Statement: Any lab studies that have been ordered have been reviewed, and results considered in the medical decision making process. - Radiology CXR Radiology Interpretation Completed By: ED Physician Summary of Radiographic Findings: Opacity in the region of the right middle lobe with loss of the right heart quarter suspicious for right middle lobe PNA, pending official radiology report. - EKG 2133 Cardiac Rate: NL - 78 BPM EKG Rhythm: Sinus Rhythm Summary of EKG Findings: NSR at 78 BPM, Q waves in inferior leads, otherwise normal EKG. Dr. Dominique has reviewed and interpreted this EKG. Re-Evaluation - Re-Evaluation First Eval Re-Evaluation Time: 22:51 Comment: Discussed results with patient's son. Patient will be admitted to [facility] with dx of PNA and AMS. Patient's son understands and agrees with this plan. Altered Mental Statu Course/Dx - Course Course Of Treatment: This patient is an 88 year old M BIBA vis EMS to ED with a chief complaint of AMS since this morning. EKG at 2133 revealed NSR at 78 BPM, Q waves in inferior leads, otherwise normal EKG. CXR revealed opacity in the region of the right middle lobe with loss of the right heart quarter suspicious for right middle lobe PNA, pending official radiology report. In the ED course, patient received fluids, Rocephin, and Zithromax. Blood work revealed WBC 13.6, RBC 3.9, Hgb 12.3, Hct 37, MCV 95, MCH 32, neutrophils 12.1, lymphocytes 0.5, monocytes 0.9, creatinine 1.72, troponin 0.09, alkaline phosphatase 105, CRP 21.41. UA revealed squamous epithelial cells present, 1+ urine blood, 2+ urine RBC, 1+ urine bacteria. Discussed results with patient's son. Patient will be admitted to [facility] with dx of PNA, AMS, fever. Patient's son understands and agrees with this plan. Discussed patient case with Dr. Chang, hospitalist, who accepted the patient for admission to [facility]. - Diagnoses Provider Diagnoses: Fever, PNA (pneumonia), AMS (altered mental status) - Provider Notifications Discussed Care Of Patient With: Edenilson Chang Time Discussed With Above Provider: 23:18 Instructed by Provider To: Admit As Inpatient - Discussed patient case with Dr. Chang, hospitalist, who accepted the patient for admission to [facility]. Discharge ED - Sign-Out/Discharge Documenting (check all that apply): Patient Departure - Admit - Discharge Plan Condition: Fair Disposition: ADMITTED TO [facility] - Billing Disposition and Condition Condition: FAIR Disposition: Admitted to [facility] - Attestation Statements Document Initiated by Pat: Yes Documenting Scribe: Christian Cullen Provider For Whom Pat is Documenting (Include Credential): Juni Dominique MD Scribe Attestation: IChristian, scribed for Juni Dominique MD on 12/03/18 at 0505. Scribe Documentation Reviewed: Yes Provider Attestation: The documentation as recorded by the Christian plunkett accurately reflects the service I personally performed and the decisions made by me, Juni Dominique MD Status of Scribe Document: Viewed
[2018-12-02 21:57] LABS: Hematocrit 37 % (42-52); Hemoglobin 12.3 g/dL (14.0-18.0); Mean Corpuscular HGB Conc 33 g/dL (31-36); Mean Corpuscular Hemoglobin 32 pg (27-31); Mean Corpuscular Volume 95 fL (80-94); Mean Platelet Volume 8.6 fL (7.4-10.4); Platelet Count 193 10^3/uL (150-450); Red Cell Distribution Width 14 % (10-15); White Blood Count 13.6 10^3/uL (3.5-10.8)
[2018-12-02 22:08] LABS: Activated Partial Thrombo Time 30.5 seconds (26.0-38.0); INR 1.02 (0.82-1.09)
[2018-12-02 22:15] LABS: ALT 17 U/L (7-52); AST 17 U/L (13-39); Albumin 3.4 g/dL (3.2-5.2); Alkaline Phosphatase 105 U/L (34-104); Anion Gap 7 mmol/L (2-11); BUN/Creatinine Ratio 13.4 (8-20); Blood Urea Nitrogen 23 mg/dL (6-24); C Reactive Protein 21.41 mg/L (<8.01); CO2 Carbon Dioxide 24 mmol/L (22-32); Calcium 8.6 mg/dL (8.6-10.3); Chloride 107 mmol/L (101-111); EGFR African American 45.6 (>60); EGFR Non-African American 37.7 (>60); Globulin 3.5 g/dL (2-4); Glucose 84 mg/dL (70-100); Potassium 4.1 mmol/L (3.5-5.0); Sodium 138 mmol/L (135-145); Total Protein 6.9 g/dL (6.4-8.9)
[2018-12-02 22:19] LABS: Troponin I 0.09 ng/mL (<0.04)
[2018-12-02 22:29] LABS: ABS Eosinophils 0.1 10^3/ul (0-0.6); ABS Lymphocytes 0.5 10^3/ul (1.0-4.8); ABS Monocytes 0.9 10^3/ul (0-0.8); ABS Neutrophils 12.1 10^3/ul (1.5-7.7); Eosinophil % 0.4 %; Lymphocyte % 3.4 %
[2018-12-02 22:42] LABS: Urine Appearance Clear; Urine Bacteria 1+ (Absent); Urine Bilirubin Negative (Negative); Urine Blood 1+ (Negative); Urine Color Yellow; Urine Glucose Negative (Negative); Urine Ketones Negative (Negative); Urine Nitrite Negative (Negative); Urine Protein Negative (Negative); Urine Red Blood Cell 2+(6-10/hpf) (Absent); Urine Squamous Epithelial Cell Present (Absent); Urine Urobilinogen Negative (Negative); Urine White Blood Cell Trace(0-5/hpf) (Absent)
[2018-12-02] MEDS ORDERED: Azithromycin 500 mg/250 ml NS 500 MG/250 ML BAG IVPB ONE (22:51)
[2018-12-03] MEDS ORDERED: Acetaminophen TAB* 325 MG PO PRN (00:30)
[2018-12-03 01:05] LABS: Troponin I 0.12 ng/mL (<0.04)
[2018-12-03] MEDS ORDERED: Aspirin 81 mg CHEW TAB* 81 MG TAB.CHEW PO ONE (01:21)
--- NOTE | 2018-12-03 02:57 | HP ---
CC: Dr. Tan * ADMISSION HISTORY AND PHYSICAL: DATE OF ADMISSION: 12/03/18 PRIMARY CARE PROVIDER: Dr. Clemencia Tan. HEALTHCARE PROXY: Daughter, Leslie. SOURCE OF INFORMATION: History obtained from interview with the patient, review of records, review of EMS records, review of ED records. RELIABILITY: Fair to poor. CHIEF COMPLAINT: Altered mental status. HISTORY OF PRESENT ILLNESS: This is an 88-year-old man recently diagnosed with pneumonia today, was at home, per report after the diagnosis more lethargic, remaining in bed. He is being cared for by his son who noticed him to be tired and weak, also noticed episode of urinary incontinence, which was abnormal for the patient who usually is ambulatory to bathroom. There was some concern for left side of his face drooping for which he was evaluated at urgent care; however, presumptive diagnosis presenting to urgent care was pneumonia and the patient was transferred to [facility] ED, was seen in the emergency room. The patient was seen in the absence of his son or daughter. He had no complaints. He reported that he felt "good" and his breathing was "good." At the time of my interview is only oriented x1. Further review of systems is difficult to obtain. Of note, he was hospitalized from 10/11/18 to 10/17/18 at [facility] for pneumonia with bronchospasm. PAST MEDICAL HISTORY: Includes: 1. Dementia. 2. Pernicious anemia. 3. CAD. 4. Hypertension. 5. Hyperlipidemia. 6. Ventricular arrhythmia, on amiodarone. 7. Syncope. 8. B12 deficiency. 9. Moderate to severe aortic stenosis. 10. CKD. 11. Anemia. HOME MEDICATIONS: Include: 1. Multivitamin daily. 2. PreserVision 2 daily. 3. Vitamin D3 2000 international units daily. 4. Pravastatin 50 mg daily. 5. Amlodipine 2.5 mg daily. 6. Donepezil 10 mg twice daily. 7. Memantine 10 mg twice daily. 8. Losartan 50 mg daily. ALLERGIES: To ATORVASTATIN, CERIVASTATIN, and SIMVASTATIN. FAMILY HISTORY: Diabetes. Father unknown. Sister with CAD. SOCIAL HISTORY: Ambulates with a walker. Quit tobacco 65 years prior. Resident at [facility]. REVIEW OF SYSTEMS: Unable to obtain from the patient secondary to dementia. PHYSICAL EXAMINATION GENERAL: Sitting 35 degrees in bed, wakes easily, he is oriented to himself, he is slow to answer questions, predominantly hesitant to give additional answers, acknowledges that he can hear but clearly when confused with my question, chooses not to answer. VITAL SIGNS: In the emergency room, 118/67, oxygen was 94% on 1 L when evaluated by this author, respiratory rate 17, heart rate 76, T-max in the emergency room was 102.7. HEENT: His oropharynx is clear. He has moist mucous membranes. His sclerae are anicteric. NECK: There is no cervical or supraclavicular lymphadenopathy. Has elevated JVD. LUNGS: Had rales in bilateral bases and mid lung on the right. HEART: Regular rate and rhythm. He has 2/6 systolic ejection murmur, loudest in the right upper sternal border. ABDOMEN: Distended, but soft, nontender. Positive bowel sounds throughout. EXTREMITIES: Warm, well perfused. He has 1+ lower extremity edema in his right lower extremity. His cranial nerves II through XII are intact. He is alert and oriented x1. Moves all extremities. He has less than 2 seconds cap refill. NEURO: He has no apparent anxiety, agitation, or depression. DIAGNOSTIC STUDIES/LAB DATA: Labs reviewed. BUN 23, creatinine 1.72. Lactic acid 1.0. Troponin I 0.09. CRP is 21. His white blood cell count is 13.6, he has 89% neutrophils, hemoglobin is 12.3, platelets 193,000. INR is 1.0. His urine is notable for red blood cells, squamous epithelial cells, and 1+ bacteria. Data reviewed, EKG normal sinus rhythm, ventricular rate is 78, left axis, normal R wave progression, Qs in 3, aVF, no ST or T wave changes. Chest x-ray notable for patchy airspace disease in the right middle lung on this author's interpretation, formal interpretation to follow on the morning. ASSESSMENT AND PLAN: This is an 88-year-old man with recent diagnosis of pneumonia, presenting with high fevers, altered mental status, and sepsis in the setting of pneumonia. 1. Sepsis. Suspected in the setting of pneumonia as the source with leukocytosis, fever, and altered mental status with increased lethargy. Received ceftriaxone and azithromycin in the emergency room as well as 2 L of fluid. I will not challenge with additional fluid as he is hemodynamically stable and he has moderate to severe aortic stenosis. His last echocardiogram in September of this year. If any evidence of hemodynamic compromise, can challenge with further fluids. We will continue ceftriaxone and azithromycin for suspected pulmonary source. Also, we will check influenza as it is now identified sporadic by department of health in [facility] as of last week. Tylenol for fevers. 2. Elevated troponin. Suspect demand ischemia in the setting of elevated fevers and sepsis. Repeat troponin now. 3. Dementia. Continue home medications. 4. Hypertension. Holding losartan and amlodipine. 5. Hyperlipidemia. Has allergy to LIPITOR, which usually are therapeutic ___ interchange on formulary at [facility]. ___ holding pravastatin at this time. 6. DVT prophylaxis. Heparin subcu. [id number]/[facility] #: [id number] [facility]
--- NOTE | 2018-12-03 03:04 | PN ---
Progress Note - Progress Note Date of Service: 12/03/18 Note: Addendum: QTc prolongation 504. Stop azithromycin and give doxycycline 100 mg PO BID starting in the morning Check QTc in AM
[2018-12-03] MEDS ORDERED: NS 0.9% 500 ML* 500 ML IV ONE (03:05)
[2018-12-03 04:12] LABS: Troponin I 0.11 ng/mL (<0.04)
[2018-12-03 04:14] LABS: Influenza A Molecular NEGATIVE (Negative); Influenza B Molecular NEGATIVE (Negative)
[2018-12-03] MEDS: Heparin VIAL(*) 5000 UNITS/ML VIAL (FIVE THOUSAND) SUBCUT SCH ×3 (06:29→22:02)
[2018-12-03] MEDS: Memantine TAB* 10 MG PO SCH ×2 (08:22→22:01)
[2018-12-03] MEDS: DOXYcycline CAP(*) 100 MG PO SCH ×2 (08:22→22:01)
[2018-12-03] MEDS: Polyethylene Glycol 3350* 17 GM PACKET PO SCH (08:22)
[2018-12-03] MEDS ORDERED: PRAVASTATIN SODIUM PO SCH (09:00)
[2018-12-03] MEDS: Latanoprost 0.005%* 2.5 ml BTL BOTH EYES SCH (18:45)
[2018-12-03] MEDS ORDERED: Azithromycin IV(*) 250 MG in NS 0.9% 250 ML* 250 ML IVPB SCH (22:00)
[2018-12-03] MEDS: cefTRIAXone(*) 1 GM in NS 0.9% 50 ML* 50 ML IVPB SCH (22:01)
[2018-12-03] MEDS: Donepezil TAB* 5 MG PO SCH (22:01)
[2018-12-04] MEDS: Heparin VIAL(*) 5000 UNITS/ML VIAL (FIVE THOUSAND) SUBCUT SCH ×3 (05:43→21:29)
[2018-12-04 06:14] LABS: ABS Basophils 0.1 10^3/ul (0-0.2); ABS Eosinophils 0.3 10^3/ul (0-0.6); ABS Lymphocytes 1.6 10^3/ul (1.0-4.8); ABS Monocytes 0.8 10^3/ul (0-0.8); ABS Neutrophils 5.8 10^3/ul (1.5-7.7); Eosinophil % 3.3 %; Hematocrit 32 % (42-52); Hemoglobin 11.1 g/dL (14.0-18.0); Lymphocyte % 18.3 %; Mean Corpuscular HGB Conc 34 g/dL (31-36); Mean Corpuscular Hemoglobin 32 pg (27-31); Mean Corpuscular Volume 95 fL (80-94); Mean Platelet Volume 8.7 fL (7.4-10.4); Nucleated Red Blood Cells % 0.1; Platelet Count 167 10^3/uL (150-450); Red Blood Count 3.42 10^6 /uL (4.18-5.48); Red Cell Distribution Width 15 % (10-15); White Blood Count 8.6 10^3/uL (3.5-10.8)
[2018-12-04 06:35] LABS: BUN/Creatinine Ratio 14.7 (8-20); C Reactive Protein 138.95 mg/L (<8.01); Calcium 7.9 mg/dL (8.6-10.3); EGFR African American 44.2 (>60); EGFR Non-African American 36.5 (>60); Potassium 4.3 mmol/L (3.5-5.0)
[2018-12-04] MEDS: Polyethylene Glycol 3350* 17 GM PACKET PO SCH (08:16)
[2018-12-04] MEDS: Memantine TAB* 10 MG PO SCH ×2 (08:16→21:28)
[2018-12-04] MEDS: DOXYcycline CAP(*) 100 MG PO SCH ×2 (08:16→21:28)
[2018-12-04] MEDS: Amiodarone TAB* 200 MG PO SCH (08:16)
[2018-12-04] MEDS: Aspirin EC TAB* 81 MG TAB.EC PO SCH (10:13)
[2018-12-04] MEDS ORDERED: Pravastatin (NF) 20 MG TAB PO SCH (18:00)
[2018-12-04] MEDS: Latanoprost 0.005%* 2.5 ml BTL BOTH EYES SCH (19:41)
[2018-12-04] MEDS: Donepezil TAB* 5 MG PO SCH (21:28)
[2018-12-04] MEDS: cefTRIAXone(*) 1 GM in NS 0.9% 50 ML* 50 ML IVPB SCH (21:32)
[2018-12-05] MEDS: Heparin VIAL(*) 5000 UNITS/ML VIAL (FIVE THOUSAND) SUBCUT SCH ×2 (05:05→13:56)
[2018-12-05 06:53] LABS: ABS Basophils 0.1 10^3/ul (0-0.2); ABS Eosinophils 0.2 10^3/ul (0-0.6); ABS Lymphocytes 1.5 10^3/ul (1.0-4.8); ABS Monocytes 0.8 10^3/ul (0-0.8); ABS Neutrophils 5.3 10^3/ul (1.5-7.7); Eosinophil % 2.5 %; Hematocrit 33 % (42-52); Hemoglobin 11.4 g/dL (14.0-18.0); Mean Corpuscular HGB Conc 34 g/dL (31-36); Mean Corpuscular Hemoglobin 33 pg (27-31); Mean Corpuscular Volume 95 fL (80-94); Mean Platelet Volume 8.7 fL (7.4-10.4); Platelet Count 175 10^3/uL (150-450); Red Blood Count 3.49 10^6 /uL (4.18-5.48); Red Cell Distribution Width 15 % (10-15); White Blood Count 7.9 10^3/uL (3.5-10.8)
[2018-12-05 07:10] LABS: BUN/Creatinine Ratio 15.4 (8-20); C Reactive Protein 98.88 mg/L (<8.01); Calcium 8.2 mg/dL (8.6-10.3); EGFR African American 44.7 (>60); Potassium 4.1 mmol/L (3.5-5.0)
[2018-12-05] MEDS: Polyethylene Glycol 3350* 17 GM PACKET PO SCH (09:18)
[2018-12-05] MEDS: DOXYcycline CAP(*) 100 MG PO SCH (09:19)
[2018-12-05] MEDS: Memantine TAB* 10 MG PO SCH (09:19)
[2018-12-05] MEDS: Aspirin EC TAB* 81 MG TAB.EC PO SCH (09:19)
[2018-12-05] MEDS: Amiodarone TAB* 200 MG PO SCH (09:19)
--- NOTE | 2018-12-05 11:16 | DS ---
DISCHARGE SUMMARY: DATE OF ADMISSION: 12/02/18 DATE OF DISCHARGE: 12/05/18 DISCHARGE DIAGNOSES: 1. Pneumonia. 2. Prolonged QTc. 3. History of ventricular tachycardia. 4. Alzheimer dementia. 5. History of pernicious anemia. 6. Coronary artery disease. 7. History of hypertension. 8. Hyperlipidemia. 9. History of [id number] aortic stenosis. 10. Chronic kidney disease. 11. Chronic anemia. 12. Stress ischemia. HISTORY: Leonidas Isabel is an 88-year-old man admitted with pneumonia. Please see the dictated admission note for details of the present illness, past medical history, family history, social and personal history, review of systems , and physical examination. DIAGNOSTIC STUDIES/LAB DATA: CBC on admission: WBC 13.6, H and H 12.3/37, MCV 95, PLT 193,000. CBC at the time of discharge: WBC 7.9, H and H 11.4/33, MCV 95, PLT 175,000. INR and PTT normal. Chemistries on admission: Sodium 138, potassium 4.1, chloride 107, CO2 of 24, BUN and creatinine 23/1.72. Rest of his comprehensive metabolic panel was within normal limits, except for alkaline phosphatase slightly elevated at 105. CRP started at 21.41, went up to 138.95 on 12/04/18, was 98.88 on 12/05/18. Lactic acid was normal at 1. Troponins were 0.09, 0.12, 0.11. Urinalysis: Yellow, clear, specific gravity 1.010. Positive for 1+ blood, 2+ rbc's, epithelial cells present, 1+ bacteria. Influenza A and B were negative. Urine for legionella and Streptococcus pneumoniae were negative. Urine culture with no growth. Blood cultures had no growth. Chest x-ray showed bilateral vascular congestion, patchy atelectasis of the right lower lung. CT scan of the chest on 12/03/18 showed small bilateral pleural effusions, bilateral pulmonary infiltrates. EKG on admission showed prolonged IA interval, old inferior infarct, IVCD, prolonged QTc which is new. Otherwise, no significant changes since 10/25/18 EKG. EKG on 12/03/18 showed no significant changes. QTc on 12/03/18 was down to 466. EKG from 12/05/18 is pending. HOSPITAL COURSE: The patient was admitted and treated for pneumonia. He received ceftriaxone, initially azithromycin in the ER, and then doxycycline when the prolonged QTc interval was noted. Initially, his antihypertensives were held. His troponins were followed and felt to be due to stress ischemia. He improved clinically. He was able to get up and walk to the bathroom prior to discharge. He was eating 100% of his meals. He was moving his bowels. He felt fine. He denied cough. His son with whom he lives felt that he could take him home. At the time of discharge, he had diminished breath sounds at the bases. His heart was regular with a 1/6 systolic murmur. His abdomen was mildly distended, firm, nontender. Labs were as noted above. At the time of discharge, he is going to be discharged in improved condition to his son's home. Followup with me will be in 1 to 2 weeks. He is to be on his usual diet. Activity is as tolerated. Of note, because of the prolonged QTc, his donepezil was stopped while he was in the hospital. We will decide whether to restart it at the time he comes in to the office. MEDICATIONS AT THE TIME OF DISCHARGE: 1. Memantine 10 mg twice a day. 2. Losartan 50 mg daily. 3. Pravastatin 80 mg daily. 4. Naproxen 220 mg daily as needed for pain. 5. Cefuroxime 500 mg twice a day for 5 days. 6. Doxycycline 100 mg twice a day for 7 days. 7. Pravastatin 80 mg daily. 8. Aspirin 81 mg daily. 9. Amiodarone 100 mg daily. 10. Acetaminophen 650 q.4 h. p.r.n. 11. MiraLAX 17 g daily. 12. Latanoprost as before. 13. Amlodipine 2.5 mg daily. 14. PreserVision 2 per day. 15. MultiVites 1 per day. [id number]/[facility] #: [id number] [facility]
[2018-12-05 13:00] VITALS: BP 145/68
== END 2018-12-05 14:35 | disposition home health service (06) | DRG 871 ==
LOC: ED 21:09 → MED 12-03 00:30 → OBSVTOIN 12-04 11:00
PROVIDERS: ADMIT Internal Medicine; ATTEND Internal Medicine Geriatric Medicine
DX: A41.9 Sepsis, unspecified organism (principal); J18.9 Pneumonia, unspecified organism; J90 Pleural effusion, not elsewhere classified; I24.8 Other forms of acute ischemic heart disease; E78.5 Hyperlipidemia, unspecified; N18.9 Chronic kidney disease, unspecified; I12.9 Hypertensive chronic kidney disease with stage 1 through stage 4 chronic kidney disease, or unspecified chronic kidney disease; D63.1 Anemia in chronic kidney disease; G30.9 Alzheimer's disease, unspecified; E53.8 Deficiency of other specified B group vitamins; F02.80 Dementia in other diseases classified elsewhere, unspecified severity, without behavioral disturbance, psychotic disturbance, mood disturbance, and anxiety; I35.0 Nonrheumatic aortic (valve) stenosis; I25.10 Atherosclerotic heart disease of native coronary artery without angina pectoris; R94.31 Abnormal electrocardiogram [ECG] [EKG]; T36.3X5A Adverse effect of macrolides, initial encounter; Y92.239 Unspecified place in hospital as the place of occurrence of the external cause; I25.2 Old myocardial infarction; Z88.8 Allergy status to other drugs, medicaments and biological substances; Z95.5 Presence of coronary angioplasty implant and graft; Z86.11 Personal history of tuberculosis; Z83.3 Family history of diabetes mellitus; Z72.89 Other problems related to lifestyle; Z87.891 Personal history of nicotine dependence; Z79.82 Long term (current) use of aspirin
CPT/HCPCS: 36415; 71045; 71250; 80048; 80053; 81003; 81015; 83605; 84484; 85025; 85610; 85730; 86140; 87040; 87086; 87899; 93005; 96365; 96375; 99283; A9270-GY; G0378; J0456; J0696; J1644

== ENCOUNTER 2019-02-09 10:23 | Inpatient (IN) | payer MEDICARE ==
[2019-02-09] MEDS ORDERED: NS 0.9% 1000 ML** 1,000 ML IV ONE ×2 (10:44→12:19)
--- NOTE | 2019-02-09 10:57 | ED ---
Complex/Multi-Sys Presentation - HPI Summary HPI Summary: 88 y/o male presents to [facility] via EMS for inability to stand and disorientation since this morning, 02/09/19. Patient felt warm but had no apparent fever according to daughter. Patient was minimally responsive, which is reported to be abnormal, and displayed general weakness. Daughter shared Hx of PNA. HR 80bpm , BP 123/81, O2 sat 92%. Patient is a level 5 caveat secondary to AMS. - History Of Current Complaint Chief Complaint: EDWeakness Time Seen by Provider: 02/09/19 10:34 Hx Obtained From: Family/Maintenance Plumber Hx From Patient Unobtainable Due To: Altered Mental Status Onset/Duration: Lasting Hours, Still Present Timing: Constant Severity Currently: None Location: Negative Associated Signs And Symptoms: Positive: Decreased Responsiveness, Confusion, Weakness. Negative: Fever - Allergies/Home Medications Allergies/Adverse Reactions: Allergies Allergy/AdvReac Type Severity Reaction Status Date / Time atorvastatin [From Lipitor] Allergy Unknown Verified 10/11/18 05:52 Reaction Details cerivastatin [From Baycol] Allergy Unknown Verified 10/11/18 05:52 Reaction Details simvastatin [From Zocor] Allergy Unknown Verified 10/11/18 05:52 Reaction Details Home Medications: Home Medications Propylene Glycol/Peg 400/Pf [Systane 0.3-0.4% Eye Drops] 1 each OP BID 02/09/19 [History Confirmed 02/09/19] PMH/Surg Hx/FS Hx/Imm Hx Endocrine/Hematology History: Reports: Hx Anemia - pernicious anemia Denies: Hx Anticoagulant Therapy - ASA 81 mg daily, Hx Blood Disorders, Hx Diabetes Cardiovascular History: Reports: Hx Coronary Artery Disease, Hx Hypertension, Hx Myocardial Infarction - 2X, Other Cardiovascular Problems/Disorders - aortic stenosis Denies: Hx Pacemaker/ICD Respiratory History: Denies: Hx Asthma GI History: Denies: Hx Jaundice History: Denies: Hx Renal Disease Musculoskeletal History: Reports: Hx Arthritis, Other Musculoskeletal History - right hip replaced Sensory History: Denies: Hx Contacts or Glasses - only for reading, Hx Hearing Aid Opthamlomology History: Denies: Hx Contacts or Glasses - only for reading Neurological History: Reports: Hx Dementia Psychiatric History: Denies: Hx Panic Disorder - Surgical History Surgery Procedure, Year, and Place: HEART STENTS FROM [facility] 20 YRS AGO( CARDS MAY NOT BE AVAILABLE),HIP PINNING and HIP REPLACEMENT right. 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 Denies: Hx Clostridium Difficile, Hx Hepatitis, Hx Human Immunodeficiency Virus (HIV), Hx of Known/Suspected MRSA, Hx Shingles, History Other Infectious Disease - TB as a young child, Traveled Outside the [place] in Last 30 Days - Family History Known Family History: Positive: Diabetes Negative: Cardiac Disease Family History: no known cardiovascular issues in family lineage - Social History Alcohol Use: Occasionally Hx Substance Use: No Substance Use Type: Reports: None Hx Tobacco Use: No Smoking Status (MU): Former Smoker Type: Cigarettes Amount Used/How Often: 4 years Length of Time of Smoking/Using Tobacco: 65 years ago quit Have You Smoked in the Last Year: No Review of Systems - ROS Summary Review of Systems Summary: Patient is a level 5 caveat secondary to AMS Constitutional: Other - positive - decreased responsiveness, confusion Positive: Fatigue - generalized weakness All Other Systems Reviewed And Are Negative: No Physical Exam - Summary Physical Exam Summary: Appearance: The patient is well-nourished in no acute distress and in no acute pain. Skin: The skin is warm and dry, and skin color reflects adequate perfusion. HEENT: The head is normocephalic and atraumatic. The pupils are equal and reactive. The conjunctivae are clear and without drainage. Nares are patent and without drainage. Mouth reveals dry mucous membranes, and the throat is without erythema and exudate. The external ears are intact. The ear canals are patent and without drainage. The tympanic membranes are intact. Neck: The neck is supple with full range of motion and non-tender. There are no carotid bruits. There is no neck vein distension. Respiratory: Chest is non-tender. Crackles in mid right lung field noted. Cardiovascular: Heart is regular rate and rhythm. Systolic ejection murmur noted. No rub auscultated. There is no peripheral edema and pulses are symmetrical and equal. Abdomen: The abdomen is soft and non-tender. There are normal bowel sounds heard in all four quadrants and there is no organomegaly palpated. Musculoskeletal: There is no back tenderness noted. Extremities are non-tender with full range of motion. There is good capillary refill. There is no peripheral edema or calf tenderness elicited. Neurological: Patient is a level 5 caveat secondary to AMS. He is alert but not oriented. The patient has symmetrical motor strength in all four extremities. Cranial nerves are grossly intact. Deep tendon reflexes are symmetrical and equal in all four extremities. Psychiatric: The patient has an appropriate affect and does not exhibit any anxiety or depression. Triage Information Reviewed: Yes Vital Signs On Initial Exam: Initial Vitals Temp Pulse Resp BP Pulse Ox 97.2 F 75 18 123/81 94 02/09/19 10:42 02/09/19 10:42 02/09/19 10:42 02/09/19 10:42 02/09/19 10:42 Vital Signs Reviewed: Yes Procedures - Sedation Patient Received Moderate/Deep Sedation with Procedure: No Diagnostics - Vital Signs Vital Signs Temp Pulse Resp BP Pulse Ox 02/09/19 10:42 97.2 F 75 18 123/81 94 - Laboratory Result Diagrams: 02/11/19 05:40 02/11/19 05:40 Lab Statement: Any lab studies that have been ordered have been reviewed, and results considered in the medical decision making process. - Radiology CXR Radiology Interpretation Completed By: Radiologist Summary of Radiographic Findings: IMPRESSION: 1. SMALL RIGHT UPPER LOBE INFILTRATE. 2. FINDINGS CONSISTENT WITH OLD GRANULOMATOUS DISEASE. THIS REPORT WAS REVIEWED BY ED PHYSICIAN. - EKG 1301 Cardiac Rate: NL - rate of 74 BPM EKG Rhythm: Sinus Rhythm Summary of EKG Findings: EKG showed rate of 74 BPM with first degree heart block. ED physician has reviewed and interpreted this EKG. 1101 Cardiac Rate: NL - rate of 74 BPM EKG Rhythm: Sinus Rhythm Summary of EKG Findings: EKG showed rate of 74 BPM with first degree heart block. ED physician has reviewed and interpreted this EKG. Complex Multi-Symp Course/Dx Course Of Treatment: Mr. Isabel was brought in with concern for possible pneumonia. He was weak and apparently had some fevers at home. He's been having a cough. On arrival he was cooperative but not able to give a significant history. He was given IV fluids as well as antibiotics although he did not meet septic criteria. His white blood cell count did come back at 16.5. I asked the hospitalist to evaluate him for admission - Diagnoses Provider Diagnoses: PNA (pneumonia) - Physician Notifications Discussed Care Of Patient With: Catherine Grider Time Discussed With Above Provider: 12:50 Instructed by Provider To: Other - Patient's case was discussed with Dr. Grider, Dr. Grider accepts for admission - Critical Care Time Critical Care Time: 30-74 min Discharge ED - Sign-Out/Discharge Documenting (check all that apply): Patient Departure - admit - Discharge Plan Condition: Stable Disposition: ADMITTED TO [facility] - Billing Disposition and Condition Condition: STABLE Disposition: Admitted to [facility] - Attestation Statements Document Initiated by Pat: Yes Documenting Scribe: MARCO A ARIZA Provider For Whom Pat is Documenting (Include Credential): ROCCO GARCIA MD Scribe Attestation: IMARCO A, scribed for ROCCO GARCIA MD on 02/11/19 at 1652. Scribe Documentation Reviewed: Yes Provider Attestation: The documentation as recorded by the MARCO A plunkett accurately reflects the service I personally performed and the decisions made by me, ROCCO GARCIA MD Status of Scribe Document: Viewed
[2019-02-09 11:11] LABS: Hematocrit 38 % (42-52); Hemoglobin 12.8 g/dL (14.0-18.0); Mean Corpuscular HGB Conc 33 g/dL (31-36); Mean Corpuscular Hemoglobin 32 pg (27-31); Mean Corpuscular Volume 95 fL (80-94); Red Blood Count 4.03 10^6 /uL (4.18-5.48); Red Cell Distribution Width 14 % (10-15); White Blood Count 16.5 10^3/uL (3.5-10.8)
[2019-02-09 11:15] LABS: INR 1.11 (0.82-1.09)
[2019-02-09 11:23] LABS: ALT 23 U/L (7-52); AST 16 U/L (13-39); Albumin 3.5 g/dL (3.2-5.2); Albumin/Globulin Ratio 0.9 (1-3); Alkaline Phosphatase 88 U/L (34-104); Anion Gap 7 mmol/L (2-11); BUN/Creatinine Ratio 18.4 (8-20); Blood Urea Nitrogen 33 mg/dL (6-24); C Reactive Protein 91.17 mg/L (<8.01); CO2 Carbon Dioxide 23 mmol/L (22-32); Chloride 107 mmol/L (101-111); EGFR African American 43.6 (>60); Globulin 3.7 g/dL (2-4); Glucose 86 mg/dL (70-100); Magnesium 1.9 mg/dL (1.9-2.7); Sodium 137 mmol/L (135-145); Total Protein 7.2 g/dL (6.4-8.9)
[2019-02-09 11:28] LABS: Troponin I 0.07 ng/mL (<0.03)
[2019-02-09 11:38] LABS: ABS Basophils 0.1 10^3/ul (0-0.2); ABS Eosinophils 0.2 10^3/ul (0-0.6); ABS Lymphocytes 1.6 10^3/ul (1.0-4.8); ABS Monocytes 1.2 10^3/ul (0-0.8); ABS Neutrophils 13.4 10^3/ul (1.5-7.7); Eosinophil % 1.4 %; Lymphocyte % 9.8 %; Platelet Count Platelets clumped. 10^3/uL (150-450)
[2019-02-09 11:52] LABS: TSH (Thyroid Stimulating Horm) 1.24 mcIU/mL (0.34-5.60)
[2019-02-09] MEDS ORDERED: Levofloxacin 750 MG IVPREMIX(* 750 MG/150 ML BAG IVPB ONE (12:19)
[2019-02-09] MEDS ORDERED: Benzonatate CAP* 100 MG PO PRN (14:10)
[2019-02-09] MEDS ORDERED: Acetaminophen TAB* 325 MG PO PRN ×2 (14:10→14:12)
[2019-02-09] MEDS ORDERED: Ondansetron INJ* 2 MG/ML VIAL IV PRN (14:10)
[2019-02-09] MEDS ORDERED: DOXYcycline IV* 100 MG in NS 0.9% 250 ML* 250 ML IVPB SCH (16:00)
[2019-02-09 16:01] LABS: Influenza A Molecular NEGATIVE (Negative); Influenza B Molecular NEGATIVE (Negative)
[2019-02-09 16:05] LABS: Urine Appearance Cloudy; Urine Bilirubin Negative (Negative); Urine Blood Negative (Negative); Urine Color Yellow; Urine Glucose Negative (Negative); Urine Ketones Negative (Negative); Urine Nitrite Negative (Negative); Urine Protein Negative (Negative); Urine Specific Gravity 1.021 (1.010-1.030); Urine Urobilinogen Negative (Negative)
[2019-02-09] MEDS: cefTRIAXone(*) 1 GM in NS 0.9% 50 ML* 50 ML IVPB SCH (17:18)
[2019-02-09] MEDS: CMCS - Pravastatin (NF) 20 MG TAB PO SCH (17:26)
[2019-02-09] MEDS: Enoxaparin(*) 30 MG/0.3 ML SYR SUBCUT SCH (17:26)
[2019-02-09] MEDS: DOXYcycline IV* 100 MG in NS 0.9% 250 ML* 250 ML IVPB SCH (17:37)
--- NOTE | 2019-02-09 17:47 | HP ---
CC: Dr. Clemencia Tan; Dr. Catherine Grider* ADMISSION HISTORY AND PHYSICAL: DATE OF ADMISSION: 02/09/19 PRIMARY CARE PROVIDER: Dr. Clemencia Tan. MY ATTENDING WHILE IN THE HOSPITAL: Dr. Catherine Grider* (dictated by JOSE ENRIQUE Haro). CHIEF COMPLAINT: Altered mental status, cough x12 hours. HISTORY OF PRESENT ILLNESS: Mr. Isabel is an 88-year-old male with past medical history significant for dementia, coronary artery disease, chronic kidney disease and recent hospitalization for pneumonia in November of this year, who presents to the emergency department after yesterday he was in his normal state of health. The patient has been having declined ability to ambulate over the past 2 months, but no other recent illness. His daughter who lives with him has been sick and he was recently at a family gathering with approximately 20 people, none of whom were directly sick, though were of varying ages. The patient is believed to have had his flu shot, this cannot be confirmed as well as his pneumonia vaccination, again cannot be confirmed at this time. The patient denies any fevers or chills, but has had a productive rumbling cough since approximately last night. This morning, he was very weak, not responsive like he normally is to encouragement to get up and out of bed. Due to concern with not being able to get out of bed, EMS was activated and the patient was transported to the hospital. This is very similar to a presentation when he had pneumonia in November and was admitted to the hospital. In the emergency department, the patient was found to have an elevated white blood cell count, elevated troponin and was found to be mildly hypoxic. The patient did not have any fevers. In the emergency department, the patient received Levaquin and fluids and did not improve significantly in his mental status and we were asked to evaluate the patient for admission to the hospital due to concern for pneumonia. PAST MEDICAL HISTORY: Dementia due to Alzheimer's disease, pernicious anemia, coronary artery disease, hypertension, hyperlipidemia, ventricular arrhythmia, vitamin B12 deficiency, chronic kidney disease, anemia, [id number] , recent diagnosis of pneumonia. PAST SURGICAL HISTORY: Hip repair. MEDICATIONS: 1. Memantine 10 mg p.o. b.i.d. 2. Losartan 50 mg p.o. daily. 3. PreserVision AREDS 2 caps p.o. b.i.d. 4. Amlodipine 2.5 mg p.o. daily. 5. Latanoprost 1 drop both eyes nightly. 6. MiraLAX 17 g p.o. daily. 7. Tylenol 650 mg p.o. q.4 hours as needed. 8. Amiodarone 100 mg p.o. daily. 9. Aspirin 81 mg p.o. daily. 10. Pravastatin 80 mg p.o. daily. 11. Propylene glycol 1 each 1 drop both eyes daily. ALLERGIES: ATORVASTATIN, CERIVASTATIN, SIMVASTATIN. FAMILY HISTORY: The patient's sister had CAD. The patient's father's history is unknown. SOCIAL HISTORY: The patient quit smoking 65 years ago. The patient drinks alcohol very occasionally approximately half a glass of red wine at times. The patient denies illicit drug use. 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 The patient is , lives with his , both of whom have significant medical issues and with their son with 24-hour aide care. The patient has 2 children. REVIEW OF SYSTEMS: A 10-point review of systems was reviewed and is negative except as above in the HPI. PHYSICAL EXAMINATION GENERAL: The patient is an 88-year-old male, who appears stated age and sitting in the bed, in no acute distress. VITAL SIGNS: At the time of evaluation, temperature 97.2, pulse rate 66, respiratory rate 14, oxygen saturation 90% on 3 L, blood pressure 102/60. HEENT: Head: Normocephalic, atraumatic. Sclerae anicteric. No conjunctival injection. Nasal mucosa moist. Oral mucosa moist. No pharyngeal erythema, discharge, or exudate. NECK: Supple, nontender. No lymphadenopathy. No carotid bruits auscultated. No JVD. RESPIRATORY: Left lower lobe coarse rhonchi. No wheezes or rales. Good air exchange bilaterally. CARDIAC: Regular rate and rhythm. No clicks, murmurs, gallops, or rubs. Pulses are 2+ in the bilateral dorsalis pedis, posterior tibialis, and radial areas. ABDOMEN: Soft, nontender, nondistended. Bowel sounds present and normoactive in all 4 quadrants. No hepatosplenomegaly. No abdominal bruits auscultated. No hepatojugular reflux. GENITOURINARY: No suprapubic or CVA tenderness. NEURO: Cranial nerves II through XII intact. Alert and oriented only to self. No other focal deficits. PSYCHIATRIC: Pleasant and cooperative. SKIN: Clean, dry, and intact. No rash. DIAGNOSTIC STUDIES/LAB DATA: White blood cell count 16.5, hemoglobin 12.8, platelet count is clumped. INR 1.11. Sodium 137, potassium 4.0, chloride 107, carbon dioxide 23, anion gap 7, BUN 33, creatinine 1.79, glucose 86, lactic acid 1.2, calcium 9.0, magnesium 1.9. Bilirubin 0.6, AST 16, ALT 23, alkaline phosphatase 88. Troponin I 0.07, CRP 91.17, BNP 191. Protein 7.2, albumin 3.5 , globulin 3.7. TSH 1.24. Studies: EKG shows normal sinus rhythm, type 1 AV block, rate of 74, QTc of 445 , wandering irregular baseline, poor R-wave progression, Q waves in the inferior leads, left axis deviation. Chest x-ray read as small right upper lobe infiltrate, findings consistent with old granulomatous disease. ASSESSMENT AND PLAN: Impression: Mr. Isabel is an 88-year-old male with past medical history significant for dementia, coronary artery disease, pernicious anemia and pneumonia, who presents to the emergency department with 12 hours of altered mental status and difficulty breathing with cough, found to be hypoxic with infiltrate on his chest x-ray, who will be admitted to the hospital for treatment of community-acquired pneumonia. 1. Community-acquired pneumonia. The patient has lobar infiltrate on his chest x- ray in the right upper lobe; however, he also has rhonchi in the left lower lobe on his clinical exam. The patient has no concerns for aspiration per his family. The patient is not septic at this time. The patient has no hypotension. The patient received fluids while in the emergency department of 2 L worth as well as levofloxacin. The patient will be transitioned to ceftriaxone and doxycycline as Levaquin might exacerbate his delirium and for concern for QT prolongation with his amiodarone. The patient has not been tested for influenza and this will be tested now. The patient will have blood cultures and urine culture drawn for additional infectious workup. The patient will have Strep pneumo and legionella antigens. 2. Dementia. The patient has acute on chronic encephalopathy. The patient likely has septic encephalopathy related to his pneumonia superimposed on chronic Alzheimer's dementia. Supportive care will be provided. 3. Pernicious anemia. Continue the patient's B12. The patient is mildly anemic around his baseline. 4. Coronary artery disease. Continue the patient's statin and aspirin. 5. History of ventricular arrhythmia. Continue the patient's amiodarone. 6. Hjbnlwug-wu-pbdfny aortic stenosis. Avoid medications that decrease preload or afterload excessively. 7. Chronic kidney disease. At baseline. 8. Hypertension. Hold the patient's antihypertensives, amlodipine and losartan at this time. Continue amiodarone. 9. FEN: The patient will have a heart-healthy diet without caffeine. The patient received 2 L of fluids and will not be continued on fluids. 10. Disposition: The patient is admitted to observation to the hospital. 11. Code status: The patient would like to be a DNR. TIME SPENT: Approximately 60 minutes was spent on the admission of this patient , 30 of which was spent [id number] with the patient obtaining history and physical and discussing treatment plan. This plan was discussed with my attending, Dr. Catherine Grider, and she is in agreement. JOSE ENRIQUE HARO [id number]/[facility] #: [id number] ELEONORA
[2019-02-09] MEDS: Multivitamins/Minerals TAB PO SCH (23:00)
[2019-02-09] MEDS: Memantine TAB* 10 MG PO SCH (23:00)
[2019-02-09] MEDS: guaiFENesin ER TAB 600 MG PO SCH (23:00)
[2019-02-10] MEDS: DOXYcycline IV* 100 MG in NS 0.9% 250 ML* 250 ML IVPB SCH ×2 (04:30→17:24)
[2019-02-10 05:36] LABS: ABS Basophils 0.1 10^3/ul (0-0.2); ABS Eosinophils 0.3 10^3/ul (0-0.6); ABS Lymphocytes 1.2 10^3/ul (1.0-4.8); ABS Monocytes 0.8 10^3/ul (0-0.8); ABS Neutrophils 6.5 10^3/ul (1.5-7.7); Eosinophil % 3.6 %; Hematocrit 35 % (42-52); Hemoglobin 11.7 g/dL (14.0-18.0); Lymphocyte % 13.8 %; Mean Corpuscular HGB Conc 34 g/dL (31-36); Mean Corpuscular Hemoglobin 33 pg (27-31); Mean Corpuscular Volume 97 fL (80-94); Mean Platelet Volume 8.7 fL (7.4-10.4); Platelet Count 186 10^3/uL (150-450); Red Blood Count 3.58 10^6 /uL (4.18-5.48); Red Cell Distribution Width 15 % (10-15); White Blood Count 8.9 10^3/uL (3.5-10.8)
[2019-02-10 05:54] LABS: Anion Gap 4 mmol/L (2-11); BUN/Creatinine Ratio 18.3 (8-20); Blood Urea Nitrogen 30 mg/dL (6-24); CO2 Carbon Dioxide 24 mmol/L (22-32); Calcium 8.3 mg/dL (8.6-10.3); Chloride 111 mmol/L (101-111); EGFR African American 48.2 (>60); EGFR Non-African American 39.8 (>60); Glucose 92 mg/dL (70-100); Magnesium 1.8 mg/dL (1.9-2.7); Potassium 4.8 mmol/L (3.5-5.0); Sodium 139 mmol/L (135-145)
[2019-02-10 05:59] LABS: Troponin I 0.06 ng/mL (<0.03)
[2019-02-10] MEDS ORDERED: Magnesium Sulfate 1 GM IV* 1 GM/100 ML BAG IV ONE (08:30)
[2019-02-10] MEDS: guaiFENesin ER TAB 600 MG PO SCH ×2 (10:01→22:23)
[2019-02-10] MEDS: Amiodarone TAB* 200 MG PO SCH (10:01)
[2019-02-10] MEDS: Polyethylene Glycol 3350* 17 GM PACKET PO SCH (10:01)
[2019-02-10] MEDS: Memantine TAB* 10 MG PO SCH ×2 (10:01→22:23)
[2019-02-10] MEDS: Multivitamins/Minerals TAB PO SCH ×2 (10:02→22:21)
[2019-02-10] MEDS: Aspirin EC TAB* 81 MG TAB.EC PO SCH (10:02)
--- NOTE | 2019-02-10 13:51 | PN ---
Subjective Date of Service: 02/10/19 Interval History: Patient is feeling moderately better today. Patient has not been coughing as much. Patient denies CP, SOB, dizziness, Palpitations, F/C, N/V, abdominal pain , diarrhea, or other pain. Family History: Unchanged from Admission Social History: Unchanged from Admission Past Medical History: Unchanged from Admission Objective Active Medications: Acetaminophen (Tylenol Tab*) 650 mg PO Q4H PRN PRN Reason: MILD PAIN or TEMP > 100.4 Amiodarone HCl (Cordarone Tab*) 100 mg PO DAILY [facility] Last Admin: 02/10/19 10:01 Dose: 100 mg Aspirin (Aspirin Ec Tab*) 81 mg PO DAILY [facility] Last Admin: 02/10/19 10:02 Dose: 81 mg Benzonatate (Tessalon Cap*) 100 mg PO BID PRN PRN Reason: COUGH Enoxaparin Sodium (Lovenox(*)) 30 mg SUBCUT Q24H [facility] Last Admin: 02/09/19 17:26 Dose: 30 mg Guaifenesin (Mucinex*) 1,200 mg PO BID [facility] Last Admin: 02/10/19 10:01 Dose: 1,200 mg Ceftriaxone Sodium 1 gm/ (Sodium Chloride) 50 mls @ 200 mls/hr IVPB Q24H [facility] Last Admin: 02/09/19 17:18 Dose: 200 mls/hr Doxycycline Hyclate 100 mg/ (Sodium Chloride) 250 mls @ 250 mls/hr IVPB 0500, 1700 [facility] Last Admin: 02/10/19 04:30 Dose: 250 mls/hr Memantine (Namenda Tab*) 10 mg PO BID [facility] Last Admin: 02/10/19 10:01 Dose: 10 mg Multivitamins/Minerals (Theragran/Minerals Tab*) 2 tab PO BID [facility] Last Admin: 02/10/19 10:02 Dose: 2 tab Ondansetron HCl (Zofran Inj*) 4 mg IV Q6H PRN PRN Reason: NAUSEA Polyethylene Glycol/Electrolytes (Miralax*) 17 gm PO DAILY [facility] Last Admin: 02/10/19 10:01 Dose: 17 gm Pravastatin Sodium (Pravachol (Nf)) 80 mg PO QPM [facility]; Protocol Last Admin: 02/09/19 17:26 Dose: 80 mg Vital Signs - 8 hr 02/10/19 07:15 Temperature 98.0 F Pulse Rate 98 Respiratory 18 Rate Blood Pressure 125/62 (mmHg) O2 Sat by Pulse 99 Oximetry Oxygen Devices in Use Now: None Appearance: Patient is an 88yo male who appears stated age and is sitting in the bed in NAD. Eyes: No Scleral Icterus, PERRLA Ears/Nose/Mouth/Throat: NL Teeth, Lips, Gums, Clear Oropharnyx, Mucous Membranes Moist Neck: NL Appearance and Movements; NL JVP, Trachea Midline Respiratory: Symmetrical Chest Expansion and Respiratory Effort, - - Rhonchi in RLL Cardiovascular: NL Sounds; No Murmurs; No JVD, RRR, No Edema Abdominal: NL Sounds; No Tenderness; No Distention, No Hepatosplenomegaly Lymphatic: No Cervical Adenopathy Extremities: No Edema, No Clubbing, Cyanosis Skin: No Rash or Ulcers, No Nodules or Sclerosis Neurological: Alert and Oriented x 3, - - CN II-XII intact. Result Diagrams: 02/10/19 05:14 02/10/19 05:14 Microbiology and Other Data: Microbiology 02/09/19 18:04 Legionella Urinary Antigen - Final Urine Negative Legionella Antigen Streptococcus pneumoniae Ag Screen - Final Negative S. pneumo Antigen Assess/Plan/Problems-Billing Assessment: Patient is an 88yo male with a PMH for Dementia, Pernicious Anemia, here with shortness of breath, cough, and altered mental status who was found to have pneumonia and is improving on antibiotics. - Patient Problems (1) Right upper lobe pneumonia Current Visit: Yes Status: Acute Code(s): J18.9 - PNEUMONIA, UNSPECIFIED ORGANISM SNOMED Code(s): 264413822 Comment: - On Ceftriaxone and Doxycycline - Improving subjectively - Persistently hypoxic. (2) Elevated troponin I level Current Visit: No Status: Acute Code(s): R79.89 - OTHER SPECIFIED ABNORMAL FINDINGS OF BLOOD CHEMISTRY SNOMED Code(s): 799477711 Comment: - Chronic, stable (3) Hypoxemia Current Visit: No Status: Acute Code(s): R09.02 - HYPOXEMIA SNOMED Code(s) : 906749460 Comment: - Acute respiratory failure with hypoxia. Still on 2L O2 - Due to Pneumonia (4) History of NH (myocardial infarction) Current Visit: No Status: Chronic Code(s): I25.2 - OLD MYOCARDIAL INFARCTION SNOMED Code(s): 758273136 Comment: - Continue Aspirin and Statin - History Ventricular Arrhythmia, on Amiodarone (5) Hypercholesterolemia Current Visit: No Status: Chronic Code(s): E78.00 - PURE HYPERCHOLESTEROLEMIA, UNSPECIFIED SNOMED Code(s): 64065349 Comment: - Continue Statin (6) Hypertension Current Visit: No Status: Chronic Code(s): I10 - ESSENTIAL (PRIMARY) HYPERTENSION SNOMED Code(s): 40573400 Comment: - Normotensive. - Hold Losartan and Amlodipine (7) Mild dementia Current Visit: No Status: Chronic Code(s): F03.90 - UNSPECIFIED DEMENTIA WITHOUT BEHAVIORAL DISTURBANCE SNOMED Code(s): 43399696 Comment: - Worsened with acute infection, now improved. (8) DVT prophylaxis Current Visit: Yes Status: Acute Code(s): Z29.9 - ENCOUNTER FOR PROPHYLACTIC MEASURES, UNSPECIFIED SNOMED Code(s): 751076306 Comment: - Lovenox (9) Full code status Current Visit: Yes Status: Acute Code(s): Z78.9 - OTHER SPECIFIED HEALTH STATUS SNOMED Code(s): 289115068 Status and Disposition: Inpatient for Pneumonia
[2019-02-10] MEDS: cefTRIAXone(*) 1 GM in NS 0.9% 50 ML* 50 ML IVPB SCH (16:36)
[2019-02-10] MEDS: Enoxaparin(*) 30 MG/0.3 ML SYR SUBCUT SCH (16:36)
[2019-02-10] MEDS: CMCS - Pravastatin (NF) 20 MG TAB PO SCH (17:25)
[2019-02-11] MEDS: DOXYcycline IV* 100 MG in NS 0.9% 250 ML* 250 ML IVPB SCH ×2 (06:03→17:00)
[2019-02-11 06:10] LABS: ABS Basophils 0.1 10^3/ul (0-0.2); ABS Eosinophils 0.4 10^3/ul (0-0.6); ABS Lymphocytes 1.3 10^3/ul (1.0-4.8); ABS Neutrophils 5.5 10^3/ul (1.5-7.7); Eosinophil % 4.9 %; Hematocrit 35 % (42-52); Hemoglobin 11.7 g/dL (14.0-18.0); Lymphocyte % 15.2 %; Mean Corpuscular HGB Conc 34 g/dL (31-36); Mean Corpuscular Hemoglobin 33 pg (27-31); Mean Corpuscular Volume 96 fL (80-94); Mean Platelet Volume 9.1 fL (7.4-10.4); Platelet Count 195 10^3/uL (150-450); Red Blood Count 3.61 10^6 /uL (4.18-5.48); Red Cell Distribution Width 15 % (10-15); White Blood Count 8.3 10^3/uL (3.5-10.8)
[2019-02-11 06:26] LABS: BUN/Creatinine Ratio 18.5 (8-20); Calcium 8.6 mg/dL (8.6-10.3); EGFR African American 46.9 (>60); EGFR Non-African American 38.8 (>60); Magnesium 1.9 mg/dL (1.9-2.7); Potassium 4.3 mmol/L (3.5-5.0)
[2019-02-11] MEDS: Polyethylene Glycol 3350* 17 GM PACKET PO SCH (09:27)
[2019-02-11] MEDS: guaiFENesin ER TAB 600 MG PO SCH ×2 (09:27→20:17)
[2019-02-11] MEDS: Aspirin EC TAB* 81 MG TAB.EC PO SCH (09:28)
[2019-02-11] MEDS: Memantine TAB* 10 MG PO SCH ×2 (09:28→20:17)
[2019-02-11] MEDS: Multivitamins/Minerals TAB PO SCH ×2 (09:28→20:16)
[2019-02-11] MEDS: Amiodarone TAB* 200 MG PO SCH (09:28)
[2019-02-11] MEDS: Enoxaparin(*) 30 MG/0.3 ML SYR SUBCUT SCH (15:19)
[2019-02-11] MEDS: cefTRIAXone(*) 1 GM in NS 0.9% 50 ML* 50 ML IVPB SCH (15:59)
[2019-02-11] MEDS: CMCS - Pravastatin (NF) 20 MG TAB PO SCH (17:49)
[2019-02-12] MEDS: DOXYcycline IV* 100 MG in NS 0.9% 250 ML* 250 ML IVPB SCH (05:50)
[2019-02-12 08:57] VITALS: BP 144/84
[2019-02-12] MEDS: Multivitamins/Minerals TAB PO SCH (09:00)
[2019-02-12] MEDS: Aspirin EC TAB* 81 MG TAB.EC PO SCH (09:02)
[2019-02-12] MEDS: guaiFENesin ER TAB 600 MG PO SCH (09:02)
[2019-02-12] MEDS: Polyethylene Glycol 3350* 17 GM PACKET PO SCH (09:03)
[2019-02-12] MEDS: Memantine TAB* 10 MG PO SCH (09:03)
[2019-02-12] MEDS: Amiodarone TAB* 200 MG PO SCH (09:03)
--- NOTE | 2019-02-13 00:44 | DS ---
DISCHARGE SUMMARY: DATE OF ADMISSION: 02/09/19 DATE OF DISCHARGE: 02/12/19 DISCHARGE DIAGNOSES: 1. Pneumonia. 2. First-degree atrioventricular block. 3. History of ventricular tachycardia. 4. Alzheimer's dementia. 5. History of pernicious anemia, on B12 supplementation. 6. Coronary artery disease, stable. 7. History of hypertension. 8. Hyperlipidemia, treated. 9. History of dnxujibd-de-jygfoi aortic stenosis. 10. Chronic kidney disease. 11. Chronic anemia. 12. Stress ischemia. HISTORY: Leonidas Isabel is an 88-year-old man admitted with pneumonia. Please see the dictated admission note for details of the present illness, past medical history, family history, social and personal history, review of systems , and physical examination. LABORATORY DATA: CBC on 02/09/19: WBC 16.5, H and H 12.8/38, MCV 95, platelets clumped. White count came down to 8.3 by discharge, H and H was 11.7/ 35 on 02/11/19 and platelet count was 195,000. INR 1.11. Chemistries on admission: Sodium 137, potassium 4, chloride 107, CO2 of 23, BUN/creatinine 33/ 1.79, lactic acid 1.2. Rest of the comprehensive metabolic panel was normal. Troponins were 0.07, 0.06. BNP was 191, TSH normal at 1.24. BMP prior to discharge on 02/11/19: Sodium 139, potassium 4.3, chloride 111, CO2 of 22, BUN/ creatinine 31/1.68, glucose 92, magnesium 1.9. Urinalysis on 02/09/19: Yellow cloudy, specific gravity 1.021, pH 7, dipsticks negative. Urine ascorbic acid was positive. Serology for flu was negative A and B. Urine for legionella and pneumococcus was negative. Blood cultures were no growth. IMAGING: Chest x-ray showed infiltrate in the right upper lobe and findings consistent with old granulomatous disease. EKG was read as showing a junctional rhythm, but to my eye it looks like he has got T waves with prolonged UT interval, late transition anteriorly, old Q waves 2, 3, aVF. HOSPITAL COURSE: The patient was admitted on 02/09/19, placed on ceftriaxone and IV doxycycline. He was not felt to be septic. He received IV fluids and levofloxacin initially in the ER. He was continued on his usual medications for Alzheimer's dementia, memantine. He was continued on statin, aspirin for his coronary artery disease. He initially had his antihypertensives held. He was DNR per his wishes. He improved. He coughed less, was coughing very little by the time of discharge. He felt fine. He had good appetite. His elevated troponins were felt to be due to stress ischemia. He was walking to the bathroom prior to discharge. He was eating well. He was moving his bowels. He had no complaints. He is being discharged home (son's home) in improved condition. He will be following up with me in 1 to 2 weeks. DIET: Usual. ACTIVITIES: As tolerated. MEDICATIONS AT THE TIME OF DISCHARGE: 1. Cefuroxime 500 mg twice a day for 5 days. 2. Doxycycline hyclate 100 mg twice a day for 5 days. 3. Memantine 10 mg twice a day. 4. Losartan 50 mg daily. 5. Pravastatin 80 mg daily. 6. Aspirin 81 mg daily. 7. Amiodarone 100 mg daily. 8. Acetaminophen 650 every 4 hours as needed. 9. MiraLAX 17 g daily. 10. Latanoprost as before. 11. Amlodipine 2.5 mg daily. 12. PreserVision 2 a day. 13. Multivitamins 1 a day. [id number]/[facility] #: [id number] [facility]
== END 2019-02-12 10:00 | disposition home health service (06) | DRG 193 ==
LOC: ED 10:23 → MED 14:10
PROVIDERS: ADMIT Internal Medicine; ATTEND Internal Medicine Geriatric Medicine
DX: J18.9 Pneumonia, unspecified organism (principal); G93.41 Metabolic encephalopathy; I47.2 Ventricular tachycardia; I44.0 Atrioventricular block, first degree; G30.9 Alzheimer's disease, unspecified; F02.80 Dementia in other diseases classified elsewhere, unspecified severity, without behavioral disturbance, psychotic disturbance, mood disturbance, and anxiety; R09.02 Hypoxemia; D51.0 Vitamin B12 deficiency anemia due to intrinsic factor deficiency; I25.10 Atherosclerotic heart disease of native coronary artery without angina pectoris; E78.5 Hyperlipidemia, unspecified; Z66 Do not resuscitate; I12.9 Hypertensive chronic kidney disease with stage 1 through stage 4 chronic kidney disease, or unspecified chronic kidney disease; N18.9 Chronic kidney disease, unspecified; E78.00 Pure hypercholesterolemia, unspecified; R74.8 Abnormal levels of other serum enzymes; I99.8 Other disorder of circulatory system; I35.0 Nonrheumatic aortic (valve) stenosis; Z79.1 Long term (current) use of non-steroidal anti-inflammatories (NSAID); Z79.82 Long term (current) use of aspirin; Z79.899 Other long term (current) drug therapy; Z88.8 Allergy status to other drugs, medicaments and biological substances; Z82.49 Family history of ischemic heart disease and other diseases of the circulatory system; Z87.891 Personal history of nicotine dependence; I25.2 Old myocardial infarction
CPT/HCPCS: 36415; 71045; 80048; 80053; 81003; 83605; 83735; 83880; 84443; 84484; 85025; 85610; 86140; 87040; 87899; 93005; 96361; 96365; 96366; 99284; A9270-GY; G8978-GP-CK; G8978-GP-CL; G8979-GP-CI; G8979-GP-CJ; G8987-GO-CJ; G8988-GO-CI; J0696; J1650; J3475

== ENCOUNTER 2019-03-11 12:38 | Inpatient (IN) | payer MEDICARE ==
--- OUTSIDE RECORDS SUMMARY | 2019-03-11 13:49 | XMS REPORT ---
:1930 Author Organization [facility] Care Team Providers Name Role Phone Unavailable Unavailable Unavailable Problems Condition Condition Condition Status Onset Resolution Last Treating Comments Name Details Category Date Date Treatment Clinician Date Pneumonia, Pneumonia, Diagnosis Active Kori unspecified unspecified 02-15 Wendela organism organism Allergies, Adverse Reactions, Alerts Allergy Name Allergy Status Severity Reaction(s) Onset Inactive Treating Comments Type Date Date Clinician atorvastatin Base Active Unknown Reaction Salena Beam Ingredient Unknown 02-15 simvastatin Base Active Unknown Reaction Salena Beam Ingredient Unknown 02-15 Medications Ordered Filled Start Stop Current Ordering Indication Dosage Frequency Signature Comments Components Medication Medication Date Date Medication? Clinician (SIG) Name Name No Known No Known No None None None Medications Medications For This For This Patient Patient Procedures This patient has no known procedures. Results This patient has no known results.
--- OUTSIDE RECORDS SUMMARY | 2019-03-11 13:49 | XMS REPORT ---
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 Veronica other other 02-13 [place] diseases diseases [id number] classified classified elsewhere elsewhere without without behavioral behavioral disturbance disturbance 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 Hypertensiv Hypertensiv Diagnosis Active Veronica e chronic e chronic 02-13 Joseph kidney kidney [id number] disease disease with stage with stage 1 through 1 through stage 4 stage 4 chronic chronic kidney kidney disease, or disease, or unspecified unspecified chronic chronic kidney kidney disease disease Chronic Chronic Diagnosis Active Veronica kidney kidney 02-13 Joseph disease, disease, [id number] unspecified unspecified 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, block, 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 Ventricular Ventricular Diagnosis Active Veronica tachycardia tachycardia Joseph [id number] Vitamin B12 Vitamin B12 Diagnosis Active Veronica deficiency deficiency Joseph anemia due anemia due [id number] to to intrinsic intrinsic factor factor deficiency deficiency 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 (valve) (valve) [id number] stenosis stenosis Personal Personal Diagnosis Active Veronica history of history of Joseph pneumonia pneumonia [id number] (recurrent) (recurrent) [facility] Diagnosis Active Veronica (current) (current) Joseph use of use of [id number] aspirin aspirin Personal Personal Diagnosis Active Veronica history of history of Joseph nicotine nicotine [id number] dependence dependence Pain frequent Pain Mgmt Resolve 2019-02-28 Lizet pain d 1-07 10:00:00 (Tiera) 10:30: [id number] Cardio edema Cardiovasc Resolve 2019-02-28 Lizet ular d 1-07 10:00:00 (Tiera) 10:30: [id number] Respiratory dyspnea Respirator Resolve 2019-02-28 Lizet present y d 1-07 10:00:00 (Tiera) 10:30: [id number] Endo/Iam anti-coagul Endo/Iam Active Lizet ation 02-19 (Tiera) therapy 10:30: [id number] Sensory learning Sensory Resolve 2019-03-04 Lizet deficit d -07 10:20:00 (Tiera) 10:30: [id number] Sensory impaired Sensory Resolve 2019-03-04 Lizet hearing d -07 10:20:00 (Tiera) 10:30: [id number] Integument skin Integument Resolve 2019-02-28 Lizet integrity d -07 10:00:00 (Tiera) risk 10:30: [id number] Elimination urinary Eliminatio Resolve 2019-02-28 Lizet incontinenc n d -07 10:00:00 (Tiera) e 10:30: [id number] Neuro impaired Neuro/Emot Resolve 2019-02-28 Lizet decision-ma ion d 1-07 10:00:00 (Tiera) colin 10:30: [id number] Neuro memory Neuro/Emot Resolve 2019-02-28 Lizet deficit ion d 1-07 10:00:00 (Tiera) needing 10:30: Sun 00 [id number] Neuro constant Neuro/Emot Resolve 2019-02-28 Lizet confusion ion d 1-07 10:00:00 (Tiera) 10:30: [id number] Activity ADL Activity Resolve 2019-03-04 Lizet assistance d 1-07 10:20:00 (Tiera) required 10:30: [id number] Activity self-care Activity Resolve 2019-2019-03-04 Lizet deficit d 1-07 10:20:00 (Tiera) 10:30: Sun [id number] Safety cannot be Safety Resolve 2019-0 2019-02-28 Lizet left alone d 1-07 10:00:00 (Tiera) 10:30: Sun [id number] Safety fall risk Safety Resolve 2019-02-28 Lizet factor d 1-07 10:00:00 (Tiera) present 10:30: Sun [id number] Safety risk for Safety Resolve 0 2019-02-28 Lizet hospitaliza d 1-07 10:00:00 (Tiera) tion 10:30: Sun [id number] Safety structural Safety Resolve 2019-02-28 QUALITY barriers d -07 10:00:00 REALTIME present 10:30: 00 Medication oral med Meds Resolve 2019-02-28 Lizet assistance d -07 10:00:00 (Tiera) required 10:30: Sun [id number] Musculoskel transfer Musculoske Resolve 2019-2019-02-26 Lizet etal assistance letal d -07 10:00:00 (Tiera) required 10:30: Sun [id number] Musculoskel requires Musculoske Resolve 2019-0 2019-02-26 Lizet etal human letal d -07 10:00:00 (Tiera) assist to 10:30: Sun leave home 00 [id number] Bed transfer PT/OT: Bed Active Yuval Mobility/Tr deficit: Mobility/T 1-07 Aly vargas sit/stand ransfer 14:10: [id number] 00 Bed transfer PT/OT: Bed Active Yuval Mobility/Tr deficit: Mobility/T 1-07 Aly vargas toilet/comm ransfer 14:10: [id number] ode 00 Bed transfer PT/OT: Bed Active 2019- Yuval Mobility/Tr deficit: Mobility/T 1-07 Aly vargas shower/tub ransfer 14:10: [id number] 00 Bed transfer PT/OT: Bed Active Yuval Mobility/Tr deficit: Mobility/T 1-07 Aly vargas vehicle ransfer 14:10: [id number] 00 Bed knowledge/s PT/OT: Bed Active 2019- Yuval Mobility/Tr kill Mobility/T 1-07 Aly ansfer deficit: pt ransfer 14:10: [id number] 00 Bed bed PT/OT: Bed Active 2019- Yuval Mobility/Tr mobility Mobility/T 1-07 Aly ansfer deficit ransfer 14:10: [id number] 00 Gait/Locomo gait PT/OT: Active Yuval tion assistive Gait/Locom 1-07 Aly problems device otion 14:10: [id number] present 00 Gait/Locomo gait PT/OT: Active Yuval tion deficit Gait/Locom 1-07 Aly problems otion 14:10: [id number] Gait/Locomo knowledge/s PT/OT: Active Yuval tion kill Gait/Locom 1-07 Aly problems deficit: pt otion 14:10: [id number] 00 Respiratory lung sounds Respirator Resolve 2019-02-28 Veronica deficit y d 1-09 10:00:00 Joseph 09:25: [id number] Elimination bowel Eliminatio Resolve 2019-02-28 Veronica incontinenc n d 1-14 10:00:00 Joseph e 10:00: [id number] Elimination constipatio Eliminatio Resolve 2019-02-28 Veronica n n d 114 10:00:00 Joseph 10:00: [id number] 00 Allergies, Adverse Reactions, Alerts Allergy Name Allergy Status Severity Reaction(s) Onset Inactive Treating Comments Type Date Date Clinician atorvastatin Base Active Unknown Reaction Salena Beam Ingredient Unknown 02-15 simvastatin Base Active Unknown Reaction Salena Beam Ingredient Unknown 02-15 Medications Ordered Filled Start Stop Current Ordering Indication Dosage Frequency Signature Comments Components Medication Medication Date Date Medication? Clinician (SIG) Name Name PreserVisio PreserVisio Yes Tan Unknown Unknown n AREDS-2 n AREDS-2 1-07 Clemencia HARDWICK 250 mg-200 250 mg-200 unit-40 unit-40 mg-1 mg mg-1 mg capsule capsule pravastatin pravastatin Yes Tan Unknown Unknown 80 mg 80 mg - Clemencia HARDWICK tablet tablet memantine memantine Yes Tan Unknown Unknown 10 mg 10 mg 02-19 MD,Clemencia tablet tablet Aspirin Low Aspirin Low 2019- Yes Tan Unknown Unknown Dose 81 mg Dose 81 mg - MD,Clemencia tablet,carleen tablet,carleen yed release yed release amLODIPine amLODIPine 2019- Yes Tan Unknown Unknown 5 mg tablet 5 mg tablet 02-19 MD,Clemencia acetaminoph acetaminoph 2019- Yes Tan Unknown Unknown en 325 mg en 325 mg 02-19 MD,Clemencia capsule capsule amiodarone amiodarone Yes Tan Unknown Unknown 200 mg 200 mg 02-19 MD,Clemencia tablet tablet losartan 50 losartan 50 2019- Yes Tan Unknown Unknown mg tablet mg tablet 02-19 MD,Clemencia polyethylen polyethylen Yes Tan Unknown Unknown e glycol e glycol 02-19 MD,Clemencia 3350 17 3350 17 gram/dose gram/dose oral powder oral powder latanoprost latanoprost Yes Tan Unknown Unknown 0.005 % eye 0.005 % eye 02-19 MD,Clemencia drops drops Systane Systane Yes Tan Unknown Unknown (PF) 0.4 (PF) 0.4 02-19 MD,Clemencia %-0.3 % eye %-0.3 % eye drops in a drops in a dropperette dropperette Vital Signs Vital Name Observation Time Observation Value Comments SYSTOLIC mm[Hg] 2019-03-08 18:10:02 110 mm[Hg] mm[Hg] Method: Sit SYSTOLIC mm[Hg] 2019-02-19 18:09:45 128 mm[Hg] mm[Hg] Method: Stand DIASTOLIC mm[Hg] 2019-03-08 18:10:02 70 mm[Hg] mm[Hg] Method: Sit DIASTOLIC mm[Hg] 2019-02-19 18:09:45 70 mm[Hg] mm[Hg] Method: Stand PULSE 2019-03-08 18:10:02 64 /min /min RESP RATE 2019-03-07 18:10:01 16 /min /min TEMP 2019-03-08 18:10:02 98.0 [degF] Procedures This patient has no known procedures. Results This patient has no known results.
--- OUTSIDE RECORDS SUMMARY | 2019-03-11 13:49 | XMS REPORT ---
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 other other 02-13 [place] diseases diseases [id number] classified classified elsewhere elsewhere without without behavioral behavioral disturbance disturbance 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 [id number] [place]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 Hypertensiv Hypertensiv Diagnosis Active Veronica e chronic e chronic 02-13 Joseph kidney kidney [id number] disease disease with stage with stage 1 through 1 through stage 4 stage 4 chronic chronic kidney kidney disease, or disease, or unspecified unspecified chronic chronic kidney kidney disease disease Chronic Chronic Diagnosis Active Veronica kidney kidney 02-13 Joseph disease, disease, [id number] unspecified unspecified 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, block, [id number] first first degree degree Ventricular Ventricular Diagnosis Active Veronica tachycardia tachycardia Joseph [id number] Vitamin B12 Vitamin B12 Diagnosis Active Veronica deficiency deficiency Joseph anemia due anemia due [id number] to to intrinsic intrinsic factor factor deficiency deficiency 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 (valve) (valve) [id number] stenosis stenosis Personal Personal Diagnosis Active Veronica history of history of Joseph pneumonia pneumonia [id number] (recurrent) (recurrent) MCC MCC Diagnosis Active Veronica (current) (current) Joseph use of use of [id number] aspirin aspirin Personal Personal Diagnosis Active Veronica history of history of Joseph nicotine nicotine [id number] dependence dependence Pain frequent Pain Mgmt Active 2020-0 Lizet pain 1-07 (Tiera) 10:30: [id number] Cardio edema Cardiovasc Active 2020-0 Lizet ular 1-07 (Tiera) 10:30: [id number] Respiratory dyspnea Respirator Active 2020-0 Lizet present y 1-07 (Tiera) 10:30: [id number] Endo/Iam anti-coagul Endo/Iam Active 2020-0 Lizet ation 1-07 (Tiera) therapy 10:30: [id number] Sensory learning Sensory Active 2020-0 Lizet deficit 1-07 (Tiera) 10:30: [id number] Sensory impaired Sensory Active 2020-0 Lizet hearing 1-07 (Tiera) 10:30: [id number] Integument skin Integument Active 2020-0 Lizet integrity 1-07 (Tiera) risk 10:30: [id number] Elimination urinary Eliminatio Active 2019-0 Lizet incontinenc n 1-07 (Tiera) e 10:30: [id number] Neuro impaired Neuro/Emot Active 2020-0 Lizet decision-ma ion 1-07 (Tiera) colin 10:30: [id number] Neuro memory Neuro/Emot Active 2020-0 Lizet deficit ion 1-07 (Tiera) needing 10:30: Sun supervision 00 [id number] Neuro constant Neuro/Emot Active 2020-0 Lizet confusion ion 1-07 (Tiera) 10:30: [id number] Activity ADL Activity Active 2020-0 Lizet assistance 1-07 (Tiera) required 10:30: [id number] Activity self-care Activity Active 2020-0 Lizet deficit 1-07 (Tiera) 10:30: [id number] Safety cannot be Safety Active 2020-0 Lizet left alone 1-07 (Tiera) 10:30: [id number] Safety fall risk Safety Active 2020-0 Lizet factor 1-07 (Tiera) present 10:30: [id number] Safety risk for Safety Active 2020-0 Lizet hospitaliza 1-07 (Tiera) tion 10:30: [id number] Safety structural Safety Active 2020-0 QUALITY barriers 1-07 REALTIME present 10:30: 00 Medication oral med Meds Active 2020-0 Lizet assistance 02-19 (Tiera) required 10:30: Sun [id number] Musculoskel transfer Musculoske Active 2020-0 Lizet etal assistance letal 02-19 (Tiera) required 10:30: Sun [id number] Musculoskel requires Musculoske Active 2020-0 Lizet etal human letal 02-19 (Tiera) assist to 10:30: Sun leave home [id number] Bed transfer PT/OT: Bed Active 2020-0 Yuval Mobility/Tr deficit: Mobility/T 1-07 Aly vargas sit/stand ransfer 14:10: [id number] 00 Bed transfer PT/OT: Bed Active 2020-0 Yuval Mobility/Tr deficit: Mobility/T 1-07 Aly vargas toilet/comm ransfer 14:10: [id number] ode 00 Bed transfer PT/OT: Bed Active 2020-0 Yuval Mobility/Tr deficit: Mobility/T 1-07 Aly vargas shower/tub ransfer 14:10: [id number] 00 Bed transfer PT/OT: Bed Active 2020-0 Yuval Mobility/Tr deficit: Mobility/T 1-07 Aly vargas vehicle ransfer 14:10: [id number] 00 Bed knowledge/s PT/OT: Bed Active 2020-0 Yuval Mobility/Tr kill Mobility/T 1-07 Aly vargas deficit: pt ransfer 14:10: [id number] 00 Bed bed PT/OT: Bed Active 2020-0 Yuval Mobility/Tr mobility Mobility/T 1-07 Aly vargas deficit ransfer 14:10: [id number] 00 Gait/Locomo gait PT/OT: Active 2020-0 Yuval tion assistive Gait/Locom 1-07 Aly problems device otion 14:10: [id number] present 00 Gait/Locomo gait PT/OT: Active 2020-0 Yuval tion deficit Gait/Locom 1-07 Aly problems otion 14:10: [id number] 00 Gait/Locomo knowledge/s PT/OT: Active 2020-0 Yuval tion kill Gait/Locom 1-07 Aly problems deficit: pt otion 14:10: [id number] 00 Respiratory lung sounds Respirator Active Veronica deficit y 02-21 Joseph 09:25: [id number] Allergies, Adverse Reactions, Alerts Allergy Name [...] Tan Unknown Unknown n AREDS-2 n AREDS-2 02-19 MD,Clemencia 250 mg-200 250 mg-200 unit-40 unit-40 mg-1 mg mg-1 mg capsule capsule pravastatin pravastatin Yes Tan Unknown Unknown 80 mg 80 mg 02-19 MD,Clemencia tablet tablet memantine memantine Yes Tan Unknown Unknown 10 mg 10 mg 02-19 MD,Clemencia tablet tablet Aspirin Low Aspirin Low Yes Tan Unknown Unknown Dose 81 mg Dose 81 mg 02-19 MD,Clemencia tablet,carleen tablet,carleen yed release yed release amLODIPine amLODIPine Yes Tan Unknown Unknown 5 mg tablet 5 mg tablet 02-19 ,Clemencia acetaminoph acetaminoph Yes Tan Unknown Unknown en 325 mg en 325 mg 02-19 MD,Clemencia capsule capsule amiodarone amiodarone Yes Tan Unknown Unknown 200 mg 200 mg 02-19 MD,Clemencia tablet tablet losartan 50 losartan 50 Yes Tan Unknown Unknown mg tablet mg tablet 02-19 ,Clemencia polyethylen polyethylen Yes Tan Unknown Unknown e glycol e glycol 02-19 ,Clemencia 3350 17 3350 17 gram/dose gram/dose oral powder oral powder latanoprost latanoprost Yes Tan Unknown Unknown 0.005 % eye 0.005 % eye 02-19 MD,Clemencia drops drops Systane Systane Yes Tan Unknown Unknown (PF) 0.4 (PF) 0.4 02-19 ,Clemencia %-0.3 % eye %-0.3 % eye drops in a drops in a dropperette dropperette Vital Signs Vital Name Observation Time Observation Value Comments SYSTOLIC mm[Hg] 2019-02-22 18:09:48 110 mm[Hg] mm[Hg] Method: Sit SYSTOLIC mm[Hg] 2019-02-19 18:09:45 128 mm[Hg] mm[Hg] Method: Stand DIASTOLIC mm[Hg] 2019-02-22 18:09:48 60 mm[Hg] mm[Hg] Method: Sit DIASTOLIC mm[Hg] 2019-02-19 18:09:45 70 mm[Hg] mm[Hg] Method: Stand PULSE 2019-02-22 18:09:48 60 /min /min RESP RATE 2019-02-21 18:09:47 16 /min /min TEMP 2019-02-22 18:09:48 98.4 [degF] Procedures This patient has no known procedures. Results This patient has no known results.
--- OUTSIDE RECORDS SUMMARY | 2019-03-11 13:49 | XMS REPORT ---
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 Veronica other other 02-13 [place] diseases diseases [id number] classified classified elsewhere elsewhere without without behavioral behavioral disturbance disturbance 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 [id number] [place]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 Hypertensiv Hypertensiv Diagnosis Active Veronica e chronic e chronic 02-13 Joseph kidney kidney [id number] disease disease with stage with stage 1 through 1 through stage 4 stage 4 chronic chronic kidney kidney disease, or disease, or unspecified unspecified chronic chronic kidney kidney disease disease Chronic Chronic Diagnosis Active Veronica kidney kidney 02-13 Joseph disease, disease, [id number] unspecified unspecified 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, block, [id number] first first degree degree Ventricular Ventricular Diagnosis Active Veronica tachycardia tachycardia Joseph [id number] Vitamin B12 Vitamin B12 Diagnosis Active Veronica deficiency deficiency Joseph anemia due anemia due [id number] to to intrinsic intrinsic factor factor deficiency deficiency 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 (valve) (valve) [id number] stenosis stenosis Personal Personal Diagnosis Active Veronica history of history of Joseph pneumonia pneumonia [id number] (recurrent) (recurrent) retirement retirement Diagnosis Active Veronica (current) (current) Joseph use of use of [id number] aspirin aspirin Personal Personal Diagnosis Active Veronica history of history of Joseph nicotine nicotine [id number] dependence dependence Pain frequent Pain Mgmt Resolve 2019-02-28 Lizet pain d 1-07 10:00:00 (Tiera) 10:30: [id number] Cardio edema Cardiovasc Resolve 2019-02-28 Lizet ular d 1-07 10:00:00 (Tiera) 10:30: [id number] Respiratory dyspnea Respirator Resolve 2019-02-28 Lizet present y d 1-07 10:00:00 (Tiera) 10:30: [id number] Endo/Iam anti-coagul Endo/Iam Active Lizet ation 02-19 (Tiera) therapy 10:30: [id number] Sensory learning Sensory Resolve 2019-03-04 Lizet deficit d -07 10:20:00 (Tiera) 10:30: [id number] Sensory impaired Sensory Resolve 2019-03-04 Lizet hearing d -07 10:20:00 (Tiera) 10:30: [id number] Integument skin Integument Resolve 2019-02-28 Lizet integrity d -07 10:00:00 (Tiera) risk 10:30: [id number] Elimination urinary Eliminatio Resolve 2019-02-28 Lizet incontinenc n d -07 10:00:00 (Tiera) e 10:30: [id number] Neuro impaired Neuro/Emot Resolve 2019-02-28 Lizet decision-ma ion d 1-07 10:00:00 (Tiera) colin 10:30: [id number] Neuro memory Neuro/Emot Resolve 2019-02-28 Lizet deficit ion d 1-07 10:00:00 (Tiera) needing 10:30: Sun 00 [id number] Neuro constant Neuro/Emot Resolve 2019-02-28 Lizet confusion ion d 1-07 10:00:00 (Tiera) 10:30: [id number] Activity ADL Activity Resolve 2019-03-04 Lizet assistance d 1-07 10:20:00 (Tiera) required 10:30: [id number] Activity self-care Activity Resolve 2019-2019-03-04 Lizet deficit d 1-07 10:20:00 (Tiera) 10:30: Sun [id number] Safety cannot be Safety Resolve 2019-0 2019-02-28 Lizet left alone d 1-07 10:00:00 (Tiera) 10:30: Sun [id number] Safety fall risk Safety Resolve 2019-02-28 Lizet factor d 1-07 10:00:00 (Tiera) present 10:30: Sun [id number] Safety risk for Safety Resolve 0 2019-02-28 Lizet hospitaliza d 1-07 10:00:00 (Tiera) tion 10:30: Sun [id number] Safety structural Safety Resolve 2019-02-28 QUALITY barriers d -07 10:00:00 REALTIME present 10:30: 00 Medication oral med Meds Resolve 2019-02-28 Lizet assistance d -07 10:00:00 (Tiera) required 10:30: Sun [id number] Musculoskel transfer Musculoske Resolve 2019-2019-02-26 Lizet etal assistance letal d -07 10:00:00 (Tiera) required 10:30: Sun [id number] Musculoskel requires Musculoske Resolve 2019-0 2019-02-26 Lizet etal human letal d -07 10:00:00 (Tiera) assist to 10:30: Sun leave home 00 [id number] Bed transfer PT/OT: Bed Active Yuval Mobility/Tr deficit: Mobility/T 1-07 Aly vargas sit/stand ransfer 14:10: [id number] Bed transfer PT/OT: Bed Active Yuval Mobility/Tr deficit: Mobility/T 1-07 Aly vargas toilet/comm ransfer 14:10: [id number] ode 00 Bed transfer PT/OT: Bed Active 2019- Yuval Mobility/Tr deficit: Mobility/T 1-07 Aly vargas shower/tub ransfer 14:10: [id number] 00 Bed transfer PT/OT: Bed Active Yuval Mobility/Tr deficit: Mobility/T 1-07 Aly vargas vehicle ransfer 14:10: [id number] 00 Bed knowledge/s PT/OT: Bed Active 2019- Yuval Mobility/Tr kill Mobility/T 1-07 Aly ansfer deficit: pt ransfer 14:10: [id number] 00 Bed bed PT/OT: Bed Active 2019- Yuval Mobility/Tr mobility Mobility/T 1-07 Aly ansfer deficit ransfer 14:10: [id number] 00 Gait/Locomo gait PT/OT: Active Yuval tion assistive Gait/Locom 1-07 Aly problems device otion 14:10: [id number] present 00 Gait/Locomo gait PT/OT: Active Yuval tion deficit Gait/Locom 1-07 Aly problems otion 14:10: [id number] 00 Gait/Locomo knowledge/s PT/OT: Active Yuval tion kill Gait/Locom 1-07 Aly problems deficit: pt otion 14:10: [id number] 00 Respiratory lung sounds Respirator Resolve 2019-02-28 Veronica deficit y d 1-09 10:00:00 Joseph 09:25: [id number] 00 Elimination bowel Eliminatio Resolve 2019-02-28 Veronica incontinenc n d 1-14 10:00:00 Joseph e 10:00: [id number] 00 Elimination constipatio Eliminatio Resolve 2019-02-28 Veronica n n d 114 10:00:00 Joseph 10:00: [id number] 00 Allergies, Adverse Reactions, Alerts Allergy Name [...] 5 mg tablet 02-19 MD,Clemencia acetaminoph acetaminoph Yes Tan Unknown Unknown en [...] Observation Time Observation Value Comments SYSTOLIC mm[Hg] 2019-03-05 18:09:59 110 mm[Hg] mm[Hg] Method: Sit SYSTOLIC mm[Hg] 2019-02-19 18:09:45 128 mm[Hg] mm[Hg] Method: Stand DIASTOLIC mm[Hg] 2019-03-05 18:09:59 60 mm[Hg] mm[Hg] Method: Sit DIASTOLIC mm[Hg] 2019-02-19 18:09:45 70 mm[Hg] mm[Hg] Method: Stand PULSE 2019-03-05 18:09:59 60 /min /min RESP RATE 2019-03-04 18:09:58 16 /min /min TEMP 2019-03-05 18:09:59 98.2 [degF] Procedures This patient has no known procedures. Results This patient has no known results.
--- OUTSIDE RECORDS SUMMARY | 2019-03-11 13:49 | XMS REPORT ---
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 other other 02-13 [place] diseases diseases [id number] classified classified elsewhere elsewhere without without behavioral behavioral disturbance disturbance 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 Hypertensiv Hypertensiv Diagnosis Active Veronica e chronic e chronic 02-13 Joseph kidney kidney [id number] disease disease with stage with stage 1 through 1 through stage 4 stage 4 chronic chronic kidney kidney disease, or disease, or unspecified unspecified chronic chronic kidney kidney disease disease Chronic Chronic Diagnosis Active Veronica kidney kidney 02-13 Joseph disease, disease, [id number] unspecified unspecified 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, block, 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 Ventricular Ventricular Diagnosis Active Veronica tachycardia tachycardia Joseph [id number] Vitamin B12 Vitamin B12 Diagnosis Active Veronica deficiency deficiency Joseph anemia due anemia due 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 to to intrinsic intrinsic factor factor deficiency deficiency 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 (valve) (valve) [id number] stenosis stenosis Personal Personal Diagnosis Active Veronica history of history of Joseph pneumonia pneumonia [id number] (recurrent) (recurrent) snf snf Diagnosis Active Veronica (current) (current) Joseph use of use of [id number] aspirin aspirin Personal Personal Diagnosis Active Veronica history of history of Joseph nicotine nicotine [id number] dependence dependence Pain frequent Pain Mgmt Resolve 2019-02-28 Lizet pain d 1-07 10:00:00 (Tiera) 10:30: [id number] Cardio edema Cardiovasc Resolve 2019-02-28 Lizet ular d 1-07 10:00:00 (Tiera) 10:30: [id number] Respiratory dyspnea Respirator Resolve 2019-02-28 Lizet present y d 1-07 10:00:00 (Tiera) 10:30: [id number] Endo/Iam anti-coagul Endo/Iam Active Lizet ation 02-19 (Tiera) therapy 10:30: [id number] Sensory learning Sensory Resolve 2019-03-04 Lizet deficit d -07 10:20:00 (Tiera) 10:30: [id number] Sensory impaired Sensory Resolve 2019-03-04 Lizet hearing d -07 10:20:00 (Tiera) 10:30: [id number] Integument skin Integument Resolve 2019-02-28 Lizet integrity d -07 10:00:00 (Tiera) risk 10:30: [id number] Elimination urinary Eliminatio Resolve 2019-02-28 Lizet incontinenc n d -07 10:00:00 (Tiera) e 10:30: [id number] Neuro impaired Neuro/Emot Resolve 2019-02-28 Lizet decision-ma ion d 1-07 10:00:00 (Tiera) colin 10:30: [id number] Neuro memory Neuro/Emot Resolve 2019-02-28 Lizet deficit ion d 1-07 10:00:00 (Tiera) needing 10:30: Sun 00 [id number] Neuro constant Neuro/Emot Resolve 2019-02-28 Lizet confusion ion d 1-07 10:00:00 (Tiera) 10:30: [id number] Activity ADL Activity Resolve 2019-03-04 Lizet assistance d 1-07 10:20:00 (Tiera) required 10:30: [id number] Activity self-care Activity Resolve 2019-2019-03-04 Lizet deficit d 1-07 10:20:00 (Tiera) 10:30: Sun [id number] Safety cannot be Safety Resolve 2019-0 2019-02-28 Lizet left alone d 1-07 10:00:00 (Tiera) 10:30: Sun [id number] Safety fall risk Safety Resolve 2019-02-28 Lizet factor d 1-07 10:00:00 (Tiera) present 10:30: Sun [id number] Safety risk for Safety Resolve 0 2019-02-28 Lizet hospitaliza d 1-07 10:00:00 (Tiera) tion 10:30: Sun [id number] Safety structural Safety Resolve 2019-02-28 QUALITY barriers d -07 10:00:00 REALTIME present 10:30: 00 Medication oral med Meds Resolve 2019-02-28 Lizet assistance d -07 10:00:00 (Tiera) required 10:30: Sun [id number] Musculoskel transfer Musculoske Resolve 2019-2019-02-26 Lizet etal assistance letal d -07 10:00:00 (Tiera) required 10:30: Sun [id number] Musculoskel requires Musculoske Resolve 2019-0 2019-02-26 Lizet etal human letal d -07 10:00:00 (Tiera) assist to 10:30: Sun leave home 00 [id number] Bed transfer PT/OT: Bed Active Yuval Mobility/Tr deficit: Mobility/T 1-07 Aly vargas sit/stand ransfer 14:10: [id number] 00 Bed transfer PT/OT: Bed Active Yuval Mobility/Tr deficit: Mobility/T 1-07 Aly vargas toilet/comm ransfer 14:10: [id number] ode 00 Bed transfer PT/OT: Bed Active 2019- Yuval Mobility/Tr deficit: Mobility/T 1-07 Aly vargas shower/tub ransfer 14:10: [id number] 00 Bed transfer PT/OT: Bed Active Yuval Mobility/Tr deficit: Mobility/T 1-07 Aly vargas vehicle ransfer 14:10: [id number] 00 Bed knowledge/s PT/OT: Bed Active 2019- Yuval Mobility/Tr kill Mobility/T 1-07 Aly ansfer deficit: pt ransfer 14:10: [id number] 00 Bed bed PT/OT: Bed Active 2019- Yuval Mobility/Tr mobility Mobility/T 1-07 Aly ansfer deficit ransfer 14:10: [id number] 00 Gait/Locomo gait PT/OT: Active Yuval tion assistive Gait/Locom 1-07 Aly problems device otion 14:10: [id number] present 00 Gait/Locomo gait PT/OT: Active Yuval tion deficit Gait/Locom 1-07 Aly problems otion 14:10: [id number] 00 Gait/Locomo knowledge/s PT/OT: Active Yuval tion kill Gait/Locom 1-07 Aly problems deficit: pt otion 14:10: [id number] 00 Respiratory lung sounds Respirator Resolve 2019-02-28 Veronica deficit y d 1-09 10:00:00 Joseph 09:25: [id number] 00 Elimination bowel Eliminatio Resolve 2019-02-28 Veronica incontinenc n d 1-14 10:00:00 Joseph e 10:00: [id number] 00 Elimination constipatio Eliminatio Resolve 2019-02-28 Veronica n n d 114 10:00:00 Joseph 10:00: [id number] 00 Allergies, Adverse Reactions, Alerts Allergy Name [...] Observation Time Observation Value Comments SYSTOLIC mm[Hg] 2019-03-07 18:10:01 130 mm[Hg] mm[Hg] Method: Sit SYSTOLIC mm[Hg] 2019-02-19 18:09:45 128 mm[Hg] mm[Hg] Method: Stand DIASTOLIC mm[Hg] 2019-03-07 18:10:01 74 mm[Hg] mm[Hg] Method: Sit DIASTOLIC mm[Hg] 2019-02-19 18:09:45 70 mm[Hg] mm[Hg] Method: Stand PULSE 2019-03-07 18:10:01 74 /min /min RESP RATE 2019-03-07 18:10:01 16 /min /min TEMP 2019-03-07 18:10:01 98.1 [degF] Procedures This patient has no known procedures. Results This patient has no known results.
--- OUTSIDE RECORDS SUMMARY | 2019-03-11 13:49 | XMS REPORT ---
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 other other 02-13 [place] diseases diseases [id number] classified classified elsewhere elsewhere without without behavioral behavioral disturbance disturbance 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 [place]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 Hypertensiv Hypertensiv Diagnosis Active Veronica e chronic e chronic 02-13 Joseph kidney kidney [id number] disease disease with stage with stage 1 through 1 through stage 4 stage 4 chronic chronic kidney kidney disease, or disease, or unspecified unspecified chronic chronic kidney kidney disease disease Chronic Chronic Diagnosis Active Veronica kidney kidney 02-13 Joseph disease, disease, [id number] unspecified unspecified 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, block, [id number] first first degree degree Ventricular Ventricular Diagnosis Active Veronica tachycardia tachycardia Joseph [id number] Vitamin B12 Vitamin B12 Diagnosis Active Veronica deficiency deficiency Joseph anemia due anemia due [id number] to to intrinsic intrinsic factor factor deficiency deficiency 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 (valve) (valve) [id number] stenosis stenosis Personal Personal Diagnosis Active Veronica history of history of Joseph pneumonia pneumonia [id number] (recurrent) (recurrent) nursing home nursing home Diagnosis Active Veronica (current) (current) Joseph use of use of [id number] aspirin aspirin Personal Personal Diagnosis Active Veronica history of history of Joseph nicotine nicotine [id number] dependence dependence Pain frequent Pain Mgmt Resolve 2019-02-28 Lizet pain d 1-07 10:00:00 (Tiera) 10:30: [id number] Cardio edema Cardiovasc Resolve 2019-02-28 Lizet ular d 1-07 10:00:00 (Tiera) 10:30: [id number] Respiratory dyspnea Respirator Resolve 2019-02-28 Lizet present y d 1-07 10:00:00 (Tiera) 10:30: [id number] Endo/Iam anti-coagul Endo/Iam Active Lizet ation 1-07 (Tiera) therapy 10:30: [id number] Sensory learning Sensory Active Lizet deficit -07 (Tiera) 10:30: [id number] Sensory impaired Sensory Active Lizet hearing -07 (Itera) 10:30: [id number] Integument skin Integument Resolve 2019-02-28 Lizet integrity d 1-07 10:00:00 (Tiera) risk 10:30: [id number] Elimination urinary Eliminatio Resolve 2019-02-28 Lizet incontinenc n d 1-07 10:00:00 (Tiera) e 10:30: [id number] Neuro impaired Neuro/Emot Resolve 2019-02-28 Lizet decision-ma ion d 1-07 10:00:00 (Tiera) colin 10:30: [id number] Neuro memory Neuro/Emot Resolve 2019-02-28 Lizet deficit ion d 1-07 10:00:00 (Tiera) needing 10:30: Sun supervision 00 [id number] Neuro constant Neuro/Emot Resolve 2019-02-28 Lizet confusion ion d 1-07 10:00:00 (Tiera) 10:30: [id number] Activity ADL Activity Active Lizet assistance 1-07 (Tiera) required 10:30: [id number] Activity self-care Activity Active Lizet deficit 1-07 (Tiera) 10:30: [id number] Safety cannot be Safety Resolve 2019-0 2019-02-28 Lizet left alone d -07 10:00:00 (Tiera) 10:30: Sun [id number] Safety fall risk Safety Resolve 2019-02-28 Lizet factor d -07 10:00:00 (Tiera) present 10:30: Sun [id number] Safety risk for Safety Resolve 2019-02-28 Lizet hospitaliza d -07 10:00:00 (Tiera) tion 10:30: Sun [id number] Safety structural Safety Resolve 2019-02-28 QUALITY barriers d -07 10:00:00 REALTIME present 10:30: 00 Medication oral med Meds Resolve 2019-02-28 Lizet assistance d - 10:00:00 (Tiera) required 10:30: Sun [id number] Musculoskel transfer Musculoske Resolve 2019-02-26 Lizet etal assistance letal d 07 10:00:00 (Tiera) required 10:30: Sun [id number] Musculoskel requires Musculoske Resolve 2019-02-26 Lizet etal human letal d -07 10:00:00 (Tiera) assist to 10:30: Sun leave home 00 [id number] Bed transfer PT/OT: Bed Active Yuval Mobility/Tr deficit: Mobility/T 1-07 Aly vargas sit/stand ransfer 14:10: [id number] 00 Bed transfer PT/OT: Bed Active Yuval Mobility/Tr deficit: Mobility/T 1-07 Aly vargas toilet/comm ransfer 14:10: [id number] ode 00 Bed transfer PT/OT: Bed Active 2019-0 Yuval Mobility/Tr deficit: Mobility/T 1-07 Aly vargas shower/tub ransfer 14:10: [id number] 00 Bed transfer PT/OT: Bed Active 2020-0 Yuval Mobility/Tr deficit: Mobility/T 1-07 Aly vargas vehicle ransfer 14:10: [id number] 00 Bed knowledge/s PT/OT: Bed Active Yuval Mobility/Tr kill Mobility/T 1-07 Aly sam deficit: pt ransfer 14:10: [id number] 00 Bed bed PT/OT: Bed Active Yuval Mobility/Tr mobility Mobility/T 1-07 Aly ansfer deficit ransfer 14:10: [id number] 00 Gait/Locomo gait PT/OT: Active 2019- Yuval tion assistive Gait/Locom 1-07 Aly problems device otion 14:10: [id number] present 00 Gait/Locomo gait PT/OT: Active Yuval tion deficit Gait/Locom 1-07 Aly problems otion 14:10: [id number] 00 Gait/Locomo knowledge/s PT/OT: Active Yuval tion kill Gait/Locom 1-07 Aly problems deficit: pt otion 14:10: [id number] 00 Respiratory lung sounds Respirator Resolve 2019-02-28 Veronica deficit y d -09 10:00:00 Joseph 09:25: [id number] Elimination bowel Eliminatio Resolve 2019-02-28 Veronica incontinenc n d 1-14 10:00:00 Joseph e 10:00: [id number] 00 Elimination constipatio Eliminatio Resolve 2019-02-28 Veronica n n d -14 10:00:00 Joseph 10:00: [id number] 00 Allergies, Adverse Reactions, Alerts Allergy Name [...] Tan Unknown Unknown n AREDS-2 n AREDS-2 - Clemencia HARDWICK 250 mg-200 250 mg-200 unit-40 unit-40 mg-1 mg mg-1 mg capsule capsule pravastatin pravastatin Yes Tan Unknown Unknown 80 mg 80 mg 02-19 Clemencia HARD[place] tablet tablet memantine memantine Yes Tan Unknown Unknown 10 mg 10 mg 02-19 ,Clemencia tablet tablet Aspirin Low Aspirin Low Yes Tan Unknown Unknown Dose 81 mg Dose 81 mg 02-19 Clemencia HARDWICK tablet,carleen tablet,carleen yed release yed release amLODIPine amLODIPine 2019- Yes Tan Unknown Unknown 5 mg tablet 5 mg tablet 02-19 MD,Clemencia acetaminoph acetaminoph Yes Tan Unknown Unknown en 325 mg en 325 mg 02-19 MD,Clemencia capsule capsule amiodarone amiodarone Yes Tan Unknown Unknown 200 mg 200 mg - MD,Clemencia tablet tablet losartan 50 losartan 50 [...] Observation Time Observation Value Comments SYSTOLIC mm[Hg] 2019-02-28 18:09:54 128 mm[Hg] mm[Hg] Method: Sit SYSTOLIC mm[Hg] 2019-02-19 18:09:45 128 mm[Hg] mm[Hg] Method: Stand DIASTOLIC mm[Hg] 2019-02-28 18:09:54 64 mm[Hg] mm[Hg] Method: Sit DIASTOLIC mm[Hg] 2019-02-19 18:09:45 70 mm[Hg] mm[Hg] Method: Stand PULSE 2019-02-28 18:09:54 76 /min /min RESP RATE 2019-02-28 18:09:54 16 /min /min TEMP 2019-02-28 18:09:54 97.7 [degF] Procedures This patient has no known procedures. Results This patient has no known results.
--- OUTSIDE RECORDS SUMMARY | 2019-03-11 13:49 | XMS REPORT ---
:1930 Author Organization [facility] Care Team Providers Name Role Phone Unavailable Unavailable Unavailable Problems Condition Condition Condition Status Onset Resolution Last Treating Comments Name Details Category Date Date Treatment Clinician Date Pneumonia, Pneumonia, Diagnosis Active 2020-0 Veronica unspecified unspecified -03 Wisner organism organism [id number] Pain frequent Pain Mgmt Active 2020-0 Lizet pain 1-07 (Tiera) 10:30: [id number] Cardio edema Cardiovasc Active 2020-0 Lizet ular 1-07 (Tiera) 10:30: [id number] Respiratory dyspnea Respirator Active 2020-0 Lizet present y 1-07 (Tiera) 10:30: [id number] Endo/Iam anti-coagul Endo/Iam Active 2020-0 Lizet ation 1-07 (Tiera) therapy 10:30: [id number] Sensory learning Sensory Active 2020-0 Lizet deficit 1-07 (Tiera) 10:30: [id number] Sensory impaired Sensory Active 2020-0 Lizet hearing 1-07 (Tiera) 10:30: [id number] Integument skin Integument Active 2020-0 Lizet integrity 1-07 (Tiera) risk 10:30: [id number] Elimination urinary Eliminatio Active 2020-0 Lizet incontinenc n 1-07 (Tiera) e 10:30: [id number] Neuro impaired Neuro/Emot Active 2020-0 Lizet decision-ma ion 1-07 (Tiera) colin 10:30: [id number] Neuro memory Neuro/Emot Active 2020-0 Lizet deficit ion 1-07 (Tiera) needing 10:30: [id number] Neuro constant Neuro/Emot Active 2020-0 Lizet confusion ion 1-07 (Tiera) 10:30: [id number] Activity ADL Activity Active 2020-0 Lizet assistance 1-07 (Tiera) required 10:30: Sun [id number] Activity self-care Activity Active 2020-0 Lizet deficit 1-07 (Tiera) 10:30: Sun [id number] Safety cannot be Safety Active 2020-0 Lizet left alone 1-07 (Tiera) 10:30: Sun [id number] Safety fall risk Safety Active 2020-0 Lizet factor 1-07 (Tiera) present 10:30: Sun [id number] Safety risk for Safety Active 2020-0 Lizet hospitaliza 1 (Tiera) tion 10:30: Sun [id number] Medication oral med Meds Active 2020-0 Lizet assistance 02-19 (Tiera) required 10:30: Sun [id number] Musculoskel transfer Musculoske Active 2020-0 Lizet etal assistance letal 02-19 (Tiera) required 10:30: Sun [id number] Musculoskel requires Musculoske Active 2020-0 Lizet etal human letal 02-19 (Tiera) assist to 10:30: Sun leave home 00 [id number] Safety structural Safety Active 2020-0 Yuval barriers 1-07 Aly present 14:10: [id number] 00 Bed transfer PT/OT: Bed Active 2020-0 Yuval Mobility/Tr deficit: Mobility/T 1-07 Aly vargas sit/stand ransfer 14:10: [id number] 00 Bed transfer PT/OT: Bed Active 2020-0 Yuval Mobility/Tr deficit: Mobility/T 1-07 Aly vargas toilet/comm ransfer 14:10: [id number] ode 00 Bed transfer PT/OT: Bed Active 2020-0 Yuval Mobility/Tr deficit: Mobility/T 1-07 Aly vargas shower/tub ransfer 14:10: [id number] 00 Bed transfer PT/OT: Bed Active 2020-0 Yuval Mobility/Tr deficit: Mobility/T 1-07 Aly vargas vehicle ransfer 14:10: [id number] 00 Bed knowledge/s PT/OT: Bed Active 2020-0 Yuval Mobility/Tr kill Mobility/T 1-07 Aly vargas deficit: pt ransfer 14:10: [id number] 00 Bed bed PT/OT: Bed Active 2020-0 Yuval Mobility/Tr mobility Mobility/T 02-19 Aly ansfer deficit ransfer 14:10: [id number] 00 Gait/Locomo gait PT/OT: Active Yuval tion assistive Gait/Locom 02-19 Aly problems device otion 14:10: [id number] present 00 Gait/Locomo gait PT/OT: Active Yuval tion deficit Gait/Locom 02-19 Aly problems otion 14:10: [id number] 00 Gait/Locomo knowledge/s PT/OT: Active Yuval tion kill Gait/Locom 02-19 Aly problems deficit: pt otion 14:10: [id number] 00 Respiratory lung sounds Respirator Active Veronica deficit y 02-21 Joseph 09:25: [id number] Allergies, Adverse Reactions, Alerts Allergy Name [...] Clinician (SIG) Name Name PreserVisio PreserVisio Yes Tna Unknown Unknown n AREDS-2 n AREDS-2 02-19 Clemencia HARDWICK 250 mg-200 250 mg-200 unit-40 unit-40 mg-1 mg mg-1 mg capsule capsule pravastatin pravastatin Yes Tan Unknown Unknown 80 mg 80 mg 02-19 Clemencia HARDWICK tablet tablet memantine memantine Yes Tan Unknown Unknown 10 mg 10 mg 02-19 Clemencia HARDWICK tablet tablet Aspirin Low Aspirin Low Yes Tan Unknown Unknown Dose 81 mg Dose 81 mg 02-19 Clemencia HARDWICK tablet,carleen tablet,carleen yed release yed release amLODIPine amLODIPine Yes Tan Unknown Unknown 5 mg tablet 5 mg tablet 02-19 Clemencia HARDWICK acetaminoph acetaminoph Yes Tan Unknown Unknown en 325 mg en 325 mg 02-19 Clemencia HARDWICK capsule capsule amiodarone amiodarone Yes Tan Unknown Unknown 200 mg 200 mg 02-19 Clemencia HARDWICK tablet tablet losartan 50 losartan 50 Yes Tan Unknown Unknown mg tablet mg tablet 02-19 ,Clemencia polyethylen polyethylen 2019- Yes Tan Unknown Unknown e glycol e glycol 02-19 ,Clemencia 3350 17 3350 17 gram/dose gram/dose oral powder oral powder latanoprost latanoprost 2019- Yes Tan Unknown Unknown 0.005 % eye 0.005 % eye 02-19 ,Clemencia drops drops Systane Systane Yes Tan Unknown Unknown (PF) 0.4 (PF) 0.4 02-19 ,Clemencia %-0.3 % eye %-0.3 % eye drops in a drops in a dropperette dropperette Vital Signs Vital Name Observation Time Observation Value Comments SYSTOLIC mm[Hg] 2019-02-21 18:09:47 124 mm[Hg] mm[Hg] Method: Sit SYSTOLIC mm[Hg] 2019-02-19 18:09:45 128 mm[Hg] mm[Hg] Method: Stand DIASTOLIC mm[Hg] 2019-02-21 18:09:47 70 mm[Hg] mm[Hg] Method: Sit DIASTOLIC mm[Hg] 2019-02-19 18:09:45 70 mm[Hg] mm[Hg] Method: Stand PULSE 2019-02-21 18:09:47 74 /min /min RESP RATE 2019-02-21 18:09:47 16 /min /min TEMP 2019-02-21 18:09:47 97.7 [degF] Procedures This patient has no known procedures. Results This patient has no known results.
--- OUTSIDE RECORDS SUMMARY | 2019-03-11 13:49 | XMS REPORT ---
:1930 Author Organization [facility] Care Team Providers Name Role Phone [...]
--- OUTSIDE RECORDS SUMMARY | 2019-03-11 13:49 | XMS REPORT ---
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 other other 02-13 [place] diseases diseases [id number] classified classified elsewhere elsewhere without without behavioral behavioral disturbance disturbance 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 Hypertensiv Hypertensiv Diagnosis Active Veronica e chronic e chronic 02-13 Joseph kidney kidney [id number] disease disease with stage with stage 1 through 1 through stage 4 stage 4 chronic chronic kidney kidney disease, or disease, or unspecified unspecified chronic chronic kidney kidney disease disease Chronic Chronic Diagnosis Active Veronica kidney kidney 02-13 Joseph disease, disease, [id number] unspecified unspecified 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, block, 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 Ventricular Ventricular Diagnosis Active Veronica tachycardia tachycardia Joseph [id number] Vitamin B12 Vitamin B12 Diagnosis Active Veronica deficiency deficiency 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 (valve) (valve) [id number] stenosis stenosis Personal Personal Diagnosis Active Veronica history of history of Joseph pneumonia pneumonia [id number] (recurrent) (recurrent) CHCF CHCF Diagnosis Active Veronica (current) (current) Joseph use of use of [id number] aspirin aspirin Personal Personal Diagnosis Active Veronica history of history of Joseph nicotine nicotine [id number] dependence dependence Pain frequent Pain Mgmt Resolve 2019-02-28 Lizet pain d 1-07 10:00:00 (Tiera) 10:30: [id number] Cardio edema Cardiovasc Resolve 2019-02-28 Lizet ular d 1-07 10:00:00 (Tiera) 10:30: [id number] Respiratory dyspnea Respirator Resolve 2019-02-28 Lizet present y d 1-07 10:00:00 (Tiera) 10:30: [id number] Endo/Iam anti-coagul Endo/Iam Active Lizet ation 1-07 (Tiera) therapy 10:30: [id number] Sensory learning Sensory Active Lizet deficit -07 (Tiera) 10:30: [id number] Sensory impaired Sensory Active Lizet hearing -07 (Tiera) 10:30: [id number] Integument skin Integument Resolve 2019-02-28 Lizet integrity d 1-07 10:00:00 (Tiera) risk 10:30: [id number] Elimination urinary Eliminatio Resolve 2019-02-28 Lizet incontinenc n d 1-07 10:00:00 (Tiera) e 10:30: [id number] Neuro impaired Neuro/Emot Resolve 2019-02-28 Lizet decision-ma ion d 1-07 10:00:00 (Tiera) colin 10:30: [id number] Neuro memory Neuro/Emot Resolve 2019-02-28 Lizet deficit ion d 1-07 10:00:00 (Tiera) needing 10:30: Sun supervision 00 [id number] Neuro constant Neuro/Emot Resolve 2019-02-28 Lizet confusion ion d 1-07 10:00:00 (Tiera) 10:30: [id number] Activity ADL Activity Active Lizet assistance 1-07 (Tiera) required 10:30: [id number] Activity self-care Activity Active Lizet deficit 1-07 (Tiera) 10:30: [id number] Safety cannot be Safety Resolve 2019-0 2019-02-28 Lizet left alone d -07 10:00:00 (Tiera) 10:30: Sun [id number] Safety fall risk Safety Resolve 2019-02-28 Lizet factor d -07 10:00:00 (Tiera) present 10:30: Sun [id number] Safety risk for Safety Resolve 2019-02-28 Lizet hospitaliza d -07 10:00:00 (Tiera) tion 10:30: Sun [id number] Safety structural Safety Resolve 2019-02-28 QUALITY barriers d -07 10:00:00 REALTIME present 10:30: 00 Medication oral med Meds Resolve 2019-02-28 Lizet assistance d - 10:00:00 (Tiera) required 10:30: Sun [id number] Musculoskel transfer Musculoske Resolve 2019-02-26 Lizet etal assistance letal d 07 10:00:00 (Tiera) required 10:30: Sun [id number] Musculoskel requires Musculoske Resolve 2019-02-26 Lizet etal human letal d -07 10:00:00 (Tiera) assist to 10:30: Sun leave home 00 [id number] Bed transfer PT/OT: Bed Active Yuval Mobility/Tr deficit: Mobility/T 1-07 Aly vargas sit/stand ransfer 14:10: [id number] 00 Bed transfer PT/OT: Bed Active Yuval Mobility/Tr deficit: Mobility/T 1-07 Aly vargas toilet/comm ransfer 14:10: [id number] ode 00 Bed transfer PT/OT: Bed Active 2019-0 Yuval Mobility/Tr deficit: Mobility/T 1-07 Aly vargas shower/tub ransfer 14:10: [id number] 00 Bed transfer PT/OT: Bed Active 2020-0 Yuval Mobility/Tr deficit: Mobility/T 1-07 Aly vargas vehicle ransfer 14:10: [id number] 00 Bed knowledge/s PT/OT: Bed Active Yuval Mobility/Tr kill Mobility/T 1-07 Aly sam deficit: pt ransfer 14:10: [id number] 00 Bed bed PT/OT: Bed Active Yuval Mobility/Tr mobility Mobility/T 1-07 Aly ansfer deficit ransfer 14:10: [id number] 00 Gait/Locomo gait PT/OT: Active 2019- Yuval tion assistive Gait/Locom 1-07 Aly problems device otion 14:10: [id number] present 00 Gait/Locomo gait PT/OT: Active Yuval tion deficit Gait/Locom 1-07 Aly problems otion 14:10: [id number] 00 Gait/Locomo knowledge/s PT/OT: Active Yuval tion kill Gait/Locom 1-07 Aly problems deficit: pt otion 14:10: [id number] 00 Respiratory lung sounds Respirator Resolve 2019-02-28 Veronica deficit y d -09 10:00:00 Joseph 09:25: [id number] 00 Elimination bowel Eliminatio Resolve 2019-02-28 Veronica incontinenc n d 1-14 10:00:00 Joseph e 10:00: [id number] 00 Elimination constipatio Eliminatio Resolve 2019-02-28 Veronica n n d -14 10:00:00 Joseph 10:00: [id number] 00 Allergies, Adverse Reactions, Alerts Allergy Name [...] Observation Time Observation Value Comments SYSTOLIC mm[Hg] 2019-03-01 18:09:55 110 mm[Hg] mm[Hg] Method: Sit SYSTOLIC mm[Hg] 2019-02-19 18:09:45 128 mm[Hg] mm[Hg] Method: Stand DIASTOLIC mm[Hg] 2019-03-01 18:09:55 70 mm[Hg] mm[Hg] Method: Sit DIASTOLIC mm[Hg] 2019-02-19 18:09:45 70 mm[Hg] mm[Hg] Method: Stand PULSE 2019-03-01 18:09:55 60 /min /min RESP RATE 2019-02-28 18:09:54 16 /min /min TEMP 2019-03-01 18:09:55 98.2 [degF] Procedures This patient has no known procedures. Results This patient has no known results.
--- OUTSIDE RECORDS SUMMARY | 2019-03-11 13:49 | XMS REPORT ---
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 other other 02-13 [place] diseases diseases [id number] classified classified elsewhere elsewhere without without behavioral behavioral disturbance disturbance 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 [id number] [place]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 Hypertensiv Hypertensiv Diagnosis Active Veronica e chronic e chronic 02-13 Joseph kidney kidney [id number] disease disease with stage with stage 1 through 1 through stage 4 stage 4 chronic chronic kidney kidney disease, or disease, or unspecified unspecified chronic chronic kidney kidney disease disease Chronic Chronic Diagnosis Active Veronica kidney kidney 02-13 Joseph disease, disease, [id number] unspecified unspecified 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, block, [id number] first first degree degree Ventricular Ventricular Diagnosis Active Veronica tachycardia tachycardia Joseph [id number] Vitamin B12 Vitamin B12 Diagnosis Active Veronica deficiency deficiency Joseph anemia due anemia due [id number] to to intrinsic intrinsic factor factor deficiency deficiency Nonrheumati Nonrheumati Diagnosis Active Veroncia c aortic c aortic Joseph (valve) (valve) [id number] stenosis stenosis Personal Personal Diagnosis Active Veronica history of history of Joseph pneumonia pneumonia [id number] (recurrent) (recurrent) longterm longterm Diagnosis Active Veronica (current) (current) Joseph use of use of [id number] aspirin aspirin Personal Personal Diagnosis Active Veronica history of history of Joseph nicotine nicotine [id number] dependence dependence Pain frequent Pain Mgmt Active 2020-0 Lizet pain 1-07 (Tiera) 10:30: [id number] Cardio edema Cardiovasc Active 2020-0 Lizet ular 1-07 (Tiera) 10:30: [id number] Respiratory dyspnea Respirator Active 2020-0 Lizet present y 1-07 (Tiera) 10:30: [id number] Endo/Iam anti-coagul Endo/Iam Active 2020-0 Lizet ation 1-07 (Tiera) therapy 10:30: [id number] Sensory learning Sensory Active 2020-0 Lizet deficit 1-07 (Tiera) 10:30: [id number] Sensory impaired Sensory Active 2020-0 Lizet hearing 1-07 (Tiera) 10:30: [id number] Integument skin Integument Active 2020-0 Lizet integrity 1-07 (Tiera) risk 10:30: [id number] Elimination urinary Eliminatio Active 2019-0 Lizet incontinenc n 1-07 (Tiera) e 10:30: [id number] Neuro impaired Neuro/Emot Active 2020-0 Lizet decision-ma ion 1-07 (Tiera) colin 10:30: [id number] Neuro memory Neuro/Emot Active 2020-0 Lizet deficit ion 1-07 (Tiera) needing 10:30: Sun supervision 00 [id number] Neuro constant Neuro/Emot Active 2020-0 Lizet confusion ion 1-07 (Tiera) 10:30: [id number] Activity ADL Activity Active 2020-0 Lizet assistance 1-07 (Tiera) required 10:30: [id number] Activity self-care Activity Active 2020-0 Lizet deficit 1-07 (Tiera) 10:30: [id number] Safety cannot be Safety Active 2020-0 Lizet left alone 1-07 (Tiera) 10:30: [id number] Safety fall risk Safety Active 2020-0 Lizet factor 1-07 (Tiera) present 10:30: [id number] Safety risk for Safety Active 2020-0 Lizet hospitaliza 1-07 (Tiera) tion 10:30: [id number] Safety structural Safety Active 2020-0 QUALITY barriers 1-07 REALTIME present 10:30: 00 Medication oral med Meds Active 2020-0 Lizet assistance 02-19 (Tiera) required 10:30: Sun [id number] Musculoskel transfer Musculoske Active 2020-0 Lizet etal assistance letal 02-19 (Tiera) required 10:30: Sun [id number] Musculoskel requires Musculoske Active 2020-0 Lizet etal human letal 02-19 (Tiera) assist to 10:30: Sun leave home [id number] Bed transfer PT/OT: Bed Active 2020-0 Yuval Mobility/Tr deficit: Mobility/T 1-07 Aly vargas sit/stand ransfer 14:10: [id number] 00 Bed transfer PT/OT: Bed Active 2020-0 Yuval Mobility/Tr deficit: Mobility/T 1-07 Aly vargas toilet/comm ransfer 14:10: [id number] ode 00 Bed transfer PT/OT: Bed Active 2020-0 Yuval Mobility/Tr deficit: Mobility/T 1-07 Aly vargas shower/tub ransfer 14:10: [id number] 00 Bed transfer PT/OT: Bed Active 2020-0 Yuval Mobility/Tr deficit: Mobility/T 1-07 Aly vargas vehicle ransfer 14:10: [id number] 00 Bed knowledge/s PT/OT: Bed Active 2020-0 Yuval Mobility/Tr kill Mobility/T 1-07 Aly vargas deficit: pt ransfer 14:10: [id number] 00 Bed bed PT/OT: Bed Active 2020-0 Yuval Mobility/Tr mobility Mobility/T 1-07 Aly vargas deficit ransfer 14:10: [id number] 00 Gait/Locomo gait PT/OT: Active 2020-0 Yuval tion assistive Gait/Locom 1-07 Aly problems device otion 14:10: [id number] present 00 Gait/Locomo gait PT/OT: Active 2020-0 Yuval tion deficit Gait/Locom 1-07 Aly problems otion 14:10: [id number] 00 Gait/Locomo knowledge/s PT/OT: Active 2020-0 Yuval tion kill Gait/Locom 1-07 Aly problems deficit: pt otion 14:10: [id number] 00 Respiratory lung sounds Respirator Active Veronica deficit y 02-21 Joseph 09:25: [id number] 00 Allergies, Adverse Reactions, Alerts Allergy Name [...]
--- OUTSIDE RECORDS SUMMARY | 2019-03-11 13:49 | XMS REPORT ---
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 other other 02-13 [place] diseases diseases [id number] classified classified elsewhere elsewhere without without behavioral behavioral disturbance disturbance 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 [id number] [place]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 Hypertensiv Hypertensiv Diagnosis Active Veronica e chronic e chronic 02-13 Joseph kidney kidney [id number] disease disease with stage with stage 1 through 1 through stage 4 stage 4 chronic chronic kidney kidney disease, or disease, or unspecified unspecified chronic chronic kidney kidney disease disease Chronic Chronic Diagnosis Active Veronica kidney kidney 02-13 Joseph disease, disease, [id number] unspecified unspecified 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, block, [id number] first first degree degree Ventricular Ventricular Diagnosis Active Veronica tachycardia tachycardia Joseph [id number] Vitamin B12 Vitamin B12 Diagnosis Active Veronica deficiency deficiency Joseph anemia due anemia due [id number] to to intrinsic intrinsic factor factor deficiency deficiency 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 (valve) (valve) [id number] stenosis stenosis Personal Personal Diagnosis Active Veronica history of history of Joseph pneumonia pneumonia [id number] (recurrent) (recurrent) MCFP MCFP Diagnosis Active Veronica (current) (current) Joseph use of use of [id number] aspirin aspirin Personal Personal Diagnosis Active Veronica history of history of Joseph nicotine nicotine [id number] dependence dependence Pain frequent Pain Mgmt Resolve 2019-02-28 Lizet pain d 1-07 10:00:00 (Tiera) 10:30: [id number] Cardio edema Cardiovasc Resolve 2019-02-28 Lizet ular d 1-07 10:00:00 (Tiera) 10:30: [id number] Respiratory dyspnea Respirator Resolve 2019-02-28 Lizet present y d 1-07 10:00:00 (Tiera) 10:30: [id number] Endo/Iam anti-coagul Endo/Iam Active Lizet ation 02-19 (Tiera) therapy 10:30: [id number] Sensory learning Sensory Resolve 2019-03-04 Lizet deficit d -07 10:20:00 (Tiera) 10:30: [id number] Sensory impaired Sensory Resolve 2019-03-04 Lizet hearing d -07 10:20:00 (Tiera) 10:30: [id number] Integument skin Integument Resolve 2019-02-28 Lizet integrity d -07 10:00:00 (Tiera) risk 10:30: [id number] Elimination urinary Eliminatio Resolve 2019-02-28 Lizet incontinenc n d -07 10:00:00 (Tiera) e 10:30: [id number] Neuro impaired Neuro/Emot Resolve 2019-02-28 Lizet decision-ma ion d 1-07 10:00:00 (Tiera) colin 10:30: [id number] Neuro memory Neuro/Emot Resolve 2019-02-28 Lizet deficit ion d 1-07 10:00:00 (Tiera) needing 10:30: Sun 00 [id number] Neuro constant Neuro/Emot Resolve 2019-02-28 Lizet confusion ion d 1-07 10:00:00 (Tiera) 10:30: [id number] Activity ADL Activity Resolve 2019-03-04 Lizet assistance d 1-07 10:20:00 (Tiera) required 10:30: [id number] Activity self-care Activity Resolve 2019-2019-03-04 Lizet deficit d 1-07 10:20:00 (Tiera) 10:30: Sun [id number] Safety cannot be Safety Resolve 2019-0 2019-02-28 Lizet left alone d 1-07 10:00:00 (Tiera) 10:30: Sun [id number] Safety fall risk Safety Resolve 2019-02-28 Lizet factor d 1-07 10:00:00 (Tiera) present 10:30: Sun [id number] Safety risk for Safety Resolve 0 2019-02-28 Lizet hospitaliza d 1-07 10:00:00 (Tiera) tion 10:30: Sun [id number] Safety structural Safety Resolve 2019-02-28 QUALITY barriers d -07 10:00:00 REALTIME present 10:30: 00 Medication oral med Meds Resolve 2019-02-28 Lizet assistance d -07 10:00:00 (Tiera) required 10:30: Sun [id number] Musculoskel transfer Musculoske Resolve 2019-2019-02-26 Lizet etal assistance letal d -07 10:00:00 (Tiera) required 10:30: Sun [id number] Musculoskel requires Musculoske Resolve 2019-0 2019-02-26 Lizet etal human letal d -07 10:00:00 (Tiera) assist to 10:30: Sun leave home 00 [id number] Bed transfer PT/OT: Bed Active Yuval Mobility/Tr deficit: Mobility/T 1-07 Aly vargas sit/stand ransfer 14:10: [id number] 00 Bed transfer PT/OT: Bed Active Yuval Mobility/Tr deficit: Mobility/T 1-07 Aly vargas toilet/comm ransfer 14:10: [id number] ode 00 Bed transfer PT/OT: Bed Active 2019- Yuval Mobility/Tr deficit: Mobility/T 1-07 Aly vargas shower/tub ransfer 14:10: [id number] 00 Bed transfer PT/OT: Bed Active Yuval Mobility/Tr deficit: Mobility/T 1-07 Aly vargas vehicle ransfer 14:10: [id number] 00 Bed knowledge/s PT/OT: Bed Active 2019- Yuval Mobility/Tr kill Mobility/T 1-07 Aly ansfer deficit: pt ransfer 14:10: [id number] 00 Bed bed PT/OT: Bed Active 2019- Yuval Mobility/Tr mobility Mobility/T 1-07 Aly ansfer deficit ransfer 14:10: [id number] 00 Gait/Locomo gait PT/OT: Active Yuval tion assistive Gait/Locom 1-07 Aly problems device otion 14:10: [id number] present 00 Gait/Locomo gait PT/OT: Active Yuval tion deficit Gait/Locom 1-07 Aly problems otion 14:10: [id number] 00 Gait/Locomo knowledge/s PT/OT: Active Yuval tion kill Gait/Locom 1-07 Aly problems deficit: pt otion 14:10: [id number] 00 Respiratory lung sounds Respirator Resolve 2019-02-28 Veronica deficit y d 1-09 10:00:00 Joseph 09:25: [id number] Elimination bowel Eliminatio Resolve 2019-02-28 Veronica incontinenc n d 1-14 10:00:00 Joseph e 10:00: [id number] 00 Elimination constipatio Eliminatio Resolve 2019-02-28 Veronica n n d 114 10:00:00 Joseph 10:00: [id number] Allergies, Adverse Reactions, Alerts Allergy Name [...]
--- OUTSIDE RECORDS SUMMARY | 2019-03-11 13:49 | XMS REPORT ---
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 other 02-13 [place] diseases diseases [id number] classified classified elsewhere elsewhere without without behavioral behavioral disturbance disturbance 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 Hypertensiv Hypertensiv Diagnosis Active Veronica e chronic e chronic 02-13 Joseph kidney kidney [id number] disease disease with stage with stage 1 through 1 through stage 4 stage 4 chronic chronic kidney kidney disease, or disease, or unspecified unspecified chronic chronic kidney kidney disease disease Chronic Chronic Diagnosis Active Veronica kidney kidney 02-13 Joseph disease, disease, [id number] unspecified unspecified 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, block, 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 first first degree degree Ventricular Ventricular Diagnosis Active Veronica tachycardia tachycardia Joseph [id number] Vitamin B12 Vitamin B12 Diagnosis Active Veronica deficiency deficiency Joseph anemia due anemia due [id number] to to intrinsic intrinsic factor factor deficiency deficiency 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 (valve) (valve) [id number] stenosis stenosis Personal Personal Diagnosis Active Veronica history of history of Joseph pneumonia pneumonia [id number] (recurrent) (recurrent) long-term long-term Diagnosis Active Veronica (current) (current) Joseph use of use of [id number] aspirin aspirin Personal Personal Diagnosis Active Veronica history of history of Joseph nicotine nicotine [id number] dependence dependence Pain frequent Pain Mgmt Active 2020-0 Lizet pain 1-07 (Tiera) 10:30: [id number] Cardio edema Cardiovasc Active 2020-0 Lizet ular 1-07 (Tiera) 10:30: [id number] Respiratory dyspnea Respirator Active 2020-0 Lizet present y 1-07 (Tiera) 10:30: [id number] Endo/Iam anti-coagul Endo/Iam Active 2020-0 Lizet ation 1-07 (Tiera) therapy 10:30: [id number] Sensory learning Sensory Active 2020-0 Lizet deficit 1-07 (Tiera) 10:30: [id number] Sensory impaired Sensory Active 2020-0 Lizet hearing 1-07 (Tiera) 10:30: [id number] Integument skin Integument Active 2020-0 Lizet integrity 1-07 (Tiera) risk 10:30: [id number] Elimination urinary Eliminatio Active 2019-0 Lizet incontinenc n 1-07 (Tiera) e 10:30: [id number] Neuro impaired Neuro/Emot Active 2020-0 Lizet decision-ma ion 1-07 (Tiera) colin 10:30: [id number] Neuro memory Neuro/Emot Active 2020-0 Lizet deficit ion 1-07 (Tiera) needing 10:30: Sun supervision 00 [id number] Neuro constant Neuro/Emot Active 2020-0 Lizet confusion ion 1-07 (Tiera) 10:30: [id number] Activity ADL Activity Active 2020-0 Lizet assistance 1-07 (Tiera) required 10:30: [id number] Activity self-care Activity Active 2020-0 Lizet deficit 1-07 (Tiera) 10:30: [id number] Safety cannot be Safety Active 2020-0 Lizet left alone 1-07 (Tiera) 10:30: [id number] Safety fall risk Safety Active 2020-0 Lizet factor 1-07 (Tiera) present 10:30: [id number] Safety risk for Safety Active 2020-0 Lizet hospitaliza 1-07 (Tiera) tion 10:30: [id number] Safety structural Safety Active 2019-0 QUALITY barriers -07 REALTIME present 10:30: 00 Medication oral med Meds Active 2019-0 Lizet assistance 02-19 (Tiera) required 10:30: Sun [id number] Musculoskel transfer Musculoske Resolve 2019-0 2019-02-26 Lizet etal assistance letal d 02-19 10:00:00 (Tiera) required 10:30: Sun [id number] Musculoskel requires Musculoske Resolve 2019-0 2019-02-26 Lizet etal human letal d 02-19 10:00:00 (Tiera) assist to 10:30: Sun leave home [id number] Bed transfer PT/OT: Bed Active 2019-0 Yuval Mobility/Tr deficit: Mobility/T 1-07 Aly vargas sit/stand ransfer 14:10: [id number] Bed transfer PT/OT: Bed Active 2020-0 Yuval Mobility/Tr deficit: Mobility/T 1-07 Aly vargas toilet/comm ransfer 14:10: [id number] ode 00 Bed transfer PT/OT: Bed Active 2019-0 Yuval Mobility/Tr deficit: Mobility/T 1-07 Aly vargas shower/tub ransfer 14:10: [id number] 00 Bed transfer PT/OT: Bed Active 2019-0 Yuval Mobility/Tr deficit: Mobility/T 1-07 Aly vargas vehicle ransfer 14:10: [id number] 00 Bed knowledge/s PT/OT: Bed Active 2019-0 Yuval Mobility/Tr kill Mobility/T 1-07 Aly vargas deficit: pt ransfer 14:10: [id number] 00 Bed bed PT/OT: Bed Active 2020-0 Yuval Mobility/Tr mobility Mobility/T 1-07 Aly ansvalentin deficit ransfer 14:10: [id number] 00 Gait/Locomo gait PT/OT: Active 2019-0 Yuval tion assistive Gait/Locom 1-07 Aly problems device otion 14:10: [id number] present 00 Gait/Locomo gait PT/OT: Active 2020-0 Yuval tion deficit Gait/Locom 1-07 Aly problems otion 14:10: [id number] 00 Gait/Locomo knowledge/s PT/OT: Active 2020-0 Yuval tion kill Gait/Locom 1-07 Aly problems deficit: pt otion 14:10: [id number] 00 Respiratory lung sounds Respirator Active 2020-0 Veronica deficit y 02-21 Joseph 09:25: [id number] Elimination bowel Eliminatio Active 2019-0 Veronica incontinenc n 02-26 [place] e 10:00: [id number] 00 Elimination constipatio Eliminatio Active 2019-0 Veronica n n 02-26 Joseph 10:00: [id number] 00 Allergies, Adverse Reactions, Alerts Allergy Name Allergy Status Severity Reaction(s) Onset Inactive Treating Comments Type Date Date Clinician atorvastatin Base Active Unknown Reaction 2019-0 Salena Beam Ingredient Unknown 02-15 simvastatin Base Active Unknown Reaction 0 Salena Beam Ingredient Unknown 02-15 Medications Ordered Filled Start Stop Current Ordering Indication Dosage Frequency Signature Comments Components Medication Medication Date Date Medication? Clinician (SIG) Name Name PreserVisio PreserVisio 2020-0 Yes Tan Unknown Unknown n AREDS-2 n AREDS-2 02-19 Clemencia HARDWICK 250 mg-200 250 mg-200 unit-40 unit-40 mg-1 mg mg-1 mg capsule capsule pravastatin pravastatin 2020-0 Yes Tan Unknown Unknown 80 mg 80 mg 02-19 Clemencia HARDWICK tablet tablet memantine memantine 2019-0 Yes Tan Unknown Unknown 10 mg 10 mg 02-19 ,Clemencia tablet tablet Aspirin Low Aspirin Low 2020-0 Yes Tan Unknown Unknown Dose 81 mg Dose 81 mg 02-19 Clemencia HARDWICK tablet,carleen tablet,carleen yed release yed release amLODIPine amLODIPine 2020-0 Yes Tan Unknown Unknown 5 mg tablet 5 mg tablet 02-19 Clemencia HARDWICK acetaminoph acetaminoph 2019-0 Yes Tan Unknown Unknown en 325 mg en 325 mg 02-19 Clemencia HARDWICK capsule capsule amiodarone amiodarone 2020-0 Yes Tan Unknown Unknown 200 mg 200 mg 02-19 ,Clemencia tablet tablet losartan 50 losartan 50 2020-0 Yes Tan Unknown Unknown mg tablet mg tablet 02-19 Clemencia HARDWICK polyethylen polyethylen 2020-0 Yes Tan Unknown Unknown e glycol e glycol 02-19 ,Clemencia 3350 17 3350 17 gram/dose gram/dose oral powder oral powder latanoprost latanoprost 2020-0 Yes Tan Unknown Unknown 0.005 % eye 0.005 % eye 1-07 MD,Cleemncia drops drops Systane Systane 2020-0 Yes Tan Unknown Unknown (PF) 0.4 (PF) 0.4 1-07 MD,Clemencia %-0.3 % eye %-0.3 % eye drops in a drops in a dropperette dropperette Vital Signs Vital Name Observation Time Observation Value Comments SYSTOLIC mm[Hg] 2019-02-26 18:09:52 110 mm[Hg] mm[Hg] Method: Sit SYSTOLIC mm[Hg] 2019-02-19 18:09:45 128 mm[Hg] mm[Hg] Method: Stand DIASTOLIC mm[Hg] 2019-02-26 18:09:52 60 mm[Hg] mm[Hg] Method: Sit DIASTOLIC mm[Hg] 2019-02-19 18:09:45 70 mm[Hg] mm[Hg] Method: Stand PULSE 2019-02-26 18:09:52 72 /min /min RESP RATE 2019-02-26 18:09:52 16 /min /min TEMP 2019-02-26 18:09:52 97.9 [degF] Procedures This patient has no known procedures. Results This patient has no known results.
--- OUTSIDE RECORDS SUMMARY | 2019-03-11 13:49 | XMS REPORT ---
:1930 Author Organization [facility] Care Team Providers Name Role Phone Unavailable Unavailable Unavailable Problems Condition Condition Condition Status Onset Resolution Last Treating Comments Name Details Category Date Date Treatment Clinician Date Pneumonia, Pneumonia, Diagnosis Active 2020-0 Veronica unspecified unspecified -03 Joseph organism organism [id number] Pain frequent Pain Mgmt Active 2020-0 Lizet pain 1-07 (Tiera) 10:30: [id number] Cardio edema Cardiovasc Active 2020-0 Lizet ular 1-07 (Tiera) 10:30: [id number] Respiratory dyspnea Respirator Active 2020-0 Lizet present y 1-07 (Tiera) 10:30: [id number] Endo/Iam anti-coagul Endo/Iam Active 2020-0 Lizet ation 1-07 (Tiera) therapy 10:30: [id number] Sensory learning Sensory Active 2020-0 Lizet deficit 1-07 (Tiera) 10:30: [id number] Sensory impaired Sensory Active 2020-0 Lizet hearing 1-07 (Tiera) 10:30: [id number] Integument skin Integument Active 2020-0 Lizet integrity 1-07 (Tiera) risk 10:30: [id number] Elimination urinary Eliminatio Active 2020-0 Lizet incontinenc n 1-07 (Tiera) e 10:30: [id number] Neuro impaired Neuro/Emot Active 2020-0 Lizet decision-ma ion 1-07 (Tiera) colin 10:30: [id number] Neuro memory Neuro/Emot Active 2020-0 Lizet deficit ion 1-07 (Tiera) needing 10:30: [id number] Neuro constant Neuro/Emot Active 2020-0 Lizet confusion ion 1-07 (Tiera) 10:30: [id number] Activity ADL Activity Active 2020-0 Lizet assistance 1-07 (Tiera) required 10:30: Sun [id number] Activity self-care Activity Active 2020-0 Lizet deficit 1-07 (Tiera) 10:30: Sun [id number] Safety cannot be Safety Active 2020-0 Lizet left alone 1-07 (Tiera) 10:30: Sun [id number] Safety fall risk Safety Active 2020-0 Lizet factor 1-07 (Tiera) present 10:30: Sun [id number] Safety risk for Safety Active 2020-0 Lizet hospitaliza 1 (Tiera) tion 10:30: Sun [id number] Medication oral med Meds Active 2020-0 Lizet assistance 02-19 (Tiera) required 10:30: Sun [id number] Musculoskel transfer Musculoske Active 2020-0 Lizet etal assistance letal 02-19 (Tiera) required 10:30: Sun [id number] Musculoskel requires Musculoske Active 2020-0 Lizet etal human letal 02-19 (Tiera) assist to 10:30: Sun leave home 00 [id number] Safety structural Safety Active 2020-0 Yuval barriers 1-07 Aly present 14:10: [id number] 00 Bed transfer PT/OT: Bed Active 2020-0 Yuval Mobility/Tr deficit: Mobility/T 1-07 Aly vargas sit/stand ransfer 14:10: [id number] 00 Bed transfer PT/OT: Bed Active 2020-0 Yuval Mobility/Tr deficit: Mobility/T 1-07 Aly vargas toilet/comm ransfer 14:10: [id number] ode 00 Bed transfer PT/OT: Bed Active 2020-0 Yuval Mobility/Tr deficit: Mobility/T 1-07 Aly vargas shower/tub ransfer 14:10: [id number] 00 Bed transfer PT/OT: Bed Active 2020-0 Yuval Mobility/Tr deficit: Mobility/T 1-07 Aly vargas vehicle ransfer 14:10: [id number] 00 Bed knowledge/s PT/OT: Bed Active 2020-0 Yuval Mobility/Tr kill Mobility/T 1-07 Aly vargas deficit: pt ransfer 14:10: [id number] 00 Bed bed PT/OT: Bed Active 2020-0 Yuval Mobility/Tr mobility Mobility/T 02-19 Aly ansfer deficit ransfer 14:10: [id number] 00 Gait/Locomo gait PT/OT: Active Yuval tion assistive Gait/Locom 02-19 Aly problems device otion 14:10: [id number] present 00 Gait/Locomo gait PT/OT: Active Yuval tion deficit Gait/Locom -07 Aly problems otion 14:10: [id number] 00 Gait/Locomo knowledge/s PT/OT: Active Yuval tion kill Gait/Locom 02-19 Aly problems deficit: pt otion 14:10: 00 Allergies, Adverse Reactions, Alerts Allergy Name [...] Unknown Unknown n AREDS-2 n AREDS-2 02-19 ,Clemencia 250 mg-200 250 mg-200 unit-40 unit-40 mg-1 mg mg-1 mg capsule capsule pravastatin pravastatin Yes Tan Unknown Unknown 80 mg 80 mg 02-19 ,Clemencia tablet tablet memantine memantine Yes Tan Unknown Unknown 10 mg 10 mg 02-19 ,Clemencia tablet tablet Aspirin Low Aspirin Low Yes Tan Unknown Unknown Dose 81 mg Dose 81 mg 02-19 ,Clemencia tablet,carleen tablet,carleen yed release yed release cefUROXime cefUROXime No Tan Unknown Unknown axetil 250 axetil 250 ,Clemencia mg tablet mg tablet amLODIPine amLODIPine Yes Tan Unknown Unknown 5 mg tablet 5 mg tablet 02-19 ,Clemencia acetaminoph acetaminoph Yes Tan Unknown Unknown en 325 mg en 325 mg 02-19 ,Clemencia capsule capsule amiodarone amiodarone Yes Tan Unknown Unknown 200 mg 200 mg 02-19 ,Clemencia tablet tablet doxycycline doxycycline No Tan Unknown Unknown hyclate 100 hyclate 100 MD,Clemencia mg capsule mg capsule losartan 50 losartan 50 2019- Yes Tan [...] Observation Time Observation Value Comments SYSTOLIC mm[Hg] 2019-02-19 18:09:45 110 mm[Hg] mm[Hg] Method: Sit SYSTOLIC mm[Hg] 2019-02-19 18:09:45 128 mm[Hg] mm[Hg] Method: Stand DIASTOLIC mm[Hg] 2019-02-19 18:09:45 60 mm[Hg] mm[Hg] Method: Sit DIASTOLIC mm[Hg] 2019-02-19 18:09:45 70 mm[Hg] mm[Hg] Method: Stand PULSE 2019-02-19 18:09:45 60 /min /min RESP RATE 2019-02-19 18:09:45 17 /min /min TEMP 2019-02-19 18:09:45 98.5 [degF] Procedures This patient has no known procedures. Results This patient has no known results.
--- OUTSIDE RECORDS SUMMARY | 2019-03-11 13:49 | XMS REPORT ---
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 [id number] [place]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 Hypertensiv Hypertensiv Diagnosis Active Veronica e chronic e chronic 02-13 Joseph kidney kidney [id number] disease disease with stage with stage 1 through 1 through stage 4 stage 4 chronic chronic kidney kidney disease, or disease, or unspecified unspecified chronic chronic kidney kidney disease disease Chronic Chronic Diagnosis Active Veronica kidney kidney 02-13 Joseph disease, disease, [id number] unspecified unspecified 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, block, [id number] first first degree degree Ventricular Ventricular Diagnosis Active Veronica tachycardia tachycardia Joseph [id number] Vitamin B12 Vitamin B12 Diagnosis Active Veronica deficiency deficiency Joseph anemia due anemia due [id number] to to intrinsic intrinsic factor factor deficiency deficiency 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 (valve) (valve) [id number] stenosis stenosis Personal Personal Diagnosis Active Veronica history of history of Joseph pneumonia pneumonia [id number] (recurrent) (recurrent) detention detention Diagnosis Active Veronica (current) (current) Joseph use of use of [id number] aspirin aspirin Personal Personal Diagnosis Active Veronica history of history of Joseph nicotine nicotine [id number] dependence dependence Pain frequent Pain Mgmt Active 2020-0 Lizet pain 1-07 (Tiera) 10:30: [id number] Cardio edema Cardiovasc Active 2020-0 Lizet ular 1-07 (Tiera) 10:30: [id number] Respiratory dyspnea Respirator Active 2020-0 Lizet present y 1-07 (Tiera) 10:30: [id number] Endo/Iam anti-coagul Endo/Iam Active 2020-0 Lizet ation 1-07 (Tiera) therapy 10:30: [id number] Sensory learning Sensory Active 2020-0 Lizet deficit 1-07 (Tiera) 10:30: [id number] Sensory impaired Sensory Active 2020-0 Lizet hearing 1-07 (Tiera) 10:30: [id number] Integument skin Integument Active 2020-0 Lizet integrity 1-07 (Tiera) risk 10:30: [id number] Elimination urinary Eliminatio Active 2019-0 Lizet incontinenc n 1-07 (Tiear) e 10:30: [id number] Neuro impaired Neuro/Emot Active 2020-0 Lizet decision-ma ion 1-07 (Tiera) colin 10:30: [id number] Neuro memory Neuro/Emot Active 2020-0 Lizet deficit ion 1-07 (Tiera) needing 10:30: Sun supervision 00 [id number] Neuro constant Neuro/Emot Active 2020-0 Lizet confusion ion 1-07 (Tiera) 10:30: [id number] Activity ADL Activity Active 2020-0 Lizet assistance 1-07 (Tiera) required 10:30: [id number] Activity self-care Activity Active 2020-0 Lizte deficit 1-07 (Tiera) 10:30: [id number] Safety cannot be Safety Active 2020-0 Lizet left alone 1-07 (Tiera) 10:30: [id number] Safety fall risk Safety Active 2020-0 Lizet factor 1-07 (Tiera) present 10:30: [id number] Safety risk for Safety Active 2020-0 Lizet hospitaliza 1-07 (Tiera) tion 10:30: [id number] Safety structural Safety Active 2019-0 QUALITY barriers -07 REALTIME present 10:30: 00 Medication oral med Meds Active 2019-0 Lizet assistance 02-19 (Tiera) required 10:30: Sun [id number] Musculoskel transfer Musculoske Resolve 2019-0 2019-02-26 Lizet etal assistance letal d 02-19 10:00:00 (Tiera) required 10:30: Sun [id number] Musculoskel requires Musculoske Resolve 2019-0 2019-02-26 Lizet etal human letal d 02-19 10:00:00 (Tiera) assist to 10:30: Sun leave home [id number] Bed transfer PT/OT: Bed Active 2019-0 Yuval Mobility/Tr deficit: Mobility/T 1-07 Aly vargas sit/stand ransfer 14:10: [id number] Bed transfer PT/OT: Bed Active 2020-0 Yuval Mobility/Tr deficit: Mobility/T 1-07 Aly vargas toilet/comm ransfer 14:10: [id number] ode 00 Bed transfer PT/OT: Bed Active 2019-0 Yuval Mobility/Tr deficit: Mobility/T 1-07 Aly vargas shower/tub ransfer 14:10: [id number] 00 Bed transfer PT/OT: Bed Active 2019-0 Yuval Mobility/Tr deficit: Mobility/T 1-07 Aly vargas vehicle ransfer 14:10: [id number] 00 Bed knowledge/s PT/OT: Bed Active 2019-0 Yuval Mobility/Tr kill Mobility/T 1-07 Aly vargas deficit: pt ransfer 14:10: [id number] 00 Bed bed PT/OT: Bed Active 2020-0 Yuval Mobility/Tr mobility Mobility/T 1-07 Aly ansvalentin deficit ransfer 14:10: [id number] 00 Gait/Locomo gait PT/OT: Active 2019-0 Yuval tion assistive Gait/Locom 1-07 Aly problems device otion 14:10: [id number] present 00 Gait/Locomo gait PT/OT: Active 2020-0 Yuval tion deficit Gait/Locom 1-07 Aly problems otion 14:10: [id number] 00 Gait/Locomo knowledge/s PT/OT: Active 2020-0 Yuval tion kill Gait/Locom 1-07 Aly problems deficit: pt otion 14:10: [id number] 00 Respiratory lung sounds Respirator Active 2020-0 Veronica deficit y 02-21 Joseph 09:25: [id number] Elimination bowel Eliminatio Active 2019-0 Veronica incontinenc n 02-26 [place] e 10:00: [id number] 00 Elimination constipatio Eliminatio Active 2019-0 Veronica n n 02-26 Joseph 10:00: [id number] 00 Allergies, Adverse Reactions, Alerts Allergy Name [...] 325 mg en 325 mg 02-19 Clemencia HARWDICK capsule capsule amiodarone amiodarone 2020-0 Yes Tan [...] 0.005 % eye 0.005 % eye 1-07 MD,Clemencia drops drops Systane Systane 2020-0 Yes Tan [...]
--- OUTSIDE RECORDS SUMMARY | 2019-03-11 13:49 | XMS REPORT ---
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 other other 02-13 [place] diseases diseases [id number] classified classified elsewhere elsewhere without without behavioral behavioral disturbance disturbance 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 Hypertensiv Hypertensiv Diagnosis Active Veronica e chronic e chronic 02-13 Joseph kidney kidney [id number] disease disease with stage with stage 1 through 1 through stage 4 stage 4 chronic chronic kidney kidney disease, or disease, or unspecified unspecified chronic chronic kidney kidney disease disease Chronic Chronic Diagnosis Active Veronica kidney kidney 02-13 Joseph disease, disease, [id number] unspecified unspecified 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, block, 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 Ventricular Ventricular Diagnosis Active Veronica tachycardia tachycardia Joseph [id number] Vitamin B12 Vitamin B12 Diagnosis Active Veronica deficiency deficiency Joseph anemia due anemia due [id number] to to intrinsic intrinsic factor factor deficiency deficiency 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 (valve) (valve) [id number] stenosis stenosis Personal Personal Diagnosis Active Veronica history of history of Joseph pneumonia pneumonia [id number] (recurrent) (recurrent) senior care senior care Diagnosis Active Veronica (current) (current) Joseph use of use of [id number] aspirin aspirin Personal Personal Diagnosis Active Veronica history of history of Joseph nicotine nicotine [id number] dependence dependence Pain frequent Pain Mgmt Resolve 2019-02-28 Lizet pain d 1-07 10:00:00 (Tiera) 10:30: [id number] Cardio edema Cardiovasc Resolve 2019-02-28 Lizet ular d 1-07 10:00:00 (Tiera) 10:30: [id number] Respiratory dyspnea Respirator Resolve 2019-02-28 Lizet present y d 1-07 10:00:00 (Tiera) 10:30: [id number] Endo/Iam anti-coagul Endo/Iam Active Lizet ation 1-07 (Tiera) therapy 10:30: [id number] Sensory learning Sensory Active Lizet deficit -07 (Tiera) 10:30: [id number] Sensory impaired Sensory Active Lizet hearing -07 (Tiera) 10:30: [id number] Integument skin Integument Resolve 2019-02-28 Lizet integrity d 1-07 10:00:00 (Tiera) risk 10:30: [id number] Elimination urinary Eliminatio Resolve 2019-02-28 Lizet incontinenc n d 1-07 10:00:00 (Tiera) e 10:30: [id number] Neuro impaired Neuro/Emot Resolve 2019-02-28 Lizet decision-ma ion d 1-07 10:00:00 (Tiera) colin 10:30: [id number] Neuro memory Neuro/Emot Resolve 2019-02-28 Lizet deficit ion d 1-07 10:00:00 (Tiera) needing 10:30: Sun supervision 00 [id number] Neuro constant Neuro/Emot Resolve 2019-02-28 Lizet confusion ion d 1-07 10:00:00 (Tiera) 10:30: [id number] Activity ADL Activity Active Lizet assistance 1-07 (Tiera) required 10:30: [id number] Activity self-care Activity Active Lizet deficit 1-07 (Tiera) 10:30: [id number] Safety cannot be Safety Resolve 2019-0 2019-02-28 Lizet left alone d -07 10:00:00 (Tiera) 10:30: Sun [id number] Safety fall risk Safety Resolve 2019-02-28 Lizet factor d -07 10:00:00 (Tiera) present 10:30: Sun [id number] Safety risk for Safety Resolve 2019-02-28 Lizet hospitaliza d -07 10:00:00 (Tiera) tion 10:30: Sun [id number] Safety structural Safety Resolve 2019-02-28 QUALITY barriers d -07 10:00:00 REALTIME present 10:30: 00 Medication oral med Meds Resolve 2019-02-28 Lizet assistance d - 10:00:00 (Tiera) required 10:30: Sun [id number] Musculoskel transfer Musculoske Resolve 2019-02-26 Lizet etal assistance letal d 07 10:00:00 (Tiera) required 10:30: Sun [id number] Musculoskel requires Musculoske Resolve 2019-02-26 Lizet etal human letal d -07 10:00:00 (Tiera) assist to 10:30: Sun leave home 00 [id number] Bed transfer PT/OT: Bed Active Yuval Mobility/Tr deficit: Mobility/T 1-07 Aly vargas sit/stand ransfer 14:10: [id number] 00 Bed transfer PT/OT: Bed Active Yuval Mobility/Tr deficit: Mobility/T 1-07 Aly vargas toilet/comm ransfer 14:10: [id number] ode 00 Bed transfer PT/OT: Bed Active 2019-0 Yuval Mobility/Tr deficit: Mobility/T 1-07 Aly vargas shower/tub ransfer 14:10: [id number] 00 Bed transfer PT/OT: Bed Active 2020-0 Yuval Mobility/Tr deficit: Mobility/T 1-07 Aly vargas vehicle ransfer 14:10: [id number] 00 Bed knowledge/s PT/OT: Bed Active Yuval Mobility/Tr kill Mobility/T 1-07 Aly sam deficit: pt ransfer 14:10: [id number] 00 Bed bed PT/OT: Bed Active Yuval Mobility/Tr mobility Mobility/T 1-07 Aly ansfer deficit ransfer 14:10: [id number] 00 Gait/Locomo gait PT/OT: Active 2019- Yuval tion assistive Gait/Locom 1-07 Aly problems device otion 14:10: [id number] present 00 Gait/Locomo gait PT/OT: Active Yuval tion deficit Gait/Locom 1-07 Aly problems otion 14:10: [id number] 00 Gait/Locomo knowledge/s PT/OT: Active Yuval tion kill Gait/Locom 1-07 Aly problems deficit: pt otion 14:10: [id number] 00 Respiratory lung sounds Respirator Resolve 2019-02-28 Veronica deficit y d -09 10:00:00 Joseph 09:25: [id number] 00 Elimination bowel Eliminatio Resolve 2019-02-28 Veronica incontinenc n d 1-14 10:00:00 Joseph e 10:00: [id number] 00 Elimination constipatio Eliminatio Resolve 2019-02-28 Veronica n n d -14 10:00:00 Joseph 10:00: [id number] 00 Allergies, Adverse Reactions, Alerts Allergy Name [...]
--- OUTSIDE RECORDS SUMMARY | 2019-03-11 13:49 | XMS REPORT ---
:1930 Author Organization [facility] Care Team Providers Name Role Phone Unavailable Unavailable Unavailable Problems Condition Condition Condition Status Onset Resolution Last Treating Comments Name Details Category Date Date Treatment Clinician Date Pneumonia, Pneumonia, Diagnosis Active 2020-0 Veronica unspecified unspecified -03 Joseph organism organism [id number] Pain frequent Pain Mgmt Active 2020-0 Lizet pain 1-07 (Tiera) 10:30: [id number] Cardio edema Cardiovasc Active 2020-0 Lizet ular 1-07 (Tiera) 10:30: [id number] Respiratory dyspnea Respirator Active 2020-0 Lizet present y 1-07 (Tiera) 10:30: [id number] Endo/Iam anti-coagul Endo/Iam Active 2020-0 Lizet ation 1-07 (Tiera) therapy 10:30: [id number] Sensory learning Sensory Active 2020-0 Lizet deficit 1-07 (Tiera) 10:30: [id number] Sensory impaired Sensory Active 2020-0 Lizet hearing 1-07 (Tiera) 10:30: [id number] Integument skin Integument Active 2020-0 Lizet integrity 1-07 (Tiera) risk 10:30: [id number] Elimination urinary Eliminatio Active 2020-0 Lizet incontinenc n 1-07 (Tiera) e 10:30: [id number] Neuro impaired Neuro/Emot Active 2020-0 Lizet decision-ma ion 1-07 (Tiera) colin 10:30: [id number] Neuro memory Neuro/Emot Active 2020-0 Lizet deficit ion 1-07 (Tiera) needing 10:30: [id number] Neuro constant Neuro/Emot Active 2020-0 Lizet confusion ion 1-07 (Tiera) 10:30: [id number] Activity ADL Activity Active 2020-0 Lizet assistance 1-07 (Tiera) required 10:30: Sun [id number] Activity self-care Activity Active 2020-0 Lizet deficit 1-07 (Tiera) 10:30: Sun [id number] Safety cannot be Safety Active 2020-0 Lizet left alone 1-07 (Tiera) 10:30: Sun [id number] Safety fall risk Safety Active 2020-0 Lizet factor 1-07 (Tiera) present 10:30: Sun [id number] Safety risk for Safety Active 2020-0 Lizet hospitaliza 1 (Tiera) tion 10:30: Sun [id number] Medication oral med Meds Active 2020-0 Lizet assistance 02-19 (Tiera) required 10:30: Sun [id number] Musculoskel transfer Musculoske Active 2020-0 Lizet etal assistance letal 02-19 (Tiera) required 10:30: Sun [id number] Musculoskel requires Musculoske Active 2020-0 Lizet etal human letal 02-19 (Tiera) assist to 10:30: Sun leave home 00 [id number] Safety structural Safety Active 2020-0 Yuval barriers 1-07 Aly present 14:10: [id number] Bed transfer PT/OT: Bed Active 2020-0 Yuval Mobility/Tr deficit: Mobility/T 1-07 Aly vargas sit/stand ransfer 14:10: [id number] 00 Bed transfer PT/OT: Bed Active 2020-0 Yuval Mobility/Tr deficit: Mobility/T 1-07 Aly vargas toilet/comm ransfer 14:10: [id number] ode 00 Bed transfer PT/OT: Bed Active 2020-0 Yuval Mobility/Tr deficit: Mobility/T 1-07 Aly vargas shower/tub ransfer 14:10: [id number] 00 Bed transfer PT/OT: Bed Active 2020-0 Yuval Mobility/Tr deficit: Mobility/T 1-07 Aly vargas vehicle ransfer 14:10: [id number] 00 Bed knowledge/s PT/OT: Bed Active 2020-0 Yuval Mobility/Tr kill Mobility/T 1-07 Aly vargas deficit: pt ransfer 14:10: [id number] 00 Bed bed PT/OT: Bed Active 2020-0 Yuval Mobility/Tr mobility Mobility/T 02-19 Aly ansfer deficit ransfer 14:10: [id number] 00 Gait/Locomo gait PT/OT: Active Yuval tion assistive Gait/Locom 02-19 Aly problems device otion 14:10: [id number] present 00 Gait/Locomo gait PT/OT: Active Yuval tion deficit Gait/Locom -07 Aly problems otion 14:10: [id number] 00 Gait/Locomo knowledge/s PT/OT: Active Yuval tion [...] Tan Unknown Unknown hyclate 100 hyclate 100 MD,Clmeencia mg capsule mg capsule losartan 50 losartan [...]
--- OUTSIDE RECORDS SUMMARY | 2019-03-11 13:49 | XMS REPORT ---
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 other other 02-13 [place] diseases diseases [id number] classified classified elsewhere elsewhere without without behavioral behavioral disturbance disturbance 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 [id number] [place]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 Hypertensiv Hypertensiv Diagnosis Active Veronica e chronic e chronic 02-13 Joseph kidney kidney [id number] disease disease with stage with stage 1 through 1 through stage 4 stage 4 chronic chronic kidney kidney disease, or disease, or unspecified unspecified chronic chronic kidney kidney disease disease Chronic Chronic Diagnosis Active Veronica kidney kidney 02-13 Joseph disease, disease, [id number] unspecified unspecified Atrioventri Atrioventri Diagnosis Active Veroinca cular cular 02-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, block, [id number] first first degree degree Ventricular Ventricular Diagnosis Active Veronica tachycardia tachycardia Joseph [id number] Vitamin B12 Vitamin B12 Diagnosis Active Veronica deficiency deficiency Joseph anemia due anemia due [id number] to to intrinsic intrinsic factor factor deficiency deficiency 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 (valve) (valve) [id number] stenosis stenosis Personal Personal Diagnosis Active Veronica history of history of Joseph pneumonia pneumonia [id number] (recurrent) (recurrent) senior living senior living Diagnosis Active Veronica (current) (current) Joseph use of use of [id number] aspirin aspirin Personal Personal Diagnosis Active Veronica history of history of Joseph nicotine nicotine [id number] dependence dependence Pain frequent Pain Mgmt Resolve 2019-02-28 Lizet pain d 1-07 10:00:00 (Tiera) 10:30: [id number] Cardio edema Cardiovasc Resolve 2019-02-28 Lizet ular d 1-07 10:00:00 (Tiera) 10:30: [id number] Respiratory dyspnea Respirator Resolve 2019-02-28 Lizet present y d 1-07 10:00:00 (Tiera) 10:30: [id number] Endo/Iam anti-coagul Endo/Iam Active Lizet ation 02-19 (Tiera) therapy 10:30: [id number] Sensory learning Sensory Resolve 2019-03-04 Lizet deficit d -07 10:20:00 (Tiera) 10:30: [id number] Sensory impaired Sensory Resolve 2019-03-04 Lizet hearing d -07 10:20:00 (Tiera) 10:30: [id number] Integument skin Integument Resolve 2019-02-28 Lizet integrity d -07 10:00:00 (Tiera) risk 10:30: [id number] Elimination urinary Eliminatio Resolve 2019-02-28 Lizet incontinenc n d -07 10:00:00 (Tiera) e 10:30: [id number] Neuro impaired Neuro/Emot Resolve 2019-02-28 Lizet decision-ma ion d 1-07 10:00:00 (Tiera) colin 10:30: [id number] Neuro memory Neuro/Emot Resolve 2019-02-28 Lizet deficit ion d 1-07 10:00:00 (Tiera) needing 10:30: Sun 00 [id number] Neuro constant Neuro/Emot Resolve 2019-02-28 Lizet confusion ion d 1-07 10:00:00 (Tiera) 10:30: [id number] Activity ADL Activity Resolve 2019-03-04 Lizet assistance d 1-07 10:20:00 (Tiera) required 10:30: [id number] Activity self-care Activity Resolve 2019-2019-03-04 Lizet deficit d 1-07 10:20:00 (Tiera) 10:30: Sun [id number] Safety cannot be Safety Resolve 2019-0 2019-02-28 Lizet left alone d 1-07 10:00:00 (Tiera) 10:30: Sun [id number] Safety fall risk Safety Resolve 2019-02-28 Lizet factor d 1-07 10:00:00 (Tiera) present 10:30: Sun [id number] Safety risk for Safety Resolve 0 2019-02-28 Lizet hospitaliza d 1-07 10:00:00 (Tiera) tion 10:30: Sun [id number] Safety structural Safety Resolve 2019-02-28 QUALITY barriers d -07 10:00:00 REALTIME present 10:30: 00 Medication oral med Meds Resolve 2019-02-28 Lizet assistance d -07 10:00:00 (Tiera) required 10:30: Sun [id number] Musculoskel transfer Musculoske Resolve 2019-2019-02-26 Lizet etal assistance letal d -07 10:00:00 (Tiera) required 10:30: Sun [id number] Musculoskel requires Musculoske Resolve 2019-0 2019-02-26 Lizet etal human letal d -07 10:00:00 (Tiera) assist to 10:30: Sun leave home 00 [id number] Bed transfer PT/OT: Bed Active Yuval Mobility/Tr deficit: Mobility/T 1-07 Aly vargas sit/stand ransfer 14:10: [id number] 00 Bed transfer PT/OT: Bed Active Yuval Mobility/Tr deficit: Mobility/T 1-07 Aly vargas toilet/comm ransfer 14:10: [id number] ode 00 Bed transfer PT/OT: Bed Active 2019- Yuval Mobility/Tr deficit: Mobility/T 1-07 Aly vargas shower/tub ransfer 14:10: [id number] 00 Bed transfer PT/OT: Bed Active Yuval Mobility/Tr deficit: Mobility/T 1-07 Aly vargas vehicle ransfer 14:10: [id number] 00 Bed knowledge/s PT/OT: Bed Active 2019- Yuval Mobility/Tr kill Mobility/T 1-07 Aly ansfer deficit: pt ransfer 14:10: [id number] 00 Bed bed PT/OT: Bed Active 2019- Yuval Mobility/Tr mobility Mobility/T 1-07 Aly ansfer deficit ransfer 14:10: [id number] 00 Gait/Locomo gait PT/OT: Active Yuval tion assistive Gait/Locom 1-07 Aly problems device otion 14:10: [id number] present 00 Gait/Locomo gait PT/OT: Active Yuval tion deficit Gait/Locom 1-07 Aly problems otion 14:10: [id number] 00 Gait/Locomo knowledge/s PT/OT: Active Yuval tion kill Gait/Locom 1-07 Aly problems deficit: pt otion 14:10: [id number] 00 Respiratory lung sounds Respirator Resolve 2019-02-28 Veronica deficit y d 1-09 10:00:00 Joseph 09:25: [id number] 00 Elimination bowel Eliminatio Resolve 2019-02-28 Veronica incontinenc n d 1-14 10:00:00 Joseph e 10:00: [id number] 00 Elimination constipatio Eliminatio Resolve 2019-02-28 Veronica n n d 114 10:00:00 Joseph 10:00: [id number] 00 Allergies, Adverse Reactions, Alerts Allergy Name [...]
--- OUTSIDE RECORDS SUMMARY | 2019-03-11 13:49 | XMS REPORT ---
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 Veronica other other 02-13 [place] diseases diseases [id number] classified classified elsewhere elsewhere without without behavioral behavioral disturbance disturbance 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 [id number] [place]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 Hypertensiv Hypertensiv Diagnosis Active Veronica e chronic e chronic 02-13 Joseph kidney kidney [id number] disease disease with stage with stage 1 through 1 through stage 4 stage 4 chronic chronic kidney kidney disease, or disease, or unspecified unspecified chronic chronic kidney kidney disease disease Chronic Chronic Diagnosis Active Veronica kidney kidney 02-13 Joseph disease, disease, [id number] unspecified unspecified 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, block, [id number] first first degree degree Ventricular Ventricular Diagnosis Active Veronica tachycardia tachycardia Joseph [id number] Vitamin B12 Vitamin B12 Diagnosis Active Veronica deficiency deficiency Joseph anemia due anemia due [id number] to to intrinsic intrinsic factor factor deficiency deficiency 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 (valve) (valve) [id number] stenosis stenosis Personal Personal Diagnosis Active Veronica history of history of Joseph pneumonia pneumonia [id number] (recurrent) (recurrent) intermediate intermediate Diagnosis Active Veronica (current) (current) Joseph use of use of [id number] aspirin aspirin Personal Personal Diagnosis Active Veronica history of history of Joseph nicotine nicotine [id number] dependence dependence Pain frequent Pain Mgmt Resolve 2019-02-28 Lizet pain d 1-07 10:00:00 (Tiera) 10:30: [id number] Cardio edema Cardiovasc Resolve 2019-02-28 Lizet ular d 1-07 10:00:00 (Tiera) 10:30: [id number] Respiratory dyspnea Respirator Resolve 2019-02-28 Lizet present y d 1-07 10:00:00 (Tiera) 10:30: [id number] Endo/Iam anti-coagul Endo/Iam Active Lizet ation 02-19 (Tiera) therapy 10:30: [id number] Sensory learning Sensory Resolve 2019-03-04 Lizet deficit d -07 10:20:00 (Tiera) 10:30: [id number] Sensory impaired Sensory Resolve 2019-03-04 Lizet hearing d -07 10:20:00 (Tiera) 10:30: [id number] Integument skin Integument Resolve 2019-02-28 Lizet integrity d -07 10:00:00 (Tiera) risk 10:30: [id number] Elimination urinary Eliminatio Resolve 2019-02-28 Lizet incontinenc n d -07 10:00:00 (Tiera) e 10:30: [id number] Neuro impaired Neuro/Emot Resolve 2019-02-28 Lizet decision-ma ion d 1-07 10:00:00 (Tiera) colin 10:30: [id number] Neuro memory Neuro/Emot Resolve 2019-02-28 Lizet deficit ion d 1-07 10:00:00 (Tiera) needing 10:30: Sun 00 [id number] Neuro constant Neuro/Emot Resolve 2019-02-28 Lizet confusion ion d 1-07 10:00:00 (Tiera) 10:30: [id number] Activity ADL Activity Resolve 2019-03-04 Lizet assistance d 1-07 10:20:00 (Tiera) required 10:30: [id number] Activity self-care Activity Resolve 2019-2019-03-04 Lizet deficit d 1-07 10:20:00 (Tiera) 10:30: Sun [id number] Safety cannot be Safety Resolve 2019-0 2019-02-28 Lizet left alone d 1-07 10:00:00 (Tiera) 10:30: Sun [id number] Safety fall risk Safety Resolve 2019-02-28 Lizet factor d 1-07 10:00:00 (Tiera) present 10:30: Sun [id number] Safety risk for Safety Resolve 0 2019-02-28 Lizet hospitaliza d 1-07 10:00:00 (Tiera) tion 10:30: Sun [id number] Safety structural Safety Resolve 2019-02-28 QUALITY barriers d -07 10:00:00 REALTIME present 10:30: 00 Medication oral med Meds Resolve 2019-02-28 Lizet assistance d -07 10:00:00 (Tiera) required 10:30: Sun [id number] Musculoskel transfer Musculoske Resolve 2019-2019-02-26 Lizet etal assistance letal d -07 10:00:00 (Tiera) required 10:30: Sun [id number] Musculoskel requires Musculoske Resolve 2019-0 2019-02-26 Lizet etal human letal d -07 10:00:00 (Tiera) assist to 10:30: Sun leave home 00 [id number] Bed transfer PT/OT: Bed Active Yuval Mobility/Tr deficit: Mobility/T 1-07 Aly vargas sit/stand ransfer 14:10: [id number] 00 Bed transfer PT/OT: Bed Active Yuval Mobility/Tr deficit: Mobility/T 1-07 Aly vagras toilet/comm ransfer 14:10: [id number] ode 00 Bed transfer PT/OT: Bed Active 2019- Yuval Mobility/Tr deficit: Mobility/T 1-07 Aly vargas shower/tub ransfer 14:10: [id number] 00 Bed transfer PT/OT: Bed Active Yuval Mobility/Tr deficit: Mobility/T 1-07 Aly vargas vehicle ransfer 14:10: [id number] 00 Bed knowledge/s PT/OT: Bed Active 2019- Yuval Mobility/Tr kill Mobility/T 1-07 Aly ansfer deficit: pt ransfer 14:10: [id number] 00 Bed bed PT/OT: Bed Active 2019- Yuval Mobility/Tr mobility Mobility/T 1-07 Aly ansfer deficit ransfer 14:10: [id number] 00 Gait/Locomo gait PT/OT: Active Yuval tion assistive Gait/Locom 1-07 Aly problems device otion 14:10: [id number] present 00 Gait/Locomo gait PT/OT: Active Yuval tion deficit Gait/Locom 1-07 Aly problems otion 14:10: [id number] 00 Gait/Locomo knowledge/s PT/OT: Active Yuval tion kill Gait/Locom 1-07 Aly problems deficit: pt otion 14:10: [id number] 00 Respiratory lung sounds Respirator Resolve 2019-02-28 Veronica deficit y d 1-09 10:00:00 Joseph 09:25: [id number] 00 Elimination bowel Eliminatio Resolve 2019-02-28 Veronica incontinenc n d 1-14 10:00:00 Joseph e 10:00: [id number] 00 Elimination constipatio Eliminatio Resolve 2019-02-28 Veronica n n d 114 10:00:00 Joseph 10:00: [id number] 00 Allergies, Adverse Reactions, Alerts Allergy Name [...] Observation Time Observation Value Comments SYSTOLIC mm[Hg] 2019-03-04 18:09:58 124 mm[Hg] mm[Hg] Method: Sit SYSTOLIC mm[Hg] 2019-02-19 18:09:45 128 mm[Hg] mm[Hg] Method: Stand DIASTOLIC mm[Hg] 2019-03-04 18:09:58 70 mm[Hg] mm[Hg] Method: Sit DIASTOLIC mm[Hg] 2019-02-19 18:09:45 70 mm[Hg] mm[Hg] Method: Stand PULSE 2019-03-04 18:09:58 80 /min /min RESP RATE 2019-03-04 18:09:58 16 /min /min TEMP 2019-03-04 18:09:58 97.8 [degF] Procedures This patient has no known procedures. Results This patient has no known results.
[2019-03-11 13:50] LABS: ABS Basophils 0.1 10^3/ul (0-0.2); ABS Eosinophils 0.1 10^3/ul (0-0.6); ABS Lymphocytes 1.1 10^3/ul (1.0-4.8); ABS Monocytes 1.2 10^3/ul (0-0.8); ABS Neutrophils 5.4 10^3/ul (1.5-7.7); Eosinophil % 1.9 %; Hematocrit 36 % (42-52); Hemoglobin 11.9 g/dL (14.0-18.0); Lymphocyte % 14.4 %; Mean Corpuscular HGB Conc 33 g/dL (31-36); Mean Corpuscular Hemoglobin 32 pg (27-31); Mean Corpuscular Volume 97 fL (80-94); Mean Platelet Volume 8.7 fL (7.4-10.4); Platelet Count 179 10^3/uL (150-450); Red Blood Count 3.71 10^6 /uL (4.18-5.48); Red Cell Distribution Width 15 % (10-15); White Blood Count 7.9 10^3/uL (3.5-10.8)
[2019-03-11 14:00] LABS: INR 1.13 (0.82-1.09)
[2019-03-11 14:13] LABS: ALT 20 U/L (7-52); AST 18 U/L (13-39); Albumin 3.3 g/dL (3.2-5.2); Alkaline Phosphatase 91 U/L (34-104); Anion Gap 7 mmol/L (2-11); BUN/Creatinine Ratio 15.6 (8-20); Blood Urea Nitrogen 28 mg/dL (6-24); CO2 Carbon Dioxide 25 mmol/L (22-32); Calcium 8.9 mg/dL (8.6-10.3); Chloride 107 mmol/L (101-111); EGFR African American 43.3 (>60); EGFR Non-African American 35.8 (>60); Globulin 3.4 g/dL (2-4); Glucose 104 mg/dL (70-100); Potassium 4.2 mmol/L (3.5-5.0); Sodium 139 mmol/L (135-145); Total Protein 6.7 g/dL (6.4-8.9)
[2019-03-11 14:18] LABS: Troponin I 0.08 ng/mL (<0.03)
[2019-03-11] MEDS ORDERED: Cefepime(*) 1 GM in NS 0.9% 50 ML* 50 ML IVPB ONE (14:48)
[2019-03-11] MEDS ORDERED: Levofloxacin 750 MG IVPREMIX(* 750 MG/150 ML BAG IVPB ONE (14:49)
[2019-03-11] MEDS ORDERED: Acetaminophen TAB* 325 MG PO PRN (15:07)
[2019-03-11 15:16] LABS: C Reactive Protein 120.67 mg/L (<8.01)
--- NOTE | 2019-03-11 15:21 | ED ---
Complex/Multi-Sys Presentation - HPI Summary HPI Summary: Patient is an 88 y/o M presenting to the ED for a chief complaint of generalized weakness and confusion. On triage, patient stated he had a productive cough. Patient denies fever or myalgia. Per his family, patient was recently diagnosed with pneumonia and continues to have a cough. His home health aide found the patient and noted he had absent breath sounds so EMS was called. Medications reviewed. Allergies noted. LIMITED DUE TO LEVEL 5 CAVEAT - CONFUSION. - History Of Current Complaint Chief Complaint: EDRespiratoryDistress Time Seen by Provider: 03/11/19 12:58 Hx Obtained From: Patient, Family/[employer] Developer Onset/Duration: Sudden Onset, Still Present Timing: Constant Severity Currently: Moderate Severity Initially: Moderate Associated Signs And Symptoms: Positive: Confusion, Weakness - Generalized, Cough - Productive. Negative: Fever Related History: Recent Illness - Pneumonia - Allergies/Home Medications Allergies/Adverse Reactions: Allergies Allergy/AdvReac Type Severity Reaction Status Date / Time atorvastatin [From Lipitor] Allergy Unknown Verified 03/11/19 13:54 Reaction Details cerivastatin [From Baycol] Allergy Unknown Verified 03/11/19 13:54 Reaction Details simvastatin [From Zocor] Allergy Unknown Verified 03/11/19 13:54 Reaction Details PMH/Surg Hx/FS Hx/Imm Hx Previously Healthy: No - LIMITED DUE TO LEVEL 5 CAVEAT - CONFUSION. Endocrine/Hematology History: Reports: Hx Anemia - pernicious anemia Denies: Hx Anticoagulant Therapy - ASA 81 mg daily, Hx Blood Disorders, Hx Diabetes Cardiovascular History: Reports: Hx Coronary Artery Disease, Hx Hypertension, Hx Myocardial Infarction - 2X, Other Cardiovascular Problems/Disorders - aortic stenosis Denies: Hx Pacemaker/ICD Respiratory History: Denies: Hx Asthma GI History: Denies: Hx Jaundice History: Denies: Hx Renal Disease Musculoskeletal History: Reports: Hx Arthritis, Other Musculoskeletal History - right hip replaced Sensory History: Denies: Hx Contacts or Glasses - only for reading, Hx Hearing Aid Opthamlomology History: Denies: Hx Contacts or Glasses - only for reading Neurological History: Reports: Hx Dementia Psychiatric History: Denies: Hx Panic Disorder - Surgical History Surgical History: Yes Surgery Procedure, Year, and Place: HEART STENTS FROM [facility] 20 YRS AGO( CARDS MAY NOT BE AVAILABLE),HIP PINNING and HIP REPLACEMENT right. 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 Denies: Hx Clostridium Difficile, Hx Hepatitis, Hx Human Immunodeficiency Virus (HIV), Hx of Known/Suspected MRSA, Hx Shingles, History Other Infectious Disease - TB as a young child, Traveled Outside the [place] in Last 30 Days - Family History Known Family History: Positive: Diabetes Negative: Cardiac Disease Family History: no known cardiovascular issues in family lineage - Social History Occupation: Retired Alcohol Use: Occasionally Hx Substance Use: No Substance Use Type: Reports: None Hx Tobacco Use: Yes Smoking Status (MU): Former Smoker Type: Cigarettes Amount Used/How Often: 4 years Length of Time of Smoking/Using Tobacco: 65 years ago quit Have You Smoked in the Last Year: No Review of Systems - ROS Summary Review of Systems Summary: LIMITED DUE TO LEVEL 5 CAVEAT - CONFUSION. Negative: Fever Positive: Cough - Productive Negative: Myalgia Neurological: Other - Positive confusion Positive: Weakness - Generalized All Other Systems Reviewed And Are Negative: No - Comments Additional Review of Systems Comments: LIMITED DUE TO LEVEL 5 CAVEAT - CONFUSION. Physical Exam - Summary Physical Exam Summary: Constitutional: Well-developed, Well-nourished, Alert. (-) Distressed Skin: Warm, Dry HENT: Normocephalic; Atraumatic Eyes: Conjunctiva normal Neck: Musculoskeletal ROM normal neck. (-) JVD, (-) Stridor, (-) Tracheal deviation Cardio: Rhythm regular, rate normal, Heart sounds normal; Intact distal pulses; Radial pulses are 2+ and symmetric. (-) Murmur Pulmonary/Chest wall: Effort normal. (-) Respiratory distress, (-) Wheezes, (-) Rales Abd: Soft, (-) tenderness, (-) Distension, (-) Guarding, (-) Rebound Musculoskeletal: (-) Edema Lymph: (-) Cervical adenopathy Neuro: Alert and oriented to person but not time. Psych: Mood and affect Normal LIMITED DUE TO LEVEL 5 CAVEAT - CONFUSION. Triage Information Reviewed: Yes Vital Signs On Initial Exam: Initial Vitals Temp Pulse Resp BP Pulse Ox 97.2 F 70 14 120/70 91 03/11/19 12:44 03/11/19 12:44 03/11/19 12:44 03/11/19 12:44 03/11/19 12:44 Vital Signs Reviewed: Yes Procedures - Sedation Patient Received Moderate/Deep Sedation with Procedure: No Diagnostics - Vital Signs Vital Signs Temp Pulse Resp BP Pulse Ox 03/11/19 12:44 97.2 F 70 14 120/70 91 - Laboratory Lab Results: Lab Results 03/11/19 03/11/19 03/11/19 Range/Units 13:39 13:39 13:39 WBC 7.9 (3.5-10.8) 10^3/uL RBC 3.71 L (4.18-5.48) 10^6 /uL Hgb 11.9 L (14.0-18.0) g/dL Hct 36 L (42-52) % MCV 97 H (80-94) fL MCH 32 H (27-31) pg MCHC 33 (31-36) g/dL RDW 15 (10-15) % Plt Count 179 (150-450) 10^3/uL MPV 8.7 (7.4-10.4) fL Neut % (Auto) 67.9 % Lymph % (Auto) 14.4 % Rawlins % (Auto) 14.8 % Eos % (Auto) 1.9 % Baso % (Auto) 1.0 % Absolute Neuts (auto) 5.4 (1.5-7.7) 10^3/ul Absolute Lymphs (auto) 1.1 (1.0-4.8) 10^3/ul Absolute Monos (auto) 1.2 H (0-0.8) 10^3/ul Absolute Eos (auto) 0.1 (0-0.6) 10^3/ul Absolute Basos (auto) 0.1 (0-0.2) 10^3/ul Absolute Nucleated RBC 0.0 10^3/ul Nucleated RBC % 0.0 INR (Anticoag Therapy) 1.13 H (0.82-1.09) Sodium 139 (135-145) mmol/L Potassium 4.2 (3.5-5.0) mmol/L Chloride 107 (101-111) mmol/L Carbon Dioxide 25 (22-32) mmol/L Anion Gap 7 (2-11) mmol/L BUN 28 H (6-24) mg/dL Creatinine 1.80 H (0.67-1.17) mg/dL Est GFR ( Amer) 43.3 (>60) Est GFR (Non-Af Amer) 35.8 (>60) BUN/Creatinine Ratio 15.6 (8-20) Glucose 104 H (70-100) mg/dL Lactic Acid (0.5-2.0) mmol/L Calcium 8.9 (8.6-10.3) mg/dL Total Bilirubin 0.50 (0.2-1.0) mg/dL AST 18 (13-39) U/L ALT 20 (7-52) U/L Alkaline Phosphatase 91 (34-104) U/L Troponin I 0.08 H* (<0.03) ng/mL C-Reactive Protein 120.67 H (<8.01) mg/L B-Natriuretic Peptide (<=100) pg/mL Total Protein 6.7 (6.4-8.9) g/dL Albumin 3.3 (3.2-5.2) g/dL Globulin 3.4 (2-4) g/dL Albumin/Globulin Ratio 1.0 (1-3) 03/11/19 03/11/19 Range/Units 13:39 13:39 WBC (3.5-10.8) 10^3/uL RBC (4.18-5.48) 10^6 /uL Hgb (14.0-18.0) g/dL Hct (42-52) % MCV (80-94) fL MCH (27-31) pg MCHC (31-36) g/dL RDW (10-15) % Plt Count (150-450) 10^3/uL MPV (7.4-10.4) fL Neut % (Auto) % Lymph % (Auto) % Rawlins % (Auto) % Eos % (Auto) % Baso % (Auto) % Absolute Neuts (auto) (1.5-7.7) 10^3/ul Absolute Lymphs (auto) (1.0-4.8) 10^3/ul Absolute Monos (auto) (0-0.8) 10^3/ul Absolute Eos (auto) (0-0.6) 10^3/ul Absolute Basos (auto) (0-0.2) 10^3/ul Absolute Nucleated RBC 10^3/ul Nucleated RBC % INR (Anticoag Therapy) (0.82-1.09) Sodium (135-145) mmol/L Potassium (3.5-5.0) mmol/L Chloride (101-111) mmol/L Carbon Dioxide (22-32) mmol/L Anion Gap (2-11) mmol/L BUN (6-24) mg/dL Creatinine (0.67-1.17) mg/dL Est GFR ( Amer) (>60) Est GFR (Non-Af Amer) (>60) BUN/Creatinine Ratio (8-20) Glucose (70-100) mg/dL Lactic Acid 1.8 (0.5-2.0) mmol/L Calcium (8.6-10.3) mg/dL Total Bilirubin (0.2-1.0) mg/dL AST (13-39) U/L ALT (7-52) U/L Alkaline Phosphatase (34-104) U/L Troponin I (<0.03) ng/mL C-Reactive Protein (<8.01) mg/L B-Natriuretic Peptide 224 H (<=100) pg/mL Total Protein (6.4-8.9) g/dL Albumin (3.2-5.2) g/dL Globulin (2-4) g/dL Albumin/Globulin Ratio (1-3) Result Diagrams: 03/11/19 13:39 03/11/19 13:39 Lab Statement: Any lab studies that have been ordered have been reviewed, and results considered in the medical decision making process. - Radiology Chest X-ray Radiology Interpretation Completed By: Radiologist Summary of Radiographic Findings: Chest X-ray IMPRESSION: 1. Bibasilar predominant airspace opacification (infiltrate versus atelectasis). 2. Similar calcified mediastinal lymph nodes and scattered subcentimeter pulmonary nodules. Reviewed by Dr. Quinones. - EKG 13:51 Cardiac Rate: NL - 62 BPM EKG Rhythm: Sinus Rhythm ST Segment: Normal Ectopy: None Summary of EKG Findings: EKG at 13:51 shows normal sinus rhythm with 62 BPM, no obvious ischemic changes. Reviewed and interpreted by Dr. Quinones. Complex Multi-Symp Course/Dx Course Of Treatment: Patient is here with an episode of hypoxemia and abnormal lung sounds. Patient was diagnosed with pneumonia one month ago and she with antibiotics. Patient's hospitalized during that stay. This morning when the visiting nurse was checking on him he was noted to be hypoxic with some rales in his lungs. Patient had a chest x-ray here which showed a pneumonia. Patient was treated with cefepime and levofloxacin given his recent antibiotic use. Patient is admitted to the hospitalist - Diagnoses Provider Diagnoses: Hypoxia, Pneumonia - Physician Notifications Discussed Care Of Patient With: Catherine Grider - At 14:55, Dr Grider reviewed the patients case and agrees to admit the patient to [facility]. Time Discussed With Above Provider: 14:55 Instructed by Provider To: Admit As Inpatient Discharge ED - Sign-Out/Discharge Documenting (check all that apply): Patient Departure - Discharge - Discharge Plan Condition: Stable Disposition: ADMITTED TO [facility] - Billing Disposition and Condition Condition: STABLE Disposition: Admitted to [facility] - Attestation Statements Document Initiated by Pat: Yes Documenting Scribe: Kalie Mabry Provider For Whom Pat is Documenting (Include Credential): Porter Quinones MD Scribe Attestation: Kalie Dowling, scribed for Porter Quinones MD on 03/11/19 at 1654. Scribe Documentation Reviewed: Yes Provider Attestation: The documentation as recorded by the Kalie plunkett accurately reflects the service I personally performed and the decisions made by , Porter Quinones MD Status of Scribe Document: Viewed
[2019-03-11] MEDS ORDERED: NS 0.9% 50 ML* 50 ML ONE (15:35)
[2019-03-11] MEDS ORDERED: Cefepime 1 GM in Dextrose(*) 1 GM/50 ML q12h (Duplex) IV ONE (16:00)
[2019-03-11 16:04] LABS: Urine Appearance Clear; Urine Bilirubin Negative (Negative); Urine Blood Negative (Negative); Urine Color Yellow; Urine Glucose Negative (Negative); Urine Ketones Negative (Negative); Urine Nitrite Negative (Negative); Urine Protein Negative (Negative); Urine Specific Gravity 1.019 (1.010-1.030); Urine Urobilinogen Negative (Negative)
[2019-03-11] MEDS ORDERED: NS 0.9% 1000 ML** 1,000 ML IV SCH (16:15)
--- NOTE | 2019-03-11 17:45 | HP ---
CC: Dr. Clemencia Tan * HISTORY AND PHYSICAL: DATE OF ADMISSION: 03/11/19 PRIMARY CARE PROVIDER: Dr. Clemencia Tan. CHIEF COMPLAINT: "Low oxygen saturation," lethargy. HISTORY OF PRESENT ILLNESS: Leonidas Isabel is an 88-year-old male with a history of dementia, who is under the care of his son and his daughter. Both his daughter and his son are his healthcare proxies. The family noted that in the past several days the patient had been "dragging his feet with the walker" to the point that in the past couple of days he was unable to ambulate by himself. He also had been somewhat more lethargic and with less p.o. intake. The family checked oxygen saturation, it was 88% on room air. They decided to bring him to the ED for evaluation. They felt that the patient was "gurgling" when he was lying down, meaning congestion in the airways. The patient's C-reactive protein when evaluated in the ED was noted to be 120. He is 91% on room air currently. His chest x-ray shows bilateral infiltrates. I suspect he has recurrent aspiration. From my review of medical records, the patient had been hospitalized almost monthly in September, November, and January of 2018. This would be his 4th hospitalization in the past 4 months. PAST MEDICAL HISTORY: 1. Dementia. 2. Pernicious anemia. 3. Coronary artery disease. 4. Hypertension. 5. Hyperlipidemia. 6. History of ventricular arrhythmia, on amiodarone. 7. History of syncope in the past. 8. Vitamin B12 deficiency. 9. Dlfdhjne-hy-jmauet aortic stenosis. 10. Chronic kidney disease. 11. Anemia. MEDICATIONS: At home include: 1. Systane eye drops 1 drop both eyes b.i.d. 2. MiraLAX 17 g daily. 3. Losartan 50 mg daily. 4. Amiodarone 100 mg daily. 5. Acetaminophen on a p.r.n. basis. 6. Amlodipine 2.5 mg q.p.m. 7. Namenda 10 mg b.i.d. 8. Aspirin 81 mg daily. 9. PreserVision softgels 2 capsules b.i.d. 10. Pravachol 80 mg daily. ALLERGIES: ATORVASTATIN. The patient is allergic to STATINS. FAMILY HISTORY: Father's history is unknown. Otherwise, history of coronary artery disease. Mother with diabetes. SOCIAL HISTORY: The patient has no history of tobacco, alcohol, or drug use. He lives with his son Valentín, who is his primary wireless sales manager. The patient wished to be a full code and his family wishes for him to be a full code but they are willing to discuss it further with Dr. Clemencia Tan tomorrow. REVIEW OF SYSTEMS: Please see history of present illness. Otherwise, the patient is a very withdrawn historian. He denies any cough or shortness of breath. He denies any pain. Please also note the above complaint noted in history of present illness that were voiced by the family. PHYSICAL EXAMINATION GENERAL: The patient is a very pleasant 88-year-old male who is in no acute distress. The patient is alert and oriented x1, very withdrawn, prefers to have his eyes closed, very poor historian. VITAL SIGNS: Blood pressure of 120/70, heart rate of 70 and regular, respiratory rate 14, oxygen saturation 91% on room air, temperature 97.2. HEENT: Head: Atraumatic, normocephalic. Eyes: Pupils are equal, reactive to light and accommodation. Oropharynx clear. Mucosa moist. NECK: Supple. No JVD, no bruits bilaterally. RESPIRATORY: Faint crackles at bilateral bases. CARDIOVASCULAR: Regular rate and rhythm with 4/6 systolic ejection murmur noted at auscultation of the apex. ABDOMEN: Distended, tympanic to percussion, soft, nontender. Bowel sounds present in all 4 quadrants. EXTREMITIES: There is no edema. Pulses are +2 bilaterally. No clubbing or cyanosis. NEUROLOGIC: On neuro evaluation, speech is clear. Cranial nerves II through XII grossly intact. Motor strength is 5/5 bilaterally. DIAGNOSTIC STUDIES/LABORATORY DATA: White blood cell count of 7.9, hemoglobin of 11.9, hematocrit of 36, MCV of 97, and platelets of 179. INR of 1.13. Sodium 139, potassium 4.2, chloride 107, carbon dioxide 25, BUN 28, creatinine 1.8. Liver function tests were unremarkable. C-reactive protein of 120. Brain natriuretic peptide of 224. Troponin of 0.08. Urinalysis unremarkable. Portable chest x-ray, impression: "Bibasilar predominant air space opacification, infiltrate versus atelectasis. Small calcified mediastinal lymph nodes and scattered subcentimeter pulmonary nodules." The patient's EKG showed sinus rhythm with heart rate of 62 beats per minute with incomplete left bundle-branch blocks. Comparing with an EKG from January of 2019, the EKG appeared similar. ASSESSMENT AND PLAN: 1. An 88-year-old male who presents with recurrent pneumonias. At this point, I suspect the patient has recurrent aspirations. The patient's family stated that he "gurgles at night." They tried to have his head of bed elevated. Apparently, the patient has no history of chocking with food. At this point, the patient is going to be placed on soft diet and I will ask for Speech Therapy to see him in the morning. With regards to antibiotics, the patient is going to be placed on ceftriaxone and doxycycline. He is not septic at admission. 2. Chronic kidney disease with creatinine slightly higher than his baseline, usually it is around 1.7 and 1.6. He appears to be slightly prerenal. I will place him on very gentle intravenous hydration for a total of 1 L. 3. In regards to the patient's code status, the patient had a healthcare proxy assigned, noted that he wanted to be a full code and no treatment to be withdrawn from him. At this point, he is unable to decide for himself and I discussed briefly with the patient's healthcare proxies, his son and his daughter present in the room, possibility of do not resuscitate. The family was left with a MOLST paperwork to review with and to discuss it with the patient's primary care provider tomorrow morning. For the time being, the patient is going to be a full code. 4. For the patient's dementia, the patient is to be continued on his Namenda. 5. For his history of ventricular tachycardia, amiodarone is to be continued. 6. For DVT prophylaxis, the patient is going to be placed on heparin subcutaneously. TIME SPENT: Approximately 65 minutes was spent on the admission of this patient , more than half that time was spent [id number] with the patient during the interview and physical exam. [id number]/[facility] #: [id number] MTDD
[2019-03-11] MEDS: DOXYcycline IV* 100 MG in NS 0.9% 250 ML* 250 ML IVPB SCH (18:29)
[2019-03-11 19:03] LABS: Troponin I 0.08 ng/mL (<0.03)
[2019-03-11] MEDS: Memantine TAB* 10 MG PO SCH (20:00)
[2019-03-11] MEDS: amLODIPine TAB* 5 MG PO SCH (20:01)
[2019-03-11] MEDS: Polyethyl Glycol/Propylene Gly OPHTH.SOLN BOTH EYES SCH (20:01)
[2019-03-11] MEDS: Heparin VIAL(*) 5000 UNITS/ML VIAL (FIVE THOUSAND) SUBCUT SCH (22:12)
[2019-03-12] MEDS: DOXYcycline IV* 100 MG in NS 0.9% 250 ML* 250 ML IVPB SCH ×2 (04:19→16:35)
[2019-03-12] MEDS: Heparin VIAL(*) 5000 UNITS/ML VIAL (FIVE THOUSAND) SUBCUT SCH ×3 (05:56→22:14)
[2019-03-12 06:27] LABS: ABS Basophils 0.1 10^3/ul (0-0.2); ABS Eosinophils 0.3 10^3/ul (0-0.6); ABS Lymphocytes 1.5 10^3/ul (1.0-4.8); ABS Monocytes 0.8 10^3/ul (0-0.8); ABS Neutrophils 4.9 10^3/ul (1.5-7.7); Eosinophil % 4.2 %; Hematocrit 34 % (42-52); Hemoglobin 11.5 g/dL (14.0-18.0); Lymphocyte % 19.3 %; Mean Corpuscular HGB Conc 34 g/dL (31-36); Mean Corpuscular Hemoglobin 33 pg (27-31); Mean Corpuscular Volume 96 fL (80-94); Mean Platelet Volume 8.9 fL (7.4-10.4); Platelet Count 167 10^3/uL (150-450); Red Cell Distribution Width 15 % (10-15); White Blood Count 7.5 10^3/uL (3.5-10.8)
[2019-03-12 06:52] LABS: BUN/Creatinine Ratio 16.8 (8-20); Calcium 8.3 mg/dL (8.6-10.3); EGFR African American 49.3 (>60); EGFR Non-African American 40.7 (>60); Potassium 4.3 mmol/L (3.5-5.0)
[2019-03-12] MEDS: cefTRIAXone(*) 1 GM in NS 0.9% 50 ML* 50 ML IVPB SCH (09:24)
[2019-03-12] MEDS: Amiodarone TAB* 200 MG PO SCH (09:25)
[2019-03-12] MEDS: Polyethyl Glycol/Propylene Gly OPHTH.SOLN BOTH EYES SCH ×2 (09:25→22:14)
[2019-03-12] MEDS: Polyethylene Glycol 3350* 17 GM PACKET PO SCH (09:25)
[2019-03-12] MEDS: Aspirin EC TAB* 81 MG TAB.EC PO SCH (09:25)
[2019-03-12] MEDS: Losartan TAB* 25 MG PO SCH (09:25)
[2019-03-12] MEDS: Memantine TAB* 10 MG PO SCH ×2 (09:26→22:10)
[2019-03-12] MEDS: amLODIPine TAB* 5 MG PO SCH (22:10)
[2019-03-13] MEDS: DOXYcycline IV* 100 MG in NS 0.9% 250 ML* 250 ML IVPB SCH ×2 (04:39→15:35)
[2019-03-13] MEDS: Heparin VIAL(*) 5000 UNITS/ML VIAL (FIVE THOUSAND) SUBCUT SCH ×3 (05:34→21:24)
[2019-03-13 06:05] LABS: Hematocrit 34 % (42-52); Hemoglobin 11.7 g/dL (14.0-18.0); Mean Corpuscular HGB Conc 34 g/dL (31-36); Mean Corpuscular Hemoglobin 33 pg (27-31); Mean Corpuscular Volume 96 fL (80-94); Mean Platelet Volume 8.9 fL (7.4-10.4); Platelet Count 188 10^3/uL (150-450); Red Blood Count 3.58 10^6 /uL (4.18-5.48); Red Cell Distribution Width 15 % (10-15); White Blood Count 5.9 10^3/uL (3.5-10.8)
[2019-03-13 06:20] LABS: BUN/Creatinine Ratio 18.4 (8-20); C Reactive Protein 123.8 mg/L (<8.01); Calcium 8.4 mg/dL (8.6-10.3); EGFR African American 57.4 (>60); EGFR Non-African American 47.4 (>60); Potassium 3.9 mmol/L (3.5-5.0)
[2019-03-13] MEDS: cefTRIAXone(*) 1 GM in NS 0.9% 50 ML* 50 ML IVPB SCH (08:06)
[2019-03-13] MEDS: Polyethylene Glycol 3350* 17 GM PACKET PO SCH (08:46)
[2019-03-13] MEDS: Amiodarone TAB* 200 MG PO SCH (08:47)
[2019-03-13] MEDS: Memantine TAB* 10 MG PO SCH ×2 (08:47→20:50)
[2019-03-13] MEDS: Polyethyl Glycol/Propylene Gly OPHTH.SOLN BOTH EYES SCH ×2 (08:47→20:50)
[2019-03-13] MEDS: Losartan TAB* 25 MG PO SCH (08:47)
[2019-03-13] MEDS: Aspirin EC TAB* 81 MG TAB.EC PO SCH (08:47)
[2019-03-13] MEDS: amLODIPine TAB* 5 MG PO SCH (20:51)
[2019-03-14] MEDS: DOXYcycline IV* 100 MG in NS 0.9% 250 ML* 250 ML IVPB SCH ×2 (04:15→16:52)
[2019-03-14 05:45] LABS: ABS Eosinophils 0.3 10^3/ul (0-0.6); ABS Lymphocytes 1.2 10^3/ul (1.0-4.8); ABS Monocytes 0.7 10^3/ul (0-0.8); ABS Neutrophils 3.5 10^3/ul (1.5-7.7); Eosinophil % 5.4 %; Hematocrit 32 % (42-52); Lymphocyte % 21.5 %; Mean Corpuscular HGB Conc 34 g/dL (31-36); Mean Corpuscular Hemoglobin 33 pg (27-31); Mean Corpuscular Volume 96 fL (80-94); Mean Platelet Volume 8.7 fL (7.4-10.4); Platelet Count 210 10^3/uL (150-450); Red Blood Count 3.37 10^6 /uL (4.18-5.48); Red Cell Distribution Width 15 % (10-15); White Blood Count 5.7 10^3/uL (3.5-10.8)
[2019-03-14] MEDS: Heparin VIAL(*) 5000 UNITS/ML VIAL (FIVE THOUSAND) SUBCUT SCH ×3 (05:54→20:56)
[2019-03-14 06:07] LABS: BUN/Creatinine Ratio 18.3 (8-20); C Reactive Protein 86.01 mg/L (<8.01); Calcium 8.5 mg/dL (8.6-10.3); EGFR African American 52.2 (>60); EGFR Non-African American 43.2 (>60); Potassium 4.3 mmol/L (3.5-5.0)
[2019-03-14] MEDS: cefTRIAXone(*) 1 GM in NS 0.9% 50 ML* 50 ML IVPB SCH (07:38)
[2019-03-14] MEDS: Amiodarone TAB* 200 MG PO SCH (07:38)
[2019-03-14] MEDS: Polyethylene Glycol 3350* 17 GM PACKET PO SCH (07:38)
[2019-03-14] MEDS: Aspirin EC TAB* 81 MG TAB.EC PO SCH (07:38)
[2019-03-14] MEDS: Losartan TAB* 25 MG PO SCH (07:39)
[2019-03-14] MEDS: Memantine TAB* 10 MG PO SCH ×2 (07:39→20:57)
[2019-03-14] MEDS: Polyethyl Glycol/Propylene Gly OPHTH.SOLN BOTH EYES SCH ×3 (16:00→20:56)
--- NOTE | 2019-03-14 18:34 | CONS ---
PULMONARY CONSULTATION REPORT: DATE OF CONSULT: 03/14/19 CONSULTATION REQUESTED BY: Dr. Clemencia Tan. REASON FOR CONSULT: Evaluation of recurrent pneumonias. HISTORY OF PRESENT ILLNESS: The patient is an 88-year-old male with a history of dementia, pernicious anemia, coronary artery disease, dyslipidemia, hypertension, csuxsrvm-hj-xarxml aortic stenosis with a complicated history recently due to recurrent pneumonias. The patient had a few hospitalizations this past year for pneumonia. He has been hospitalized in September, November, and January for pneumonias. The patient was brought in for evaluation of low oxygen saturation and lethargy. The patient was noted to be weak by family over the past few days prior to the admission. He was unable to ambulate recently. He was also lethargic with poor oral intake. O2 saturation was noted to be 88% on room air. The patient was also noted to be gurgling when he was lying down. The patient was found to have elevated CRP while on evaluation in the emergency room. He was saturating 91% on room air. Further evaluation included chest x-ray followed by CT scan of the chest. I personally reviewed chest x-ray and CT scan of the chest in comparison with his prior studies. The patient noted to have airspace opacities, some with dense consolidation predominantly in the left lower lobe area. He was noted to have bilateral pleural effusion, moderate on the right and smaller one on the left with associated atelectasis. The patient also with slightly prominent mediastinal nodes. No obvious endobronchial lesions were noted. The patient also with evidence of bronchiectasis bilaterally. He does have evidence of prior granulomatous disease. The patient also with nodular opacities. The patient was seen and examined at bedside. The patient reports improvement in his symptoms. The patient denies significant cough or sputum production. The patient denies difficulty breathing currently. The patient is currently on room air saturating 93%. The patient has been afebrile since hospitalization. His white count was within normal limits. Troponin was slightly elevated on admission. CRP has been trending down. The patient was initiated on ceftriaxone and doxycycline. Of note, the patient is on amiodarone for a history of ventricular arrhythmia. PAST MEDICAL HISTORY: 1. Dementia. 2. Pernicious anemia. 3. Coronary artery disease. 4. Hypertension. 5. Dyslipidemia. 6. History of ventricular arrhythmia, being treated with amiodarone. 7. History of syncope in the past. 8. Vitamin B12 deficiency. 9. Hxifexxl-po-bferlp aortic stenosis. 10. Chronic kidney disease. 11. Anemia. MEDICATIONS: 1. Systane eye drops. 2. MiraLAX. 3. Losartan. 4. Amiodarone. 5. Acetaminophen. 6. Amlodipine. 7. Namenda. 8. Aspirin. 9. PreserVision. 10. Pravachol. ALLERGIES: ATORVASTATIN. FAMILY HISTORY: Father's history is unknown. Mother with diabetes. SOCIAL HISTORY: No tobacco, alcohol, or drug abuse. REVIEW OF SYSTEMS: All 14 systems reviewed even though it is limited because of the patient's underlying dementia and being a poor historian. Positives and negatives as per HPI. PHYSICAL EXAM: The patient is in bed, in no apparent distress. Vital Signs: Temperature 97.9, pulse 60 beats per minute, respiratory rate 18 per minute, O2 sat 93% on room air, blood pressure 121/69. HEENT: Pupils equal, reactive to light. Mucous membranes moist. Lungs: Mild crackles and diminished breath sounds at bases. Cardiovascular: S1, S2 present, regular. Abdomen: Soft, nontender, nondistended. Bowel sounds present. Extremities: Normal range of motion. Skin: No rash or bruise. DIAGNOSTIC STUDIES/LAB DATA: WBC count 5.7, hemoglobin 11, hematocrit 32, platelet count 210. Sodium 140, potassium 4.3, chloride 111, bicarb 21, BUN 28 , creatinine 1.53, calcium 8.5, lactate within normal limits. CRP 123, repeat at 86. Chest x-ray and CT scan of the chest as described above in HPI. IMPRESSION AND RECOMMENDATIONS: 88-year-old male with episodes of recurrent pneumonia. The patient had workup for a possible aspiration pneumonia, which was found to be negative. He had had four admissions in the past 4 to 5 months for similar complaints. He was most recently hospitalized at the end of January, was discharged on 02/12/19, brought in for evaluation of hypoxemia. The patient's CT scan from this admission and prior scans showed findings consistent with pneumonia. He does improve as per his primary care physician each time he gets treated with antibiotics with recurrence of symptoms again. 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 Etiology of cryptogenic organizing pneumonia is sometimes not straightforward, given aspiration is ruled out which is a reason for cryptogenic organizing pneumonia, other possibilities like fungal etiology, drug-induced causes also need to be suspected. He is on amiodarone for ventricular arrhythmia. He has chronic kidney disease likely secondary to underlying hypertension. His anemia is found to be secondary to pernicious anemia. I do not suspect any hematological cause for his recurrent pneumonias and lung findings. He does have evidence of bronchiectasis at the bases bilaterally. He does have evidence of prior exposure to granulomatous disease. I suspect there is a component of congestive heart failure this time that might have resulted in the hypoxemia and shortness of breath. He has bilateral pleural effusions. Pleural effusions are rare in cryptogenic organizing pneumonia; however, could be seen. I would evaluate for ultrasound-guided thoracentesis tomorrow. It would help possibly in delineating the etiology further. The patient is not able to cough up any mucus. He would benefit from empirically treating for cryptogenic organizing pneumonia as he would be high risk for lung biopsy. Would recommend starting empiric prednisone starting at 30 mg and with a plan for taper by 10 mg weekly. The patient is otherwise not in distress, has not been requiring oxygen currently. Less likely to be an endobronchial process resulting in pneumonias. Infectious etiology especially in the setting of bronchiectasis is still in the differential. Since he is not able to expectorate any phlegm, bronchoscopy would be helpful. However, given that he is high risk for procedures, I would rather treat him empirically for now and monitor closely for his symptoms. If he starts doing fine with treatment for cryptogenic organizing pneumonia, we will not need more invasive procedures. However, we will definitely consider it if he does not improve or have recurrence of the symptoms. Last admission when he was treated and diagnosed with pneumonia, he did have elevated white count. This admission, he does not have any elevated white count. Even though amiodarone could be the reason for his cryptogenic organizing recurrent pneumonia, since that is not definitively established, I would not recommend stopping the medication given that he is at high risk for recurrence of ventricular arrhythmia. Thank you for allowing me to participate in the care of the patient. Will follow up with you. [id number]/[facility] #: [id number] ELEONORA
[2019-03-14] MEDS: amLODIPine TAB* 5 MG PO SCH (20:57)
[2019-03-15] MEDS: DOXYcycline IV* 100 MG in NS 0.9% 250 ML* 250 ML IVPB SCH ×2 (04:01→17:06)
[2019-03-15] MEDS: Heparin VIAL(*) 5000 UNITS/ML VIAL (FIVE THOUSAND) SUBCUT SCH ×3 (05:29→21:05)
[2019-03-15] MEDS: cefTRIAXone(*) 1 GM in NS 0.9% 50 ML* 50 ML IVPB SCH (08:36)
[2019-03-15] MEDS: Amiodarone TAB* 200 MG PO SCH (08:55)
[2019-03-15] MEDS: Memantine TAB* 10 MG PO SCH ×2 (08:55→21:03)
[2019-03-15] MEDS: Aspirin EC TAB* 81 MG TAB.EC PO SCH (08:55)
[2019-03-15] MEDS: Losartan TAB* 25 MG PO SCH (08:55)
[2019-03-15] MEDS: Polyethyl Glycol/Propylene Gly OPHTH.SOLN BOTH EYES SCH ×2 (08:56→21:03)
[2019-03-15] MEDS: Polyethylene Glycol 3350* 17 GM PACKET PO SCH (08:56)
--- NOTE | 2019-03-15 15:53 | BRIEFOPN ---
Brief Operative/Procedure Note - Operation Details Pre-Op Diagnosis: Pl effusion Post-Op Diagnosis: Moderate rt effusion Procedures: U/S guided thoracentesis Surgeon(s)/Proceduralists: taran little Anesthesia: Local, lidocaine 5cc Estimated Blood Loss: None Findings: Moderate rt effusion, dark yellow fluid Specimen(s)/Culture(s) Description: Cytology, biochem, hematology, microbiology Complications: None
--- NOTE | 2019-03-15 15:57 | PN ---
Progress Note - Progress Note Date of Service: 03/15/19 - Pulm f/u note Note: Pt seen and examined at bedside. No acute events o/n Active Medications Generic Name Dose Route Start Last Admin Trade Name Freq PRN Reason Stop Dose Admin Acetaminophen 650 mg 03/11/19 15:07 Tylenol Tab* PO Q4H PRN PAIN-MILD/TEMP >/= 100.4 Amiodarone HCl 100 mg 03/12/19 09:00 03/15/19 08:55 Cordarone Tab* PO 200 mg DAILY LAINEY Administration Amlodipine Besylate 2.5 mg 03/11/19 21:00 03/14/19 20:57 Norvasc Tab* PO 2.5 mg BEDTIME LAINEY Administration Aspirin 81 mg 03/12/19 09:00 03/15/19 08:55 Aspirin Ec Tab* PO 81 mg DAILY LAINEY Administration Heparin Sodium (Porcine) 5,000 units 03/11/19 22:00 03/15/19 13:03 Heparin Vial(*) SUBCUT 5,000 units Q8HR LAINEY Administration Doxycycline Hyclate 100 mg/ 250 mls @ 250 mls/hr 03/11/19 16:00 03/15/19 04: 01 Sodium Chloride IVPB 250 mls/hr Q12H LAINEY Administration Ceftriaxone Sodium 1 gm/ 50 mls @ 100 mls/hr 03/12/19 08:00 03/15/19 08:36 Sodium Chloride IVPB 100 mls/hr Q24H LAINEY Administration Losartan Potassium 50 mg 03/12/19 09:00 03/15/19 08:55 Cozaar Tab* PO 50 mg DAILY LAINEY Administration Memantine 10 mg 03/11/19 21:00 03/15/19 08:55 Namenda Tab* PO 10 mg BID LAINEY Administration Polyethyl Glycol/Propylene Glycol 1 drop 03/11/19 21:00 03/15/19 08:56 Lubricant Eye Drops BOTH EYES 1 drop BID LAINEY Administration Polyethylene Glycol/Electrolytes 17 gm 03/12/19 09:00 03/15/19 08:56 Miralax* PO 17 gm DAILY LAINEY Administration Prednisone 30 mg 03/15/19 11:00 03/15/19 12:34 Deltasone 10 Mg Tab PO 30 mg DAILY LAINEY Administration Vital Signs Temp Pulse Resp BP Pulse Ox 98.7 F 60 16 105/55 97 03/15/19 03:02 03/15/19 03:02 03/15/19 03:02 03/15/19 03:02 03/15/19 03:02 Labs: No new labs U/S chest: Moderate rt effusion with associated atelctasis I/R": 88 y o m with recurrent PNA`s recently, w/u negative for aspiration CT chest with b/l opacities, effusions, mild bronchiectasis Being treated for possible FACTORER On prednisone Had thoracentesi today with removal of 350cc of dark yellow fluid Pt tolerated well On emperic abx Will f/u pl fluid results D/w pt and his son
[2019-03-15 15:59] LABS: Body Fluid Source Pleural Fluid
[2019-03-15 17:35] LABS: Body Fluid Mono 20 %
[2019-03-15] MEDS: amLODIPine TAB* 5 MG PO SCH ×2 (20:54→21:03)
--- NOTE | 2019-03-15 23:37 | PRO ---
THORACENTESIS REPORT: DATE OF PROCEDURE: 03/15/19 PREPROCEDURAL DIAGNOSIS: Moderate right pleural effusion. PROCEDURE PERFORMED: Ultrasound-guided thoracentesis on the right side. ANESTHESIA: Local anesthesia with 1% lidocaine 5 cc. DESCRIPTION OF PROCEDURE: Informed consent was obtained from the patient prior to the procedure after the risks and benefits were thoroughly explained. The patient was sitting up and leaning forward during the procedure. Informed consent was obtained also from the patient's son given the patient's history of dementia. Portable ultrasound was utilized at bedside to localize a small pocket of fluid. Strict aseptic precautions and barrier techniques were utilized. Area was disinfected with chlorhexidine. 1% lidocaine was instilled intradermally down into pleural space taking precautions. #11 scalpel blade was used to make stab incision. 8-Guatemalan thoracentesis catheter was subsequently inserted under manual suction taking precautions. Catheter was left in place and needle was removed. 350 cc of dark yellow fluid was removed under manual suction. Catheter was then removed and sterile Band-Aid was applied. The patient tolerated the procedure well. Postprocedural chest x-ray was ordered and is pending at the time of dictation. Fluid was sent to the lab for cytological and biochemical examination. [id number]/[facility] #: [id number] [facility]
[2019-03-16] MEDS: DOXYcycline IV* 100 MG in NS 0.9% 250 ML* 250 ML IVPB SCH ×2 (04:20→15:47)
[2019-03-16] MEDS: Heparin VIAL(*) 5000 UNITS/ML VIAL (FIVE THOUSAND) SUBCUT SCH ×3 (06:04→21:49)
[2019-03-16] MEDS: cefTRIAXone(*) 1 GM in NS 0.9% 50 ML* 50 ML IVPB SCH (07:42)
[2019-03-16] MEDS: Memantine TAB* 10 MG PO SCH ×2 (07:43→21:41)
[2019-03-16] MEDS: Polyethyl Glycol/Propylene Gly OPHTH.SOLN BOTH EYES SCH ×2 (07:43→21:40)
[2019-03-16] MEDS: Amiodarone TAB* 200 MG PO SCH (07:43)
[2019-03-16] MEDS: Losartan TAB* 25 MG PO SCH (07:43)
[2019-03-16] MEDS: Aspirin EC TAB* 81 MG TAB.EC PO SCH (07:43)
[2019-03-16] MEDS: Polyethylene Glycol 3350* 17 GM PACKET PO SCH (07:43)
[2019-03-16] MEDS ORDERED: Iodixanol* (CONTRAST) 320 MG/ML 100 ML SDV IV ONE (15:32)
[2019-03-16] MEDS: amLODIPine TAB* 5 MG PO SCH (21:41)
[2019-03-17] MEDS: DOXYcycline IV* 100 MG in NS 0.9% 250 ML* 250 ML IVPB SCH ×2 (04:15→15:11)
[2019-03-17] MEDS: Heparin VIAL(*) 5000 UNITS/ML VIAL (FIVE THOUSAND) SUBCUT SCH ×3 (05:20→22:26)
[2019-03-17] MEDS: Memantine TAB* 10 MG PO SCH ×2 (07:16→22:27)
[2019-03-17] MEDS: Aspirin EC TAB* 81 MG TAB.EC PO SCH (07:16)
[2019-03-17] MEDS: Losartan TAB* 25 MG PO SCH (07:16)
[2019-03-17] MEDS: cefTRIAXone(*) 1 GM in NS 0.9% 50 ML* 50 ML IVPB SCH (07:16)
[2019-03-17] MEDS: Amiodarone TAB* 200 MG PO SCH (07:17)
[2019-03-17] MEDS: Polyethyl Glycol/Propylene Gly OPHTH.SOLN BOTH EYES SCH ×2 (07:18→22:26)
[2019-03-17] MEDS: Polyethylene Glycol 3350* 17 GM PACKET PO SCH (07:18)
--- NOTE | 2019-03-17 10:42 | PN ---
Subjective - Subjective Reason for Note: Progress Note History: I woke him up. He has little insight into his situation. On direct questioning he denies chest pain, shortness of breath, palpitations, cough, sputum. He has no abdominal pain, nausea or vomting. He has no difficuilty urinating. He denies fevers, sweats, neck pain or headache. 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 Stented coronary artery (Chronic) Z95.5 Current Medications: Current Medications Acetaminophen (Tylenol Tab*) 650 mg PO Q4H PRN PRN Reason: PAIN-MILD/TEMP >/= 100.4 Amiodarone HCl (Cordarone Tab*) 100 mg PO DAILY [facility] Last Admin: 03/17/19 07:17 Dose: Not Given Amlodipine Besylate (Norvasc Tab*) 2.5 mg PO BEDTIME [facility] Last Admin: 03/16/19 21:41 Dose: 2.5 mg Aspirin (Aspirin Ec Tab*) 81 mg PO DAILY [facility] Last Admin: 03/17/19 07:16 Dose: 81 mg Heparin Sodium (Porcine) (Heparin Vial(*)) 5,000 units SUBCUT Q8HR [facility] Last Admin: 03/17/19 05:20 Dose: 5,000 units Doxycycline Hyclate 100 mg/ (Sodium Chloride) 250 mls @ 250 mls/hr IVPB Q12H [facility] Last Admin: 03/17/19 04:15 Dose: 250 mls/hr Ceftriaxone Sodium 1 gm/ (Sodium Chloride) 50 mls @ 100 mls/hr IVPB Q24H [facility] Last Admin: 03/17/19 07:16 Dose: 100 mls/hr Losartan Potassium (Cozaar Tab*) 50 mg PO DAILY [facility] Last Admin: 03/17/19 07:16 Dose: 50 mg Memantine (Namenda Tab*) 10 mg PO BID [facility] Last Admin: 03/17/19 07:16 Dose: 10 mg Polyethyl Glycol/Propylene Glycol (Lubricant Eye Drops) 1 drop BOTH EYES BID [facility] Last Admin: 03/17/19 07:18 Dose: Not Given Polyethylene Glycol/Electrolytes (Miralax*) 17 gm PO DAILY [facility] Last Admin: 03/17/19 07:18 Dose: Not Given Prednisone (Deltasone 10 Mg Tab) 30 mg PO DAILY [facility] Last Admin: 03/17/19 07:16 Dose: 30 mg Home Medications: Home Medications Medication Instructions Recorded Confirmed Type Losartan TAB* [Cozaar TAB*] 50 mg PO DAILY 10/24/17 03/11/19 History Memantine TAB* [Namenda TAB*] 10 mg PO BID 10/24/17 03/11/19 History Vit A/Vit C/Vit E/Zinc/Copper 2 cap PO BID 10/24/17 03/11/19 History [Preservision Areds Softgel] amLODIPine TAB* [Norvasc 5 mg TAB*] 2.5 mg PO QPM 01/26/18 03/11/19 History Polyethylene Glycol 3350 [Miralax] 17 gm PO DAILY 10/11/18 03/11/19 History Acetaminophen TAB* [Tylenol TAB*] 650 mg PO Q4H PRN tab 12/05/18 03/11/19 Rx Amiodarone TAB* [Cordarone Tab*] 100 mg PO DAILY tab 12/05/18 03/11/19 Rx Aspirin EC TAB* [Ecotrin EC Low 81 mg PO DAILY tab.ec 12/05/18 03/11/19 Rx Dose 81 MG*] Pravastatin (NF) [Pravachol (NF)] 80 mg PO QPM tab 12/05/18 03/11/19 Rx Propylene Glycol/Peg 400/Pf 1 each OP BID 02/09/19 03/11/19 History [Systane 0.3-0.4% Eye Drop] Allergies: Allergies Allergy/AdvReac Type Severity Reaction Status Date / Time atorvastatin [From Lipitor] Allergy Unknown Verified 03/11/19 13:54 Reaction Details cerivastatin [From Baycol] Allergy Unknown Verified 03/11/19 13:54 Reaction Details simvastatin [From Zocor] Allergy Unknown Verified 03/11/19 13:54 Reaction Details Objective - Vital Signs Vital Signs: Vital Signs 03/16/19 03/16/19 03/16/19 11:15 15:15 19:15 Temperature 98.0 F 98.1 F 98.2 F Pulse Rate 74 65 94 Respiratory 16 16 20 Rate Blood Pressure 136/69 121/71 155/92 (mmHg) O2 Sat by Pulse 99 98 96 Oximetry 03/16/19 03/16/19 03/17/19 20:00 23:15 03:15 Temperature 97.4 F 97.8 F Pulse Rate 72 69 Respiratory 18 19 18 Rate Blood Pressure 119/65 122/60 (mmHg) O2 Sat by Pulse 97 95 Oximetry 03/17/19 03/17/19 07:11 07:28 Temperature 97.8 F Pulse Rate 84 Respiratory 18 18 Rate Blood Pressure 141/69 (mmHg) O2 Sat by Pulse 94 Oximetry - Intake and Output Intake and Output: Intake & Output 03/14/19 03/15/19 03/16/19 03/17/19 11:59 11:59 11:59 11:59 Intake Total 890 1370 1500 2470 Output Total 0 Balance 890 1370 1500 2470 Weight 184 lb Intake: IV Fluids 90 300 30 ABX - DOXYCYCLINE 250 30 Ceftriaxone 60 50 NS (0.9%) 30 IVPB 250 ABX - DOXYCYCLINE 250 Ceftriaxone 0 Oral 890 1280 1200 2190 Output: Urine 0 Other: Estimated Void Large Large Large Medium # Bowel Movements 0 0 Estimated Stool Amount Large # Voids 2 1 0 1 ADLs: Meal Record Start: 03/11/19 16: 08 Freq: DAILY@0900,1400,1800 Status: Active Protocol: Created 03/11/19 16:08 System (Rec: 03/11/19 16:08 System [id number]) Document 03/11/19 18:00 [id number] (Rec: 03/11/19 18:48 [id number] MED-C11) Document 03/12/19 09:00 [id number] (Rec: 03/12/19 09:08 [id number] MED-M11) Document 03/12/19 14:00 GPA2488 (Rec: 03/12/19 14:02 [id number] MED-M11) Document 03/12/19 18:00 MDG6016 (Rec: 03/12/19 18:10 IWG2309 MED-C04) Document 03/13/19 09:00 KYI6490 (Rec: 03/13/19 13:30 FVC5188 MED-C09) Document 03/13/19 14:00 QCE5223 (Rec: 03/13/19 14:46 ARG1357 MED-C09) Document 03/13/19 18:00 OCP9174 (Rec: 03/13/19 18:38 YSN4955 MED-C09) Document 03/14/19 09:00 IWA4405 (Rec: 03/14/19 10:18 [id number] MED-C11) Document 03/14/19 14:00 ITA8903 (Rec: 03/14/19 16:10 CZJ0495 MED-C11) Document 03/14/19 18:00 QSG8897 (Rec: 03/14/19 18:22 YKR3818 MED-C11) Document 03/15/19 09:00 XEL2031 (Rec: 03/15/19 11:03 QOJ1009 MED-C09) Document 03/15/19 14:00 YOJ2493 (Rec: 03/15/19 15:09 HEJ4238 MED-C11) Document 03/15/19 18:00 IHZ1322 (Rec: 03/16/19 07:22 FCY4122 MED-C03) Document 03/16/19 09:00 QYK1245 (Rec: 03/16/19 14:36 EVN8335 MED-C09) Document 03/16/19 14:00 SIY1407 (Rec: 03/16/19 14:36 TRO2573 MED-C09) Document 03/16/19 18:00 MIQ1229 (Rec: 03/16/19 18:21 AMM5189 MED-C11) Intake and Output Start: 03/11/19 12: 49 Freq: Status: Active Protocol: Created 03/11/19 12:49 System (Rec: 03/11/19 12:49 System ED-C29) Intake and Output Start: 03/11/19 16: 08 Freq: DAILY@0600,1400,2200 Status: Active Protocol: Created 03/11/19 16:08 System (Rec: 03/11/19 16:08 System WXITHEMILY) Document 03/11/19 21:41 GRX8989 (Rec: 03/11/19 21:41 [id number] MED-C09) Document 03/12/19 06:00 GQM1203 (Rec: 03/12/19 06:20 VET3396 MED-C09) Document 03/12/19 14:00 NII2955 (Rec: 03/12/19 14:03 WEH2023 MED-M11) Document 03/12/19 22:00 EJL7409 (Rec: 03/12/19 23:21 [id number] MED-C04) Document 03/13/19 06:00 DGC4836 (Rec: 03/13/19 06:16 JHR0686 MED-C04) Document 03/13/19 10:37 UTJ0393 (Rec: 03/13/19 10:37 VQS9462 MED-C02) Document 03/13/19 14:00 INS6882 (Rec: 03/13/19 14:46 [id number] MED-C09) Document 03/13/19 22:00 GEN8754 (Rec: 03/13/19 23:41 CVW7761 MED-C07) Document 03/14/19 05:35 QER5976 (Rec: 03/14/19 05:35 CIS8820 MED-C07) Document 03/14/19 14:00 GUF2016 (Rec: 03/14/19 16:10 OUE4741 MED-C11) Document 03/14/19 22:00 CHZ5085 (Rec: 03/14/19 22:18 GRB6059 MED-C05) Document 03/15/19 05:49 QBC5476 (Rec: 03/15/19 05:49 CCM4192 MED-C05) Document 03/15/19 14:00 TBA9151 (Rec: 03/15/19 15:09 FUH8006 MED-C11) Document 03/15/19 22:00 YMF5066 (Rec: 03/15/19 23:36 XSO6530 MED-C05) Document 03/16/19 06:00 TBH8568 (Rec: 03/16/19 06:39 LXW4775 MED-C05) Document 03/16/19 12:10 CNY8746 (Rec: 03/16/19 12:10 UQP6121 MED-C13) Document 03/16/19 14:00 GMZ7882 (Rec: 03/16/19 14:34 ZWJ7470 MED-C13) Document 03/16/19 21:49 WWS3667 (Rec: 03/16/19 21:50 CHH5390 MED-C07) Document 03/17/19 04:45 GAM6990 (Rec: 03/17/19 04:46 MLF4737 MED-C26) - Physical Exam General Physical Exam Comment: Warm and well perfused, hemodynamically stable and in no acute distress. General: No Cyanosis, Yes Anemia, No Jaundice, No Clubbing Lungs and Chest: Yes: Chest Expansion Full, Chest Expansion Symetrica, Percussion Note Resonant, Vessicular Breath Sounds. No: Crackles, Wheezes, Respiratory Distress, Use of Accessory Muscles Heart Rate and Rhythm: Regular Additional Cardiovascular: Yes: Normal Heart Sounds. No: Heart Murmur, Pedal Edema Abdominal Exam: Yes: Distention, Soft. No: Rigidity, Abdominal Mass, Hepatomegaly, Abdominal Tenderness - Extremities Cranial Nerves II-XII Intact: Yes Limbs: Normal Power, Normal Tone - Neuro Speech: Normal Results - Results Radiology Results: Patient Name: ANDI MAC Medical Record#: [id number] Ordering Physician: Clemencia Tan MD Acct.#: [id number] : 1930 Age: 88 Sex: M Location: [address] [place] [address] - MEDICAL Exam Date: 03/16/19 1253 ADM Status: ADM IN Order Information: CT ABD/PEL W Accession Number: [id number] CPT: 38221 INDICATION: Distention. COMPARISON: There are no relevant prior studies available for comparison. TECHNIQUE: A CT scan of the abdomen and pelvis was performed with intravenous and with oral contrast following intravenous injection of 100 ml of Omnipaque 300 nonionic contrast. Contiguous axial sections were obtained from the lung bases through the symphysis pubis. Images were reconstructed in the coronal and sagittal planes. FINDINGS: LUNG BASES: There is bibasilar linear airspace opacification with small pleural effusions. There are scattered subcentimeter calcified pulmonary nodules. Calcified mediastinal lymph nodes are also partially imaged. The coronary arteries are calcified. The aortic valve is calcified. LIVER: The liver is normal in size. No significant focal abnormality is seen. GALLBLADDER: No calcified gallstones are seen. BILE DUCTS: No intra or extrahepatic ductal distention is seen. SPLEEN: The spleen is normal in size without significant focal abnormality. PANCREAS: The pancreas is normal in size. No ductal distention or calcifications are seen. ADRENAL GLANDS: The adrenal glands are normal in size. KIDNEYS: The kidneys are atrophic. Subcentimeter bilateral renal cysts are too small to characterize but statistically benign. No renal calculi or hydronephrosis is seen. No significant focal renal abnormality is seen. AORTA: The atheromatous abdominal aorta is normal in caliber LYMPH NODES: No significantly enlarged lymph nodes are seen. BOWEL: The stomach is mildly dilated. Oral contrast refluxes into the distal esophagus. The loops of bowel are not thickened or dilated. The appendix appears to be within normal limits. There are scattered diverticula within the colon. There is no evidence for diverticulitis or colitis. PELVIC ORGANS (degraded by streak artifact): Mild urinary bladder wall thickening. The prostate is not enlarged. PERITONEUM: No free intraperitoneal air or fluid is seen. There are fat- containing inguinal hernias. Soft tissue nodularity is partially imaged in the right anterior pelvis (axial image 79). BONES: No aggressive osseous lesion is identified. The bones are osteopenic. There is compression deformity resulting in 20% vertebral body height loss of L1. There is no severe bony retropulsion. There is been ORIF of the right iliac wing. A right total hip [facility] Patient Name:ANDI MAC MR: [id number] : 1930 arthroplasties performed. Old left 11th rib fracture IMPRESSION: 1. THE STOMACH IS MILDLY DILATED. ORAL CONTRAST REFLUXES INTO THE DISTAL ESOPHAGUS. 2. SOFT TISSUE NODULARITY IN THE RIGHT ANTERIOR PELVIS IS POORLY IMAGED DUE TO STREAK ARTIFACT. RECOMMEND ELECTIVE ULTRASOUND FOR FURTHER EVALUATION. 3. OSTEOPENIA WITH AN AGE INDETERMINATE L1 COMPRESSION FRACTURE RESULTING IN 20 % VERTEBRAL BODY HEIGHT LOSS. THERE IS NO SEVERE BONY RETROPULSION. 4. THERE IS MILD URINARY BLADDER WALL THICKENING. CORRELATE WITH URINALYSIS. 5. ATROPHIC KIDNEYS. 6. BIBASILAR ATELECTASIS VERSUS INFILTRATE. STIGMATA OF CHRONIC CALCIFIED ANULUS DISEASE. 7. CORONARY ARTERY DISEASE. <Electronically signed by Tab Lawton MD in [place]> 03/16/19 1628 Dictated By: Tab Lawton MD Dictated Date/Time: 03/16/191609 Transcribed Date/Time: 03/16/191609 Copy to: CC:Clemencia Tan MD; Malini Frazier MD; Catherine Grider MD Imaging - [facility] [address] [address] ph ([phone]) ph ([phone]) ph ([phone]) Assessment - Problem List Assessment: Patient Problems Abdominal distension (Acute) Cryptogenic organizing pneumonia (Acute) Pulmonary infiltrates (Acute) DVT prophylaxis (Chronic) Full code status (Chronic) Glaucoma (Chronic) History of SD (myocardial infarction) (Chronic) Hypercholesterolemia (Chronic) Hypertension (Chronic) Mild dementia (Chronic) Stented coronary artery (Chronic) Plan: Cryptogenic organizing pneumonia (Acute)/Pulmonary infiltrates (Acute) Pleural effusions Dr. Clemencia Tan signed Andi Mac out to me. I have reviewed Dr. Frazier's note. The differential diagnosis includes recurrent pneumonia ( aspiration has been looked forward x 2 and is negative) and [employer]. We are treating him for both and he is improving. I note that his diagnostic thoracocentesis demonstrates a mild lymphocytosis making a bacterial pneumonia less likely. Abdominal distension (Acute) CT abdomen did not demonstrate any pathology. Secondary diagnoses: DVT prophylaxis (Chronic) Full code status (Chronic) Glaucoma (Chronic) History of SD (myocardial infarction) (Chronic) Hypercholesterolemia (Chronic) Hypertension (Chronic) Mild dementia (Chronic) Stented coronary artery (Chronic) I called Valentín Mac - no strip picker. I called Leslie Mac - I gave her an update.
[2019-03-17] MEDS: amLODIPine TAB* 5 MG PO SCH (22:28)
[2019-03-18] MEDS: DOXYcycline IV* 100 MG in NS 0.9% 250 ML* 250 ML IVPB SCH ×2 (04:40→16:03)
[2019-03-18] MEDS: Heparin VIAL(*) 5000 UNITS/ML VIAL (FIVE THOUSAND) SUBCUT SCH ×2 (04:55→14:22)
[2019-03-18 07:12] LABS: ABS Basophils 0.1 10^3/ul (0-0.2); ABS Lymphocytes 1.8 10^3/ul (1.0-4.8); ABS Monocytes 1.5 10^3/ul (0-0.8); ABS Neutrophils 9.7 10^3/ul (1.5-7.7); Eosinophil % 0.1 %; Hematocrit 33 % (42-52); Hemoglobin 10.9 g/dL (14.0-18.0); Lymphocyte % 13.8 %; Mean Corpuscular HGB Conc 34 g/dL (31-36); Mean Corpuscular Hemoglobin 33 pg (27-31); Mean Corpuscular Volume 97 fL (80-94); Mean Platelet Volume 8.8 fL (7.4-10.4); Platelet Count 232 10^3/uL (150-450); Red Blood Count 3.35 10^6 /uL (4.18-5.48); Red Cell Distribution Width 15 % (10-15); White Blood Count 13.1 10^3/uL (3.5-10.8)
[2019-03-18 07:31] LABS: BUN/Creatinine Ratio 25.4 (8-20); C Reactive Protein 24.06 mg/L (<8.01); Calcium 8.6 mg/dL (8.6-10.3); EGFR African American 46.6 (>60); EGFR Non-African American 38.5 (>60); Potassium 3.9 mmol/L (3.5-5.0)
[2019-03-18] MEDS: cefTRIAXone(*) 1 GM in NS 0.9% 50 ML* 50 ML IVPB SCH (08:40)
[2019-03-18] MEDS: Polyethyl Glycol/Propylene Gly OPHTH.SOLN BOTH EYES SCH (08:41)
[2019-03-18] MEDS: Memantine TAB* 10 MG PO SCH (08:41)
[2019-03-18] MEDS: Aspirin EC TAB* 81 MG TAB.EC PO SCH (08:41)
[2019-03-18] MEDS: Amiodarone TAB* 200 MG PO SCH (08:41)
[2019-03-18] MEDS: Losartan TAB* 25 MG PO SCH (08:41)
[2019-03-18] MEDS: Polyethylene Glycol 3350* 17 GM PACKET PO SCH (08:42)
[2019-03-18 13:27] LABS: Lactate Dehydrogenase, BF 134 U/L
[2019-03-18 16:32] VITALS: BP 122/65
[2019-03-18 16:39] LABS: Fluid Type, Glucose PLEURAL
[2019-03-18 16:42] LABS: Fluid Type, Protein, Total PLEURAL
== END 2019-03-18 18:15 | disposition home or self-care (01) | DRG 197 ==
LOC: ED 12:38 → MED 15:49 → OBSVTOIN 03-13 09:00 → MED 03-17 22:47
PROVIDERS: ADMIT Internal Medicine; ATTEND Internal Medicine Geriatric Medicine
PROC: 0W993ZZ Drainage of Right Pleural Cavity, Percutaneous Approach (ICD-10-PCS; principal; 2019-03-15)
DX: J84.116 Cryptogenic organizing pneumonia (principal); J90 Pleural effusion, not elsewhere classified; F03.90 Unspecified dementia, unspecified severity, without behavioral disturbance, psychotic disturbance, mood disturbance, and anxiety; I25.10 Atherosclerotic heart disease of native coronary artery without angina pectoris; E78.5 Hyperlipidemia, unspecified; I35.0 Nonrheumatic aortic (valve) stenosis; N18.9 Chronic kidney disease, unspecified; D51.0 Vitamin B12 deficiency anemia due to intrinsic factor deficiency; I12.9 Hypertensive chronic kidney disease with stage 1 through stage 4 chronic kidney disease, or unspecified chronic kidney disease; J47.9 Bronchiectasis, uncomplicated; Z66 Do not resuscitate; R14.0 Abdominal distension (gaseous); H40.9 Unspecified glaucoma; I25.2 Old myocardial infarction; E78.00 Pure hypercholesterolemia, unspecified; M19.90 Unspecified osteoarthritis, unspecified site; Z96.641 Presence of right artificial hip joint; Z87.01 Personal history of pneumonia (recurrent); Z86.11 Personal history of tuberculosis; Z95.5 Presence of coronary angioplasty implant and graft; Z88.8 Allergy status to other drugs, medicaments and biological substances; Z87.891 Personal history of nicotine dependence
CPT/HCPCS: 36415; 71045; 71250; 74177; 76604; 76856; 80048; 80053; 81003; 82945; 83605; 83615; 83880; 84157; 84484; 85025; 85027; 85610; 86140; 87070; 87205; 89051; 93005; 99283; A9270-GY; J0692; J0696; J1644; J7512; Q9967

== ENCOUNTER 2019-11-23 16:48 | Inpatient (IN) ==
[2019-11-23] MEDS ORDERED: NS 0.9% 1000 ml BAG 1,000 ML IV ONE (17:30)
[2019-11-23 18:11] LABS: Albumin 3.2 g/dL (3.2-5.2); Anion Gap 10 mmol/L (2-11); CO2 Carbon Dioxide 20 mmol/L (22-32); Calcium 8.7 mg/dL (8.6-10.3); Chloride 108 mmol/L (101-111); Potassium 4.4 mmol/L (3.5-5.0); Sodium 138 mmol/L (135-145)
[2019-11-23 18:17] LABS: ALT 67 U/L (7-52); AST 31 U/L (13-39); Albumin/Globulin Ratio 1.2 (1-3); Alkaline Phosphatase 94 U/L (34-104); BUN/Creatinine Ratio 20.4 (8-20); Blood Urea Nitrogen 34 mg/dL (6-24); EGFR African American 47.1 (>60); EGFR Non-African American 38.9 (>60); Globulin 2.7 g/dL (2-4); Glucose 95 mg/dL (70-100); Total Protein 5.9 g/dL (6.4-8.9)
[2019-11-23 18:25] LABS: Troponin I 0.12 ng/mL (<0.03)
[2019-11-23 18:32] LABS: TSH Ultra Thyroid Stim Horm 2.29 mcIU/mL (0.34-5.60)
[2019-11-23 18:38] LABS: ABS Eosinophils 0.1 10^3/ul (0-0.6); ABS Lymphocytes 1.3 10^3/ul (1.0-4.8); ABS Monocytes 1.1 10^3/ul (0-0.8); ABS Neutrophils 9.4 10^3/ul (1.5-7.7); Eosinophil % 0.5 %; Hematocrit 41 % (42-52); Hemoglobin 13.9 g/dL (14.0-18.0); Lymphocyte % 10.7 %; Mean Corpuscular HGB Conc 34 g/dL (31-36); Mean Corpuscular Hemoglobin 34 pg (27-31); Mean Corpuscular Volume 100 fL (80-94); Mean Platelet Volume 8.7 fL (7.4-10.4); Platelet Count 203 10^3/uL (150-450); Red Blood Count 4.13 10^6 /uL (4.18-5.48); Red Cell Distribution Width 14 % (10-15); White Blood Count 11.8 10^3/uL (3.5-10.8)
[2019-11-23 19:09] LABS: Urine Appearance Clear; Urine Bilirubin Negative (Negative); Urine Blood Negative (Negative); Urine Color Yellow; Urine Glucose Negative (Negative); Urine Ketones Negative (Negative); Urine Nitrite Negative (Negative); Urine Protein Negative (Negative); Urine Specific Gravity 1.014 (1.010-1.030); Urine Urobilinogen Negative (Negative)
[2019-11-23] MEDS ORDERED: Ondansetron 4 mg VIAL 2 MG/ML 2 ml VIAL IV PRN (20:14)
[2019-11-23] MEDS ORDERED: levETIRAcetam 500 MG IVPREMIX 500 MG/100 ML BAG IV ONE (20:45)
[2019-11-23 22:51] LABS: Troponin I 0.11 ng/mL (<0.03)
[2019-11-23] MEDS: Enoxaparin 40 MG/0.4 ML SYR SUBCUT SCH (22:55)
[2019-11-24 05:59] LABS: ABS Basophils 0.1 10^3/ul (0-0.2); ABS Lymphocytes 0.8 10^3/ul (1.0-4.8); ABS Monocytes 0.4 10^3/ul (0-0.8); ABS Neutrophils 7.3 10^3/ul (1.5-7.7); Eosinophil % 0.1 %; Hematocrit 37 % (42-52); Hemoglobin 12.4 g/dL (14.0-18.0); Lymphocyte % 9.7 %; Mean Corpuscular HGB Conc 34 g/dL (31-36); Mean Corpuscular Hemoglobin 34 pg (27-31); Mean Corpuscular Volume 100 fL (80-94); Mean Platelet Volume 8.9 fL (7.4-10.4); Platelet Count 181 10^3/uL (150-450); Red Blood Count 3.65 10^6 /uL (4.18-5.48); Red Cell Distribution Width 15 % (10-15); White Blood Count 8.5 10^3/uL (3.5-10.8)
[2019-11-24 06:13] LABS: BUN/Creatinine Ratio 19.9 (8-20); Calcium 8.3 mg/dL (8.6-10.3); EGFR Non-African American 42.1 (>60); Potassium 4.7 mmol/L (3.5-5.0)
[2019-11-24] MEDS: Nystatin TOP POWDER 15 GM BTL TOPICAL SCH ×3 (08:42→22:28)
[2019-11-24] MEDS: Aspirin EC 81 mg TAB.EC (enteric coated) PO SCH (08:44)
[2019-11-24] MEDS ORDERED: Nystatin TOP POWDER 15 GM BTL TOPICAL SCH (09:00)
[2019-11-24] MEDS: CMCS:Pravastatin 20 mg TAB (NF) PO SCH (22:25)
[2019-11-24] MEDS: Enoxaparin 40 MG/0.4 ML SYR SUBCUT SCH (22:27)
[2019-11-25] MEDS: Aspirin EC 81 mg TAB.EC (enteric coated) PO SCH (08:25)
[2019-11-25] MEDS: Nystatin TOP POWDER 15 GM BTL TOPICAL SCH ×3 (08:26→20:33)
[2019-11-25 08:59] LABS: Hematocrit 42 % (42-52); Hemoglobin 13.8 g/dL (14.0-18.0); Mean Corpuscular HGB Conc 33 g/dL (31-36); Mean Corpuscular Hemoglobin 33 pg (27-31); Mean Corpuscular Volume 101 fL (80-94); Mean Platelet Volume 8.8 fL (7.4-10.4); Platelet Count 206 10^3/uL (150-450); Red Blood Count 4.17 10^6 /uL (4.18-5.48); Red Cell Distribution Width 15 % (10-15); White Blood Count 16.7 10^3/uL (3.5-10.8)
[2019-11-25 09:17] LABS: BUN/Creatinine Ratio 19.4 (8-20); Calcium 8.8 mg/dL (8.6-10.3); EGFR African American 46.1 (>60); EGFR Non-African American 38.1 (>60); Potassium 4.2 mmol/L (3.5-5.0)
[2019-11-25] MEDS ORDERED: NS 0.9% IV ONE (11:30)
[2019-11-25] MEDS ORDERED: Piperacillin/Tazobac ADVAN 3.375 GM in NS 0.9% 100 ml BAG 100 ML IV ONE (12:00)
[2019-11-25] MEDS ORDERED: Zosyn per Pharmacy NOTE FOLLOW UP SCH (12:00)
[2019-11-25] MEDS: NS 0.9% 1000 ml BAG 1,000 ML IV ONE ×2 (14:56→23:00)
[2019-11-25] MEDS ORDERED: Vancomycin per Pharmacy 1 EA NOTE FOLLOW UP PRN (15:17)
[2019-11-25] MEDS ORDERED: Vancomycin 1000 MG in NS 0.9% 250 ML IVPB ONE (16:00)
[2019-11-25] MEDS ORDERED: methylPREDNISolone SOD 40 mg/ml 1 ml VIAL IV ONE (17:00)
[2019-11-25] MEDS ORDERED: ZOSYN 3.375 GM Q8H per EXTENDED INFUSION IV SCH (18:00)
[2019-11-25] MEDS: CMCS:Pravastatin 20 mg TAB (NF) PO SCH (20:33)
[2019-11-25] MEDS: Enoxaparin 40 MG/0.4 ML SYR SUBCUT SCH (20:34)
[2019-11-26] MEDS ORDERED: NS 0.9% 1000 ml BAG 1,000 ML IV SCH (04:00)
[2019-11-26] MEDS ORDERED: Vancomycin Random Level NOTE FOLLOW UP ONE (06:00)
[2019-11-26] MEDS: Aspirin EC 81 mg TAB.EC (enteric coated) PO SCH (08:17)
[2019-11-26] MEDS: Nystatin TOP POWDER 15 GM BTL TOPICAL SCH ×3 (08:25→20:09)
[2019-11-26] MEDS ORDERED: Cefepime 1 GM in Dextrose 1 GM/50 ML BAG IV SCH (09:00)
[2019-11-26] MEDS ORDERED: Perflutren Lipid Microsphere 3 ML VIAL ONE (09:34)
[2019-11-26 14:56] LABS: Hematocrit 34 % (42-52); Hemoglobin 11.1 g/dL (14.0-18.0); Mean Corpuscular HGB Conc 33 g/dL (31-36); Mean Corpuscular Hemoglobin 34 pg (27-31); Mean Corpuscular Volume 102 fL (80-94); Mean Platelet Volume 9.2 fL (7.4-10.4); Platelet Count 175 10^3/uL (150-450); Red Blood Count 3.28 10^6 /uL (4.18-5.48); Red Cell Distribution Width 15 % (10-15); White Blood Count 16.9 10^3/uL (3.5-10.8)
[2019-11-26 15:15] LABS: Anion Gap 8 mmol/L (2-11); BUN/Creatinine Ratio 25.5 (8-20); Blood Urea Nitrogen 37 mg/dL (6-24); CO2 Carbon Dioxide 20 mmol/L (22-32); Chloride 112 mmol/L (101-111); EGFR African American 55.4 (>60); EGFR Non-African American 45.8 (>60); Glucose 123 mg/dL (70-100); Potassium 3.8 mmol/L (3.5-5.0); Sodium 140 mmol/L (135-145)
[2019-11-26] MEDS: Meropenem 1 GM PREMIX 1 GM/50 ML BAG IV SCH (17:04)
[2019-11-26] MEDS: Enoxaparin 40 MG/0.4 ML SYR SUBCUT SCH (20:08)
[2019-11-26] MEDS: CMCS:Pravastatin 20 mg TAB (NF) PO SCH (20:08)
[2019-11-26 21:00] LABS: Vancomycin Random < 2.0 mcg/mL
[2019-11-26] MEDS ORDERED: Vancomycin 1,250 MG IV Q24H IVPB SCH (22:00)
[2019-11-26 22:21] LABS: BUN/Creatinine Ratio 28.2 (8-20); Calcium 8.5 mg/dL (8.6-10.3); EGFR African American 56.8 (>60); EGFR Non-African American 46.9 (>60); Potassium 4.2 mmol/L (3.5-5.0)
[2019-11-26] MEDS ORDERED: VANCOMYCIN 1250 MG IVPB ONE (22:30)
[2019-11-27] MEDS: Meropenem 1 GM PREMIX 1 GM/50 ML BAG IV SCH ×2 (03:50→14:36)
[2019-11-27] MEDS: Aspirin EC 81 mg TAB.EC (enteric coated) PO SCH (07:38)
[2019-11-27] MEDS: Nystatin TOP POWDER 15 GM BTL TOPICAL SCH ×3 (07:41→22:19)
[2019-11-27 09:20] LABS: Hematocrit 36 % (42-52); Hemoglobin 12.2 g/dL (14.0-18.0); Mean Corpuscular HGB Conc 34 g/dL (31-36); Mean Corpuscular Hemoglobin 34 pg (27-31); Mean Corpuscular Volume 100 fL (80-94); Mean Platelet Volume 9.3 fL (7.4-10.4); Platelet Count 188 10^3/uL (150-450); Red Blood Count 3.58 10^6 /uL (4.18-5.48); Red Cell Distribution Width 15 % (10-15); White Blood Count 16.7 10^3/uL (3.5-10.8)
[2019-11-27] MEDS ORDERED: Vancomycin 1000 MG in NS 0.9% 250 ML IVPB SCH (22:00)
[2019-11-27] MEDS: Enoxaparin 40 MG/0.4 ML SYR SUBCUT SCH (22:18)
[2019-11-27] MEDS: CMCS:Pravastatin 20 mg TAB (NF) PO SCH (22:19)
[2019-11-28] MEDS: Meropenem 1 GM PREMIX 1 GM/50 ML BAG IV SCH ×2 (02:41→15:19)
[2019-11-28] MEDS: Aspirin EC 81 mg TAB.EC (enteric coated) PO SCH (08:14)
[2019-11-28] MEDS: Nystatin TOP POWDER 15 GM BTL TOPICAL SCH ×3 (08:16→21:15)
[2019-11-28 14:14] LABS: Hematocrit 36 % (42-52); Hemoglobin 12.3 g/dL (14.0-18.0); Mean Corpuscular HGB Conc 34 g/dL (31-36); Mean Corpuscular Hemoglobin 34 pg (27-31); Mean Corpuscular Volume 101 fL (80-94); Mean Platelet Volume 9.5 fL (7.4-10.4); Platelet Count 205 10^3/uL (150-450); Red Blood Count 3.61 10^6 /uL (4.18-5.48); Red Cell Distribution Width 15 % (10-15); White Blood Count 11.4 10^3/uL (3.5-10.8)
[2019-11-28 14:30] LABS: BUN/Creatinine Ratio 28.2 (8-20); EGFR African American 62.3 (>60); EGFR Non-African American 51.5 (>60); Magnesium 1.9 mg/dL (1.9-2.7); Potassium 4.1 mmol/L (3.5-5.0)
[2019-11-28] MEDS: CMCS:Pravastatin 20 mg TAB (NF) PO SCH (21:12)
[2019-11-28] MEDS: Enoxaparin 40 MG/0.4 ML SYR SUBCUT SCH (21:12)
[2019-11-29] MEDS: Meropenem 1 GM PREMIX 1 GM/50 ML BAG IV SCH ×2 (04:14→15:33)
[2019-11-29] MEDS: Aspirin EC 81 mg TAB.EC (enteric coated) PO SCH (08:22)
[2019-11-29] MEDS: Nystatin TOP POWDER 15 GM BTL TOPICAL SCH ×3 (08:27→20:47)
[2019-11-29 11:56] LABS: Hematocrit 39 % (42-52); Hemoglobin 12.9 g/dL (14.0-18.0); Mean Corpuscular HGB Conc 33 g/dL (31-36); Mean Corpuscular Hemoglobin 34 pg (27-31); Mean Corpuscular Volume 103 fL (80-94); Mean Platelet Volume 9.5 fL (7.4-10.4); Platelet Count 104 10^3/uL (150-450); Red Blood Count 3.77 10^6 /uL (4.18-5.48); Red Cell Distribution Width 16 % (10-15); White Blood Count 9.3 10^3/uL (3.5-10.8)
[2019-11-29 12:48] LABS: CO2 Carbon Dioxide 21 mmol/L (22-32); Calcium 9.1 mg/dL (8.6-10.3); Chloride 109 mmol/L (101-111); Sodium 138 mmol/L (135-145)
[2019-11-29 12:53] LABS: BUN/Creatinine Ratio 26.1 (8-20); Blood Urea Nitrogen 35 mg/dL (6-24); EGFR African American 60.7 (>60); EGFR Non-African American 50.2 (>60); Glucose 119 mg/dL (70-100)
[2019-11-29 12:54] LABS: Anion Gap 8 mmol/L (2-11)
[2019-11-29] MEDS: CMCS:Pravastatin 20 mg TAB (NF) PO SCH (20:44)
[2019-11-29] MEDS: Enoxaparin 40 MG/0.4 ML SYR SUBCUT SCH (20:45)
[2019-11-29] MEDS ORDERED: Vancomycin Trough Check NOTE FOLLOW UP ONE (21:30)
[2019-11-30] MEDS: Meropenem 1 GM PREMIX 1 GM/50 ML BAG IV SCH ×2 (02:53→15:02)
[2019-11-30 07:21] LABS: Hematocrit 35 % (42-52); Hemoglobin 12.3 g/dL (14.0-18.0); Mean Corpuscular HGB Conc 35 g/dL (31-36); Mean Corpuscular Hemoglobin 35 pg (27-31); Mean Corpuscular Volume 100 fL (80-94); Mean Platelet Volume 9.8 fL (7.4-10.4); Platelet Count 193 10^3/uL (150-450); Red Blood Count 3.54 10^6 /uL (4.18-5.48); Red Cell Distribution Width 15 % (10-15); White Blood Count 10.1 10^3/uL (3.5-10.8)
[2019-11-30] MEDS: Aspirin EC 81 mg TAB.EC (enteric coated) PO SCH (09:02)
[2019-11-30] MEDS: Nystatin TOP POWDER 15 GM BTL TOPICAL SCH ×3 (09:04→21:12)
[2019-11-30] MEDS: Enoxaparin 40 MG/0.4 ML SYR SUBCUT SCH (21:11)
[2019-11-30] MEDS: CMCS:Pravastatin 20 mg TAB (NF) PO SCH (21:11)
[2019-12-01] MEDS: Meropenem 1 GM PREMIX 1 GM/50 ML BAG IV SCH ×2 (02:11→14:37)
[2019-12-01] MEDS: Nystatin TOP POWDER 15 GM BTL TOPICAL SCH ×3 (08:26→21:10)
[2019-12-01] MEDS: Aspirin EC 81 mg TAB.EC (enteric coated) PO SCH (08:26)
[2019-12-01] MEDS: CMCS:Pravastatin 20 mg TAB (NF) PO SCH (21:09)
[2019-12-01] MEDS: Enoxaparin 40 MG/0.4 ML SYR SUBCUT SCH (21:10)
[2019-12-02] MEDS: Meropenem 1 GM PREMIX 1 GM/50 ML BAG IV SCH ×2 (03:12→15:46)
[2019-12-02] MEDS: Aspirin EC 81 mg TAB.EC (enteric coated) PO SCH (07:32)
[2019-12-02] MEDS: Nystatin TOP POWDER 15 GM BTL TOPICAL SCH ×3 (07:33→21:17)
[2019-12-02] MEDS ORDERED: Buffered Lidocaine 1% SYRIN 1 ml INTRADERM ONE (15:47)
[2019-12-02] MEDS: CMCS:Pravastatin 20 mg TAB (NF) PO SCH (21:16)
[2019-12-02] MEDS: Enoxaparin 40 MG/0.4 ML SYR SUBCUT SCH (21:16)
[2019-12-03] MEDS: Meropenem 1 GM PREMIX 1 GM/50 ML BAG IV SCH ×2 (03:07→16:11)
[2019-12-03] MEDS ORDERED: Buffered Lidocaine 1% SYRIN 1 ml INTRADERM ONE (08:00)
[2019-12-03] MEDS: Aspirin EC 81 mg TAB.EC (enteric coated) PO SCH (11:08)
[2019-12-03] MEDS: Nystatin TOP POWDER 15 GM BTL TOPICAL SCH ×3 (11:46→21:53)
[2019-12-03] MEDS: CMCS:Pravastatin 20 mg TAB (NF) PO SCH (21:52)
[2019-12-03] MEDS: Enoxaparin 40 MG/0.4 ML SYR SUBCUT SCH (21:52)
[2019-12-04] MEDS ORDERED: Meropenem 1 GM PREMIX 1 GM/50 ML BAG IV SCH
[2019-12-04] MEDS: Aspirin EC 81 mg TAB.EC (enteric coated) PO SCH (07:43)
[2019-12-04] MEDS: Nystatin TOP POWDER 15 GM BTL TOPICAL SCH (07:52)
[2019-12-04 08:25] VITALS: BP 146/77
== END 2019-12-04 10:55 | disposition home or self-care (01) | DRG 871 ==
LOC: ED 16:48 → MEDTELE 16:48
PROVIDERS: ADMIT Internal Medicine Interventional Cardiology; ATTEND Internal Medicine